=== PATIENT | female | born 1945 | race Caucasian/White ===

== ENCOUNTER 2019-11-15 18:50 | Outpatient (REF) | payer MEDICARE, SELFPAY ==
--- NOTE | 2019-11-15 | MR_ITS ---
EXAMINATION: MR ANGIOGRAPHY BRAIN WITHOUT CONTRAST CLINICAL INFORMATION: Cerebral aneurysm. COMPARISON: CT head from 03/25/2019. Brain MRI/MRA from 09/16/2017. TECHNIQUE: Routine MRA of the head was performed without intravenous contrast. A routine 3D [id number] of the head was utilized. 3D postprocessing including acquisition of multiplanar MIP reformats are obtained at the technologist workstation and utilized for image interpretation. FINDINGS: Normal flow-related signal within the intradural internal carotid arteries. Stable appearance of a medially projecting 0.2 cm saccular aneurysm versus infundibulum arising from the distal supraclinoid segment of the left internal carotid artery. Normal flow-related signal within the M1 segments of the middle cerebral arteries bilaterally. Stable anteroinferiorly projecting saccular aneurysm arising from the M1-M2 junction of the left MCA, measuring 0.6 cm. Normal arborization of the bilateral MCAs. Normal flow-related signal within the A1 segments of the anterior cerebral arteries bilaterally. Normal anterior communicating artery. Normal flow-related signal within the visualized distal segments of the ACAs. Normal appearance of the intradural vertebral arteries. 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 Similar patulous appearance of the basilar tip. Normal flow-related signal within the proximal superior cerebellar arteries. Normal appearance of the P1 and P2 segments of the posterior cerebral arteries bilaterally. Small posterior communicating arteries are demonstrated bilaterally. Limited evaluation of the intracranial structures is notable for chronic white matter disease. Proportional prominence of the ventricles and sulcal spaces similar to prior exams. IMPRESSION: MRA of the head without proximal occlusion or flow-limiting stenosis. No new intracranial aneurysms. 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 - Saccular aneurysm versus infundibulum along the distal supraclinoid segment of the left ICA, measuring 0.2 cm. 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 - Patulous appearance of the basilar tip.
== END 2019-11-15 18:51 | disposition home or self-care (01) ==
LOC: HO.MRI 18:50
PROVIDERS: PCP Internal Medicine; Visit Provider Physician Assistant Medical
DX: I67.1 Cerebral aneurysm, nonruptured (principal)
CPT/HCPCS: 70544

== ENCOUNTER → 2019-11-27 13:03 | Outpatient (BNVA) | payer MEDICARE, SELFPAY | PROVIDERS: PCP Internal Medicine; Visit Provider Internal Medicine | DX: I48.0 Paroxysmal atrial fibrillation (principal); Z51.81 Encounter for therapeutic drug level monitoring; Z79.01 Long term (current) use of 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s | CPT/HCPCS: 85610; 99211 ==

== ENCOUNTER → 2019-12-06 13:17 | Outpatient (BNVA) | payer MEDICARE, SELFPAY | PROVIDERS: PCP Internal Medicine; Visit Provider Internal Medicine | DX: I48.0 Paroxysmal atrial fibrillation (principal); Z51.81 Encounter for therapeutic drug level monitoring; Z79.01 Long term (current) use of 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s | CPT/HCPCS: 85610; 99211 ==

== ENCOUNTER → 2019-12-16 13:34 | Outpatient (BNVA) | payer MEDICARE, SELFPAY | PROVIDERS: PCP Internal Medicine; Visit Provider Internal Medicine | DX: I48.0 Paroxysmal atrial fibrillation (principal); Z51.81 Encounter for therapeutic drug level monitoring; Z79.01 Long term (current) use of 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s | CPT/HCPCS: 85610; 99211 ==

== ENCOUNTER → 2019-12-23 11:32 | Outpatient (BNVA) | payer MEDICARE, SELFPAY | PROVIDERS: PCP Internal Medicine; Visit Provider Internal Medicine | DX: I48.0 Paroxysmal atrial fibrillation (principal); Z51.81 Encounter for therapeutic drug level monitoring; Z79.01 Long term (current) use of 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s | CPT/HCPCS: 85610; 99211 ==

== ENCOUNTER → 2019-12-30 13:09 | Outpatient (BNVA) | payer MEDICARE, SELFPAY | PROVIDERS: PCP Internal Medicine; Visit Provider Internal Medicine | DX: I48.0 Paroxysmal atrial fibrillation (principal); Z51.81 Encounter for therapeutic drug level monitoring; Z79.01 Long term (current) use of 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s | CPT/HCPCS: 85610; 99211 ==

== ENCOUNTER → 2020-01-27 13:02 | Outpatient (BNVA) | payer MEDICARE, SELFPAY | PROVIDERS: PCP Internal Medicine; Visit Provider Internal Medicine | DX: I48.0 Paroxysmal atrial fibrillation (principal); Z51.81 Encounter for therapeutic drug level monitoring; Z79.01 Long term (current) use of 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s | CPT/HCPCS: 85610; 99211 ==

== ENCOUNTER → 2020-02-12 09:59 | Outpatient (BNVA) | payer MEDICARE, SELFPAY | PROVIDERS: PCP Internal Medicine; Visit Provider Internal Medicine | DX: I48.0 Paroxysmal atrial fibrillation (principal); R00.1 Bradycardia, unspecified; I63.40 Cerebral infarction due to embolism of unspecified cerebral artery; I10 Essential (primary) hypertension; Z79.899 Other long term (current) drug therapy; Z79.01 Long term (current) use of 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s; Z91.89 Other specified personal risk factors, not elsewhere classified | CPT/HCPCS: 93005; 99212 ==

== ENCOUNTER 2020-02-17 10:13 | Outpatient (REF) | payer MEDICARE, SELFPAY ==
[2020-02-17 11:54] LABS: TSH reflex Free T4 2.73 mIU/mL (0.32-4.0)
== END 2020-02-17 10:14 | disposition home or self-care (01) ==
LOC: HO.LAB 10:13
PROVIDERS: PCP Internal Medicine; Visit Provider Internal Medicine
DX: I48.0 Paroxysmal atrial fibrillation (principal); Z79.899 Other long term (current) drug therapy; Z91.89 Other specified personal risk factors, not elsewhere classified
CPT/HCPCS: 36415; 84443

== ENCOUNTER 2020-02-21 09:46 | Outpatient (REF) | payer MEDICARE, SELFPAY ==
--- NOTE | 2020-02-21 09:48 | CT_ITS ---
EXAMINATION: CT CHEST WITHOUT CONTRAST CLINICAL INFORMATION: Amiodarone toxicity. COMPARISON: None TECHNIQUE: Multidetector volumetric CT imaging of the chest was done. Axial MIP volume rendering provided. Sagittal and coronal reformatted images were obtained. This CT examination was performed using dose optimization techniques as appropriate, variously including the following: *Automated exposure control *Adjustment of mA and/or kV according to patient size (this includes techniques or standardized protocols for targeted exams where dose is matched to indication/reason for exam; i.e. 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 LUNGS: The lungs are hyperinflated but clear of acute pneumonic process. There is a 2 mm calcified nodule right middle lobe axial image 66/6. There is plate-like atelectasis left lower lobe anterobasal segment. No other lung nodules, mass or consolidation seen. MEDIASTINUM: The thyroid lobes are symmetrical and normal. The central trachea and bronchi are widely patent. There are numerous small mediastinal lymph nodes seen. The heart size and the great vessels are normal caliber. There are coronary artery calcifications present. No pericardial effusion seen. PLEURA: There is no pleural effusion. No pleural mass or thickening. AXILLA: No lymphadenopathy. UPPER ABDOMEN: The visualized liver, spleen, pancreas appear unremarkable. There is a solitary radiopaque gallstone without wall thickening. OSSEOUS STRUCTURES: There is mild ventral spondylosis. No lytic or sclerotic process seen. CT/CT chest wo con IMPRESSION: Hyperinflated lungs without acute process. There is a calcified 2 mm nodule right middle lobe. Minimal plate-like atelectasis left lung base. Coronary artery calcifications. Gallstone.
== END 2020-02-21 09:47 | disposition home or self-care (01) ==
LOC: HO.CT 09:46
PROVIDERS: PCP Internal Medicine; Visit Provider Internal Medicine
DX: Z79.899 Other long term (current) drug therapy (principal); Z91.89 Other specified personal risk factors, not elsewhere classified
CPT/HCPCS: 71250

== ENCOUNTER → 2020-02-24 13:09 | Outpatient (BNVA) | payer MEDICARE, SELFPAY | PROVIDERS: PCP Internal Medicine; Visit Provider Internal Medicine | DX: I48.0 Paroxysmal atrial fibrillation (principal); Z79.01 Long term (current) use of 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s; Z51.81 Encounter for therapeutic drug level monitoring | CPT/HCPCS: 85610; 99211 ==

== ENCOUNTER → 2020-02-28 09:38 | Outpatient (BNVA) | payer MEDICARE, SELFPAY | PROVIDERS: PCP Internal Medicine; Visit Provider Internal Medicine | DX: I48.0 Paroxysmal atrial fibrillation (principal); Z51.81 Encounter for therapeutic drug level monitoring; Z79.01 Long term (current) use of 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s | CPT/HCPCS: 85610; 99211 ==

== ENCOUNTER → 2020-03-13 12:56 | Outpatient (BNVA) | payer MEDICARE, SELFPAY | PROVIDERS: PCP Internal Medicine; Visit Provider Internal Medicine | DX: I48.0 Paroxysmal atrial fibrillation (principal); Z51.81 Encounter for therapeutic drug level monitoring; Z79.01 Long term (current) use of 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s | CPT/HCPCS: 85610; 99211 ==

== ENCOUNTER → 2020-04-03 13:01 | Outpatient (BNVA) | payer MEDICARE, SELFPAY | PROVIDERS: PCP Internal Medicine; Visit Provider Internal Medicine | DX: I48.0 Paroxysmal atrial fibrillation (principal); Z51.81 Encounter for therapeutic drug level monitoring; Z79.01 Long term (current) use of 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s | CPT/HCPCS: 85610; 99211 ==

== ENCOUNTER → 2020-04-24 13:14 | Outpatient (BNVA) | payer MEDICARE, SELFPAY | PROVIDERS: PCP Internal Medicine; Visit Provider Internal Medicine | DX: I48.0 Paroxysmal atrial fibrillation (principal); Z51.81 Encounter for therapeutic drug level monitoring; Z79.01 Long term (current) use of 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s | CPT/HCPCS: 85610; 99211 ==

== ENCOUNTER → 2020-05-07 10:25 | Outpatient (BNVA) | payer MEDICARE, SELFPAY | PROVIDERS: PCP Internal Medicine; Visit Provider Internal Medicine | DX: I48.0 Paroxysmal atrial fibrillation (principal); R00.1 Bradycardia, unspecified; I63.40 Cerebral infarction due to embolism of unspecified cerebral artery; I10 Essential (primary) hypertension; Z79.899 Other long term (current) drug therapy; Z79.01 Long term (current) use of 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s; Z91.89 Other specified personal risk factors, not elsewhere classified | CPT/HCPCS: 99212 ==

== ENCOUNTER → 2020-05-22 13:03 | Outpatient (BNVA) | payer MEDICARE, SELFPAY | PROVIDERS: PCP Internal Medicine; Visit Provider Internal Medicine | DX: I48.0 Paroxysmal atrial fibrillation (principal); Z79.01 Long term (current) use of 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s; Z51.81 Encounter for therapeutic drug level monitoring | CPT/HCPCS: 85610; 99211 ==

== ENCOUNTER → 2020-06-09 13:27 | Outpatient (BNVA) | payer MEDICARE, SELFPAY | PROVIDERS: PCP Internal Medicine; Visit Provider Internal Medicine | DX: I48.0 Paroxysmal atrial fibrillation (principal); Z51.81 Encounter for therapeutic drug level monitoring; Z79.01 Long term (current) use of 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s | CPT/HCPCS: 85610; 99211 ==

== ENCOUNTER 2020-06-10 16:00 | Outpatient (REF) | payer MEDICARE, SELFPAY ==
--- NOTE | ~2020-06-10 | XR_ITS ---
EXAMINATION: XR WRIST, LEFT CLINICAL INFORMATION: Left wrist pain. COMPARISON: None TECHNIQUE: PA, lateral, and oblique views of the left wrist. FINDINGS: There is hypertrophic deformity and hypertrophic bony distal radius likely related to old fracture. There is dorsal enthesophyte along the distal radius. Mild loss of radiocarpal joint space is noted. There is diffuse osteopenia. No acute fracture or dislocation seen. Moderate soft tissue swelling seen along the radial aspect of forearm. There is no scaphoid fracture seen on the scaphoid view. XR/XR wrist LT 2V IMPRESSION: Deformity and hypertrophic bony changes distal radius most likely from old healed fracture. There is mild dorsal and medial enthesophytes with mild medial radial soft tissue swelling. Mild osteopenia. No acute fracture or dislocation seen. Mild degenerative changes radiocarpal joint space is noted.
== END 2020-06-10 16:01 | disposition home or self-care (01) ==
LOC: HO.XRAY 16:00
PROVIDERS: PCP Internal Medicine; Visit Provider Internal Medicine
DX: M25.531 Pain in right wrist (principal)
CPT/HCPCS: 73100

== ENCOUNTER 2020-06-16 10:07 | Outpatient (REF) | payer MEDICARE, SELFPAY ==
[2020-06-16 11:17] LABS: MANUAL DIFF FLAG NO
[2020-06-16 11:30] LABS: Basophils Percent Auto 0.4 % (0-2); Eosinophils Absolute Auto 0.1 X10*3/uL (0.0-0.4); Eosinophils Percent Auto 0.7 % (0-4); Hemoglobin 13.7 g/dl (12.0-16.0); Imm Gran Abs Auto 0.03 X10*3/uL (0.00-0.03); Imm Gran Pct Auto 0.4 % (0.0-0.4); Lymphocytes Absolute Auto 2.7 X10*3/uL (1.2-4.9); Mean Corpuscular HGB Conc 32.6 g/dl (31.0-35.0); Mean Corpuscular Hemoglobin 28.9 pg (27.0-33.0); Mean Corpuscular Volume 88.6 fL (80-98); Mean Platelet Volume 10.3 fL (9.4-12.3); Monocytes Absolute Auto 0.8 X10*3/uL (0.1-1.2); Monocytes Percent Auto 9.2 % (2-11); Neutrophils Absolute Auto 4.6 X10*3/uL (2.0-8.3); Neutrophils Percent Auto 56.3 % (45-73); Platelet Count 310 X10*3/uL (160-400); Red Blood Count 4.74 X10*6/uL (4.20-5.50); Red Cell Distribution Width 14.1 % (11.0-16.0); White Blood Count 8.2 X10*3/uL (4.8-10.8)
[2020-06-16 12:00] LABS: Alanine Aminotransferase 8 U/L (0-31); Albumin Level 4.3 g/dL (3.5-5.0); Alkaline Phosphatase 97 U/L (39-117); Anion Gap 15 (12-20); Aspartate Amino Transferase 10 U/L (5-31); Bilirubin Direct 0.2 mg/dL (0.0-0.5); Bilirubin Total 0.5 mg/dL (0.0-1.0); Blood Urea Nitrogen 21 mg/dL (9-16); Carbon Dioxide 25 mmol/L (22-29); Chloride 103 mmol/L (96-108); Cholesterol 305 mg/dL; Estimated Glomerular Filt Rate 60; Glucose Fasting 83 mg/dL (60-99); HDL Cholesterol 70 mg/dL; LDL Cholesterol Calculated 204 mg/dl; Potassium 4.5 mmol/L (3.3-5.1); Sodium 138 mmol/L (135-145); Total Protein 7.3 g/dL (6.5-8.0); Triglycerides 156 mg/dL
[2020-06-16 12:10] LABS: Uric Acid 5.2 mg/dL (2.4-5.7)
== END 2020-06-16 10:08 | disposition home or self-care (01) ==
LOC: HO.LAB 10:07
PROVIDERS: Nurse Practitioner Family; Absent Provider Internal Medicine; PCP Internal Medicine; Visit Provider Internal Medicine
DX: M10.9 Gout, unspecified (principal); I48.0 Paroxysmal atrial fibrillation; Z79.01 Long term (current) use of 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s; Z51.81 Encounter for therapeutic drug level monitoring
CPT/HCPCS: 36415; 80048; 80061; 80076; 84550; 85025; 85610; 99211

== ENCOUNTER → 2020-06-23 14:55 | Outpatient (BNVA) | payer MEDICARE, SELFPAY | PROVIDERS: PCP Internal Medicine; Visit Provider Internal Medicine | DX: I48.0 Paroxysmal atrial fibrillation (principal); Z51.81 Encounter for therapeutic drug level monitoring; Z79.01 Long term (current) use of 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s | CPT/HCPCS: 85610; 99211 ==

== ENCOUNTER → 2020-06-30 10:43 | Outpatient (BNVA) | payer MEDICARE, SELFPAY | PROVIDERS: PCP Internal Medicine; Visit Provider Internal Medicine | DX: I48.0 Paroxysmal atrial fibrillation (principal); Z51.81 Encounter for therapeutic drug level monitoring; Z79.01 Long term (current) use of 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s | CPT/HCPCS: 85610; 99211 ==

== ENCOUNTER → 2020-07-13 10:42 | Outpatient (BNVA) | payer MEDICARE, SELFPAY | PROVIDERS: PCP Internal Medicine; Visit Provider Internal Medicine | DX: I48.0 Paroxysmal atrial fibrillation (principal); Z51.81 Encounter for therapeutic drug level monitoring; Z79.01 Long term (current) use of 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s | CPT/HCPCS: 85610; 99211 ==

== ENCOUNTER → 2020-07-20 10:55 | Outpatient (BNVA) | payer MEDICARE, SELFPAY | PROVIDERS: PCP Internal Medicine; Visit Provider Internal Medicine | DX: I48.0 Paroxysmal atrial fibrillation (principal); Z51.81 Encounter for therapeutic drug level monitoring; Z79.01 Long term (current) use of 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s | CPT/HCPCS: 85610; 99211 ==

== ENCOUNTER 2020-07-21 18:28 | Emergency (ER) | payer MEDICARE, SELFPAY ==
--- NOTE | 2020-07-21 07:42 | ECG_ITS ---
Test Reason : TACHYCARDIA Blood Pressure : / mmHG Vent. Rate : 144 BPM Atrial Rate : 144 BPM P-R Int : 120 ms QRS Dur : 084 ms QT Int : 332 ms P-R-T Axes : 000 -28 -17 degrees QTc Int : 514 ms Atrial fibrillation with rapid ventricular response Abnormal ECG When compared with ECG of 26-SEP-2019 09:55, Rhythm change Referred By: Clemente Sims Electronically Signed By:ESTHER BRIONES
[2020-07-21 18:49] VITALS: BP 114/87; PULSE 152; RESP 18; TEMP 36; O2SAT 95; BMI 25.0
--- NOTE | 2020-07-21 19:05 | ECG_ITS ---
Test Reason : AFIB Blood Pressure : / mmHG Vent. Rate : 064 BPM Atrial Rate : 064 BPM P-R Int : 184 ms QRS Dur : 092 ms QT Int : 458 ms P-R-T Axes : 063 -25 029 degrees QTc Int : 472 ms Sinus rhythm with Premature atrial complexes Otherwise normal ECG When compared with ECG of 21-JUL-2020 18:56, Rhythm change Referred By: Clemente Sims Electronically Signed By:ESTHER BRIONES
[2020-07-21 19:13] LABS: MANUAL DIFF FLAG NO
[2020-07-21 19:14] LABS: Basophils Percent Auto 0.4 % (0-2); Eosinophils Absolute Auto 0.1 X10*3/uL (0.0-0.4); Hematocrit 39.4 % (37-47); Hemoglobin 13.3 g/dl (12.0-16.0); Imm Gran Abs Auto 0.03 X10*3/uL (0.00-0.03); Imm Gran Pct Auto 0.3 % (0.0-0.4); Lymphocytes Absolute Auto 2.3 X10*3/uL (1.2-4.9); Lymphocytes Percent Auto 25.1 % (20-40); Mean Corpuscular HGB Conc 33.8 g/dl (31.0-35.0); Mean Corpuscular Hemoglobin 29.1 pg (27.0-33.0); Mean Corpuscular Volume 86.2 fL (80-98); Mean Platelet Volume 10.4 fL (9.4-12.3); Monocytes Absolute Auto 0.8 X10*3/uL (0.1-1.2); Monocytes Percent Auto 8.6 % (2-11); Neutrophils Absolute Auto 5.8 X10*3/uL (2.0-8.3); Neutrophils Percent Auto 64.6 % (45-73); Platelet Count 264 X10*3/uL (160-400); Red Blood Count 4.57 X10*6/uL (4.20-5.50); Red Cell Distribution Width 13.8 % (11.0-16.0)
--- NOTE | 2020-07-21 19:24 | ED_ITS ---
HPI - Chest Pain General Chief Complaint: Chest Pain Stated Complaint: afib Time Seen by Provider: 07/21/20 19:05 Source: patient Mode of arrival: ambulatory Limitations: no limitations History of Present Illness HPI narrative: Patient history of atrial fibrillation status post ablation done on 07/07 on flecainide 50 mg twice daily was doing okay since ablation today for last few hours been feeling dizzy lightheaded felt funny in her chest some pain in the left arm felt palpitations on arrival patient had a heart rate of 152 beats per min no syncope no diaphoresis Related Data Home Medications Medication Instructions Recorded Confirmed diltiazem HCl 240 mg 240 mg PO QAM 12/17/19 06/10/20 capsule,extended release 24 hr hydrochlorothiazide 25 mg tablet 25 mg PO DAILY 12/17/19 06/10/20 potassium chloride 10 mEq 10 meq PO DAILY 12/17/19 06/10/20 tablet,extended release primidone 50 mg tablet 50 mg PO BID 12/17/19 06/10/20 atorvastatin 20 mg tablet 20 mg PO DAILY 02/28/20 06/10/20 lisinopril 40 mg tablet 40 mg PO DAILY 02/28/20 06/10/20 flecainide 50 mg tablet 50 mg PO DAILY tab 07/13/20 metoprolol succinate 25 mg 25 mg PO DAILY tab 07/13/20 tablet,extended release 24 hr Previous Rx's Medication Instructions Recorded warfarin 2.5 mg tablet 2.5 mg PO DAILY #90 tab 11/20/19 hydralazine 25 mg tablet 25 mg PO TID #90 cap 06/23/20 pantoprazole 40 mg tablet,delayed 40 mg PO DAILY #90 tab 07/10/20 release Allergies Allergy/AdvReac Type Severity Reaction Status Date / Time No Known Allergies Allergy Mild NOT Verified 07/21/20 18:48 APPLICABLE Review of Systems Review of Systems: Constitutional : No Weight loss, No Fever, No Chills ENT/Mouth : No sore throat, No Rhinorrhea Eyes: No Eye Pain, No Swelling Cardiovascular : No Chest Pain, no palpitations Respiratory : No Cough, No Sputum, no shortness of breath Gastrointestinal : no Nausea, No Vomiting, No Diarrhea, No abdominal Pain, no black stools Genitourinary : No Dysuria, No Urinary Frequency Musculoskeletal : No joint pain, No Myalgias, No Joint Swelling Skin : No Skin Lesions, No rash Neuro : ++ Weakness, No Numbness, ++Dizziness, No Headache Psych : No Anxiety/Panic, No Depression Heme/Lymph: No Bruising, No Lymphadenopathy Endocrine : No Polyuria, No Polydipsia All other systems reviewed and are negative [facility] Past Medical History Medical History Annual physical exam 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 Embolic stroke Essential hypertension 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 of 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 PAF (paroxysmal atrial fibrillation) Sinus bradycardia Surgical History History of section History of colostomy Family History Family History Father CVD (cardiovascular disease) Mother Alzheimer disease Social History Social History Alcohol intake: never Patient Tobacco Use Status: Tobacco use Unknown Cigarettes Per Day: 3 Use of substances other than those prescribed or required for medical reasons: No Advance Directives: No Advance Directives Information Provided: No Physical Exam Vital Signs: Vital Signs: Last Vital Signs Temp 98.1 F 07/21/20 21:33 Pulse 62 07/21/20 21:33 Resp 16 07/21/20 21:33 BP 118/84 07/21/20 21:33 Pulse Ox 98 07/21/20 21:33 Body Mass Index 25.0 Appearance: Alert. Oriented X3. No acute distress. Eyes: PERRLA, No Nystagmus ENT: Pharynx normal. Oral Mucosa moist Neck: Normal inspection. Neck supple. CVS: Tachycardia with heart rate 133 irregular irregular Pulses normal. Respiratory: No respiratory distress. Equal air entry bilateral, no wheez ing/rales/rhonchi Abdomen: Soft and nontender. Bowel sounds are present, no mass palpable, no CVA tenderness Skin: Skin warm and dry. Normal skin color. Normal skin turgor. Extremities: No lower extremity edema. No calf tenderness Neuro: Oriented X 3. No motor deficit. No sensory deficit.No cerebellar signs , cranial nerves II-XII intact MDM - Chest Pain MDM Narrative Medical decision making narrative: Patient with AFib with rapid ventricular rate case discussed with Dr. Bhat display coordinator advised to give flexion at 200 mg as patient already on flecainide 19:50 his cardiac monitoring showing normal sinus rhythm patient received flecainide about 30 minutes ago with patient is feeling better now no chest pain no palpitation Medical Records Data Attestation: I reviewed the patient's medical records. Lab Data Attestation: I reviewed the patient's lab results. Result diagrams: 07/21/20 19:08 07/21/20 19:08 Labs: Lab Results 07/21/20 07/21/20 07/21/20 Range/Units 19:08 19:08 19:08 WBC 9.0 (4.8-10.8) X10*3/uL RBC 4.57 (4.20-5.50) X10*6/uL Hgb 13.3 (12.0-16.0) g/dl Hct 39.4 (37-47) % MCV 86.2 (80-98) fL MCH 29.1 (27.0-33.0) pg MCHC 33.8 (31.0-35.0) g/dl RDW 13.8 (11.0-16.0) % Plt Count 264 (160-400) X10*3/uL MPV 10.4 (9.4-12.3) fL Immature Gran % (Auto) 0.3 (0.0-0.4) % Neut % (Auto) 64.6 (45-73) % Lymph % (Auto) 25.1 (20-40) % Orange % (Auto) 8.6 (2-11) % Eos % (Auto) 1.0 (0-4) % Baso % (Auto) 0.4 (0-2) % Lymph # (Auto) 2.3 (1.2-4.9) X10*3/uL Orange # (Auto) 0.8 (0.1-1.2) X10*3/uL Eos # (Auto) 0.1 (0.0-0.4) X10*3/uL Baso # (Auto) 0.0 (0.0-0.2) X10*3/uL Abs Immat Gran (auto) 0.03 (0.00-0.03) X10*3/uL Absolute Neuts (auto) 5.8 (2.0-8.3) X10*3/uL Absolute Nucleated RBC 0.000 (0.0-0.012) X10*3/uL Nucleated RBC % (auto) 0.0 (0.0-0.2) /100WBC PT 24.4 H (10.8-13.0) SEC INR 2.0 H (0.9-1.1) Sodium 140 (135-145) mmol/L Potassium 4.4 (3.3-5.1) mmol/L Chloride 104 (96-108) mmol/L Carbon Dioxide 24 (22-29) mmol/L Anion Gap 16 (12-20) BUN 17 H (9-16) mg/dL Creatinine 1.06 (0.5-1.4) mg/dL Estim Creat Clear Calc 39.7 Estimated GFR 51 Random Glucose 102 (60-115) mg/dL Calcium 10.0 (8.4-10.2) mg/dL Troponin I High Sens (<3.5-17.0) ng/L 07/21/20 Range/Units 19:08 WBC (4.8-10.8) X10*3/uL RBC (4.20-5.50) X10*6/uL Hgb (12.0-16.0) g/dl Hct (37-47) % MCV (80-98) fL MCH (27.0-33.0) pg MCHC (31.0-35.0) g/dl RDW (11.0-16.0) % Plt Count (160-400) X10*3/uL MPV (9.4-12.3) fL Immature Gran % (Auto) (0.0-0.4) % Neut % (Auto) (45-73) % Lymph % (Auto) (20-40) % Orange % (Auto) (2-11) % Eos % (Auto) (0-4) % Baso % (Auto) (0-2) % Lymph # (Auto) (1.2-4.9) X10*3/uL Orange # (Auto) (0.1-1.2) X10*3/uL Eos # (Auto) (0.0-0.4) X10*3/uL Baso # (Auto) (0.0-0.2) X10*3/uL Abs Immat Gran (auto) (0.00-0.03) X10*3/uL Absolute Neuts (auto) (2.0-8.3) X10*3/uL Absolute Nucleated RBC (0.0-0.012) X10*3/uL Nucleated RBC % (auto) (0.0-0.2) /100WBC PT (10.8-13.0) SEC INR (0.9-1.1) Sodium (135-145) mmol/L Potassium (3.3-5.1) mmol/L Chloride (96-108) mmol/L Carbon Dioxide (22-29) mmol/L Anion Gap (12-20) BUN (9-16) mg/dL Creatinine (0.5-1.4) mg/dL Estim Creat Clear Calc Estimated GFR Random Glucose (60-115) mg/dL Calcium (8.4-10.2) mg/dL Troponin I High Sens 19.4 H* (<3.5-17.0) ng/L ECG Data ECG #1: Attestation: I personally reviewed and interpreted this ECG as follows: Interpretation: Atrial fibrillation with heart rate of 144 beats per minute no acute ST T wave changes no acute ischemia impression atrial fibrillation with rapid ventricular rate Discharge Plan Discharge Clinical Impression: Atrial fibrillation with rapid ventricular response Patient Disposition: Home, Self-Care Instructions: A-fib (Atrial Fibrillation) (ED) Additional Instructions: Increase the dose of flecainide to 100 mg twice daily And follow-up with display coordinator Prescriptions: No Action warfarin 2.5 mg tablet 2.5 mg PO DAILY Qty: 90 RF: 8 hydralazine 25 mg tablet 25 mg PO TID Qty: 90 RF: 5 pantoprazole 40 mg tablet,delayed release (DR/EC) 40 mg PO DAILY Qty: 90 RF: 8 flecainide 50 mg tablet 50 mg PO DAILY RF: 0 metoprolol succinate 25 mg tablet extended release 24 hr 25 mg PO DAILY RF: 0 primidone 50 mg tablet 50 mg PO BID RF: 0 potassium chloride 10 mEq tablet extended release 10 meq PO DAILY RF: 0 hydrochlorothiazide 25 mg tablet 25 mg PO DAILY RF: 0 diltiazem HCl 240 mg capsule,extended release 24hr 240 mg PO QAM RF: 0 lisinopril 40 mg tablet 40 mg PO DAILY RF: 0 atorvastatin 20 mg tablet 20 mg PO DAILY RF: 0 Interventions: ED Discharge Assessment Last Done: 07/21/20 21:34 Discharge Date/Time: 07/21/20 21:35
[2020-07-21] MEDS: Flecainide Acetate 50 MG TABLET 200 MG PO (19:32)
[2020-07-21 19:46] LABS: Troponin-I High Sensitivity 19.4 ng/L (<3.5-17.0)
[2020-07-21 19:47] LABS: Prothrombin Time 24.4 SEC (10.8-13.0)
[2020-07-21 19:51] LABS: Anion Gap 16 (12-20); Blood Urea Nitrogen 17 mg/dL (9-16); Carbon Dioxide 24 mmol/L (22-29); Chloride 104 mmol/L (96-108); Creatinine Clr Calc Pharmacy 39.7; Estimated Glomerular Filt Rate 51; Glucose Random 102 mg/dL (60-115); Potassium 4.4 mmol/L (3.3-5.1); Sodium 140 mmol/L (135-145)
[2020-07-21 21:33] VITALS: BP 118/84; PULSE 62; RESP 16; TEMP 36.7; O2SAT 98
== END 2020-07-21 21:35 | disposition home or self-care (01) ==
PROVIDERS: Emergency Provider Internal Medicine; PCP Internal Medicine
DX: I48.0 Paroxysmal atrial fibrillation (principal); I10 Essential (primary) hypertension; Z79.01 Long term (current) use of 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s; Z79.899 Other long term (current) drug therapy
CPT/HCPCS: 36415; 80048; 84484; 85025; 85610; 93005; 99284

== ENCOUNTER → 2020-07-27 11:15 | Outpatient (BNVA) | payer MEDICARE, SELFPAY | PROVIDERS: PCP Internal Medicine; Visit Provider Internal Medicine | DX: I48.0 Paroxysmal atrial fibrillation (principal); Z51.81 Encounter for therapeutic drug level monitoring; Z79.01 Long term (current) use of 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s | CPT/HCPCS: 85610; 99211 ==

== ENCOUNTER → 2020-08-05 13:05 | Outpatient (BNVA) | payer MEDICARE, SELFPAY | PROVIDERS: PCP Internal Medicine; Referring Provider Internal Medicine; Visit Provider Nurse Practitioner Family | DX: I48.0 Paroxysmal atrial fibrillation (principal); I10 Essential (primary) hypertension; R00.1 Bradycardia, unspecified; Z79.01 Long term (current) use of 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s | CPT/HCPCS: 93005; 99212 ==

== ENCOUNTER → 2020-08-17 11:08 | Outpatient (BNVA) | payer MEDICARE, SELFPAY | PROVIDERS: PCP Internal Medicine; Visit Provider Internal Medicine | DX: I48.0 Paroxysmal atrial fibrillation (principal); Z51.81 Encounter for therapeutic drug level monitoring; Z79.01 Long term (current) use of 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s | CPT/HCPCS: 85610; 99211 ==

== ENCOUNTER → 2020-08-21 09:41 | Outpatient (REF) | payer MEDICARE, SELFPAY ==
--- NOTE | ~2020-08-21 | NM_ITS ---
Myocardial perfusion study Indication: Atrial fibrillation to evaluate for myocardial ischemia for use of NI Technique: The patient was brought in for a Lexiscan perfusion study on 08/21/2020. Patient performed low-level exercise and was injected 0.4 mg of Lexiscan intravenously. Within a minute of injection, 25 mCi of sestamibi was given intravenously. Images were obtained using the SPECT gamma camera interlaced with the gating device. Images were obtained in supine position. Resting perfusion study was performed on 08/24/2020. Patient was administered 25 mCi of sestamibi intravenously at rest. Images were then obtained in supine position. Images obtained with and without CT attenuation. Total DLP 107 mGy-cm. Images were processed with the software and compared side to side in short axis, horizontal long axis and vertical long axis views. Findings: The stress perfusion study showed nonattenuated images show mildly reduced uptake in the lateral wall of the LV myocardium. Remainder of the LV myocardium is normally perfused. Attenuation corrected images show normalized uptake in all segments of LV myocardium. The gated study shows normal LV systolic function with calculated LVEF of greater than 70 %. LV cavity is normal in size. The gated study shows normal systolic wall thickening and contraction of segments. Resting study shows nonattenuated images show normal uptake of radiotracer in all segments of LV myocardium. Attenuation corrected images show normal uptake of radiotracer in all segments of LV myocardium. Gating at rest reveals normal systolic wall motion with ejection fraction at 70%. The findings are consistent with equivocal finding for mild intensity reversible defect of lateral wall. This is probably suggestive of ischemia. Findings are not seen on attenuated corrected images and could be possibly related to over correction. NM/NM kaylin perf SPECT rest & str Impression: 1. Myocardial perfusion imaging study shows possible lateral wall ischemia of mild intensity 2. Gated LVEF is 70% 3. Transient ischemic dilatation not present EKG is nondiagnostic for ischemia
--- NOTE | 2020-08-21 09:43 | CA_ITS ---
Acquisition Time: 2020-08-21 10:06:02 Total Exercise Time: 00:02:00 Test Indications: Ischemia Evaluation Medications: ATORVASTATIN FLECAINIDE HYDRALAZINE HCTZ LISINOPRIL PANTOPRAZOLE PRIMIDONE WARFARIN Protocol: LEXISCAN Max HR: 084 BPM 57% of Pred: 145 BPM Max BP: 156/068 mmHG Max Work Load: 1.0 METS Pharmacological stress test using Lexiscan while sitting and kicking her feet. Pt tolerated well, denies any anginal sx. Except for feeling SOB and nausea that was reversed with Aminophyline 75 mg IV. EKG without arrhythmias, non-diagnostic for ischemia. Test reviewed with Dr. Rincon Referred By: Lola Herbert Overread By: Marilyn Patterson NP
== END ==
LOC: HO.CARD 09:41
PROVIDERS: Visit Provider Internal Medicine
DX: I48.0 Paroxysmal atrial fibrillation (principal)
CPT/HCPCS: 78452; 93017; A9500; J0280; J2785

== ENCOUNTER → 2020-09-09 13:26 | Outpatient (BNVA) | payer MEDICARE, SELFPAY | PROVIDERS: PCP Internal Medicine; Referring Provider Internal Medicine; Visit Provider Internal Medicine | DX: I48.0 Paroxysmal atrial fibrillation (principal); I63.40 Cerebral infarction due to embolism of unspecified cerebral artery; I10 Essential (primary) hypertension; R00.1 Bradycardia, unspecified | CPT/HCPCS: 99212 ==

== ENCOUNTER → 2020-09-14 11:00 | Outpatient (BNVA) | payer MEDICARE, SELFPAY | PROVIDERS: PCP Internal Medicine; Visit Provider Internal Medicine | DX: I48.0 Paroxysmal atrial fibrillation (principal); Z79.01 Long term (current) use of 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s; Z51.81 Encounter for therapeutic drug level monitoring | CPT/HCPCS: 85610; 99211 ==

== ENCOUNTER → 2020-09-22 10:47 | Outpatient (REF) | payer MEDICARE, SELFPAY | LOC: HO.SL 10:47 | PROVIDERS: PCP Internal Medicine; Visit Provider Internal Medicine | DX: G47.33 Obstructive sleep apnea (adult) (pediatric) (principal) | CPT/HCPCS: 95806 ==

== ENCOUNTER → 2020-10-01 14:52 | Outpatient (BNVA) | payer MEDICARE, SELFPAY | PROVIDERS: PCP Internal Medicine; Visit Provider Internal Medicine | DX: I48.0 Paroxysmal atrial fibrillation (principal); Z51.81 Encounter for therapeutic drug level monitoring; Z79.01 Long term (current) use of 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s | CPT/HCPCS: 85610; 99211 ==

== ENCOUNTER → 2020-10-09 11:05 | Outpatient (BNVA) | payer MEDICARE, SELFPAY | PROVIDERS: PCP Internal Medicine; Visit Provider Internal Medicine | DX: I48.0 Paroxysmal atrial fibrillation (principal); Z51.81 Encounter for therapeutic drug level monitoring; Z79.01 Long term (current) use of 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s | CPT/HCPCS: 85610; 99211 ==

== ENCOUNTER → 2020-10-16 11:24 | Outpatient (BNVA) | payer MEDICARE, SELFPAY | PROVIDERS: PCP Internal Medicine; Visit Provider Internal Medicine | DX: I48.0 Paroxysmal atrial fibrillation (principal); Z51.81 Encounter for therapeutic drug level monitoring; Z79.01 Long term (current) use of 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s | CPT/HCPCS: 85610; 99211 ==

== ENCOUNTER 2020-10-23 10:40 | Outpatient (REF) | payer MEDICARE, SELFPAY ==
[2020-10-23 11:36] LABS: Hematocrit 37.3 % (37-47); Hemoglobin 12.5 g/dl (12.0-16.0); Mean Corpuscular HGB Conc 33.5 g/dl (31.0-35.0); Mean Corpuscular Hemoglobin 29.1 pg (27.0-33.0); Mean Corpuscular Volume 86.7 fL (80-98); Mean Platelet Volume 10.3 fL (9.4-12.3); Platelet Count 242 X10*3/uL (160-400); Red Cell Distribution Width 15.6 % (11.0-16.0)
[2020-10-23 12:24] LABS: Anion Gap 12 (12-20); Blood Urea Nitrogen 12 mg/dL (9-16); Calcium 9.8 mg/dL (8.4-10.2); Carbon Dioxide 26 mmol/L (22-29); Chloride 105 mmol/L (96-108); Estimated Glomerular Filt Rate 59; Glucose Random 104 mg/dL (60-115); Potassium 4.4 mmol/L (3.3-5.1); Sodium 139 mmol/L (135-145)
== END 2020-10-23 10:41 | disposition home or self-care (01) ==
LOC: HO.LAB 10:40
PROVIDERS: PCP Internal Medicine; Visit Provider Internal Medicine
DX: I48.0 Paroxysmal atrial fibrillation (principal); Z51.81 Encounter for therapeutic drug level monitoring; Z79.01 Long term (current) use of 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s
CPT/HCPCS: 36415; 80048; 85027; 85610; 99211

== ENCOUNTER → 2020-10-26 09:58 | Outpatient (BNVA) | payer MEDICARE, SELFPAY | PROVIDERS: PCP Internal Medicine; Visit Provider Internal Medicine | DX: I48.0 Paroxysmal atrial fibrillation (principal); Z51.81 Encounter for therapeutic drug level monitoring; Z79.01 Long term (current) use of 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s | CPT/HCPCS: 85610; 99211 ==

== ENCOUNTER 2020-10-28 12:12 | Emergency (ER) | payer MEDICARE, SELFPAY ==
[2020-10-28 12:26] VITALS: BP 165/79; PULSE 67; RESP 16; TEMP 36.6; O2SAT 98; BMI 24.8
--- NOTE | 2020-10-28 14:33 | ED.GENADULT ---
HPI - General Adult General Chief complaint: General Medical Stated complaint: black stool Time Seen by Provider: 10/28/20 14:32 Source: patient Mode of arrival: ambulatory Limitations: no limitations History of Present Illness HPI narrative: 75 y/o female with history of paroxysmal afib s/p ablation on Coumadin, HTN, CVA 2018 who presents to the ED with 2 weeks of black stools. She was seen on 10/24 in the office for the same - reported 3-4 weeks of this with fluctuating INR, was 4.4 and was held for 2 days. Repeat INR was then 1.6 on 10/26. She has been having 1-2 loose dark brown or black stools per day for almost one month. She has some intermittent diffuse abdominal cramping and nausea but no vomiting. She is fatigued and tired but has no SOB or chest pain. She denies history of GI bleed in the past. Last colonoscopy was >10 years ago. She last took Pepto Bismol once last week but her PCP told her to stop taking it. She denies NSAID or ETOH use. MD complaint: black stool Onset (ago): week(s) (3-4) Location: abdomen Radiation: non-radiation Severity: mild Severity scale (1-10): 4 Quality: other (cramping) Relieving factors: none Exacerbating factors: none Associated symptoms: malaise Treatments prior to arrival: none Related Data Home Medications Medication Instructions Recorded Confirmed potassium chloride 10 mEq 10 meq PO DAILY 12/17/19 10/28/20 tablet,extended release primidone 50 mg tablet 50 mg PO BID 12/17/19 10/28/20 atorvastatin 20 mg tablet 20 mg PO BEDTIME 02/28/20 10/28/20 lisinopril 40 mg tablet 40 mg PO DAILY 02/28/20 10/28/20 metoprolol succinate 25 mg 25 mg PO DAILY tab 07/13/20 10/28/20 tablet,extended release 24 hr pantoprazole 40 mg tablet,delayed 1 tab PO DAILY 10/28/20 10/28/20 release warfarin 2.5 mg tablet (Jantoven) 2.5 mg PO SUTUTHSA 10/28/20 10/28/20 warfarin 2.5 mg tablet (Jantoven) 5 mg PO MOWEFR 10/28/20 10/28/20 Previous Rx's Medication Instructions Recorded warfarin 2.5 mg tablet 2.5 mg PO DAILY #90 tab 11/20/19 hydralazine 25 mg tablet 25 mg PO TID #90 cap 06/23/20 flecainide 100 mg tablet 100 mg PO Q12H 90 Days #180 tab 08/12/20 carbamide peroxide 6.5 % ear drops 5 drp OTIC (EARS) DAILY 4 Days #18 10/15/20 (Debrox) ml Allergies Allergy/AdvReac Type Severity Reaction Status Date / Time No Known Allergies Allergy Mild NOT Verified 10/23/20 13:13 APPLICABLE Review of Systems Review of Systems: Constitutional: No Fever, No Chills ENT/Mouth: No sore throat, No Rhinorrhea, No Swallowing Difficulty Cardiovascular: No Chest Pain, No SOB, No Orthopnea, No Edema Respiratory: No Cough, No Sputum, No Wheezing, No dyspnea Gastrointestinal: + Nausea, No Vomiting, No Diarrhea, + abdominal Pain, No Hematochezia, + Melena Genitourinary: No Dysuria, No Urinary Frequency, No Hematuria Musculoskeletal: No joint pain, No Myalgias Skin: No Skin Lesions, No rash Neuro: No Weakness, No Numbness, No Dizziness, No Headache Psych: No Anxiety/Panic, No Depression Heme/Lymph: No Bruising, No Lymphadenopathy PMFSH Past Medical History Attestation statement: The following information was validated with the patient. 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 PAF (paroxysmal atrial fibrillation) Sinus bradycardia Surgical History History of cardiac radiofrequency ablation History of section History of colostomy Family History Family History Father CVD (cardiovascular disease) Mother Alzheimer disease Social History Social History Housing: House Alcohol intake: current Alcohol intake frequency: holidays/special occasions only Patient Tobacco Use Status: Current everyday Tobacco user Tobacco use type: Cigarette Cigarettes Per Day: 3 Second Hand Smoke Exposure: No Use of substances other than those prescribed or required for medical reasons: No Advance Directives: No Advance Directives Information Provided: No service: No Current occupational status: retired Physical Exam Vital Signs: Vital Signs: Last Vital Signs Temp 98 F 10/28/20 12:26 Pulse 52 10/28/20 14:44 Resp 20 10/28/20 14:44 BP 184/74 H 10/28/20 14:44 Pulse Ox 99 10/28/20 14:44 Body Mass Index 24.8 Appearance: Alert. Oriented X3. No acute distress. Eyes: Pupils equal, round and reactive to light. ENT: Pharynx normal. Neck: Normal inspection. Neck supple. CVS: Normal heart rate and rhythm. Pulses normal. Respiratory: No respiratory distress. Breath sounds normal. Abdomen: Soft and nontender. +BS x4. Dark brown stool on rectal exam Skin: Skin warm and dry. Normal skin color. Normal skin turgor. No rashes. Extremities: No lower extremity edema. Neuro: Oriented X 3. No motor deficit. No sensory deficit. Course Course Course Narrative: 75 y/o female presenting with dark stools for almost 1 month. She has some generalized fatigue but no other symptoms of acute blood loss. HR 60s on arrival with SBP 180. She reports intermittent abdominal cramping but no distinct pain. Exam is benign. Will check coags, CBC and occult stool. Reevaluation(s) Reevaluation #1: H/H is stable at her baseline of 12.4/37.4. INR is 2.4. Occult stool is negative. Her dark BM's do not seem to be related to GI bleed. ?dietary. She denies being on iron and her pepto bismol intake is rare. She does not appear to be acutely bleeding and she is stable for discharge home. Safe to continue warfarin. She is encouraged to f/u with her PCP and GI for further workup. Medical Decision Making Lab Data Result diagrams: 10/28/20 14:56 10/28/20 14:56 Labs: Lab Results 10/28/20 10/28/20 10/28/20 Range/Units 14:56 14:56 14:56 WBC 6.5 (4.8-10.8) X10*3/uL RBC 4.25 (4.20-5.50) X10*6/uL Hgb 12.4 (12.0-16.0) g/dl Hct 37.4 (37-47) % MCV 88.0 (80-98) fL MCH 29.2 (27.0-33.0) pg MCHC 33.2 (31.0-35.0) g/dl RDW 16.0 (11.0-16.0) % Plt Count 233 (160-400) X10*3/uL MPV 10.1 (9.4-12.3) fL Immature Gran % (Auto) 0.5 H (0.0-0.4) % Neut % (Auto) 53.9 (45-73) % Lymph % (Auto) 32.6 (20-40) % [place] % (Auto) 10.8 (2-11) % Eos % (Auto) 1.7 (0-4) % Baso % (Auto) 0.5 (0-2) % Lymph # (Auto) 2.1 (1.2-4.9) X10*3/uL [place] # (Auto) 0.7 (0.1-1.2) X10*3/uL Eos # (Auto) 0.1 (0.0-0.4) X10*3/uL Baso # (Auto) 0.0 (0.0-0.2) X10*3/uL Abs Immat Gran (auto) 0.03 (0.00-0.03) X10*3/uL Absolute Neuts (auto) 3.5 (2.0-8.3) X10*3/uL Absolute Nucleated RBC 0.000 (0.0-0.012) X10*3/uL Nucleated RBC % (auto) 0.0 (0.0-0.2) /100WBC PT 27.8 H (9.9-13.0) SEC INR 2.4 H (0.9-1.1) APTT 44.8 H (24.1-38.0) SEC Sodium 143 (135-145) mmol/L Potassium 4.1 (3.3-5.1) mmol/L Chloride 110 H (96-108) mmol/L Carbon Dioxide 25 (22-29) mmol/L Anion Gap 12 (12-20) BUN 13 (9-16) mg/dL Creatinine 0.83 (0.5-1.4) mg/dL Estim Creat Clear Calc 50.6 Estimated GFR > 60 Random Glucose 91 (60-115) mg/dL Calcium 9.7 (8.4-10.2) mg/dL Magnesium 2.0 (1.6-2.6) mg/dL Total Bilirubin 0.5 (0.0-1.0) mg/dL Direct Bilirubin 0.2 (0.0-0.5) mg/dL AST 12 (5-31) U/L ALT 9 (0-31) U/L Alkaline Phosphatase 96 (39-117) U/L Total Protein 6.7 (6.5-8.0) g/dL Albumin 4.1 (3.5-5.0) g/dL Stool Occult Blood (NEGATIVE) COVID-19 (HOA) (Negative) COVID-19 Clin Com 10/28/20 10/28/20 Range/Units 14:56 15:25 WBC (4.8-10.8) X10*3/uL RBC (4.20-5.50) X10*6/uL Hgb (12.0-16.0) g/dl Hct (37-47) % MCV (80-98) fL MCH (27.0-33.0) pg MCHC (31.0-35.0) g/dl RDW (11.0-16.0) % Plt Count (160-400) X10*3/uL MPV (9.4-12.3) fL Immature Gran % (Auto) (0.0-0.4) % Neut % (Auto) (45-73) % Lymph % (Auto) (20-40) % [place] % (Auto) (2-11) % Eos % (Auto) (0-4) % Baso % (Auto) (0-2) % Lymph # (Auto) (1.2-4.9) X10*3/uL [place] # (Auto) (0.1-1.2) X10*3/uL Eos # (Auto) (0.0-0.4) X10*3/uL Baso # (Auto) (0.0-0.2) X10*3/uL Abs Immat Gran (auto) (0.00-0.03) X10*3/uL Absolute Neuts (auto) (2.0-8.3) X10*3/uL Absolute Nucleated RBC (0.0-0.012) X10*3/uL Nucleated RBC % (auto) (0.0-0.2) /100WBC PT (9.9-13.0) SEC INR (0.9-1.1) APTT (24.1-38.0) SEC Sodium (135-145) mmol/L Potassium (3.3-5.1) mmol/L Chloride (96-108) mmol/L Carbon Dioxide (22-29) mmol/L Anion Gap (12-20) BUN (9-16) mg/dL Creatinine (0.5-1.4) mg/dL Estim Creat Clear Calc Estimated GFR Random Glucose (60-115) mg/dL Calcium (8.4-10.2) mg/dL Magnesium (1.6-2.6) mg/dL Total Bilirubin (0.0-1.0) mg/dL Direct Bilirubin (0.0-0.5) mg/dL AST (5-31) U/L ALT (0-31) U/L Alkaline Phosphatase (39-117) U/L Total Protein (6.5-8.0) g/dL Albumin (3.5-5.0) g/dL Stool Occult Blood NEGATIVE (NEGATIVE) COVID-19 (HOA) Negative (Negative) COVID-19 Clin Com See Note Discharge Plan Discharge Clinical Impression: Dark stools Patient Disposition: Home, Self-Care Instructions: Abdominal Pain (ED) Additional Instructions: Your blood counts are stable from your prior lab work. Your INR was 2.4. Your stool was tested today and did not have any blood. Your dark stools are most likely due to dietary changes, no evidence of bleeding was found today. Safe to continue to take your warfarin. Recommend following up with your PCP as well as GI - name and number listed below. If you develop new or worsening symptoms call 911 or come back to the ER for further evaluation. Prescriptions: No Action warfarin 2.5 mg tablet 2.5 mg PO DAILY Qty: 90 RF: 8 hydralazine 25 mg tablet 25 mg PO TID Qty: 90 RF: 5 metoprolol succinate 25 mg tablet extended release 24 hr 25 mg PO DAILY RF: 0 flecainide 100 mg tablet 100 mg PO Q12H 90 Days Qty: 180 RF: 0 carbamide peroxide [Debrox] 6.5 % drops 5 drp otic (ears) DAILY 4 Days Qty: 18 RF: 0 warfarin [Jantoven] 2.5 mg tablet 5 mg PO MOWEFR RF: 0 warfarin [Jantoven] 2.5 mg tablet 2.5 mg PO SUTUTHSA RF: 0 pantoprazole 40 mg tablet,delayed release (DR/EC) 1 tab PO DAILY RF: 0 primidone 50 mg tablet 50 mg PO BID RF: 0 potassium chloride 10 mEq tablet extended release 10 meq PO DAILY RF: 0 lisinopril 40 mg tablet 40 mg PO DAILY RF: 0 atorvastatin 20 mg tablet 20 mg PO BEDTIME RF: 0 Referrals: Yenni De Leon MD [Physician] - 1 week
[2020-10-28 14:44] VITALS: BP 184/74; PULSE 52; RESP 20; O2SAT 99
[2020-10-28 15:03] LABS: MANUAL DIFF FLAG NO
[2020-10-28 15:07] LABS: Basophils Percent Auto 0.5 % (0-2); Eosinophils Absolute Auto 0.1 X10*3/uL (0.0-0.4); Eosinophils Percent Auto 1.7 % (0-4); Hematocrit 37.4 % (37-47); Hemoglobin 12.4 g/dl (12.0-16.0); Imm Gran Abs Auto 0.03 X10*3/uL (0.00-0.03); Imm Gran Pct Auto 0.5 % (0.0-0.4); Lymphocytes Absolute Auto 2.1 X10*3/uL (1.2-4.9); Lymphocytes Percent Auto 32.6 % (20-40); Mean Corpuscular HGB Conc 33.2 g/dl (31.0-35.0); Mean Corpuscular Hemoglobin 29.2 pg (27.0-33.0); Mean Platelet Volume 10.1 fL (9.4-12.3); Monocytes Absolute Auto 0.7 X10*3/uL (0.1-1.2); Monocytes Percent Auto 10.8 % (2-11); Neutrophils Absolute Auto 3.5 X10*3/uL (2.0-8.3); Neutrophils Percent Auto 53.9 % (45-73); Platelet Count 233 X10*3/uL (160-400); Red Blood Count 4.25 X10*6/uL (4.20-5.50); White Blood Count 6.5 X10*3/uL (4.8-10.8)
--- NOTE | 2020-10-28 15:07 | PHA.MEDREC ---
Pharmacy Consult ? Medication Reconciliation Pharmacy has completed the medication reconciliation. Patient states they are still taking hydralazine, but on a medication list from 07/2020, it was absent. Thanks Karla Kennedy Pharm. D
[2020-10-28 15:13] LABS: INTERNATIONAL NORM RATIO 2.4 (0.9-1.1); Prothrombin Time 27.8 SEC (9.9-13.0)
[2020-10-28 15:16] LABS: Partial Thromboplastin Time 44.8 SEC (24.1-38.0)
[2020-10-28 15:24] LABS: Alanine Aminotransferase 9 U/L (0-31); Albumin Level 4.1 g/dL (3.5-5.0); Alkaline Phosphatase 96 U/L (39-117); Anion Gap 12 (12-20); Aspartate Amino Transferase 12 U/L (5-31); Bilirubin Direct 0.2 mg/dL (0.0-0.5); Bilirubin Total 0.5 mg/dL (0.0-1.0); Blood Urea Nitrogen 13 mg/dL (9-16); Calcium 9.7 mg/dL (8.4-10.2); Carbon Dioxide 25 mmol/L (22-29); Chloride 110 mmol/L (96-108); Creatinine Clr Calc Pharmacy 50.6; Estimated Glomerular Filt Rate > 60; Glucose Random 91 mg/dL (60-115); Potassium 4.1 mmol/L (3.3-5.1); Sodium 143 mmol/L (135-145); Total Protein 6.7 g/dL (6.5-8.0)
[2020-10-28 15:27] LABS: COVID-19 Test Negative (Negative); IDNOW Serial# 08D9AD1C
[2020-10-28 15:33] LABS: OBS Int Ctl Valid YES; OBS1 NEGATIVE (NEGATIVE)
== END 2020-10-28 16:11 | disposition home or self-care (01) ==
PROVIDERS: Physician Assistant; Emergency Provider Emergency Medicine; PCP Internal Medicine
DX: R19.5 Other fecal abnormalities (principal); R53.83 Other fatigue; I48.91 Unspecified atrial fibrillation; F17.210 Nicotine dependence, cigarettes, uncomplicated; Z20.822 Contact with and (suspected) exposure to COVID-19; Z71.6 Tobacco abuse counseling; Z79.899 Other long term (current) drug therapy; Z79.01 Long term (current) use of 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s
CPT/HCPCS: 36415; 80048; 80076; 82272; 83735; 85025; 85610; 85730; 87635; 99284

== ENCOUNTER → 2020-10-29 11:04 | Outpatient (BNVA) | payer MEDICARE, SELFPAY | PROVIDERS: PCP Internal Medicine; Visit Provider Internal Medicine | DX: I48.0 Paroxysmal atrial fibrillation (principal); Z51.81 Encounter for therapeutic drug level monitoring; Z79.01 Long term (current) use of 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s | CPT/HCPCS: Q3014 ==

== ENCOUNTER → 2020-11-06 11:24 | Outpatient (BNVA) | payer MEDICARE, SELFPAY | PROVIDERS: PCP Internal Medicine; Visit Provider Internal Medicine | DX: I48.0 Paroxysmal atrial fibrillation (principal); Z51.81 Encounter for therapeutic drug level monitoring; Z79.01 Long term (current) use of 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s | CPT/HCPCS: 85610; 99211 ==

== ENCOUNTER → 2020-11-09 14:01 | Outpatient (BNVA) | payer MEDICARE, SELFPAY | PROVIDERS: PCP Internal Medicine; Visit Provider Internal Medicine | DX: I48.0 Paroxysmal atrial fibrillation (principal); Z51.81 Encounter for therapeutic drug level monitoring; Z79.01 Long term (current) use of 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s | CPT/HCPCS: 85610; 99211 ==

== ENCOUNTER → 2020-11-19 11:30 | Outpatient (BNVA) | payer MEDICARE, SELFPAY | PROVIDERS: PCP Internal Medicine; Visit Provider Internal Medicine | DX: I48.0 Paroxysmal atrial fibrillation (principal); Z51.81 Encounter for therapeutic drug level monitoring; Z79.01 Long term (current) use of 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s | CPT/HCPCS: 85610; 99211 ==

== ENCOUNTER → 2020-11-26 11:26 | Outpatient (BNVA) | payer MEDICARE, SELFPAY | PROVIDERS: PCP Internal Medicine; Visit Provider Internal Medicine | DX: I48.0 Paroxysmal atrial fibrillation (principal); Z51.81 Encounter for therapeutic drug level monitoring; Z79.01 Long term (current) use of 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s | CPT/HCPCS: 85610; 99211 ==

== ENCOUNTER → 2020-12-10 11:40 | Outpatient (BNVA) | payer MEDICARE, SELFPAY | PROVIDERS: PCP Internal Medicine; Visit Provider Internal Medicine | DX: I48.0 Paroxysmal atrial fibrillation (principal); Z51.81 Encounter for therapeutic drug level monitoring; Z79.01 Long term (current) use of 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s | CPT/HCPCS: 85610; 99211 ==

== ENCOUNTER → 2020-12-21 09:38 | Outpatient (BNVA) | payer MEDICARE, SELFPAY | PROVIDERS: PCP Internal Medicine; Referring Provider Internal Medicine; Visit Provider Internal Medicine | DX: I48.0 Paroxysmal atrial fibrillation (principal); I63.40 Cerebral infarction due to embolism of unspecified cerebral artery; I10 Essential (primary) hypertension; E78.5 Hyperlipidemia, unspecified; R00.1 Bradycardia, unspecified | CPT/HCPCS: 93005; 99212 ==

== ENCOUNTER → 2020-12-24 11:32 | Outpatient (BNVA) | payer MEDICARE, SELFPAY | PROVIDERS: PCP Internal Medicine; Visit Provider Internal Medicine | DX: I48.0 Paroxysmal atrial fibrillation (principal); Z51.81 Encounter for therapeutic drug level monitoring; Z79.01 Long term (current) use of 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s | CPT/HCPCS: 85610; 99211 ==

== ENCOUNTER → 2021-01-05 11:12 | Outpatient (BNVA) | payer MEDICARE, SELFPAY | PROVIDERS: PCP Internal Medicine; Visit Provider Internal Medicine | DX: I48.0 Paroxysmal atrial fibrillation (principal); Z51.81 Encounter for therapeutic drug level monitoring; Z79.01 Long term (current) use of 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s | CPT/HCPCS: 85610; 99211 ==

== ENCOUNTER → 2021-01-26 11:13 | Outpatient (BNVA) | payer MEDICARE, SELFPAY | PROVIDERS: PCP Internal Medicine; Visit Provider Internal Medicine | DX: I48.0 Paroxysmal atrial fibrillation (principal); Z51.81 Encounter for therapeutic drug level monitoring; Z79.01 Long term (current) use of 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s | CPT/HCPCS: 85610; 99211 ==

== ENCOUNTER → 2021-02-03 11:31 | Outpatient (BNVA) | payer MEDICARE, SELFPAY | PROVIDERS: PCP Internal Medicine; Visit Provider Internal Medicine | DX: I48.0 Paroxysmal atrial fibrillation (principal); Z51.81 Encounter for therapeutic drug level monitoring; Z79.01 Long term (current) use of 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s | CPT/HCPCS: 85610; 99211 ==

== ENCOUNTER → 2021-02-17 11:18 | Outpatient (BNVA) | payer MEDICARE, SELFPAY | PROVIDERS: PCP Internal Medicine; Visit Provider Internal Medicine | DX: I48.0 Paroxysmal atrial fibrillation (principal); Z51.81 Encounter for therapeutic drug level monitoring; Z79.01 Long term (current) use of 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s | CPT/HCPCS: 85610; 99212 ==

== ENCOUNTER 2021-02-17 12:01 | Emergency (ER) | payer MEDICARE, SELFPAY ==
[2021-02-17 12:20] VITALS: BP 179/70; PULSE 73; RESP 18; TEMP 36.6; O2SAT 96; BMI 25.0
--- NOTE | 2021-02-17 23:40 | PC.NURSE ---
Roll call done in waiting room. There was no response to name being called 3 times Patient LWT
== END 2021-02-18 00:27 | disposition left against medical advice (07) ==
PROVIDERS: Emergency Provider Emergency Medicine; PCP Internal Medicine
DX: R53.1 Weakness (principal)
CPT/HCPCS: 99281; 99282

== ENCOUNTER 2021-02-19 12:56 | Outpatient (REF) | payer MEDICARE, SELFPAY ==
[2021-02-19 13:17] LABS: MANUAL DIFF FLAG NO
[2021-02-19 13:29] LABS: Basophils Percent Auto 0.5 % (0-2); Eosinophils Absolute Auto 0.1 X10*3/uL (0.0-0.4); Eosinophils Percent Auto 0.9 % (0-4); Hematocrit 41.3 % (37.0-47.0); Hemoglobin 13.6 g/dl (12.0-16.0); Imm Gran Abs Auto 0.04 X10*3/uL (0.00-0.03); Imm Gran Pct Auto 0.5 % (0.0-0.4); Lymphocytes Absolute Auto 1.6 X10*3/uL (1.2-4.9); Lymphocytes Percent Auto 18.2 % (20-40); Mean Corpuscular HGB Conc 32.9 g/dl (31.0-35.0); Mean Corpuscular Hemoglobin 27.9 pg (27.0-33.0); Mean Corpuscular Volume 84.8 fL (80.0-98.0); Mean Platelet Volume 10.5 fL (9.4-12.3); Monocytes Absolute Auto 0.8 X10*3/uL (0.1-1.2); Monocytes Percent Auto 8.7 % (2-11); Neutrophils Absolute Auto 6.3 x10*3/uL (2.0-8.3); Neutrophils Percent Auto 71.2 % (45-73); Platelet Count 299 X10*3/uL (160-400); Red Blood Count 4.87 X10*6/uL (4.20-5.50); Red Cell Distribution Width 14.4 % (11.0-16.0); White Blood Count 8.9 X10*3/uL (4.8-10.8)
[2021-02-19 14:01] LABS: B Type Natriuretic Peptide 226 pg/mL (<100)
[2021-02-19 14:03] LABS: Alanine Aminotransferase < 6 U/L (0-31); Albumin Level 3.8 g/dL (3.5-5.0); Alkaline Phosphatase 118 U/L (39-117); Anion Gap 15 (12-20); Aspartate Amino Transferase 9 U/L (5-31); Bilirubin Total 0.8 mg/dL (0.0-1.0); Blood Urea Nitrogen 9 mg/dL (9-16); Calcium 9.6 mg/dL (8.4-10.2); Carbon Dioxide 26 mmol/L (22-29); Chloride 104 mmol/L (96-108); Cholesterol 163 mg/dL; Estimated Glomerular Filt Rate > 60; Glucose Fasting 108 mg/dL (60-99); HDL Cholesterol 37 mg/dL; LDL Cholesterol Calculated 91 mg/dl; Potassium 3.8 mmol/L (3.3-5.1); Sodium 141 mmol/L (135-145); Total Protein 6.5 g/dL (6.5-8.0); Triglycerides 175 mg/dL
[2021-02-19 14:21] LABS: Thyroid Stimulating Hormone 1.12 uIU/mL (0.32-4.0)
== END 2021-02-19 12:57 | disposition home or self-care (01) ==
LOC: HO.LAB 12:56
PROVIDERS: PCP Internal Medicine; Visit Provider Internal Medicine
DX: Z00.00 Encounter for general adult medical examination without abnormal findings (principal); Z13.0 Encounter for screening for diseases of the blood and blood-forming organs and certain disorders involving the immune mechanism; I48.19 Other persistent atrial fibrillation; Z51.81 Encounter for therapeutic drug level monitoring; Z79.01 Long term (current) use of 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s; I50.9 Heart failure, unspecified; R51.9 Headache, unspecified
CPT/HCPCS: 36415; 80048; 80053; 80061; 83880; 84443; 85025; 85610; 99211

== ENCOUNTER → 2021-02-23 11:16 | Outpatient (BNVA) | payer MEDICARE, SELFPAY | PROVIDERS: PCP Internal Medicine; Visit Provider Internal Medicine ==

== ENCOUNTER 2021-02-24 08:33 | Outpatient (REF) | payer MEDICARE, SELFPAY ==
[2021-02-24 12:40] LABS: Prothrombin Time 35.5 SEC (9.9-13.0)
== END 2021-02-24 08:34 | disposition home or self-care (01) ==
LOC: HO.LHD 08:33
PROVIDERS: Visit Provider Internal Medicine
DX: I48.0 Paroxysmal atrial fibrillation (principal); Z51.81 Encounter for therapeutic drug level monitoring; Z79.01 Long term (current) use of 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s
CPT/HCPCS: 36415; 85610; Q3014

== ENCOUNTER → 2021-02-25 15:03 | Outpatient (BNVA) | payer MEDICARE, SELFPAY | PROVIDERS: PCP Internal Medicine; Visit Provider Internal Medicine | DX: I48.0 Paroxysmal atrial fibrillation (principal); Z51.81 Encounter for therapeutic drug level monitoring; Z79.01 Long term (current) use of 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s | CPT/HCPCS: 85610; 99211 ==

== ENCOUNTER → 2021-03-02 11:33 | Outpatient (BNVA) | payer MEDICARE, SELFPAY | PROVIDERS: PCP Internal Medicine; Visit Provider Internal Medicine | DX: I48.0 Paroxysmal atrial fibrillation (principal); Z51.81 Encounter for therapeutic drug level monitoring; Z79.01 Long term (current) use of 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s | CPT/HCPCS: 85610; 99211 ==

== ENCOUNTER → 2021-03-08 11:25 | Outpatient (BNVA) | payer MEDICARE, SELFPAY | PROVIDERS: PCP Internal Medicine; Visit Provider Internal Medicine | DX: I48.0 Paroxysmal atrial fibrillation (principal); Z51.81 Encounter for therapeutic drug level monitoring; Z79.01 Long term (current) use of 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s | CPT/HCPCS: 85610; 99211 ==

== ENCOUNTER → 2021-03-11 13:52 | Outpatient (BNVA) | payer MEDICARE, SELFPAY | PROVIDERS: PCP Internal Medicine; Visit Provider Internal Medicine | DX: I48.0 Paroxysmal atrial fibrillation (principal); Z51.81 Encounter for therapeutic drug level monitoring; Z79.01 Long term (current) use of 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s | CPT/HCPCS: 85610; 99211 ==

== ENCOUNTER → 2021-03-18 10:10 | Outpatient (BNVA) | payer MEDICARE, SELFPAY | PROVIDERS: PCP Internal Medicine; Visit Provider Internal Medicine | DX: I48.0 Paroxysmal atrial fibrillation (principal); Z51.81 Encounter for therapeutic drug level monitoring; Z79.01 Long term (current) use of 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s | CPT/HCPCS: 85610; 99211 ==

== ENCOUNTER → 2021-03-22 09:39 | Outpatient (BNVA) | payer MEDICARE, SELFPAY | PROVIDERS: PCP Internal Medicine; Referring Provider Internal Medicine; Visit Provider Internal Medicine | DX: I48.0 Paroxysmal atrial fibrillation (principal); I25.10 Atherosclerotic heart disease of native coronary artery without angina pectoris; I10 Essential (primary) hypertension; R00.1 Bradycardia, unspecified; E78.5 Hyperlipidemia, unspecified; Z86.73 Personal history of transient ischemic attack (TIA), and cerebral infarction without residual deficits | CPT/HCPCS: 99212 ==

== ENCOUNTER → 2021-03-25 13:54 | Outpatient (BNVA) | payer MEDICARE, SELFPAY | PROVIDERS: PCP Internal Medicine; Visit Provider Internal Medicine | DX: I48.0 Paroxysmal atrial fibrillation (principal); Z51.81 Encounter for therapeutic drug level monitoring; Z79.01 Long term (current) use of 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s | CPT/HCPCS: 85610; 99211 ==

== ENCOUNTER → 2021-04-05 13:01 | Outpatient (BNVA) | payer MEDICARE, SELFPAY | PROVIDERS: PCP Internal Medicine; Visit Provider Internal Medicine | DX: I48.0 Paroxysmal atrial fibrillation (principal); Z51.81 Encounter for therapeutic drug level monitoring; Z79.01 Long term (current) use of 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s | CPT/HCPCS: 85610; 99211 ==

== ENCOUNTER → 2021-04-08 10:25 | Outpatient (BNVA) | payer MEDICARE, SELFPAY | PROVIDERS: PCP Internal Medicine; Visit Provider Internal Medicine | DX: I48.0 Paroxysmal atrial fibrillation (principal); Z51.81 Encounter for therapeutic drug level monitoring; Z79.01 Long term (current) use of 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s | CPT/HCPCS: 85610; 99211 ==

== ENCOUNTER → 2021-04-26 10:28 | Outpatient (BNVA) | payer MEDICARE, SELFPAY | PROVIDERS: PCP Internal Medicine; Visit Provider Internal Medicine | DX: I48.0 Paroxysmal atrial fibrillation (principal); Z79.01 Long term (current) use of 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s; Z51.81 Encounter for therapeutic drug level monitoring | CPT/HCPCS: 85610; 99211 ==

== ENCOUNTER → 2021-05-17 10:54 | Outpatient (BNVA) | payer MEDICARE, SELFPAY | PROVIDERS: PCP Internal Medicine; Visit Provider Internal Medicine | DX: I48.0 Paroxysmal atrial fibrillation (principal); Z51.81 Encounter for therapeutic drug level monitoring; Z79.01 Long term (current) use of 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s | CPT/HCPCS: 85610; 99211 ==

== ENCOUNTER → 2021-05-20 10:23 | Outpatient (BNVA) | payer MEDICARE, SELFPAY | PROVIDERS: PCP Internal Medicine; Visit Provider Internal Medicine | DX: I48.19 Other persistent atrial fibrillation (principal); Z79.01 Long term (current) use of 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s; Z51.81 Encounter for therapeutic drug level monitoring | CPT/HCPCS: 85610; 99211 ==

== ENCOUNTER → 2021-05-25 10:30 | Outpatient (BNVA) | payer MEDICARE, SELFPAY | PROVIDERS: PCP Internal Medicine; Visit Provider Internal Medicine | DX: I48.0 Paroxysmal atrial fibrillation (principal); Z79.01 Long term (current) use of 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s; Z51.81 Encounter for therapeutic drug level monitoring | CPT/HCPCS: 85610; 99211 ==

== ENCOUNTER → 2021-06-08 10:41 | Outpatient (BNVA) | payer MEDICARE, SELFPAY | PROVIDERS: PCP Internal Medicine; Visit Provider Internal Medicine | DX: I48.0 Paroxysmal atrial fibrillation (principal); Z79.01 Long term (current) use of 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s; Z51.81 Encounter for therapeutic drug level monitoring | CPT/HCPCS: 85610; 99211 ==

== ENCOUNTER → 2021-06-22 11:27 | Outpatient (BNVA) | payer MEDICARE, SELFPAY | PROVIDERS: PCP Internal Medicine; Visit Provider Internal Medicine | DX: I48.0 Paroxysmal atrial fibrillation (principal); Z79.01 Long term (current) use of 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s; Z51.81 Encounter for therapeutic drug level monitoring | CPT/HCPCS: 85610; 99211 ==

== ENCOUNTER → 2021-07-06 11:19 | Outpatient (BNVA) | payer MEDICARE, SELFPAY | PROVIDERS: PCP Internal Medicine; Visit Provider Internal Medicine | DX: I48.0 Paroxysmal atrial fibrillation (principal); Z79.01 Long term (current) use of 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s; Z51.81 Encounter for therapeutic drug level monitoring | CPT/HCPCS: 85610; 99211 ==

== ENCOUNTER → 2021-07-20 11:00 | Outpatient (BNVA) | payer MEDICARE, SELFPAY | PROVIDERS: PCP Internal Medicine; Visit Provider Internal Medicine | DX: I48.0 Paroxysmal atrial fibrillation (principal); Z79.01 Long term (current) use of 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s; Z51.81 Encounter for therapeutic drug level monitoring | CPT/HCPCS: 85610; 99211 ==

== ENCOUNTER → 2021-08-03 10:53 | Outpatient (BNVA) | payer MEDICARE, SELFPAY | PROVIDERS: PCP Internal Medicine; Visit Provider Internal Medicine | DX: I48.0 Paroxysmal atrial fibrillation (principal); Z51.81 Encounter for therapeutic drug level monitoring; Z79.01 Long term (current) use of 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s | CPT/HCPCS: 85610; 99211 ==

== ENCOUNTER → 2021-08-11 13:17 | Outpatient (BNVA) | payer MEDICARE, SELFPAY | PROVIDERS: PCP Internal Medicine; Visit Provider Internal Medicine | DX: I48.0 Paroxysmal atrial fibrillation (principal); Z51.81 Encounter for therapeutic drug level monitoring; Z79.01 Long term (current) use of 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s | CPT/HCPCS: 85610; 99211 ==

== ENCOUNTER → 2021-08-25 13:25 | Outpatient (BNVA) | payer MEDICARE, SELFPAY | PROVIDERS: PCP Internal Medicine; Visit Provider Internal Medicine | DX: I48.0 Paroxysmal atrial fibrillation (principal); Z51.81 Encounter for therapeutic drug level monitoring; Z79.01 Long term (current) use of 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s | CPT/HCPCS: 85610; 99211 ==

== ENCOUNTER 2021-09-04 09:48 | Emergency (ER) | payer MEDICARE, SELFPAY ==
--- NOTE | ~2021-09-04 | XR_ITS ---
EXAMINATION: XR CHEST CLINICAL INFORMATION: Bradycardia. COMPARISON: Chest done on 09/25/2019. TECHNIQUE: Frontal view of the chest was obtained. FINDINGS: No significant abnormality is noted involving the heart, lungs, mediastinum, bony thorax or soft tissues. XR/XR chest 1V IMPRESSION: Unremarkable examination. No significant change.
--- NOTE | ~2021-09-04 | CT_ITS ---
EXAMINATION: CT HEAD WITHOUT CONTRAST CLINICAL INFORMATION: Dizziness. Nausea. COMPARISON: CT of the head done on 03/25/2019. TECHNIQUE: Contiguous axial imaging was performed from the skull base to vertex without intravenous administration of contrast. This CT examination was performed using dose optimization techniques as appropriate, variously including the following: *Automated exposure control *Adjustment of mA and/or kV according to patient size (this includes techniques or standardized protocols for targeted exams where dose is matched to indication/reason for exam; i.e. extremities or head) *Use of iterative reconstruction technique DLP: 742.2 mGy-cm FINDINGS: Interval development of a right-sided frontoparietal chronic appearing infarction is present however, its new since 03/25/2019. Bilateral chronic microvascular deep white matter ischemic changes are present (right greater than left), appear to have progressed since 03/25/2019. There is no evidence of acute intracranial hemorrhage or territorial infarction. No abnormal mass effect or midline shift is seen. No extra-axial fluid collections are identified. The ventricles are stable in size. The osseous structures and soft tissues are normal. The mastoid air cells and visualized portions of the paranasal sinuses are well aerated. CT/CT head/brain wo con IMPRESSION: 1. No acute intracranial pathology. 2. Right-sided chronic appearing frontoparietal infarction however, new since 03/25/2019. 3. Bilateral chronic appearing microvascular deep white matter ischemic changes (right greater than left) appear to have progressed since 03/25/2019.
[2021-09-04 09:56] VITALS: BP 154/68; PULSE 68; RESP 17; TEMP 36.6; O2SAT 98; BMI 23.2
--- NOTE | 2021-09-04 09:59 | ECG_ITS ---
Test Reason : DIZZY Blood Pressure : / mmHG Vent. Rate : 082 BPM Atrial Rate : 082 BPM P-R Int : 156 ms QRS Dur : 080 ms QT Int : 446 ms P-R-T Axes : 064 -34 055 degrees QTc Int : 521 ms Sinus rhythm with Blocked Premature atrial complexes Left axis deviation Septal infarct , age undetermined Prolonged QT Abnormal ECG When compared with ECG of 21-JUL-2020 20:41, Nonspecific T wave abnormality now evident in Lateral leads QT has lengthened Referred By: Generic ED Physician Electronically Signed By:ESTHER BRIONES
[2021-09-04 10:25] LABS: Basophils Absolute Auto 0.1 X10*3/uL (0.0-0.2); Basophils Percent Auto 0.9 % (0-2); Eosinophils Absolute Auto 0.1 X10*3/uL (0.0-0.4); Eosinophils Percent Auto 1.6 % (0-4); Hematocrit 41.6 % (37.0-47.0); Hemoglobin 13.9 g/dl (12.0-16.0); Imm Gran Abs Auto 0.01 X10*3/uL (0.00-0.03); Imm Gran Pct Auto 0.1 % (0.0-0.4); Lymphocytes Absolute Auto 1.8 X10*3/uL (1.2-4.9); MANUAL DIFF FLAG NO; Mean Corpuscular HGB Conc 33.4 g/dl (31.0-35.0); Mean Corpuscular Hemoglobin 29.2 pg (27.0-33.0); Mean Corpuscular Volume 87.4 fL (80.0-98.0); Mean Platelet Volume 10.3 fL (9.4-12.3); Monocytes Absolute Auto 0.7 X10*3/uL (0.1-1.2); Monocytes Percent Auto 10.3 % (2-11); Neutrophils Percent Auto 60.1 % (45-73); Platelet Count 247 X10*3/uL (160-400); Red Blood Count 4.76 X10*6/uL (4.20-5.50); Red Cell Distribution Width 14.3 % (11.0-16.0); White Blood Count 6.7 X10*3/uL (4.8-10.8)
[2021-09-04 10:26] LABS: Appearance Urine HAZY; Color Urine YELLOW; Glucose Urine UA NEG (NEG); Leukocyte Esterase Urine 1+ (NEG); Nitrite Urine NEG (NEG); Specific Gravity - Urine >= 1.030 (1.005-1.025); UACC Culture Trigger YES; Urine Blood NEG (NEG); Urine Ketones NEG (NEG); Urine Protein 2+ MG/DL (NEG-TRACE)
[2021-09-04 10:32] LABS: Mucus Urine 1+ /LPF; Renal Epithelial Cells Urine 1+ /LPF; Squamous Epithelial Cell Urine 1+ /LPF
[2021-09-04 10:33] LABS: RBC Urine 0 /HPF (0)
[2021-09-04 10:39] LABS: Anion Gap 14 (12-20); Blood Urea Nitrogen 25 mg/dL (9-16); Calcium 9.6 mg/dL (8.4-10.2); Carbon Dioxide 24 mmol/L (22-29); Chloride 105 mmol/L (96-108); Creatinine Clr Calc Pharmacy 35.4; Estimated Glomerular Filt Rate 50; Glucose Random 101 mg/dL (60-115); Potassium 3.9 mmol/L (3.3-5.1); Sodium 139 mmol/L (135-145)
[2021-09-04 10:42] LABS: COVID-19 Test Negative (Negative); IDNOW Serial# 08D9AD1C
[2021-09-04 10:47] LABS: Troponin-I High Sensitivity 8.1 ng/L (<3.5-17.0)
--- NOTE | 2021-09-04 14:34 | ED.GENADULT ---
HPI - General Adult General Chief complaint: General Medical Stated complaint: dizziness/nausea/BP up and down Time Seen by Provider: 09/04/21 13:57 Source: patient and family ( Daughter) Mode of arrival: ambulatory History of Present Illness HPI narrative: 76-year-old female with prior history of CVA, paroxysmal atrial fibrillation on Coumadin, presents with concerns that her blood pressure is higher than has been, she states she has been dizzy and unsteady on her feet for the past 2-3 weeks with associated nausea. Her symptoms are strong pedro in the morning but still persist intermittently throughout the day. She denies any associated fever, chills, shortness of breath, chest pain / palpitations and denies any vomiting, abdominal pain other than she said that sometime she was getting some pain in her lower abdomen. Otherwise, she denies any urinary burning or frequency. Related Data Home Medications Medication Instructions Recorded Confirmed potassium chloride 10 mEq 10 meq PO DAILY 12/17/19 08/02/21 tablet,extended release primidone 50 mg tablet 50 mg PO BID 12/17/19 08/02/21 Previous Rx's Medication Instructions Recorded atorvastatin 80 mg tablet 80 mg PO QPM #90 tabs 02/15/21 warfarin 2.5 mg tablet (Jantoven) See Rx Instructions PO .COMPLEX 05/13/21 #90 tabs hydralazine 25 mg tablet 25 mg PO TID #90 caps 09/01/21 lisinopril 40 mg tablet 40 mg PO DAILY #90 tabs 09/01/21 metoprolol succinate 25 mg 25 mg PO DAILY #90 tabs 09/01/21 tablet,extended release 24 hr Allergies Allergy/AdvReac Type Severity Reaction Status Date / Time No Known Allergies Allergy Mild NOT Verified 08/25/21 13:27 APPLICABLE Review of Systems Review of Systems: Pertinent positives and negatives as stated in HPI 10 point review of systems is otherwise negative. 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 PAF (paroxysmal atrial fibrillation) Sinus bradycardia Surgical History History of cardiac radiofrequency ablation (~06/01/21) History of section History of colostomy Family History Family History Father CVD (cardiovascular disease) Mother Alzheimer disease Social History Social History Housing: House Alcohol intake: current Alcohol intake frequency: holidays/special occasions only Patient Tobacco Use Status: Current everyday Tobacco user Tobacco use type: Cigarette Cigarettes Per Day: 2 e-Cigarette/Vaping Use: Never Used Second Hand Smoke Exposure: No Advance Directives: Yes Advance Directives on File: No service: No Current occupational status: retired Cognitive needs: Yes (cane) Hearing needs: No Vision needs: Yes (glasses) Physical Exam ED Vital Signs: Vital Signs - 24 hr 09/04/21 09:56 Temperature 98 F Pulse Rate 68 Respiratory Rate 17 Blood Pressure 154/68 H Pulse Oximetry 98 Oxygen Delivery Method Room Air BMI result Body Mass Index 23.2 VITAL SIGNS: Reviewed. GENERAL: elderly, fragile, in no acute distress. HEAD: Normocephalic/atraumatic EYES: PERRLA, EOMI EARS: Ext canals without abnormality OROPHARYNX: no oral lesions noted, posterior pharynx clear LUNGS: Normal breath sounds. No adventitious sounds or accessory muscle use. SpO2<98> CARDIOVASCULAR: Regular rate and rhythm without noted murmurs, no JVD or lower extremity edema. ABDOMEN: Soft, non-tender, non-distended with bowel sounds. MUSCULOSKELETAL: No tenderness, deformities, or effusions noted on gross inspection. EXTREMITIES: No cyanosis, clubbing or edema. SKIN: Inspection of the skin reveals no rashes NEUROLOGIC: Alert and oriented x 4. Strength and sensation to light touch were grossly intact x 4, no facial asymmetry, no pronator drift, cranial nerves 2-12 are grossly intact, unsteady gait but not using cane, patient reports feeling unsteady Course Course Course Narrative: 76-year-old female with history and clinical presentation of dizziness and and no evidence on review of all investigations of infection or anemia. Patient does ambulate with a cane at baseline and reports that her last INR was 3.1 a couple of days ago. She is noted to have a UTI she is noted have a UTI and will be treated, however will pursue CT scan of the head. Signed out to DR Duvall: f/u CT scan, INR Medical Decision Making Lab Data Result diagrams: 09/04/21 10:18 09/04/21 10:18 Labs: Lab Results 09/04/21 09/04/21 09/04/21 Range/Units 10:18 10:18 10:18 WBC 6.7 (4.8-10.8) X10*3/uL RBC 4.76 (4.20-5.50) X10*6/uL Hgb 13.9 (12.0-16.0) g/dl Hct 41.6 (37.0-47.0) % MCV 87.4 (80.0-98.0) fL MCH 29.2 (27.0-33.0) pg MCHC 33.4 (31.0-35.0) g/dl RDW 14.3 (11.0-16.0) % Plt Count 247 (160-400) X10*3/uL MPV 10.3 (9.4-12.3) fL Immature Gran % (Auto) 0.1 (0.0-0.4) % Neut % (Auto) 60.1 (45-73) % Lymph % (Auto) 27.0 (20-40) % [place] % (Auto) 10.3 (2-11) % Eos % (Auto) 1.6 (0-4) % Baso % (Auto) 0.9 (0-2) % Lymph # (Auto) 1.8 (1.2-4.9) X10*3/uL [place] # (Auto) 0.7 (0.1-1.2) X10*3/uL Eos # (Auto) 0.1 (0.0-0.4) X10*3/uL Baso # (Auto) 0.1 (0.0-0.2) X10*3/uL Abs Immat Gran (auto) 0.01 (0.00-0.03) X10*3/uL Absolute Neuts (auto) 4.0 (2.0-8.3) x10*3/uL Absolute Nucleated RBC 0.000 (0.0-0.012) X10*3/uL Nucleated RBC % (auto) 0.0 (0.0-0.2) /100WBC Sodium 139 (135-145) mmol/L Potassium 3.9 (3.3-5.1) mmol/L Chloride 105 (96-108) mmol/L Carbon Dioxide 24 (22-29) mmol/L Anion Gap 14 (12-20) BUN 25 H D (9-16) mg/dL Creatinine 1.07 (0.5-1.4) mg/dL Estim Creat Clear Calc 35.4 Estimated GFR 50 Random Glucose 101 (60-115) mg/dL Calcium 9.6 (8.4-10.2) mg/dL Troponin I High Sens 8.1 (<3.5-17.0) ng/L Urine Color Urine Appearance Urine pH (5.0-8.0) Ur Specific [place] (1.005-1.025) Urine Protein (NEG-TRACE) MG/DL Urine Glucose (UA) (NEG) MG/DL Urine Ketones (NEG) MG/DL Urine Blood (NEG) Urine Nitrite (NEG) Ur Leukocyte Esterase (NEG) Urine RBC (0) /HPF Urine WBC (0-4) /HPF Ur Squamous Epith Cells /LPF Ur Renal Epithelial Cell /LPF Urine Bacteria /LPF Urine Mucus /LPF COVID-19 (HOA) (Negative) COVID-19 Clin Com 09/04/21 09/04/21 Range/Units 10:18 10:18 WBC (4.8-10.8) X10*3/uL RBC (4.20-5.50) X10*6/uL Hgb (12.0-16.0) g/dl Hct (37.0-47.0) % MCV (80.0-98.0) fL MCH (27.0-33.0) pg MCHC (31.0-35.0) g/dl RDW (11.0-16.0) % Plt Count (160-400) X10*3/uL MPV (9.4-12.3) fL Immature Gran % (Auto) (0.0-0.4) % Neut % (Auto) (45-73) % Lymph % (Auto) (20-40) % [place] % (Auto) (2-11) % Eos % (Auto) (0-4) % Baso % (Auto) (0-2) % Lymph # (Auto) (1.2-4.9) X10*3/uL [place] # (Auto) (0.1-1.2) X10*3/uL Eos # (Auto) (0.0-0.4) X10*3/uL Baso # (Auto) (0.0-0.2) X10*3/uL Abs Immat Gran (auto) (0.00-0.03) X10*3/uL Absolute Neuts (auto) (2.0-8.3) x10*3/uL Absolute Nucleated RBC (0.0-0.012) X10*3/uL Nucleated RBC % (auto) (0.0-0.2) /100WBC Sodium (135-145) mmol/L Potassium (3.3-5.1) mmol/L Chloride (96-108) mmol/L Carbon Dioxide (22-29) mmol/L Anion Gap (12-20) BUN (9-16) mg/dL Creatinine (0.5-1.4) mg/dL Estim Creat Clear Calc Estimated GFR Random Glucose (60-115) mg/dL Calcium (8.4-10.2) mg/dL Troponin I High Sens (<3.5-17.0) ng/L Urine Color YELLOW Urine Appearance HAZY Urine pH 6.0 (5.0-8.0) Ur Specific [place] >= 1.030 H (1.005-1.025) Urine Protein 2+ H (NEG-TRACE) MG/DL Urine Glucose (UA) NEG (NEG) MG/DL Urine Ketones NEG (NEG) MG/DL Urine Blood NEG (NEG) Urine Nitrite NEG (NEG) Ur Leukocyte Esterase 1+ H (NEG) Urine RBC 0 (0) /HPF Urine WBC 5-9 H (0-4) /HPF Ur Squamous Epith Cells 1+ /LPF Ur Renal Epithelial Cell 1+ /LPF Urine Bacteria NONE /LPF Urine Mucus 1+ /LPF COVID-19 (HOA) Negative (Negative) COVID-19 Clin Com See Note Discharge Plan Discharge Clinical Impression: Dizziness, Acute UTI Patient Disposition: Still a Patient Prescriptions: No Action warfarin [Febtoven] 2.5 mg tablet See Rx Instructions PO .COMPLEX Qty: 90 8RF Protocol: Dose Management Condition: Monday (Week One) Dose/Route: 2.5 mg Instruction: 1 x 2.5 mg tablet Condition: Monday Dose/Route: 3.75 mg Instruction: 1.5 x 2.5 mg tablets Condition: Monday Dose/Route: 2.5 mg Instruction: 1 x 2.5 mg tablet Condition: Monday Dose/Route: 3.75 mg Instruction: 1.5 x 2.5 mg tablets Condition: Dose/Route: 2.5 mg Instruction: 1 x 2.5 mg tablet Condition: Monday Dose/Route: 3.75 mg Instruction: 1.5 x 2.5 mg tablets Condition: Monday Dose/Route: 2.5 mg Instruction: 1 x 2.5 mg tablet Condition: Monday (Week Two) Dose/Route: 2.5 mg Instruction: 1 x 2.5 mg tablet Condition: Monday Dose/Route: 3.75 mg Instruction: 1.5 x 2.5 mg tablets Condition: Monday Dose/Route: 2.5 mg Instruction: 1 x 2.5 mg tablet Condition: Monday Dose/Route: 3.75 mg Instruction: 1.5 x 2.5 mg tablets Condition: Dose/Route: 2.5 mg Instruction: 1 x 2.5 mg tablet Condition: Monday Dose/Route: 3.75 mg Instruction: 1.5 x 2.5 mg tablets Condition: Monday Dose/Route: 2.5 mg Instruction: 1 x 2.5 mg tablet Protocol Text: Adjustment Start Date: Monday08/25/21 INR Value: 2.0 INR Date: 08/25/21 Recheck Date: 09/15/21 Rx Instructions: 1 - 2 tablets daily per INR hydralazine 25 mg tablet 25 mg PO TID Qty: 90 5RF lisinopril 40 mg tablet 40 mg PO DAILY Qty: 90 8RF metoprolol succinate 25 mg tablet extended release 24 hr 25 mg PO DAILY Qty: 90 0RF primidone 50 mg tablet 50 mg PO BID potassium chloride 10 mEq tablet extended release 10 meq PO DAILY atorvastatin 80 mg tablet 80 mg PO QPM Qty: 90 4RF
[2021-09-04 15:09] LABS: INTERNATIONAL NORM RATIO 1.6 (0.9-1.1); Prothrombin Time 18.9 SEC (10.0-13.1)
[2021-09-04 15:19] LABS: Troponin-I High Sensitivity 7.8 ng/L (<3.5-17.0)
[2021-09-04] MEDS: cephALEXin 500 MG CAPSULE PO (15:23)
[2021-09-04 15:25] VITALS: BP 150/70; PULSE 61; RESP 12; O2SAT 95
[2021-09-04 16:35] VITALS: BP 163/67; PULSE 55
[2021-09-04 16:36] VITALS: BP 164/80; PULSE 56
[2021-09-04 16:37] VITALS: BP 167/71; PULSE 56
== END 2021-09-04 16:57 | disposition home or self-care (01) ==
PROVIDERS: Student in an Organized Health Care Education/Training Program; Emergency Provider Emergency Medicine; PCP Internal Medicine
DX: R42 Dizziness and giddiness (principal); N39.0 Urinary tract infection, site not specified; Z20.822 Contact with and (suspected) exposure to COVID-19; I10 Essential (primary) hypertension; E78.5 Hyperlipidemia, unspecified; I48.0 Paroxysmal atrial fibrillation; F17.210 Nicotine dependence, cigarettes, uncomplicated; Z79.01 Long term (current) use of 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s; Z79.02 Long term (current) use of antithrombotics/antiplatelets; Z79.899 Other long term (current) drug therapy
CPT/HCPCS: 36415; 70450; 71045; 80048; 81001; 84484; 85025; 85610; 87086; 87635; 93005; 99285

== ENCOUNTER → 2021-09-06 12:23 | Outpatient (BNVA) | payer MEDICARE, SELFPAY | PROVIDERS: PCP Internal Medicine; Visit Provider Internal Medicine | DX: I48.0 Paroxysmal atrial fibrillation (principal); Z79.01 Long term (current) use of 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s; Z51.81 Encounter for therapeutic drug level monitoring | CPT/HCPCS: Q3014 ==

== ENCOUNTER → 2021-09-07 09:50 | Outpatient (BNVA) | payer MEDICARE, SELFPAY | PROVIDERS: PCP Internal Medicine; Referring Provider Internal Medicine; Visit Provider Internal Medicine | DX: I48.0 Paroxysmal atrial fibrillation (principal); R00.1 Bradycardia, unspecified; I63.40 Cerebral infarction due to embolism of unspecified cerebral artery; I25.10 Atherosclerotic heart disease of native coronary artery without angina pectoris; I10 Essential (primary) hypertension; E78.5 Hyperlipidemia, unspecified; R11.0 Nausea | CPT/HCPCS: 99212 ==

== ENCOUNTER → 2021-09-13 07:22 | Outpatient (REF) | payer MEDICARE, SELFPAY ==
--- NOTE | 2021-09-13 07:25 | CA_ITS ---
Transthoracic Echocardiogram Patient (Last, First, Middle): Charlene Martin M Gender: Female Date of : 1945 Age: 76 Procedure Date: 09/13/2021 Procedure Type: Transthoracic Echocardiogram Location: OP Height: 157.48 cm Weight: 58.51 kg BSA: 1.59 m2 Heart Rate: bpm BP: 150 / 90 mmHg Cmo & President: TO Referring MD: Javy Bhat MD Symptoms: I48.0 - Paroxysmal atrial fibrillation Study Quality: Fair ECG Rhythm: Sinus Conclusions: - The left ventricular systolic function is normal. The calculated ejection fraction is 60% by biplane method. - There is moderate calcification of the aortic valve. There is mild aortic valve stenosis. - There is moderate mitral annular calcification. There is mild mitral valve regurgitation. - There is mild tricuspid valve regurgitation. Findings Left Ventricle Normal left ventricular cavity size. There is mildly increased left ventricular wall thickness. The left ventricular systolic function is normal. The calculated ejection fraction is 60% by biplane method. There is no evidence of regional wall motion abnormalities. Diastolic function is indeterminate on the basis of available data. There is severe septal asymmetric hypertrophy. Right Ventricle Normal right ventricular cavity size. There is mildly decreased right ventricular systolic function. Atria The left atrium is severely dilated. The right atrium is normal in size. Aortic Valve There is moderate calcification of the aortic valve. There is mild aortic valve stenosis. The mean gradient is 10 mmHg. The aortic valve area is 1.93 cm2. There is no aortic valve regurgitation. Mitral Valve There is moderate mitral annular calcification. There is mild mitral valve regurgitation. There is no mitral valve stenosis. Pulmonic Valve The pulmonic valve was not well visualized. Tricuspid Valve Normal tricuspid valve structure. There is mild tricuspid valve regurgitation. The pulmonary artery systolic pressure is normal. Great Vessels The aortic annulus, sinuses of valsalva, and asc aorta are normal in size. Venous The inferior vena cava is normal in size and collapses greater than 50% with inspiration. Pericardium/Pleural There is no evidence of pericardial effusion. Prior Study Comparison No significant change compared to prior study dated: 09/25/2019. Progression of valvular calcification. Measurements 2D Linear Measurements IVSd: 1.62 0.6-0.9/0.6-1.0 cm LVIDd: 3.72 3.9-5.3/4.2-5.9 cm LVIDd Index: 2.34 2.4-3.2/2.2-3.1 cm/m2 LVIDs: 2.46 2.0-3.6 cm LVPWd: 1.11 0.7-1.1 cm LA Diam: 3.90 2.7-3.8/3.0-4.0 cm LAIDs Index: 2.45 1.5-2.3 cm/m2 LV Mass: 225.53 67-162/88-224 g LV Mass Index: 141.84 43-95/49-115 g/m2 LVOT Diam: 2.10 3.0+(-)1.3 cm 2D Systolic Function EF 4C: 62.10 >55% EF 2C: 59.30 >55% EF BiP: 59.50 >55% Mitral Valve MV VTI: 0.50 MV Pk Yamil: 1.39 MV Mn Yamil: 0.65 MV Pk Grad: 8.00 MV Mn Grad: 2.00 MV Pk E: 1.09 MV PK A: 1.01 MV Decel Time: 342.00 E/A: 1.10 E'Lateral: 5.22 E'Medial: 4.35 E/E' Med: 25.10 E/E' Lat: 20.90 PHT: 100.00 MVA PHT: 2.20 MVA Continuity: 2.22 Decel [place]: 3.17 Aortic Valve AoV Pk Yamil: 2.23 AoV Mn Yamil: 1.47 AoV VTI: 0.58 AoV Pk Grad: 20.00 Aov Mn Grad: 10.00 CAILIN Cont.VTI: 1.93 LVOT LVOT Pk Yamil: 1.23 LVOT Mn Yamil: 0.75 LVOT VTI: 0.32 LVOT Pk Grad: 6.00 LVOT Mn Grad: 3.00 LVOT Diam: 2.10 LVOT Area: 3.46 Diastolic Function MV Pk E: 1.09 MV Pk A: 1.01 E/A: 1.10 E'Medial: 4.35 E/E' Med: 25.10 E' Laterial: 5.22 E/E' Lat: 20.90 Right Ventricle TAPSE (mm): 15.00 TVS' Yamil: 11.90 Tricuspid Valve TR Pk Yamil: 2.77 TR Pk Grad: 31.00 RA Press: 3.00 RVSP: 34.00 Great Vessels Aorta Sinus of Valsalva: 3.47 2.0-3.[address] [place]: 3.45 1.7-3.4 cm Ao Asc: 3.50 2.1-3.4 cm Updated in Other Vendor System with Status of Final Javy Bhat MD electronically signed on 09/13/2021 11:44:15 AM with status of Final
--- NOTE | 2021-09-13 07:25 | HM_ITS ---
* Total monitoring time 6 days and 13 hours. * Underlying rhythm is sinus. Average rate 59/Min. Range 41 to 84/Min. * No atrial fibrillation or flutter or AV blocks or pauses. * Frequent supraventricular ectopy. Dunbar of 22%. Several short episodes; longest 22 beats. * Rare ventricular ectopy with minimal burden. * No patient events. MTDD
== END ==
LOC: HO.CARD 07:22
PROVIDERS: PCP Internal Medicine; Visit Provider Internal Medicine
DX: I48.0 Paroxysmal atrial fibrillation (principal)
CPT/HCPCS: 93242; 93306

== ENCOUNTER → 2021-09-15 11:22 | Outpatient (BNVA) | payer MEDICARE, SELFPAY | PROVIDERS: PCP Internal Medicine; Visit Provider Internal Medicine | DX: I48.0 Paroxysmal atrial fibrillation (principal); Z79.01 Long term (current) use of 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s; Z51.81 Encounter for therapeutic drug level monitoring | CPT/HCPCS: 85610; 99211 ==

== ENCOUNTER 2021-09-20 10:11 | Outpatient (REF) | payer MEDICARE, SELFPAY ==
[2021-09-20 10:41] LABS: MANUAL DIFF FLAG NO
[2021-09-20 11:31] LABS: Basophils Percent Auto 0.5 % (0-2); Eosinophils Absolute Auto 0.1 X10*3/uL (0.0-0.4); Eosinophils Percent Auto 1.4 % (0-4); Hematocrit 38.7 % (37.0-47.0); Imm Gran Abs Auto 0.02 X10*3/uL (0.00-0.03); Imm Gran Pct Auto 0.3 % (0.0-0.4); Lymphocytes Absolute Auto 1.8 X10*3/uL (1.2-4.9); Lymphocytes Percent Auto 28.5 % (20-40); Mean Corpuscular HGB Conc 33.6 g/dl (31.0-35.0); Mean Corpuscular Hemoglobin 29.5 pg (27.0-33.0); Mean Corpuscular Volume 87.8 fL (80.0-98.0); Mean Platelet Volume 11.1 fL (9.4-12.3); Monocytes Absolute Auto 0.6 X10*3/uL (0.1-1.2); Monocytes Percent Auto 9.1 % (2-11); Neutrophils Absolute Auto 3.9 x10*3/uL (2.0-8.3); Neutrophils Percent Auto 60.2 % (45-73); Platelet Count 210 X10*3/uL (160-400); Red Blood Count 4.41 X10*6/uL (4.20-5.50); Red Cell Distribution Width 13.6 % (11.0-16.0); White Blood Count 6.5 X10*3/uL (4.8-10.8)
[2021-09-20 12:14] LABS: Appearance Urine HAZY; Color Urine YELLOW; Glucose Urine UA NEG (NEG); Leukocyte Esterase Urine NEG (NEG); Nitrite Urine NEG (NEG); Urine Blood NEG (NEG); Urine Ketones NEG (NEG); Urine Protein 2+ MG/DL (NEG-TRACE)
[2021-09-20 12:22] LABS: Anion Gap 15 (12-20); Blood Urea Nitrogen 13 mg/dL (9-16); Calcium 9.1 mg/dL (8.4-10.2); Carbon Dioxide 22 mmol/L (22-29); Chloride 108 mmol/L (96-108); Estimated Glomerular Filt Rate > 60; Glucose Random 79 mg/dL (60-115); Potassium 3.7 mmol/L (3.3-5.1); Sodium 141 mmol/L (135-145)
[2021-09-20 12:46] LABS: Bacteria Urine TRACE /LPF; Granular Casts Urine 0-2 /LPF; Hyaline Casts Urine 0-2 /LPF; Mucus Urine 1+ /LPF; RBC Urine 0 /HPF (0); Squamous Epithelial Cell Urine 3+ /LPF; WBC Urine 0-2 /HPF (0-4)
== END 2021-09-20 10:12 | disposition home or self-care (01) ==
LOC: HO.LAB 10:11
PROVIDERS: PCP Internal Medicine; Visit Provider Internal Medicine
DX: E03.9 Hypothyroidism, unspecified (principal); I48.0 Paroxysmal atrial fibrillation; R51.9 Headache, unspecified; N39.0 Urinary tract infection, site not specified; Z13.0 Encounter for screening for diseases of the blood and blood-forming organs and certain disorders involving the immune mechanism; Z51.81 Encounter for therapeutic drug level monitoring; Z79.01 Long term (current) use of 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s
CPT/HCPCS: 36415; 80048; 81001; 81003; 84443; 85025; 85610; 99211

== ENCOUNTER → 2021-10-04 10:26 | Outpatient (BNVA) | payer MEDICARE, SELFPAY | PROVIDERS: PCP Internal Medicine; Visit Provider Internal Medicine | DX: I48.0 Paroxysmal atrial fibrillation (principal); Z51.81 Encounter for therapeutic drug level monitoring; Z79.01 Long term (current) use of 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s | CPT/HCPCS: 85610; 99211 ==

== ENCOUNTER → 2021-10-18 10:26 | Outpatient (BNVA) | payer MEDICARE, SELFPAY | PROVIDERS: PCP Internal Medicine; Visit Provider Internal Medicine | DX: I48.0 Paroxysmal atrial fibrillation (principal); Z51.81 Encounter for therapeutic drug level monitoring; Z79.01 Long term (current) use of 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s | CPT/HCPCS: 85610; 99211 ==

== ENCOUNTER → 2021-11-01 13:20 | Outpatient (BNVA) | payer MEDICARE, SELFPAY | PROVIDERS: PCP Internal Medicine; Visit Provider Internal Medicine | DX: I48.0 Paroxysmal atrial fibrillation (principal); I63.40 Cerebral infarction due to embolism of unspecified cerebral artery; R00.1 Bradycardia, unspecified; I25.10 Atherosclerotic heart disease of native coronary artery without angina pectoris; I35.0 Nonrheumatic aortic (valve) stenosis; I05.9 Rheumatic mitral valve disease, unspecified; I10 Essential (primary) hypertension; E78.5 Hyperlipidemia, unspecified; Z79.01 Long term (current) use of 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s; Z51.81 Encounter for therapeutic drug level monitoring | CPT/HCPCS: 85610; 99211; 99212 ==

== ENCOUNTER → 2021-11-19 11:35 | Outpatient (BNVA) | payer MEDICARE, SELFPAY | PROVIDERS: PCP Internal Medicine; Visit Provider Internal Medicine | DX: I48.0 Paroxysmal atrial fibrillation (principal); Z79.01 Long term (current) use of 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s; Z51.81 Encounter for therapeutic drug level monitoring | CPT/HCPCS: 85610; 99211 ==

== ENCOUNTER → 2021-12-03 11:30 | Outpatient (BNVA) | payer MEDICARE, SELFPAY | PROVIDERS: PCP Internal Medicine; Visit Provider Internal Medicine | DX: I48.0 Paroxysmal atrial fibrillation (principal); Z79.01 Long term (current) use of 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s; Z51.81 Encounter for therapeutic drug level monitoring | CPT/HCPCS: 85610; 99211 ==

== ENCOUNTER → 2021-12-07 11:15 | Outpatient (BNVA) | payer MEDICARE, SELFPAY | PROVIDERS: PCP Internal Medicine; Visit Provider Internal Medicine | DX: I48.0 Paroxysmal atrial fibrillation (principal); Z79.01 Long term (current) use of 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s; Z51.81 Encounter for therapeutic drug level monitoring | CPT/HCPCS: 85610; 99211 ==

== ENCOUNTER → 2021-12-21 11:14 | Outpatient (BNVA) | payer MEDICARE, SELFPAY | PROVIDERS: PCP Internal Medicine; Visit Provider Internal Medicine | DX: I48.0 Paroxysmal atrial fibrillation (principal); Z79.01 Long term (current) use of 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s; Z51.81 Encounter for therapeutic drug level monitoring | CPT/HCPCS: 85610; 99211 ==

== ENCOUNTER → 2022-01-04 11:19 | Outpatient (BNVA) | payer MEDICARE, SELFPAY | PROVIDERS: PCP Internal Medicine; Visit Provider Internal Medicine | DX: I48.0 Paroxysmal atrial fibrillation (principal); Z79.01 Long term (current) use of 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s; Z51.81 Encounter for therapeutic drug level monitoring | CPT/HCPCS: 85610; 99211 ==

== ENCOUNTER → 2022-01-25 11:36 | Outpatient (BNVA) | payer MEDICARE, SELFPAY | PROVIDERS: PCP Internal Medicine; Visit Provider Internal Medicine | DX: I48.0 Paroxysmal atrial fibrillation (principal); Z79.01 Long term (current) use of 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s; Z51.81 Encounter for therapeutic drug level monitoring | CPT/HCPCS: 85610; 99211 ==

== ENCOUNTER → 2022-02-08 11:28 | Outpatient (BNVA) | payer MEDICARE, SELFPAY | PROVIDERS: PCP Internal Medicine; Visit Provider Internal Medicine | DX: I48.0 Paroxysmal atrial fibrillation (principal); Z79.01 Long term (current) use of 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s; Z51.81 Encounter for therapeutic drug level monitoring | CPT/HCPCS: 85610; 99211 ==

== ENCOUNTER → 2022-02-22 11:26 | Outpatient (REF) | payer MEDICARE, SELFPAY ==
--- NOTE | 2022-02-22 12:00 | ECG_ITS ---
Test Reason : fatigue Blood Pressure : / mmHG Vent. Rate : 078 BPM Atrial Rate : 078 BPM P-R Int : 138 ms QRS Dur : 082 ms QT Int : 418 ms P-R-T Axes : 041 -19 068 degrees QTc Int : 476 ms Sinus rhythm with Premature atrial complexes Minimal voltage criteria for LVH, may be normal variant ( Vazquez product ) Borderline ECG When compared with ECG of 04-SEP-2021 10:08, Criteria for Septal infarct are no longer Present Referred By: August Velasquez Electronically Signed By:VARUN GARDINER MD
[2022-02-22 12:04] LABS: MANUAL DIFF FLAG NO
[2022-02-22 12:27] LABS: Basophils Percent Auto 0.7 % (0-2); Eosinophils Absolute Auto 0.1 X10*3/uL (0.0-0.4); Eosinophils Percent Auto 1.3 % (0-4); Hematocrit 39.2 % (37.0-47.0); Hemoglobin 12.9 g/dl (12.0-16.0); Imm Gran Abs Auto 0.03 X10*3/uL (0.00-0.03); Imm Gran Pct Auto 0.5 % (0.0-0.4); Lymphocytes Absolute Auto 1.5 X10*3/uL (1.2-4.9); Lymphocytes Percent Auto 24.5 % (20-40); Mean Corpuscular HGB Conc 32.9 g/dl (31.0-35.0); Mean Corpuscular Hemoglobin 28.7 pg (27.0-33.0); Mean Corpuscular Volume 87.1 fL (80.0-98.0); Mean Platelet Volume 10.4 fL (9.4-12.3); Monocytes Absolute Auto 0.6 X10*3/uL (0.1-1.2); Monocytes Percent Auto 9.9 % (2-11); Neutrophils Absolute Auto 3.9 x10*3/uL (2.0-8.3); Neutrophils Percent Auto 63.1 % (45-73); Platelet Count 262 X10*3/uL (160-400); Red Cell Distribution Width 14.2 % (11.0-16.0); White Blood Count 6.1 X10*3/uL (4.8-10.8)
[2022-02-22 14:02] LABS: Anion Gap 9 (12-20); Blood Urea Nitrogen 15 mg/dL (9-16); Calcium 9.5 mg/dL (8.4-10.2); Carbon Dioxide 26 mmol/L (22-29); Chloride 110 mmol/L (96-108); Cholesterol 255 mg/dL; Estimated Glomerular Filt Rate > 60; Glucose Random 87 mg/dL (60-115); HDL Cholesterol 60 mg/dL; LDL Cholesterol Calculated 152 mg/dl; Potassium 4.4 mmol/L (3.3-5.1); Sodium 141 mmol/L (135-145); Triglycerides 216 mg/dL
[2022-02-22 14:07] LABS: Thyroid Stimulating Hormone 2.57 uIU/mL (0.32-4.0)
== END ==
LOC: HO.CARD 11:26
PROVIDERS: PCP Internal Medicine; Visit Provider Internal Medicine
DX: I48.0 Paroxysmal atrial fibrillation (principal); Z51.81 Encounter for therapeutic drug level monitoring; Z79.01 Long term (current) use of 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s; E03.9 Hypothyroidism, unspecified; E78.5 Hyperlipidemia, unspecified; D64.9 Anemia, unspecified; R11.0 Nausea; R53.83 Other fatigue
CPT/HCPCS: 36415; 80048; 80061; 84443; 85025; 85610; 93005; 99211

== ENCOUNTER → 2022-03-08 11:28 | Outpatient (BNVA) | payer MEDICARE, SELFPAY | PROVIDERS: PCP Internal Medicine; Visit Provider Internal Medicine | DX: I48.0 Paroxysmal atrial fibrillation (principal); Z79.01 Long term (current) use of 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s; Z51.81 Encounter for therapeutic drug level monitoring | CPT/HCPCS: 85610; 99211 ==

== ENCOUNTER 2022-03-22 11:03 | Emergency (ER) | payer MEDICARE, SELFPAY ==
[2022-03-22 11:06] VITALS: BP 192/81; PULSE 80; RESP 18; TEMP 36.6; O2SAT 97; BMI 24.1
--- NOTE | 2022-03-22 11:09 | ED_ITS ---
HPI - Skin/Abscess/Foreign Bdy General Chief complaint: Skin/Abscess/Foreign Body <Leslie Macias CNP - Last Filed: 03/22/22 11:12> Stated complaint: Wound on stomach <Leslie Macias CNP - Last Filed: 03/22/22 11:12> Time Seen by Provider: 03/22/22 11:25 <Leslie Macias CNP - Last Filed: 03/22/22 11:12> Source: patient <ANTONI Apple - Last Filed: 03/22/22 14:02> Mode of arrival: ambulatory <ANTONI Apple Last Filed: 03/22/22 14:02> Limitations: no limitations <ANTONI Apple - Last Filed: 03/22/22 14:02> History of Present Illness HPI narrative: 76 yo female presents to the ER for evaluation of an abscess on her abdomen that has been there for the last 4-6 weeks. She reports yesterday it started draining pus. She reports it 1st started about 6 months ago and was a small red bump and told it was an infected hair follicle. She has been putting warm compresses on it the last couple of days and it got bigger. She states she has been feeling fatigued and nauseated lately which she attributes to the abs cess. She reports its is about the size of a quarter and the central draining area was the size of a dime. She denies fevers or surrounding redness that has been spreading. <ANTONI Apple - Last Filed: 03/22/22 14:02> MD complaint: abscess/boil <ANTONI Apple - Last Filed: 03/22/22 14:02> Onset (ago): week(s) <ANTONI Apple - Last Filed: 03/22/22 14:02> Tetanus up to date: yes <ANTONI Apple - Last Filed: 03/22/22 14:02> Location: generalized (central abdomen) <ANTONI Apple Last Filed: 03/22/22 14:02> Severity: moderate <ANTONI Apple Last Filed: 03/22/22 14:02> Severity scale (1-10): 5 <ANTONI Apple - Last Filed: 03/22/22 14:02> Quality: aching <ANTONI Apple - Last Filed: 03/22/22 14:02> Pain Consistency: intermittent <ANTONI Apple Last Filed: 03/22/22 14:02> Relieving factors: none <ANTONI Apple Last Filed: 03/22/22 14:02> Exacerbating factors: palpation <ANTONI Apple Last Filed: 03/22/22 14:02> Context: none <ANTONI Apple Last Filed: 03/22/22 14:02> Associated symptoms: chills, nausea and malaise <ANTONI Apple Last Filed: 03/22/22 14:02> Treatments prior to arrival: attempted to drain pus at home <ANTONI Apple Last Filed: 03/22/22 14:02> Related Data Home medications: Home Medications Medication Instructions Recorded Confirmed potassium chloride 10 mEq 10 meq PO DAILY 12/17/19 03/16/22 tablet,extended release primidone 50 mg tablet 50 mg PO BID 12/17/19 03/16/22 Previous Rx's Medication Instructions Recorded atorvastatin 80 mg tablet 80 mg PO QPM #90 tabs 02/15/21 warfarin 2.5 mg tablet (Jantoven) See Rx Instructions PO .COMPLEX 05/13/21 #90 tabs hydralazine 25 mg tablet 25 mg PO TID #90 caps 09/01/21 lisinopril 40 mg tablet 40 mg PO DAILY #90 tabs 09/01/21 metoprolol succinate 25 mg 25 mg PO DAILY #90 tabs 09/01/21 tablet,extended release 24 hr cephalexin 500 mg capsule 500 mg PO Q6H 7 days #28 caps 03/22/22 doxycycline monohydrate 100 mg 100 mg PO BID #14 caps 03/22/22 capsule <Leslie Macias CNP - Last Filed: 03/22/22 11:12> Allergies/Adverse reactions: Allergies Allergy/AdvReac Type Severity Reaction Status Date / Time No Known Allergies Allergy Mild NOT Verified 03/22/22 11:09 APPLICABLE <Leslie Macias CNP - Last Filed: 03/22/22 11:12> Review of Systems Review of Systems: Yes all other systems are reviewed and are negative <ANTONI Apple - Last Filed: 03/22/22 14:02> [facility] Past Medical History Medical History: Medical History Annual physical exam Embolic stroke Essential hypertension Gout 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 PAF (paroxysmal atrial fibrillation) Sinus bradycardia <Leslie Macias CNP - Last Filed: 03/22/22 11:12> Surgical History: Surgical History History of cardiac radiofrequency ablation (~07/07/20) History of section History of colostomy <Leslie Macias CNP - Last Filed: 03/22/22 11:12> Family History Family History: Family History Father CVD (cardiovascular disease) Mother Alzheimer disease <Leslie Macias CNP - Last Filed: 03/22/22 11:12> Social History Social History: Social History Housing: House Alcohol intake: former Patient Tobacco Use Status: Current everyday Tobacco user Tobacco use type: Cigarette Cigarettes Per Day: 2 e-Cigarette/Vaping Use: Never Used Second Hand Smoke Exposure: No Advance Directives: Yes Advance Directives on File: No service: No Current occupational status: retired Cognitive needs: Yes (cane) Hearing needs: No Vision needs: Yes (glasses) <Leslie Macias CNP - Last Filed: 03/22/22 11:12> Physical Exam Vital Signs: Vital Signs: Last Vital Signs Temp 97.9 F 03/22/22 11:06 Pulse 80 03/22/22 11:06 Resp 18 03/22/22 11:06 BP 192/81 H 03/22/22 11:06 Pulse Ox 97 03/22/22 11:06 O2 Del Method 03/22/22 11:06 BMI result Body Mass Index 24.1 <Leslie Macias CNP - Last Filed: 03/22/22 11:12> Vital Signs: Last Vital Signs Temp 97.9 F 03/22/22 11:06 Pulse 80 03/22/22 11:06 Resp 18 03/22/22 11:06 BP 192/81 H 03/22/22 11:06 Pulse Ox 97 03/22/22 11:06 O2 Del Method 03/22/22 11:06 BMI result Body Mass Index 24.1 <ANTONI Apple - Last Filed: 03/22/22 14:02> Appearance: Alert. Oriented X3. No acute distress. HEENT: normal external inspection Neck: Normal inspection. CVS: Normal heart rate and rhythm. Pulses normal. Respiratory: No respiratory distress. Breath sounds normal. Abdomen: There is a 2.5 cm raised, erythematous and tender area with central fluctance and blackened center. Minimal surrounding erythema and warmth. Soft and nontender. +BS x4 Skin: Skin warm and dry. Normal skin color. Normal skin turgor. No rashes. Extremities: No lower extremity edema. Neuro: Oriented X 3. No motor deficit. No sensory deficit. <ANTONI Apple - Last Filed: 03/22/22 14:02> Course Course Course Narrative: This is an RME: Additional HPI, ROS, PE not included below will be deferred to primary provider. Patient is a 76-year-old female who presents emergency department for evaluation of an abscess to the midline of her abdomen. Onset was a few weeks ago. She was seen by her primary care provider 5 days ago, given contact information for a procurement analyst who reportedly is unable to see her until the end of April or early May. It is becoming increasingly larger in size, more red, painful, with bloody and pus-like drainage. Reports tactile fevers, has not checked a temperature. Reports associated nausea without vomiting, and multiple episodes of diarrhea yesterday. Denies abdominal pain. She states that she has had something like this happened before, but she was given a course of antibiotics and improved without any drainage. She is not currently on any antibiotics. Plan: CBC, CMP, lipase, placed back in waiting room until bed availability <Leslie Macias CNP - Last Filed: 03/22/22 11:12> Reevaluation(s) Reevaluation #1: No leukocytosis. Labs unremarkable. Lipase 136, clinical presentation is not consistent with pancreatitis. hold off on imaging. abd wall abscess is localized and superficial. amenable to drainage today. patient agrees. <ANTONI Apple - Last Filed: 03/22/22 14:02> Reevaluation #2: tolerated drainage for thick white purulent material. DSD applied. She will follow up with her PCP. will give PO abx. discussed wound care. <ANTONI Apple - Last Filed: 03/22/22 14:02> Medical Decision Making Differential Diagnosis Differential Diagnoses: The differential diagnosis associated with the presentation includes <ANTONI Shepherd - Last Filed: 03/22/22 14:02> abd wall abscess, deep abscess, furuncle, carbuncle, skin cancer, infected epidermoid cyst <ANTONI Apple - Last Filed: 03/22/22 14:02> Lab Data MDM Lab Attestation statement: I reviewed the patient's lab results. <ANTONI Apple - Last Filed: 03/22/22 14:02> unremarkable, no significant metabolic derrangement <ANTONI Apple - Last Filed: 03/22/22 14:02> Result Diagrams: 03/22/22 11:56 03/22/22 11:56 <Leslie Macias CNP - Last Filed: 03/22/22 11:12> Labs: Lab Results 03/22/22 03/22/22 03/22/22 Range/Units 11:56 11:56 11:59 WBC 7.1 (4.8-10.8) X10*3/uL RBC 4.49 (4.20-5.50) X10*6/uL Hgb 13.0 (12.0-16.0) g/dl Hct 39.1 (37.0-47.0) % MCV 87.1 (80.0-98.0) fL MCH 29.0 (27.0-33.0) pg MCHC 33.2 (31.0-35.0) g/dl RDW 14.6 (11.0-16.0) % Plt Count 210 (160-400) X10*3/uL MPV 10.0 (9.4-12.3) fL Immature Gran % (Auto) 0.3 (0.0-0.4) % Neut % (Auto) 67.8 (45-73) % Lymph % (Auto) 21.7 (20-40) % [place] % (Auto) 8.9 (2-11) % Eos % (Auto) 0.7 (0-4) % Baso % (Auto) 0.6 (0-2) % Lymph # (Auto) 1.5 (1.2-4.9) X10*3/uL [place] # (Auto) 0.6 (0.1-1.2) X10*3/uL Eos # (Auto) 0.1 (0.0-0.4) X10*3/uL Baso # (Auto) 0.0 (0.0-0.2) X10*3/uL Abs Immat Gran (auto) 0.02 (0.00-0.03) X10*3/uL Absolute Neuts (auto) 4.8 (2.0-8.3) x10*3/uL Absolute Nucleated RBC 0.000 (0.0-0.012) X10*3/uL Nucleated RBC % (auto) 0.0 (0.0-0.2) /100WBC Sodium 142 (135-145) mmol/L Potassium 4.6 (3.3-5.1) mmol/L Chloride 110 H (96-108) mmol/L Carbon Dioxide 23 (22-29) mmol/L Anion Gap 14 (12-20) BUN 16 (9-16) mg/dL Creatinine 0.89 (0.5-1.4) mg/dL Estim Creat Clear Calc 42.5 Estimated GFR > 60 Random Glucose 95 (60-115) mg/dL Calcium 9.5 (8.4-10.2) mg/dL Total Bilirubin 0.6 (0.0-1.0) mg/dL AST 15 (5-31) U/L ALT 8 (0-31) U/L Alkaline Phosphatase 92 (39-117) U/L Total Protein 6.2 L (6.5-8.0) g/dL Albumin 3.9 (3.5-5.0) g/dL Lipase 136 H (8-78) U/L Urine Color Yellow Urine Appearance Clear Urine pH 5.5 (5.0-9.0) Ur Specific [place] 1.015 (1.005-1.025) Urine Protein 300 (3+) H (Neg-Trace) mg/dL Urine Glucose (UA) Negative (Negative) mg/dL Urine Ketones Negative (Negative) mg/dL Urine Blood Negative (Negative) Urine Nitrite Negative (Negative) Ur Leukocyte Esterase Negative (Negative) Urine RBC 3-5 H (0-2) /HPF Urine WBC 0-5 (0-5) /HPF Ur Squamous Epith Cells 0-2 (0-2) /HPF Urine Bacteria None Seen (None Seen) Hyaline Casts 0-2 (0-2) /LPF <Leslie Macias, CHAIN SAW [employer]IVER - Last Filed: 03/22/22 11:12> Lab Results 03/22/22 03/22/22 03/22/22 Range/Units 11:56 11:56 11:59 WBC 7.1 (4.8-10.8) X10*3/uL RBC 4.49 (4.20-5.50) X10*6/uL Hgb 13.0 (12.0-16.0) g/dl Hct 39.1 (37.0-47.0) % MCV 87.1 (80.0-98.0) fL MCH 29.0 (27.0-33.0) pg MCHC 33.2 (31.0-35.0) g/dl RDW 14.6 (11.0-16.0) % Plt Count 210 (160-400) X10*3/uL MPV 10.0 (9.4-12.3) fL Immature Gran % (Auto) 0.3 (0.0-0.4) % Neut % (Auto) 67.8 (45-73) % Lymph % (Auto) 21.7 (20-40) % [place] % (Auto) 8.9 (2-11) % Eos % (Auto) 0.7 (0-4) % Baso % (Auto) 0.6 (0-2) % Lymph # (Auto) 1.5 (1.2-4.9) X10*3/uL [place] # (Auto) 0.6 (0.1-1.2) X10*3/uL Eos # (Auto) 0.1 (0.0-0.4) X10*3/uL Baso # (Auto) 0.0 (0.0-0.2) X10*3/uL Abs Immat Gran (auto) 0.02 (0.00-0.03) X10*3/uL Absolute Neuts (auto) 4.8 (2.0-8.3) x10*3/uL Absolute Nucleated RBC 0.000 (0.0-0.012) X10*3/uL Nucleated RBC % (auto) 0.0 (0.0-0.2) /100WBC Sodium 142 (135-145) mmol/L Potassium 4.6 (3.3-5.1) mmol/L Chloride 110 H (96-108) mmol/L Carbon Dioxide 23 (22-29) mmol/L Anion Gap 14 (12-20) BUN 16 (9-16) mg/dL Creatinine 0.89 (0.5-1.4) mg/dL Estim Creat Clear Calc 42.5 Estimated GFR > 60 Random Glucose 95 (60-115) mg/dL Calcium 9.5 (8.4-10.2) mg/dL Total Bilirubin 0.6 (0.0-1.0) mg/dL AST 15 (5-31) U/L ALT 8 (0-31) U/L Alkaline Phosphatase 92 (39-117) U/L Total Protein 6.2 L (6.5-8.0) g/dL Albumin 3.9 (3.5-5.0) g/dL Lipase 136 H (8-78) U/L Urine Color Yellow Urine Appearance Clear Urine pH 5.5 (5.0-9.0) Ur Specific [place] 1.015 (1.005-1.025) Urine Protein 300 (3+) H (Neg-Trace) mg/dL Urine Glucose (UA) Negative (Negative) mg/dL Urine Ketones Negative (Negative) mg/dL Urine Blood Negative (Negative) Urine Nitrite Negative (Negative) Ur Leukocyte Esterase Negative (Negative) Urine RBC 3-5 H (0-2) /HPF Urine WBC 0-5 (0-5) /HPF Ur Squamous Epith Cells 0-2 (0-2) /HPF Urine Bacteria None Seen (None Seen) Hyaline Casts 0-2 (0-2) /LPF <Rosmery Renschler, PA - Last Filed: 03/22/22 14:02> External Record Review External record reviewed: Outpatient record, Prior outpatient labs and Prior outpatient radiology <ANTONI Apple - Last Filed: 03/22/22 14:02> Prescription Management I considered prescription management with: Antibiotic <ANTONI Apple - Last Filed: 03/22/22 14:02> Procedures Abscess I/D Site: abdomen <ANTONI Apple - Last Filed: 03/22/22 14:02> Local Anesthetic: lidocaine 1% <ANTONI Apple - Last Filed: 03/22/22 14:02> Amount of anesthesia used (mL): 1 <ANTONI Apple - Last Filed: 03/22/22 14:02> Technique: incised with blade <ANTONI Apple - Last Filed: 03/22/22 14:02> Sent for culture/gram staining?: No <ANTONI Apple - Last Filed: 03/22/22 14:02> Irrigation: Yes <ANTONI Apple - Last Filed: 03/22/22 14:02> Packing used?: none <ANTONI Apple - Last Filed: 03/22/22 14:02> Critical Care Time Critical Care Time Critical Care Time: No <ANTONI Apple - Last Filed: 03/22/22 14:02> Discharge Plan Discharge Clinical Impression: Abscess of skin or subcutaneous tissue <Leslie Macias CNP - Last Filed: 03/22/22 11:12> Patient Disposition: Home, Self-Care <Leslie Macias CNP - Last Filed: 03/22/22 11:12> Additional Instructions: Your lab workup today was largely unremarkable. Your urine test showed protein in the urine which is chronic for you - follow up with your doctor for this The abscess on your abdomen was drained. Use warm compresses to the area 3-4 times per day Take the prescribed antibiotics as directed - complete the entire course Rest and stay hydrated Follow up with your doctor and dermatology for further evaluation and treatment. If you develop new or worsening symptoms call 911 or come back to the ER for further evaluation. <Leslie Macias CHAIN SAW [employer]IVER - Last Filed: 03/22/22 11:12> Prescriptions: New cephalexin 500 mg capsule 500 mg PO Q6H 7 Days Qty: 28 0RF doxycycline monohydrate 100 mg capsule 100 mg PO BID Qty: 14 0RF No Action warfarin [] 2.5 mg tablet See Rx Instructions PO .COMPLEX Qty: 90 8RF Protocol: Dose Management Condition: Monday (Week One) Dose/Route: 2.5 mg Instruction: 1 x 2.5 mg tablet Condition: Monday Dose/Route: 3.75 mg Instruction: 1.5 x 2.5 mg tablets Condition: Monday Dose/Route: 2.5 mg Instruction: 1 x 2.5 mg tablet Condition: Monday Dose/Route: 3.75 mg Instruction: 1.5 x 2.5 mg tablets Condition: Dose/Route: 2.5 mg Instruction: 1 x 2.5 mg tablet Condition: Monday Dose/Route: 3.75 mg Instruction: 1.5 x 2.5 mg tablets Condition: Monday Dose/Route: 2.5 mg Instruction: 1 x 2.5 mg tablet Condition: Monday (Week Two) Dose/Route: 2.5 mg Instruction: 1 x 2.5 mg tablet Condition: Monday Dose/Route: 3.75 mg Instruction: 1.5 x 2.5 mg tablets Condition: Monday Dose/Route: 2.5 mg Instruction: 1 x 2.5 mg tablet Condition: Monday Dose/Route: 3.75 mg Instruction: 1.5 x 2.5 mg tablets Condition: Dose/Route: 2.5 mg Instruction: 1 x 2.5 mg tablet Condition: Monday Dose/Route: 3.75 mg Instruction: 1.5 x 2.5 mg tablets Condition: Monday Dose/Route: 2.5 mg Instruction: 1 x 2.5 mg tablet Protocol Text: Adjustment Start Date: Monday03/08/22 INR Value: 3.1 INR Date: 03/08/22 Recheck Date: 03/29/22 Additional Instructions: EAT GREENS AND BLUEBERRIES TO HELP LOWER INR Rx Instructions: 1 - 2 tablets daily per INR hydralazine 25 mg tablet 25 mg PO TID Qty: 90 5RF lisinopril 40 mg tablet 40 mg PO DAILY Qty: 90 8RF metoprolol succinate 25 mg tablet extended release 24 hr 25 mg PO DAILY Qty: 90 0RF primidone 50 mg tablet 50 mg PO BID potassium chloride 10 mEq tablet extended release 10 meq PO DAILY atorvastatin 80 mg tablet 80 mg PO QPM Qty: 90 4RF <Leslie Macias CNP - Last Filed: 03/22/22 11:12> Referrals: August Velasquez MD [Primary Care Provider] - (abd abscess) <Leslie Macias CNP - Last Filed: 03/22/22 11:12> Interventions: ED Discharge Assessment Last Done: 03/22/22 13:57 <Leslie Macias CNP - Last Filed: 03/22/22 11:12> Discharge Date/Time: 03/22/22 13:57 <Leslie Macias CNP - Last Filed: 03/22/22 11:12>
--- NOTE | 2022-03-22 11:40 | PC.NURSE ---
abscess noted to center of abd. patients admits that this has been an issue for 6 months. She saw her PCP last week who referred he to [facility]. Appointment not until October. Redness localized to immediate circumference around head of abscess.
[2022-03-22 12:04] LABS: MANUAL DIFF FLAG NO
[2022-03-22 12:05] LABS: Basophils Percent Auto 0.6 % (0-2); Eosinophils Absolute Auto 0.1 X10*3/uL (0.0-0.4); Eosinophils Percent Auto 0.7 % (0-4); Hematocrit 39.1 % (37.0-47.0); Imm Gran Abs Auto 0.02 X10*3/uL (0.00-0.03); Imm Gran Pct Auto 0.3 % (0.0-0.4); Lymphocytes Absolute Auto 1.5 X10*3/uL (1.2-4.9); Lymphocytes Percent Auto 21.7 % (20-40); Mean Corpuscular HGB Conc 33.2 g/dl (31.0-35.0); Mean Corpuscular Volume 87.1 fL (80.0-98.0); Monocytes Absolute Auto 0.6 X10*3/uL (0.1-1.2); Monocytes Percent Auto 8.9 % (2-11); Neutrophils Absolute Auto 4.8 x10*3/uL (2.0-8.3); Neutrophils Percent Auto 67.8 % (45-73); Platelet Count 210 X10*3/uL (160-400); Red Blood Count 4.49 X10*6/uL (4.20-5.50); Red Cell Distribution Width 14.6 % (11.0-16.0); White Blood Count 7.1 X10*3/uL (4.8-10.8)
[2022-03-22 12:07] LABS: Appearance Urine Clear; Color Urine Yellow; Glucose Urine UA Negative (Negative); Leukocyte Esterase Urine Negative (Negative); Nitrite Urine Negative (Negative); PH 5.5 (5.0-9.0); Specific Gravity - Urine 1.015 (1.005-1.025); UMIC TRIGGER UACC YES; Urine Blood Negative (Negative); Urine Ketones Negative (Negative); Urine Protein 300 (3+) mg/dL (Neg-Trace)
[2022-03-22 12:10] LABS: Bacteria Urine None Seen (None Seen); Hyaline Casts Urine 0-2 /LPF (0-2); Squamous Epithelial Cell Urine 0-2 /HPF (0-2); WBC Urine 0-5 /HPF (0-5)
[2022-03-22 13:17] LABS: Alanine Aminotransferase 8 U/L (0-31); Albumin Level 3.9 g/dL (3.5-5.0); Alkaline Phosphatase 92 U/L (39-117); Anion Gap 14 (12-20); Aspartate Amino Transferase 15 U/L (5-31); Bilirubin Total 0.6 mg/dL (0.0-1.0); Blood Urea Nitrogen 16 mg/dL (9-16); Calcium 9.5 mg/dL (8.4-10.2); Carbon Dioxide 23 mmol/L (22-29); Chloride 110 mmol/L (96-108); Creatinine Clr Calc Pharmacy 42.5; Estimated Glomerular Filt Rate > 60; Glucose Random 95 mg/dL (60-115); Lipase 136 U/L (8-78); Potassium 4.6 mmol/L (3.3-5.1); Sodium 142 mmol/L (135-145); Total Protein 6.2 g/dL (6.5-8.0)
== END 2022-03-22 13:57 | disposition home or self-care (01) ==
PROVIDERS: Nurse Practitioner Family; Emergency Provider Emergency Medicine; PCP Internal Medicine
DX: L02.211 Cutaneous abscess of abdominal wall (principal); F17.210 Nicotine dependence, cigarettes, uncomplicated; Z71.6 Tobacco abuse counseling; Z79.899 Other long term (current) drug therapy
CPT/HCPCS: 10061; 36415; 80053; 81001; 83690; 85025; 99282; 99283

== ENCOUNTER → 2022-03-23 15:29 | Outpatient (BNVA) | payer MEDICARE, SELFPAY | PROVIDERS: PCP Internal Medicine; Visit Provider Internal Medicine | DX: Z79.01 Long term (current) use of 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s (principal) ==

== ENCOUNTER → 2022-03-29 10:59 | Outpatient (BNVA) | payer MEDICARE, SELFPAY | PROVIDERS: PCP Internal Medicine; Visit Provider Internal Medicine | DX: I48.0 Paroxysmal atrial fibrillation (principal); Z79.01 Long term (current) use of 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s; Z51.81 Encounter for therapeutic drug level monitoring | CPT/HCPCS: 85610; 99211 ==

== ENCOUNTER → 2022-04-07 15:02 | Outpatient (BNVA) | payer MEDICARE, SELFPAY | PROVIDERS: PCP Internal Medicine; Visit Provider Internal Medicine | DX: Z79.01 Long term (current) use of 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s (principal) ==

== ENCOUNTER → 2022-04-11 13:38 | Outpatient (BNVA) | payer MEDICARE, SELFPAY | PROVIDERS: PCP Internal Medicine; Visit Provider Internal Medicine | DX: I48.0 Paroxysmal atrial fibrillation (principal); Z79.01 Long term (current) use of 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s; Z51.81 Encounter for therapeutic drug level monitoring | CPT/HCPCS: 85610; 99211 ==

== ENCOUNTER → 2022-04-18 13:08 | Outpatient (BNVA) | payer MEDICARE, SELFPAY | PROVIDERS: PCP Internal Medicine; Visit Provider Internal Medicine | DX: I48.0 Paroxysmal atrial fibrillation (principal); Z79.01 Long term (current) use of 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s; Z51.81 Encounter for therapeutic drug level monitoring | CPT/HCPCS: 85610; 99211 ==

== ENCOUNTER → 2022-05-02 12:58 | Outpatient (BNVA) | payer MEDICARE, SELFPAY | PROVIDERS: PCP Internal Medicine; Visit Provider Internal Medicine | DX: I48.0 Paroxysmal atrial fibrillation (principal); Z79.01 Long term (current) use of 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s; Z51.81 Encounter for therapeutic drug level monitoring | CPT/HCPCS: 85610; 99211 ==

== ENCOUNTER → 2022-05-11 13:28 | Outpatient (BNVA) | payer MEDICARE, SELFPAY | PROVIDERS: PCP Internal Medicine; Referring Provider Internal Medicine; Visit Provider Internal Medicine | DX: I48.0 Paroxysmal atrial fibrillation (principal); I25.10 Atherosclerotic heart disease of native coronary artery without angina pectoris; I35.0 Nonrheumatic aortic (valve) stenosis; I05.9 Rheumatic mitral valve disease, unspecified; I10 Essential (primary) hypertension; E78.5 Hyperlipidemia, unspecified; R00.1 Bradycardia, unspecified; Z86.73 Personal history of transient ischemic attack (TIA), and cerebral infarction without residual deficits | CPT/HCPCS: 99212 ==

== ENCOUNTER → 2022-05-17 13:21 | Outpatient (BNVA) | payer MEDICARE, SELFPAY | PROVIDERS: PCP Internal Medicine; Visit Provider Internal Medicine | DX: I48.0 Paroxysmal atrial fibrillation (principal); Z51.81 Encounter for therapeutic drug level monitoring; Z79.01 Long term (current) use of 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s | CPT/HCPCS: 85610; 99211 ==

== ENCOUNTER → 2022-05-31 13:00 | Outpatient (BNVA) | payer MEDICARE, SELFPAY | PROVIDERS: PCP Internal Medicine; Visit Provider Internal Medicine | DX: I48.0 Paroxysmal atrial fibrillation (principal); Z79.01 Long term (current) use of 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s; Z51.81 Encounter for therapeutic drug level monitoring | CPT/HCPCS: 85610; 99211 ==

== ENCOUNTER → 2022-06-14 13:15 | Outpatient (BNVA) | payer MEDICARE, SELFPAY | PROVIDERS: PCP Internal Medicine; Visit Provider Internal Medicine | DX: I48.0 Paroxysmal atrial fibrillation (principal); Z79.01 Long term (current) use of 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s; Z51.81 Encounter for therapeutic drug level monitoring | CPT/HCPCS: 85610; 99211 ==

== ENCOUNTER → 2022-07-06 10:50 | Outpatient (BNVA) | payer MEDICARE, SELFPAY | PROVIDERS: PCP Internal Medicine; Visit Provider Internal Medicine ==

== ENCOUNTER 2022-07-06 11:31 | Emergency (ER) | payer MEDICARE, SELFPAY ==
--- NOTE | ~2022-07-06 | CT_ITS ---
EXAMINATION: CT ABDOMEN AND PELVIS WITHOUT CONTRAST CLINICAL INFORMATION: Left flank pain COMPARISON: Previous ultrasound June [address] May 2011 TECHNIQUE: Multidetector volumetric imaging was performed from the superior aspect of the liver through the pubic symphysis. Sagittal and coronal reformatted images were obtained on the technologist's workstation. This CT examination was performed using dose optimization techniques as appropriate, variously including the following: *Automated exposure control *Adjustment of mA and/or kV according to patient size (this includes techniques or standardized protocols for targeted exams where dose is matched to indication/reason for exam; i.e. extremities or head) *Use of iterative reconstruction technique DLP: 343 mGy-cm FINDINGS: LUNG BASES: Slight elevation of the left hemidiaphragm. The lung bases are clear. The heart is slightly enlarged. There is a small pericardial effusion. LIVER, GALLBLADDER, AND BILIARY TREE: Small 8 mm cyst in the medial segment of the left lobe of the liver near the falciform ligament. The liver is otherwise unremarkable. Small gallstone in the gallbladder. No biliary duct dilatation. PANCREAS: Unremarkable. SPLEEN: Unremarkable. ADRENAL GLANDS: Unremarkable. KIDNEYS AND URETERS: The kidneys are normal in size, shape, and attenuation. No hydronephrosis, or hydroureter. There are faint areas of increased attenuation seen centrally in the left kidney questionable for a small stone for example in the upper pole measuring 4 mm axial image 15 series 2 and in the lower pole measuring 3 mm axial image 23 series 2. BLADDER: Unremarkable. GASTROINTESTINAL TRACT: Diverticulosis of the colon. No evidence of diverticulitis. Postsurgical changes to the sigmoid colon. The small and large bowel are otherwise unremarkable. The appendix is not seen. ABDOMINAL WALL: No significant hernia is appreciated. LYMPH NODES: Normal. VASCULAR: Atherosclerotic disease. No aneurysm. PELVIC VISCERA: Uterine calcifications probably representing calcified fibroids. OSSEOUS STRUCTURES: Osteopenia. Degenerative changes of the spine. CT/CT abdomen pelvis wo IV con IMPRESSION: Question small faintly radiopaque left renal stones. No hydronephrosis. Diverticulosis of the colon. No evidence of diverticulitis. Small gallstone. Fleischner guidelines were followed.
--- NOTE | 2022-07-06 11:33 | ED.GENADULT ---
HPI - General Adult General Chief complaint: Urogenital-Female Stated complaint: UTI Time Seen by Provider: 07/06/22 14:29 Related Data Home Medications Medication Instructions Recorded Confirmed potassium chloride 10 mEq 10 meq PO DAILY 12/17/19 05/11/22 tablet,extended release primidone 50 mg tablet 50 mg PO BID 12/17/19 05/11/22 ondansetron HCl 4 mg tablet 4 mg PO Q6H PRN nausea/vomiting 04/11/22 05/11/22 Previous Rx's Medication Instructions Recorded atorvastatin 80 mg tablet 80 mg PO QPM #90 tabs 02/15/21 hydralazine 25 mg tablet 25 mg PO TID #90 caps 09/01/21 lisinopril 40 mg tablet 40 mg PO DAILY #90 tabs 09/01/21 metoprolol succinate 25 mg 25 mg PO DAILY #90 tabs 09/01/21 tablet,extended release 24 hr warfarin 2.5 mg tablet (Jantoven) See Rx Instructions PO .COMPLEX 05/29/22 #90 tabs tamsulosin 0.4 mg capsule (Flomax) 0.4 mg PO BEDTIME #4 caps 07/06/22 Allergies Allergy/AdvReac Type Severity Reaction Status Date / Time No Known Allergies Allergy Mild NOT Verified 07/06/22 11:15 APPLICABLE FORMERLY [facility] Past Medical History Medical History Annual physical exam Embolic stroke Essential hypertension Gout Hyperlipidemia half-way current use of antiarrhythmic drug half-way current use of 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 PAF (paroxysmal atrial fibrillation) Sinus bradycardia Surgical History History of cardiac radiofrequency ablation (~07/07/20) History of section History of colostomy Family History Family History Father CVD (cardiovascular disease) Mother Alzheimer disease Social History Social History (Updated 05/11/22 @ 13:39 by Leslie Ji) Housing: House Alcohol intake: former Patient Tobacco Use Status: Current everyday Tobacco user Tobacco use type: Cigarette Cigarettes Per Day: 4 Smoked in Last 30 Days: Yes e-Cigarette/Vaping Use: Never Used Second Hand Smoke Exposure: No Use of substances other than those prescribed or required for medical reasons: No Advance Directives: No Advance Directives Information Provided: Yes service: No Current occupational status: retired Cognitive needs: Yes (cane) Hearing needs: No Vision needs: Yes (glasses) Physical Exam ED Vital Signs: Vital Signs - 24 hr 07/06/22 11:34 07/06/22 14:34 07/06/22 15:53 Temperature 98.2 F Pulse Rate 85 63 59 Respiratory Rate 20 20 16 Blood Pressure 217/90 H 203/108 H 174/59 H Pulse Oximetry 98 98 96 Oxygen Delivery Method Room Air Room Air Room Air BMI result Body Mass Index 23.8 Course Course Course Narrative: This is an RME: Additional HPI, ROS, PE not included below will be deferred to primary provider. This is a 41-yl[age]vod-female, with a history of CVA, a fib on coumadin, and hyperlipidemia, presenting to the emergency department from coumadin clinic, with complaint of foul smelling urine, back pain, urinary frequency x several weeks. Denies any fevers, chills or dysuria. Hx of UTIs in the past and states that her symptoms are similar to UTIs she had in the past. BP elevated at 210/90s in triage. Plan: Labs, UA ordered. Reevaluation(s) Reevaluation #1: 77-year-old female who was signed out to me from Dr. Conde with presentation and history mildly suggestive of renal colic. Although there is 3-5 RBCs in the urinalysis and CT scan appears to demonstrate possibility of small nonobstructing stones. Patient will be discharged with instructions to increase her water intake and I will provide the patient with Flomax for the evening and instruct her to follow-up with urology. There is no leukocytosis, BIANCA. Time: 17:02 Medications Administered Discontinued Medications Generic Name Dose Route Start Last Admin Trade Name Freq PRN Reason Stop Dose Admin Hydralazine HCl 25 mg 07/06/22 14:42 07/06/22 15:05 Hydralazine Hcl 25 Mg Tablet PO 07/06/22 14:43 25 mg ONCE ONE Administration Protocol Lisinopril 40 mg 07/06/22 14:42 07/06/22 15:05 Lisinopril 40 Mg Tablet PO 07/06/22 14:43 40 mg ONCE ONE Administration Protocol Metoprolol Succinate 25 mg 07/06/22 14:42 07/06/22 15:05 Metoprolol Succinate Er 25 Mg Tab.Er.24h PO 07/06/22 14:43 25 mg ONCE ONE Administration Protocol Medical Decision Making Lab Data 07/06/22 11:55 07/06/22 11:55 Labs: Lab Results 07/06/22 07/06/22 07/06/22 Range/Units 11:55 11:55 13:53 WBC 9.3 (4.8-10.8) X10*3/uL RBC 4.64 (4.20-5.50) X10*6/uL Hgb 13.5 (12.0-16.0) g/dl Hct 41.0 (37.0-47.0) % MCV 88.4 (80.0-98.0) fL MCH 29.1 (27.0-33.0) pg MCHC 32.9 (31.0-35.0) g/dl RDW 13.9 (11.0-16.0) % Plt Count 218 (160-400) X10*3/uL MPV 10.3 (9.4-12.3) fL Immature Gran % (Auto) 0.2 (0.0-0.4) % Neut % (Auto) 71.7 (45-73) % Lymph % (Auto) 18.6 L (20-40) % [place] % (Auto) 8.7 (2-11) % Eos % (Auto) 0.4 (0-4) % Baso % (Auto) 0.4 (0-2) % Lymph # (Auto) 1.7 (1.2-4.9) X10*3/uL [place] # (Auto) 0.8 (0.1-1.2) X10*3/uL Eos # (Auto) 0.0 (0.0-0.4) X10*3/uL Baso # (Auto) 0.0 (0.0-0.2) X10*3/uL Abs Immat Gran (auto) 0.02 (0.00-0.03) X10*3/uL Absolute Neuts (auto) 6.6 (2.0-8.3) x10*3/uL Absolute Nucleated RBC 0.000 (0.0-0.012) X10*3/uL Nucleated RBC % (auto) 0.0 (0.0-0.2) /100WBC Sodium 143 (135-145) mmol/L Potassium 4.4 (3.3-5.1) mmol/L Chloride 109 H (96-108) mmol/L Carbon Dioxide 25 (22-29) mmol/L Anion Gap 13 (12-20) BUN 9 (9-16) mg/dL Creatinine 0.78 (0.5-1.4) mg/dL Estim Creat Clear Calc 47.8 Estimated GFR > 60 Random Glucose 93 (60-115) mg/dL Calcium 9.9 (8.4-10.2) mg/dL Magnesium 2.0 (1.6-2.6) mg/dL Total Bilirubin 0.9 (0.0-1.0) mg/dL Direct Bilirubin 0.2 (0.0-0.5) mg/dL AST 15 (5-31) U/L ALT 7 (0-31) U/L Alkaline Phosphatase 110 (39-117) U/L Total Protein 6.8 (6.5-8.0) g/dL Albumin 4.0 (3.5-5.0) g/dL Lipase 18 (8-78) U/L Urine Color Yellow Urine Appearance Clear Urine pH 6.5 (5.0-9.0) Ur Specific [place] 1.015 (1.005-1.025) Urine Protein 300 (3+) H (Neg-Trace) mg/dL Urine Glucose (UA) Negative (Negative) mg/dL Urine Ketones Negative (Negative) mg/dL Urine Blood Negative (Negative) Urine Nitrite Negative (Negative) Ur Leukocyte Esterase Trace H (Negative) Urine RBC 3-5 H (0-2) /HPF Urine WBC 0-5 (0-5) /HPF Ur Squamous Epith Cells 0-2 (0-2) /HPF Urine Bacteria None Seen (None Seen) Hyaline Casts 3-5 (0-2) /LPF Discharge Plan Discharge Clinical Impression: Renal colic Patient Disposition: Home, Self-Care Instructions: Renal Colic (ED) Additional Instructions: 1. Resume all home medications as prescribed. 2. Increase the amount of water intake and limit the caffeinated/carbonated beverages. 3. You have been provided with a referral for Urology, you should call the office in the morning to set up an appointment for re-evaluation further outpatient managed 4. Please follow-up with your primary care provider as well. Return to the ER for any worsening symptoms. Prescriptions: New tamsulosin [Flomax] 0.4 mg capsule 0.4 mg PO BEDTIME Qty: 4 0RF No Action hydralazine 25 mg tablet 25 mg PO TID Qty: 90 5RF lisinopril 40 mg tablet 40 mg PO DAILY Qty: 90 8RF metoprolol succinate 25 mg tablet extended release 24 hr 25 mg PO DAILY Qty: 90 0RF warfarin [Jantoven] 2.5 mg tablet See Rx Instructions PO .COMPLEX Qty: 90 8RF Protocol: Dose Management Condition: Monday (Week One) Dose/Route: 2.5 mg Instruction: 1 x 2.5 mg tablet Condition: Monday Dose/Route: 3.75 mg Instruction: 1.5 x 2.5 mg tablets Condition: Monday Dose/Route: 2.5 mg Instruction: 1 x 2.5 mg tablet Condition: Monday Dose/Route: 3.75 mg Instruction: 1.5 x 2.5 mg tablets Condition: Dose/Route: 2.5 mg Instruction: 1 x 2.5 mg tablet Condition: Monday Dose/Route: 3.75 mg Instruction: 1.5 x 2.5 mg tablets Condition: Monday Dose/Route: 2.5 mg Instruction: 1 x 2.5 mg tablet Condition: Monday (Week Two) Dose/Route: 2.5 mg Instruction: 1 x 2.5 mg tablet Condition: Monday Dose/Route: 3.75 mg Instruction: 1.5 x 2.5 mg tablets Condition: Monday Dose/Route: 2.5 mg Instruction: 1 x 2.5 mg tablet Condition: Monday Dose/Route: 3.75 mg Instruction: 1.5 x 2.5 mg tablets Condition: Dose/Route: 2.5 mg Instruction: 1 x 2.5 mg tablet Condition: Monday Dose/Route: 3.75 mg Instruction: 1.5 x 2.5 mg tablets Condition: Monday Dose/Route: 2.5 mg Instruction: 1 x 2.5 mg tablet Protocol Text: Adjustment Start Date: Monday07/06/22 INR Value: 2.3 INR Date: 07/06/22 Recheck Date: 08/03/22 Rx Instructions: 1 - 2 tablets daily per INR primidone 50 mg tablet 50 mg PO BID potassium chloride 10 mEq tablet extended release 10 meq PO DAILY atorvastatin 80 mg tablet 80 mg PO QPM Qty: 90 4RF ondansetron HCl 4 mg tablet 4 mg PO Q6H PRN (Reason: nausea/vomiting) Referrals: Lawrence Meeks MD [Physician] - (Nonobstructing stones, on Coumadin, asked patient to follow-up with you) August Velasquez MD [Primary Care Provider] -
[2022-07-06 11:34] VITALS: BP 217/90; PULSE 85; RESP 20; TEMP 36.8; O2SAT 98; BMI 23.8
[2022-07-06 12:01] LABS: Basophils Percent Auto 0.4 % (0-2); Eosinophils Percent Auto 0.4 % (0-4); Hemoglobin 13.5 g/dl (12.0-16.0); Imm Gran Abs Auto 0.02 X10*3/uL (0.00-0.03); Imm Gran Pct Auto 0.2 % (0.0-0.4); Lymphocytes Absolute Auto 1.7 X10*3/uL (1.2-4.9); Lymphocytes Percent Auto 18.6 % (20-40); MANUAL DIFF FLAG NO; Mean Corpuscular HGB Conc 32.9 g/dl (31.0-35.0); Mean Corpuscular Hemoglobin 29.1 pg (27.0-33.0); Mean Corpuscular Volume 88.4 fL (80.0-98.0); Mean Platelet Volume 10.3 fL (9.4-12.3); Monocytes Absolute Auto 0.8 X10*3/uL (0.1-1.2); Monocytes Percent Auto 8.7 % (2-11); Neutrophils Absolute Auto 6.6 x10*3/uL (2.0-8.3); Neutrophils Percent Auto 71.7 % (45-73); Platelet Count 218 X10*3/uL (160-400); Red Blood Count 4.64 X10*6/uL (4.20-5.50); Red Cell Distribution Width 13.9 % (11.0-16.0); White Blood Count 9.3 X10*3/uL (4.8-10.8)
[2022-07-06 12:20] LABS: Alanine Aminotransferase 7 U/L (0-31); Alkaline Phosphatase 110 U/L (39-117); Anion Gap 13 (12-20); Aspartate Amino Transferase 15 U/L (5-31); Bilirubin Direct 0.2 mg/dL (0.0-0.5); Bilirubin Total 0.9 mg/dL (0.0-1.0); Blood Urea Nitrogen 9 mg/dL (9-16); Calcium 9.9 mg/dL (8.4-10.2); Carbon Dioxide 25 mmol/L (22-29); Chloride 109 mmol/L (96-108); Creatinine Clr Calc Pharmacy 47.8; Estimated Glomerular Filt Rate > 60; Glucose Random 93 mg/dL (60-115); Lipase 18 U/L (8-78); Potassium 4.4 mmol/L (3.3-5.1); Sodium 143 mmol/L (135-145); Total Protein 6.8 g/dL (6.5-8.0)
[2022-07-06 14:29] LABS: Appearance Urine Clear; Color Urine Yellow; Glucose Urine UA Negative (Negative); Leukocyte Esterase Urine Trace (Negative); Nitrite Urine Negative (Negative); PH 6.5 (5.0-9.0); Specific Gravity - Urine 1.015 (1.005-1.025); UMIC TRIGGER UACC YES; Urine Blood Negative (Negative); Urine Ketones Negative (Negative); Urine Protein 300 (3+) mg/dL (Neg-Trace)
[2022-07-06 14:30] LABS: Bacteria Urine None Seen (None Seen); Squamous Epithelial Cell Urine 0-2 /HPF (0-2); WBC Urine 0-5 /HPF (0-5)
[2022-07-06 14:34] VITALS: BP 203/108; PULSE 63; RESP 20; O2SAT 98
--- NOTE | 2022-07-06 14:43 | ED.GENADULT ---
HPI - General Adult General Chief complaint: Urogenital-Female Stated complaint: UTI Time Seen by Provider: 07/06/22 14:29 Source: patient and old records reviewed Limitations: no limitations History of Present Illness HPI narrative: Patient states for the past 2 weeks she has been having some mid left-sided back pain which is now extended across to the right. No traumas or precipitating factors of which she is aware. No recent change in activity or lifting port Over the last several days she has noticed her urine has of foul smell and she has urinary frequency. She is concerned she might have urinary tract infection. She was going to go to her PCP's office today but they canceled. She [facility] and they thought she did look good so they recommended she come to the emergency department for further evaluation. She denies fevers or chills. She complains of some general malaise. No nausea vomiting but some decreased appetite. No diarrhea or constipation No hematuria No history of kidney stones. She does have a history of urinary tract infection. Patient states she did not take her blood pressure medication this morning due to her pending appointments. She normally would have taken hydralazine 25 mg and lisinopril 40 mg and metoprolol succinate 25 mg. Related Data Home Medications Medication Instructions Recorded Confirmed potassium chloride 10 mEq 10 meq PO DAILY 12/17/19 05/11/22 tablet,extended release primidone 50 mg tablet 50 mg PO BID 12/17/19 05/11/22 ondansetron HCl 4 mg tablet 4 mg PO Q6H PRN nausea/vomiting 04/11/22 05/11/22 Previous Rx's Medication Instructions Recorded atorvastatin 80 mg tablet 80 mg PO QPM #90 tabs 02/15/21 hydralazine 25 mg tablet 25 mg PO TID #90 caps 09/01/21 lisinopril 40 mg tablet 40 mg PO DAILY #90 tabs 09/01/21 metoprolol succinate 25 mg 25 mg PO DAILY #90 tabs 09/01/21 tablet,extended release 24 hr warfarin 2.5 mg tablet (Jantoven) See Rx Instructions PO .COMPLEX 05/29/22 #90 tabs Allergies Allergy/AdvReac Type Severity Reaction Status Date / Time No Known Allergies Allergy Mild NOT Verified 07/06/22 11:15 APPLICABLE Review of Systems Constitutional: Comments: No fevers or chills. 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 FDC current use of 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 PAF (paroxysmal atrial fibrillation) Sinus bradycardia Surgical History History of cardiac radiofrequency ablation (~07/07/20) History of section History of colostomy Family History Family History Father CVD (cardiovascular disease) Mother Alzheimer disease Social History Social History (Updated 05/11/22 @ 13:39 by Leslie Ji) Housing: House Alcohol intake: former Patient Tobacco Use Status: Current everyday Tobacco user Tobacco use type: Cigarette Cigarettes Per Day: 4 e-Cigarette/Vaping Use: Never Used Second Hand Smoke Exposure: No Advance Directives: No Advance Directives Information Provided: Yes service: No Current occupational status: retired Cognitive needs: Yes (cane) Hearing needs: No Vision needs: Yes (glasses) Physical Exam ED Vital Signs: Vital Signs - 24 hr 07/06/22 11:34 07/06/22 14:34 Temperature 98.2 F Pulse Rate 85 63 Respiratory Rate 20 20 Blood Pressure 217/90 H 203/108 H Pulse Oximetry 98 98 Oxygen Delivery Method Room Air Room Air BMI result Body Mass Index 23.8 Const Other: Awake and alert. No acute distress. Hypertensive at 203/108. Remainder vital signs stable. Resp Other: Clear and equal bilaterally without wheezes rales or rhonchi. Mildly diminished Cardio Other: Regular rate and rhythm without murmurs rubs or gallops GI Other: Mildly tender suprapubically without guarding rebound. Left flank tenderness to palpation Back/Spine/Pelvis Other: Upper lumbar spine lower thoracic spine with tenderness to palpation. More tenderness than her flank pain. No crepitus or deformity noted Skin Other: Warm pink dry Neuro Other: Nonfocal neuro exam Extrem Other: No obvious extremity abnormalities Medical Decision Making Medical Decision Making MDM Narrative: Patient with flank pain and urinary frequency. Could certainly be urinary tract infection or pyelonephritis. Kidney stone possible. Pain may be musculoskeletal as she does have significant spinous process tenderness. She is potentially at risk for osteoporosis and therefore compression fracture. Will order CT scan of the abdomen without contrast to assess for both kidney stone as well as potential bony abnormalities, causative of her symptoms. 14:47. Lab work shows normal CBC, normal chemistries, normal creatinine. Urinalysis shows 3-5 red cells but no bacteria and 0-5 white cells. Not significantly consistent with urinary tract infection. Await CT scan as more likely source of patient's symptoms. Morning antihypertensives ordered. Lab Data 07/06/22 11:55 07/06/22 11:55 Labs: Lab Results 07/06/22 07/06/22 07/06/22 Range/Units 11:55 11:55 13:53 WBC 9.3 (4.8-10.8) X10*3/uL RBC 4.64 (4.20-5.50) X10*6/uL Hgb 13.5 (12.0-16.0) g/dl Hct 41.0 (37.0-47.0) % MCV 88.4 (80.0-98.0) fL MCH 29.1 (27.0-33.0) pg MCHC 32.9 (31.0-35.0) g/dl RDW 13.9 (11.0-16.0) % Plt Count 218 (160-400) X10*3/uL MPV 10.3 (9.4-12.3) fL Immature Gran % (Auto) 0.2 (0.0-0.4) % Neut % (Auto) 71.7 (45-73) % Lymph % (Auto) 18.6 L (20-40) % [place] % (Auto) 8.7 (2-11) % Eos % (Auto) 0.4 (0-4) % Baso % (Auto) 0.4 (0-2) % Lymph # (Auto) 1.7 (1.2-4.9) X10*3/uL [place] # (Auto) 0.8 (0.1-1.2) X10*3/uL Eos # (Auto) 0.0 (0.0-0.4) X10*3/uL Baso # (Auto) 0.0 (0.0-0.2) X10*3/uL Abs Immat Gran (auto) 0.02 (0.00-0.03) X10*3/uL Absolute Neuts (auto) 6.6 (2.0-8.3) x10*3/uL Absolute Nucleated RBC 0.000 (0.0-0.012) X10*3/uL Nucleated RBC % (auto) 0.0 (0.0-0.2) /100WBC Sodium 143 (135-145) mmol/L Potassium 4.4 (3.3-5.1) mmol/L Chloride 109 H (96-108) mmol/L Carbon Dioxide 25 (22-29) mmol/L Anion Gap 13 (12-20) BUN 9 (9-16) mg/dL Creatinine 0.78 (0.5-1.4) mg/dL Estim Creat Clear Calc 47.8 Estimated GFR > 60 Random Glucose 93 (60-115) mg/dL Calcium 9.9 (8.4-10.2) mg/dL Magnesium 2.0 (1.6-2.6) mg/dL Total Bilirubin 0.9 (0.0-1.0) mg/dL Direct Bilirubin 0.2 (0.0-0.5) mg/dL AST 15 (5-31) U/L ALT 7 (0-31) U/L Alkaline Phosphatase 110 (39-117) U/L Total Protein 6.8 (6.5-8.0) g/dL Albumin 4.0 (3.5-5.0) g/dL Lipase 18 (8-78) U/L Urine Color Yellow Urine Appearance Clear Urine pH 6.5 (5.0-9.0) Ur Specific [place] 1.015 (1.005-1.025) Urine Protein 300 (3+) H (Neg-Trace) mg/dL Urine Glucose (UA) Negative (Negative) mg/dL Urine Ketones Negative (Negative) mg/dL Urine Blood Negative (Negative) Urine Nitrite Negative (Negative) Ur Leukocyte Esterase Trace H (Negative) Urine RBC 3-5 H (0-2) /HPF Urine WBC 0-5 (0-5) /HPF Ur Squamous Epith Cells 0-2 (0-2) /HPF Urine Bacteria None Seen (None Seen) Hyaline Casts 3-5 (0-2) /LPF Discharge Plan Discharge Prescriptions: No Action hydralazine 25 mg tablet 25 mg PO TID Qty: 90 5RF lisinopril 40 mg tablet 40 mg PO DAILY Qty: 90 8RF metoprolol succinate 25 mg tablet extended release 24 hr 25 mg PO DAILY Qty: 90 0RF warfarin [] 2.5 mg tablet See Rx Instructions PO .COMPLEX Qty: 90 8RF Protocol: Dose Management Condition: Monday (Week One) Dose/Route: 2.5 mg Instruction: 1 x 2.5 mg tablet Condition: Monday Dose/Route: 3.75 mg Instruction: 1.5 x 2.5 mg tablets Condition: Monday Dose/Route: 2.5 mg Instruction: 1 x 2.5 mg tablet Condition: Monday Dose/Route: 3.75 mg Instruction: 1.5 x 2.5 mg tablets Condition: Dose/Route: 2.5 mg Instruction: 1 x 2.5 mg tablet Condition: Monday Dose/Route: 3.75 mg Instruction: 1.5 x 2.5 mg tablets Condition: Monday Dose/Route: 2.5 mg Instruction: 1 x 2.5 mg tablet Condition: Monday (Week Two) Dose/Route: 2.5 mg Instruction: 1 x 2.5 mg tablet Condition: Monday Dose/Route: 3.75 mg Instruction: 1.5 x 2.5 mg tablets Condition: Monday Dose/Route: 2.5 mg Instruction: 1 x 2.5 mg tablet Condition: Monday Dose/Route: 3.75 mg Instruction: 1.5 x 2.5 mg tablets Condition: Dose/Route: 2.5 mg Instruction: 1 x 2.5 mg tablet Condition: Monday Dose/Route: 3.75 mg Instruction: 1.5 x 2.5 mg tablets Condition: Monday Dose/Route: 2.5 mg Instruction: 1 x 2.5 mg tablet Protocol Text: Adjustment Start Date: Monday07/06/22 INR Value: 2.3 INR Date: 07/06/22 Recheck Date: 08/03/22 Rx Instructions: 1 - 2 tablets daily per INR primidone 50 mg tablet 50 mg PO BID potassium chloride 10 mEq tablet extended release 10 meq PO DAILY atorvastatin 80 mg tablet 80 mg PO QPM Qty: 90 4RF ondansetron HCl 4 mg tablet 4 mg PO Q6H PRN (Reason: nausea/vomiting)
[2022-07-06] MEDS: Metoprolol Succinate ER 25 MG TAB.ER.24H PO (15:05)
[2022-07-06] MEDS: hydrALAZINE HCl 25 MG TABLET PO (15:05)
[2022-07-06] MEDS: lisinopriL 40 MG TABLET PO (15:05)
[2022-07-06 15:53] VITALS: BP 174/59; PULSE 59; RESP 16; O2SAT 96
[2022-07-06 17:41] VITALS: BP 188/90; PULSE 60; RESP 16; O2SAT 94
== END 2022-07-06 17:43 | disposition home or self-care (01) ==
PROVIDERS: Physician Assistant Medical; Emergency Provider Student in an Organized Health Care Education/Training Program; PCP Internal Medicine
DX: N23 Unspecified renal colic (principal); F17.210 Nicotine dependence, cigarettes, uncomplicated; I10 Essential (primary) hypertension; E78.5 Hyperlipidemia, unspecified; I48.0 Paroxysmal atrial fibrillation; Z86.73 Personal history of transient ischemic attack (TIA), and cerebral infarction without residual deficits; Z79.01 Long term (current) use of 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s; Z79.899 Other long term (current) drug therapy
CPT/HCPCS: 36415; 74176; 80048; 80076; 81001; 81003; 83690; 83735; 85025; 85610; 99211; 99284

== ENCOUNTER 2022-07-25 11:40 | Outpatient (REF) | payer MEDICARE, SELFPAY ==
[2022-07-25 11:55] LABS: MANUAL DIFF FLAG NO
[2022-07-25 12:15] LABS: Basophils Percent Auto 0.7 % (0-2); Eosinophils Absolute Auto 0.1 X10*3/uL (0.0-0.4); Hematocrit 39.8 % (37.0-47.0); Imm Gran Abs Auto 0.01 X10*3/uL (0.00-0.03); Imm Gran Pct Auto 0.2 % (0.0-0.4); Lymphocytes Absolute Auto 1.7 X10*3/uL (1.2-4.9); Lymphocytes Percent Auto 27.8 % (20-40); Mean Corpuscular HGB Conc 32.7 g/dl (31.0-35.0); Mean Corpuscular Volume 88.8 fL (80.0-98.0); Mean Platelet Volume 10.4 fL (9.4-12.3); Monocytes Absolute Auto 0.5 X10*3/uL (0.1-1.2); Monocytes Percent Auto 8.8 % (2-11); Neutrophils Absolute Auto 3.7 x10*3/uL (2.0-8.3); Neutrophils Percent Auto 61.5 % (45-73); Platelet Count 250 X10*3/uL (160-400); Red Blood Count 4.48 X10*6/uL (4.20-5.50); Red Cell Distribution Width 14.2 % (11.0-16.0); White Blood Count 5.9 X10*3/uL (4.8-10.8)
[2022-07-25 12:45] LABS: Alanine Aminotransferase 8 U/L (0-31); Albumin Level 3.9 g/dL (3.5-5.0); Alkaline Phosphatase 91 U/L (39-117); Anion Gap 12 (12-20); Aspartate Amino Transferase 15 U/L (5-31); Bilirubin Total 0.6 mg/dL (0.0-1.0); Blood Urea Nitrogen 10 mg/dL (9-16); Calcium 9.8 mg/dL (8.4-10.2); Carbon Dioxide 24 mmol/L (22-29); Chloride 110 mmol/L (96-108); Cholesterol 184 mg/dL; Estimated Glomerular Filt Rate > 60; Glucose Fasting 93 mg/dL (60-99); HDL Cholesterol 58 mg/dL; LDL Cholesterol Calculated 95 mg/dl; Potassium 4.1 mmol/L (3.3-5.1); Sodium 142 mmol/L (135-145); Total Protein 6.8 g/dL (6.5-8.0); Triglycerides 157 mg/dL
== END 2022-07-25 11:41 | disposition home or self-care (01) ==
LOC: HO.LAB 11:40
PROVIDERS: PCP Internal Medicine; Visit Provider Internal Medicine
DX: D64.9 Anemia, unspecified (principal); N28.9 Disorder of kidney and ureter, unspecified; E78.5 Hyperlipidemia, unspecified; E03.9 Hypothyroidism, unspecified
CPT/HCPCS: 36415; 80053; 80061; 84443; 85025

== ENCOUNTER → 2022-07-28 12:58 | Outpatient (BNVA) | payer MEDICARE, SELFPAY | PROVIDERS: PCP Internal Medicine; Visit Provider Urology | DX: N20.0 Calculus of kidney (principal) | CPT/HCPCS: 99202 ==

== ENCOUNTER → 2022-08-03 10:58 | Outpatient (BNVA) | payer MEDICARE, SELFPAY | PROVIDERS: PCP Internal Medicine; Visit Provider Internal Medicine | DX: I48.0 Paroxysmal atrial fibrillation (principal); Z51.81 Encounter for therapeutic drug level monitoring; Z79.01 Long term (current) use of 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s | CPT/HCPCS: 85610; 99211 ==

== ENCOUNTER 2022-08-17 10:50 | Outpatient (AMB) | payer MEDICARE, SELFPAY ==
--- NOTE | 2022-08-17 10:59 | MHC.OFFVISCO ---
Intake Intake Visit Reasons: Anticoagulation Allergies No Known Allergies Allergy (Mild, Verified 08/17/22 10:55) NOT APPLICABLE Medication List - Last Reconciled 08/17/22 by Karely Hernandez RN atorvastatin 80 mg PO QPM hydralazine 25 mg PO TID lisinopril 40 mg PO DAILY metoprolol succinate ER 25 mg PO DAILY ondansetron HCl 4 mg PO Q6H PRN potassium chloride ER 10 mEq PO DAILY primidone 50 mg PO BID warfarin (Jantoven) See Protocol 1 - 2 tablets daily per INR Nursing Note INR 1.8-?? out of therapeutic range Medications and supplements reviewed Patient status: no c.o- amb with cane Medications or supplements: no changes Diet: appetite 'pretty good' Denies any signs and symptoms of bleeding or clotting or unusual bruising Bleeding, bruising, clotting discussed Nutritional guidance given: no greens for 2 days, eat reds to raise Dose: 3.75mg today and tomm, then cont reg dosing- 3.75mg x 3, 2.5mg x 4 F/U INR Date : 2 weeks? Patient verbalizing understanding of instructions given. 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
[2022-08-17 11:01] LABS: Prothrombin Time Whole Bld POC 21.2 sec (11.1-13.5); ~PT, ~INR - Anti Coag Clinic 1.8 (0.9-1.1)
== END 2022-08-17 11:06 | disposition home or self-care (01) ==
LOC: HO.ACS 10:50
PROVIDERS: PCP Internal Medicine; Visit Provider Internal Medicine
DX: Z79.01 Long term (current) use of 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s (principal)

== ENCOUNTER → 2022-08-17 10:50 | Outpatient (BNVA) | payer MEDICARE, SELFPAY | PROVIDERS: PCP Internal Medicine; Visit Provider Internal Medicine | DX: I48.0 Paroxysmal atrial fibrillation (principal); Z79.01 Long term (current) use of 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s; Z51.81 Encounter for therapeutic drug level monitoring | CPT/HCPCS: 85610; 99211 ==

== ENCOUNTER 2022-08-31 11:21 | Outpatient (AMB) | payer MEDICARE, SELFPAY ==
[2022-08-31 11:30] LABS: Prothrombin Time Whole Bld POC 26.3 sec (11.1-13.5); ~PT, ~INR - Anti Coag Clinic 2.2 (0.9-1.1)
--- NOTE | 2022-08-31 11:31 | MHC.OFFVISCO ---
Intake Intake Visit Reasons: Anticoagulation Allergies No Known Allergies Allergy (Mild, Verified 08/31/22 11:25) NOT APPLICABLE Medication List - Last Reconciled 08/31/22 by Rosangela Malone RN atorvastatin 80 mg PO QPM hydralazine 25 mg PO TID lisinopril 40 mg PO DAILY metoprolol succinate ER 25 mg PO DAILY ondansetron HCl 4 mg PO Q6H PRN potassium chloride ER 10 mEq PO DAILY primidone 50 mg PO BID warfarin (Jantoven) See Protocol 1 - 2 tablets daily per INR Nursing Note PT.STATES THAT SHE HAS BEEN HAVING 8 OUNCES OF CRANBERRY JUICE DAILY FOR A FEW WEEKS. PT.AGREES TO DECREASE INTAKE OF THIS DUE TO HIGH HIGH PROBABILITY OF ELEVATED INR'S. CONTINUE PRESENT DOSE AND FOLLOW-UP IN 3 WEEKS. GOOD UNDERSTANDING OF DOSING INSTR. 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
== END 2022-08-31 11:40 | disposition home or self-care (01) ==
LOC: HO.ACS 11:21
PROVIDERS: PCP Internal Medicine; Visit Provider Internal Medicine
DX: Z79.01 Long term (current) use of 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s (principal)

== ENCOUNTER → 2022-08-31 11:21 | Outpatient (BNVA) | payer MEDICARE, SELFPAY | PROVIDERS: PCP Internal Medicine; Visit Provider Internal Medicine | DX: I48.0 Paroxysmal atrial fibrillation (principal); Z79.01 Long term (current) use of 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s; Z51.81 Encounter for therapeutic drug level monitoring | CPT/HCPCS: 85610; 99211 ==

== ENCOUNTER 2022-09-30 10:54 | Outpatient (AMB) | payer MEDICARE, SELFPAY ==
--- NOTE | 2022-09-30 11:13 | MHC.OFFVISCO ---
Intake Intake Visit Reasons: Anticoagulation Allergies No Known Allergies Allergy (Mild, Verified 09/30/22 10:55) NOT APPLICABLE Medication List - Last Reconciled 09/30/22 by Twila Valentine RN atorvastatin 80 mg PO QPM hydralazine 25 mg PO TID lisinopril 40 mg PO DAILY metoprolol succinate ER 25 mg PO DAILY ondansetron HCl 4 mg PO Q6H PRN potassium chloride ER 10 mEq PO DAILY primidone 50 mg PO BID warfarin (Jantoven) See Protocol 1 - 2 tablets daily per INR Nursing Note INR 1.4 out of therapeutic range Medications and supplements reviewed Patient status: WELL, may have missed a dose last week, and or had more greens than usual, Medications or supplements: no changes per pt Diet: good Denies any signs and symptoms of bleeding or clotting or unusual bruising Bleeding, bruising, clotting discussed Nutritional guidance given: avoid greens x 3 days, eat orange and reds today and tomorrow Dose: 5mg today then resume usual dose 3.75mg x 3 days/ 2.5mg x 4 days F/U INR Date: 10/04/22Monday ? Patient verbalizing understanding of instructions given. Anti-Coag Initial Assessment Social Hx Patient Tobacco Use Status: Current everyday Tobacco user Tobacco use type: Cigarette alcohol intake: former Alcohol intake frequency: does not drink Coding Level of Care Code Est Patient Level 1 Diagnoses Current use of 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 therapy Z79.01 Results AMB INR Fingerstick AMB INR Fingerstick 1.4 Last Edit by Twila Valentine RN on 09/30/22 11:07 MANUAL ENTRY Assessment & Plan Assessment & Plan (1) Current use of 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 therapy: Code(s): Z79.01 - alf (current) use of 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s Category: Medical
[2022-10-01 11:10] LABS: Prothrombin Time Whole Bld POC 16.1 sec (11.1-13.5); ~PT, ~INR - Anti Coag Clinic 1.3 (0.9-1.1)
== END 2022-09-30 11:22 | disposition home or self-care (01) ==
LOC: HO.ACS 10:54
PROVIDERS: PCP Internal Medicine; Visit Provider Internal Medicine
DX: Z79.01 Long term (current) use of 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s (principal)

== ENCOUNTER → 2022-09-30 10:54 | Outpatient (BNVA) | payer MEDICARE, SELFPAY | PROVIDERS: PCP Internal Medicine; Visit Provider Internal Medicine | DX: I48.0 Paroxysmal atrial fibrillation (principal); Z51.81 Encounter for therapeutic drug level monitoring; Z79.01 Long term (current) use of 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s | CPT/HCPCS: 85610; 99211 ==

== ENCOUNTER 2022-10-04 13:03 | Outpatient (AMB) | payer MEDICARE, SELFPAY ==
--- NOTE | 2022-10-04 13:09 | MHC.OFFVISCO ---
Intake Intake Visit Reasons: Anticoagulation Allergies No Known Allergies Allergy (Mild, Verified 10/04/22 13:05) NOT APPLICABLE Medication List - Last Reconciled 10/04/22 by Twila Valentine RN atorvastatin 80 mg PO QPM hydralazine 25 mg PO TID lisinopril 40 mg PO DAILY metoprolol succinate ER 25 mg PO DAILY ondansetron HCl 4 mg PO Q6H PRN potassium chloride ER 10 mEq PO DAILY primidone 50 mg PO BID warfarin (Jantoven) See Protocol 1 - 2 tablets daily per INR Nursing Note INR 1.7? out of therapeutic range Medications and supplements reviewed Patient status: states her appetite isnt that great , diarrhea every now and then. had some this am. had husbands big bday republican out at [employer] and a few funerals to go to - MAYBE DIET EFFECTED THE INR ALSO Medications or supplements: no changes Diet: fair Denies any signs and symptoms of bleeding or clotting or unusual bruising Bleeding, bruising, clotting discussed Nutritional guidance given: avoid greens x 3 days , eat orange and reds to help raise the INR Dose: 3.75mg x 4 days this week then resume 3.75mg x 3 days/ 2.5mg x 4 days F/U INR Date: 1 week ?? Patient verbalizing understanding of instructions given. Anti-Coag Initial Assessment Social Hx Patient Tobacco Use Status: Current everyday Tobacco user Tobacco use type: Cigarette alcohol intake: former Alcohol intake frequency: does not drink Coding Level of Care Code Est Patient Level 1 Diagnoses Current use of 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 therapy Z79.01 Assessment & Plan Assessment & Plan (1) Current use of 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 therapy: Code(s): Z79.01 - salvage determiner (current) use of 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s Category: Medical
[2022-10-04 13:10] LABS: Prothrombin Time Whole Bld POC 20.5 sec (11.1-13.5); ~PT, ~INR - Anti Coag Clinic 1.7 (0.9-1.1)
== END 2022-10-04 13:22 | disposition home or self-care (01) ==
LOC: HO.ACS 13:03
PROVIDERS: PCP Internal Medicine; Visit Provider Internal Medicine
DX: Z79.01 Long term (current) use of 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s (principal)

== ENCOUNTER → 2022-10-04 13:03 | Outpatient (BNVA) | payer MEDICARE, SELFPAY | PROVIDERS: PCP Internal Medicine; Visit Provider Internal Medicine | DX: I48.0 Paroxysmal atrial fibrillation (principal); Z51.81 Encounter for therapeutic drug level monitoring; Z79.01 Long term (current) use of 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s | CPT/HCPCS: 85610; 99211 ==

== ENCOUNTER 2022-10-14 11:25 | Outpatient (AMB) | payer MEDICARE, SELFPAY ==
[2022-10-14 11:33] LABS: Prothrombin Time Whole Bld POC 19.2 sec (11.1-13.5); ~PT, ~INR - Anti Coag Clinic 1.6 (0.9-1.1)
--- NOTE | 2022-10-14 11:39 | MHC.OFFVISCO ---
Intake Intake Visit Reasons: Anticoagulation Allergies No Known Allergies Allergy (Mild, Verified 10/14/22 11:27) NOT APPLICABLE Medication List - Last Reconciled 10/14/22 by Mery Prado, RN atorvastatin 80 mg PO QPM hydralazine 25 mg PO TID lisinopril 40 mg PO DAILY metoprolol succinate ER 25 mg PO DAILY ondansetron HCl 4 mg PO Q6H PRN potassium chloride ER 10 mEq PO DAILY primidone 50 mg PO BID warfarin (Jantoven) See Protocol 1 - 2 tablets daily per INR Nursing Note Amb to [facility] using cane feeling ok, noted round band aid below left eye, sts extension specialist visit yesterday and had 2 biopsys done will get results in about 2 weeks Medications and supplements reviewed sts she has no appetite I have not had any greens and I am only eating dry foods sts also nauseous in the morning no longer having boost daily, is having 1 glass of prepared green iced tea daily Denies any unusual signs and symptoms of bruising, bleeding Denies any new Chest pain, SOB, or clotting INR: 1.6 continues below range since 09/30, denies missed doses Nutritional guidance given: eat what she can, ok to continue with 1 green iced tea as settles stomach Dose: increase dose today and tomorrow to 5mg then resume usual dosing on Monday; 3.75mg x 3 days and 2.5mg x 4 F/U INR:1 week and may need a weekly dosing increase Patient verbalizes understanding of instructions given with accurate read back/ teach back of dosing Anti-Coag Initial Assessment Social Hx Patient Tobacco Use Status: Current everyday Tobacco user Tobacco use type: Cigarette alcohol intake: former Alcohol intake frequency: does not drink Coding Level of Care Code Est Patient Level 1 Diagnoses Current use of 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 therapy Z79.01 Time Spent (min) 15 Assessment & Plan Assessment & Plan (1) Current use of 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 therapy: Code(s): 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
== END 2022-10-14 11:50 | disposition home or self-care (01) ==
LOC: HO.ACS 11:25
PROVIDERS: PCP Internal Medicine; Visit Provider Internal Medicine
DX: Z79.01 Long term (current) use of 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s (principal)

== ENCOUNTER → 2022-10-14 11:25 | Outpatient (BNVA) | payer MEDICARE, SELFPAY | PROVIDERS: PCP Internal Medicine; Visit Provider Internal Medicine | DX: I48.0 Paroxysmal atrial fibrillation (principal); Z79.01 Long term (current) use of 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s; Z51.81 Encounter for therapeutic drug level monitoring | CPT/HCPCS: 85610; 99211 ==

== ENCOUNTER 2022-10-18 13:24 | Outpatient (AMB) | payer MEDICARE, SELFPAY ==
[2022-10-18 13:25] VITALS: BP 126/70; PULSE 56; O2SAT 98; BMI 23.8
--- NOTE | 2022-10-18 13:25 | A.OFFPC_ITS ---
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 per policy Accompanied by: Self / Same As Patient Allergies No Known Allergies Allergy (Mild, Verified 10/18/22 13:26) NOT APPLICABLE Tobacco use date assessed: 07/18/22 Fall risk assessment: No Falls in past year Last assessed Fall Risk: 10/18/22 Dental Screening Dental Screen Date: 10/18/22 Did you have a dental visit in the last 12 months?: No Did you have a dental problem in the last 6 months where you did not have access to dental care?: No Was dental information given to patient?: Patient has dentist HPI 3mth f/u HPI Details HTN hyperlip and afib; stable on rx; compliant [facility] Medical History Hyperlipidemia Gout Annual physical exam [facility] 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 Essential hypertension Embolic stroke Sinus bradycardia PAF (paroxysmal atrial fibrillation) Surgical History History of cardiac radiofrequency ablation (~07/07/20) History of colostomy History of section Family History Father CVD (cardiovascular disease) Mother Alzheimer disease Social History Housing: House Alcohol intake: former Patient Tobacco Use Status: Current everyday Tobacco user Tobacco use type: Cigarette Cigarettes Per Day: 4 e-Cigarette/Vaping Use: Never Used Second Hand Smoke Exposure: No service: No Current occupational status: retired Cognitive needs: Yes (cane) Hearing needs: No Vision needs: Yes (glasses) Questionnaire PHQ-9 Over the last 2 weeks, how often have you been bothered by any of the following problems? 1. Little interest or pleasure in doing things: not at all 2. Feeling down, depressed, or hopeless: not at all 3. Trouble falling or staying asleep, or sleeping too much: not at all 4. Feeling tired or having little energy: not at all 5. Poor appetite or overeating: not at all 6. Feeling bad about yourself - or that you are a failure or have let yourself or your family down: not at all 7. Trouble concentrating on things, such as reading the newspaper or watching television: not at all 8. Moving or speaking so slowly that other people could have noticed. Or the opposite - being so fidgety or restless that you have been moving around a lot more than usual: not at all 9. Thoughts that you would be better off or of hurting yourself in some way: not at all Total score: 0 Depression Screening Interpretation: Negative [id number] - PHQ-9 Billing: Yes Source: Developed by Drs. Domingo Sandoval, Nilsa Palacios, Jorge Dominguez and colleagues, with an educational joselin from [employer]. Thrive Questionnaire Date Thrive assessed: 02/21/22 AUDIT C Alcohol Use Questionnaire (AUDIT-C) 1. How often do you have a drink containing alcohol?: Never Total Score: 0 Score Reviewed/Action Taken: Yes LYNDSAY-7 AMB Questionnaire LYNDSAY-7 Date LYNDSAY - 7 assessed: 02/21/22 Source: Developed by Drs. Domingo Sandoval, Nilsa Palacios, Jorge Dominugez and colleagues, with an educational joselin from [employer]. Review of Systems Const Denies chills, Denies headache(s) and Denies weight loss ENT Denies headache(s) Card Denies chest pain, Denies syncope, Denies irregular heart rhythm and Denies dyspnea Resp Denies chest congestion, Denies cough and Denies dyspnea GI Denies abdominal pain, Denies change in stool character, Denies nausea and Denies vomiting Musc Denies deformity and Denies joint swelling Neuro Denies syncope and Denies headache(s) Physical exam (Primary Care) Vital Signs: Last Vital Signs Pulse 56 10/18/22 13:25 BP 126/70 10/18/22 13:25 Pulse Ox 98 10/18/22 13:25 Oxygen Delivery Method Room Air 10/18/22 13:25 BMI result Body Mass Index 23.8 Tobacco/Smoking Status: Tobacco use Status Tobacco use date assessed 07/18/22 10/18/22 13:30 Patient Tobacco Use Status Current everyday Tobacco 10/18/22 13:30 Tobacco use type Cigarette 10/18/22 13:30 e-Cigarette/Vaping Use Never Used 10/18/22 13:30 PHQ-9: PHQ-9 Score PHQ-9: Total score 0 10/18/22 13:30 Depression Screening Interpretation: Negative Thrive Assessment: Date of Thrive Assessment Date Thrive assessed 02/21/22 10/18/22 13:30 Const General: cooperative, comfortable, no acute distress and alert Neck Neck: Yes no lymphadenopathy Thyroid: Thyroid normal Resp Effort & Inspection: normal respiratory effort Auscultation: clear to auscultation bilaterally Percussion: percussion normal Cardio Jugular venous distension: no JVD Palpation: normal PMI Rate: regular rate Rhythm: regular rhythm Heart sounds: S1 normal heart sound present and S2 normal heart sound present GI Inspection: Yes normal to inspection Palpation (GI): No hepatosplenomegaly present Skin General skin exam: no rashes or lesions noted Extrem General: Yes no clubbing, cyanosis or edema Assessment and Plan Assessment & Plan (1) Hyperlipidemia: Code(s): E78.5 - Hyperlipidemia, unspecified Plan: stable; same rx (2) Essential hypertension: Code(s): I10 - Essential (primary) hypertension Plan: stable; same rx (3) PAF (paroxysmal atrial fibrillation): Code(s): I48.0 - Paroxysmal atrial fibrillation Plan: stable Orders: Orders Lipid Panel Today E78.5 - Hyperlipidemia, unspecified Thyroid Stimulating Hormone Today E03.9 - Hypothyroidism, unspecified Complete Blood Count Auto Diff Today D64.9 - Anemia, unspecified Comprehensive [place]. Panel Fast Today N28.9 - Disorder of kidney and ureter, unspecified Coding Level of Care Code Est Pt Level 4 (66365) Diagnoses Hyperlipidemia E78.5 Essential hypertension I10 PAF (paroxysmal atrial fibrillation) I48.0
== END 2022-10-18 13:39 | disposition home or self-care (01) ==
PROVIDERS: PCP Internal Medicine; Visit Provider Internal Medicine
DX: E78.5 Hyperlipidemia, unspecified (principal); I10 Essential (primary) hypertension; I48.0 Paroxysmal atrial fibrillation
CPT/HCPCS: 99214

== ENCOUNTER 2022-10-21 11:21 | Outpatient (AMB) | payer MEDICARE, SELFPAY ==
[2022-10-21 11:43] LABS: Prothrombin Time Whole Bld POC 24.6 sec (11.1-13.5)
--- NOTE | 2022-10-21 11:52 | MHC.OFFVISCO ---
Intake Intake Visit Reasons: Anticoagulation Allergies No Known Allergies Allergy (Mild, Verified 10/21/22 11:31) NOT APPLICABLE Medication List - Last Reconciled 10/21/22 by Twila Valentine RN atorvastatin 80 mg PO QPM hydralazine 25 mg PO TID lisinopril 40 mg PO DAILY metoprolol succinate ER 25 mg PO DAILY ondansetron HCl 4 mg PO Q6H PRN potassium chloride ER 10 mEq PO DAILY primidone 50 mg PO BID warfarin (Jantoven) See Protocol 1 - 2 tablets daily per INR Nursing Note INR: 2.0 in therapeutic range Medications and supplements reviewed going for labs next wk per her pcp she complains of being tiered asked md to add B12 also to her labs No changes in health, diet, medications, or supplements, Denies any signs and symptoms of bleeding or bruising or clotting. Bleeding, bruising, clotting discussed Nutritional guidance given - eat a mix of fruits and vegetables Dose: increase to 3.75mg x 4 days/ 2.5mg x 3 days F/U INR: 1 week due to labile INR Patient verbalizes understanding of instructions given Anti-Coag Initial Assessment Social Hx Patient Tobacco Use Status: Current everyday Tobacco user Tobacco use type: Cigarette alcohol intake: former Alcohol intake frequency: does not drink Coding Level of Care Code Est Patient Level 1 Diagnoses Current use of 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 therapy Z79.01 Assessment & Plan Assessment & Plan (1) Current use of 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 therapy: Code(s): Z79.01 - penitentiary (current) use of 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s Category: Medical
== END 2022-10-21 11:57 | disposition home or self-care (01) ==
LOC: HO.ACS 11:21
PROVIDERS: PCP Internal Medicine; Visit Provider Internal Medicine
DX: Z79.01 Long term (current) use of 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s (principal)

== ENCOUNTER → 2022-10-21 11:21 | Outpatient (BNVA) | payer MEDICARE, SELFPAY | PROVIDERS: PCP Internal Medicine; Visit Provider Internal Medicine | DX: I48.0 Paroxysmal atrial fibrillation (principal); Z79.01 Long term (current) use of 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s; Z51.81 Encounter for therapeutic drug level monitoring | CPT/HCPCS: 85610; 99211 ==

== ENCOUNTER 2022-10-28 11:03 | Outpatient (REF) | payer MEDICARE, SELFPAY ==
[2022-10-28 11:43] LABS: MANUAL DIFF FLAG NO
[2022-10-28 12:07] LABS: Basophils Percent Auto 0.5 % (0-2); Eosinophils Absolute Auto 0.1 X10*3/uL (0.0-0.4); Eosinophils Percent Auto 1.2 % (0-4); Hematocrit 39.5 % (37.0-47.0); Hemoglobin 13.2 g/dl (12.0-16.0); Imm Gran Abs Auto 0.03 X10*3/uL (0.00-0.03); Imm Gran Pct Auto 0.5 % (0.0-0.4); Lymphocytes Absolute Auto 1.7 X10*3/uL (1.2-4.9); Lymphocytes Percent Auto 26.8 % (20-40); Mean Corpuscular HGB Conc 33.4 g/dl (31.0-35.0); Mean Corpuscular Hemoglobin 29.8 pg (27.0-33.0); Mean Corpuscular Volume 89.2 fL (80.0-98.0); Mean Platelet Volume 10.5 fL (9.4-12.3); Monocytes Absolute Auto 0.7 X10*3/uL (0.1-1.2); Monocytes Percent Auto 10.5 % (2-11); Neutrophils Absolute Auto 3.9 x10*3/uL (2.0-8.3); Neutrophils Percent Auto 60.5 % (45-73); Platelet Count 258 X10*3/uL (160-400); Red Blood Count 4.43 X10*6/uL (4.20-5.50); Red Cell Distribution Width 14.2 % (11.0-16.0); White Blood Count 6.5 X10*3/uL (4.8-10.8)
[2022-10-28 13:09] LABS: Alanine Aminotransferase 6 U/L (0-31); Alkaline Phosphatase 96 U/L (39-117); Anion Gap 12 (12-20); Aspartate Amino Transferase 14 U/L (5-31); Bilirubin Total 0.7 mg/dL (0.0-1.0); Blood Urea Nitrogen 12 mg/dL (9-16); Calcium 9.7 mg/dL (8.4-10.2); Carbon Dioxide 24 mmol/L (22-29); Chloride 108 mmol/L (96-108); Cholesterol 290 mg/dL (<200); Estimated Glomerular Filt Rate > 60; Glucose Fasting 84 mg/dL (60-99); HDL Cholesterol 56 mg/dL (>40); LDL Cholesterol Calculated 198 mg/dL (<100); Potassium 3.8 mmol/L (3.3-5.1); Sodium 140 mmol/L (135-145); Triglycerides 181 mg/dL (<150)
[2022-10-28 13:15] LABS: Thyroid Stimulating Hormone 1.93 uIU/mL (0.32-4.0)
[2022-10-28 13:24] LABS: Vitamin B12 287 pg/mL (200-900)
== END 2022-10-28 11:04 | disposition home or self-care (01) ==
LOC: HO.LAB 11:03
PROVIDERS: PCP Internal Medicine; Visit Provider Internal Medicine
DX: E78.5 Hyperlipidemia, unspecified (principal); D64.9 Anemia, unspecified; R53.83 Other fatigue; N28.9 Disorder of kidney and ureter, unspecified; E03.9 Hypothyroidism, unspecified; I48.0 Paroxysmal atrial fibrillation; Z51.81 Encounter for therapeutic drug level monitoring; Z79.01 Long term (current) use of 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s
CPT/HCPCS: 36415; 80053; 80061; 82607; 84443; 85025; 85610; 99211

== ENCOUNTER 2022-10-28 11:08 | Outpatient (AMB) | payer MEDICARE, SELFPAY ==
--- NOTE | 2022-10-28 11:15 | MHC.OFFVISCO ---
Intake Intake Visit Reasons: Anticoagulation Allergies No Known Allergies Allergy (Mild, Verified 10/28/22 11:11) NOT APPLICABLE Medication List - Last Reconciled 10/28/22 by Karely Hernandez RN atorvastatin 80 mg PO QPM hydralazine 25 mg PO TID lisinopril 40 mg PO DAILY metoprolol succinate ER 25 mg PO DAILY ondansetron HCl 4 mg PO Q6H PRN potassium chloride ER 10 mEq PO DAILY primidone 50 mg PO BID warfarin (Jantoven) See Protocol 1 - 2 tablets daily per INR Nursing Note INR 1.9-?? out of therapeutic range Medications and supplements reviewed Patient status: pt amb with cane, states did not follow increased dosing from prev dosing- dates on dosing management and dosing reviewed with pt Medications or supplements: no changes Diet: same Denies any signs and symptoms of bleeding or clotting or unusual bruising Bleeding, bruising, clotting discussed Nutritional guidance given: no greens for 2 days, eat a red today Dose: 3.75mg today, 2.5mg x 3, 3.75mg x 4 F/U INR Date : 1 week Patient verbalizing understanding of instructions given. Anti-Coag Initial Assessment Social Hx Patient Tobacco Use Status: Current everyday Tobacco user Tobacco use type: Cigarette alcohol intake: former Alcohol intake frequency: does not drink Coding Level of Care Code Est Patient Level 1 Diagnoses Current use of 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 therapy Z79.01 Assessment & Plan Assessment & Plan (1) Current use of 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 therapy: Code(s): Z79.01 - emt intermediate (current) use of 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s Category: Medical
[2022-10-28 11:16] LABS: Prothrombin Time Whole Bld POC 23.4 sec (11.1-13.5); ~PT, ~INR - Anti Coag Clinic 1.9 (0.9-1.1)
== END 2022-10-28 11:24 | disposition home or self-care (01) ==
LOC: HO.ACS 11:08
PROVIDERS: PCP Internal Medicine; Visit Provider Internal Medicine
DX: Z79.01 Long term (current) use of 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s (principal)

== ENCOUNTER 2022-11-02 13:16 | Emergency (ER) | payer MEDICARE, SELFPAY ==
--- NOTE | ~2022-11-02 | XR_ITS ---
EXAMINATION: XR SHOULDER, LEFT CLINICAL INFORMATION: Fall. Left shoulder pain. COMPARISON: 11/02/2022 TECHNIQUE: Three views of the left shoulder. FINDINGS: Bones are osteopenic. There is a subtle cortical break at the medial aspect of the humeral neck/inferior margin of the humeral head with adjacent transverse band of sclerosis which may correspond to a nondisplaced humeral neck fracture. A prominent osteophyte at the inferior aspect of the humeral head is also possible, though such an osteophyte was not present on prior studies. No additional fractures are suspected. Mild glenohumeral osteoarthritis. Anterior subacromial spurs are noted. XR/XR shoulder LT min 2V IMPRESSION: Subtle cortical break at the inferior margin of the left humeral head/medial humeral neck, possibly corresponding to a nondisplaced humeral neck fracture. Consider correlation with CT of the left shoulder for confirmation.
--- NOTE | ~2022-11-02 | CT_ITS ---
EXAMINATION: CT HEAD WITHOUT CONTRAST CLINICAL INFORMATION: Trauma. Pain. COMPARISON: 09/04/2021. TECHNIQUE: Contiguous axial imaging was performed from the skull base to vertex without intravenous administration of contrast. This CT examination was performed using dose optimization techniques as appropriate, variously including the following: *Automated exposure control *Adjustment of mA and/or kV according to patient size (this includes techniques or standardized protocols for targeted exams where dose is matched to indication/reason for exam; i.e. extremities or head) *Use of iterative reconstruction technique DLP: 930 mGy-cm FINDINGS: There is right frontoparietal encephalomalacia with ex vacuo dilatation of the right lateral ventricle. There is underlying generalized cerebral volume loss with prominence of the lateral and the third ventricles. The cortical sulci are widened appropriately. The fourth ventricle and basal cisterns are normally outlined. There is moderate bilateral periventricular and central white matter diminished attenuation. There is no acute territorial defect, hemorrhage or midline shift. The extra-axial spaces are unremarkable. Cervical spine: There is straightening of the expected cervical spine curvature. There is C6-C7 fusion. There is mild diffuse cervical disc degenerative change with loss of disc space, endplate change and posterior osteophytes associated with diffuse facet osteoarthritic hypertrophic change without significant spinal canal or neuroforaminal narrowing. There is no fracture. The soft tissues are unremarkable. The upper lung contreras are clear. CT/CT head/brain wo IV con IMPRESSION: No acute intracranial abnormality. Mild cervical disc degenerative change. No fracture or malalignment.
--- NOTE | ~2022-11-02 | XR_ITS ---
EXAMINATION: XR HUMERUS, LEFT CLINICAL INFORMATION: Fall. Pain. COMPARISON: None available. TECHNIQUE: AP and lateral views of the left humerus. FINDINGS: The bones and soft tissues are normal. No fracture. Imaged portions of the shoulder and elbow are unremarkable. XR/XR humerus LT IMPRESSION: Normal left humerus.
--- NOTE | ~2022-11-02 | XR_ITS ---
EXAMINATION: XR ELBOW, LEFT CLINICAL INFORMATION: Fall. Elbow pain. COMPARISON: None available. TECHNIQUE: Three views of the left elbow. FINDINGS: The bones and soft tissues are normal. No fracture or joint effusion. Alignment is anatomic. Joint spaces are maintained. XR/XR elbow LT min 3V IMPRESSION: Normal left elbow.
--- NOTE | ~2022-11-02 | CT_ITS ---
EXAMINATION: CT HEAD WITHOUT CONTRAST CLINICAL INFORMATION: Trauma. Pain. COMPARISON: 09/04/2021. TECHNIQUE: Contiguous axial imaging was performed from the skull base to vertex without intravenous administration of contrast. This CT examination was performed using dose optimization techniques as appropriate, variously including the following: *Automated exposure control *Adjustment of mA and/or kV according to patient size (this includes techniques or standardized protocols for targeted exams where dose is matched to indication/reason for exam; i.e. extremities or head) *Use of iterative reconstruction technique DLP: 930 mGy-cm FINDINGS: There is right frontoparietal encephalomalacia with ex vacuo dilatation of the right lateral ventricle. There is underlying generalized cerebral volume loss with prominence of the lateral and the third ventricles. The cortical sulci are widened appropriately. The fourth ventricle and basal cisterns are normally outlined. There is moderate bilateral periventricular and central white matter diminished attenuation. There is no acute territorial defect, hemorrhage or midline shift. The extra-axial spaces are unremarkable. Cervical spine: There is straightening of the expected cervical spine curvature. There is C6-C7 fusion. There is mild diffuse cervical disc degenerative change with loss of disc space, endplate change and posterior osteophytes associated with diffuse facet osteoarthritic hypertrophic change without significant spinal canal or neuroforaminal narrowing. There is no fracture. The soft tissues are unremarkable. The upper lung contreras are clear. CT/CT cervical spine wo IV con IMPRESSION: No acute intracranial abnormality. Mild cervical disc degenerative change. No fracture or malalignment.
--- NOTE | 2022-11-02 13:24 | ED_ITS ---
HPI - Fall General Chief Complaint: Fall Stated Complaint: L Arm Pain S/P Fall 11/02/22 Time Seen by Provider: 11/02/22 16:30 Source: patient Mode of arrival: EMS Limitations: no limitations History of Present Illness HPI Narrative: Patient history of paroxysmal AFib on Coumadin walks with a cane or walker was sitting on toilet tried to get up lost balance and landed on her left side complaining of pain in left shoulder area no head injury no loss of consciousness no palpitation or chest pain no other injuries Related Data Home Medications Medication Instructions Recorded Confirmed potassium chloride 10 mEq 10 meq PO DAILY 12/17/19 10/21/22 tablet,extended release primidone 50 mg tablet 50 mg PO BID 12/17/19 10/21/22 ondansetron HCl 4 mg tablet 4 mg PO Q6H PRN nausea/vomiting 04/11/22 10/21/22 Previous Rx's Medication Instructions Recorded warfarin 2.5 mg tablet (Jantoven) See Rx Instructions PO .COMPLEX 05/29/22 #90 tabs metoprolol succinate 25 mg 25 mg PO DAILY #90 tabs 09/06/22 tablet,extended release 24 hr hydralazine 25 mg tablet 25 mg PO TID #90 caps 10/17/22 lisinopril 40 mg tablet 40 mg PO DAILY #90 tabs 10/25/22 atorvastatin 80 mg tablet 80 mg PO QPM #90 tabs 11/02/22 tramadol 50 mg tablet 50 mg PO Q8-10H PRN pain #20 tabs 11/02/22 Allergies Allergy/AdvReac Type Severity Reaction Status Date / Time No Known Allergies Allergy Mild NOT Verified 11/02/22 13:25 APPLICABLE Review of Systems 2 Review of Systems: Yes all other systems are reviewed and are negative [facility] Past Medical History Medical History Hyperlipidemia Gout Annual physical exam correction current use of 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 correction current use of antiarrhythmic drug Essential hypertension Embolic stroke Sinus bradycardia PAF (paroxysmal atrial fibrillation) Surgical History History of cardiac radiofrequency ablation (~07/07/20) History of colostomy History of section Family History Family History Father CVD (cardiovascular disease) Mother Alzheimer disease Social History Social History Housing: House Alcohol intake: former Patient Tobacco Use Status: Current everyday Tobacco user Tobacco use type: Cigarette Cigarettes Per Day: 4 e-Cigarette/Vaping Use: Never Used Second Hand Smoke Exposure: No Advance Directives: No Advance Directives Information Provided: No service: No Current occupational status: retired Cognitive needs: Yes (cane) Hearing needs: No Vision needs: Yes (glasses) Physical Exam 2 Vital Signs: Vital Signs: Last Vital Signs Temp 98.6 F 11/02/22 16:33 Pulse 90 11/02/22 16:41 Resp 14 11/02/22 16:33 BP 170/100 H 11/02/22 16:41 Pulse Ox 97 11/02/22 16:33 O2 Del Method Room Air 11/02/22 16:33 BMI result Body Mass Index 23.8 Appearance: Alert. Oriented X3. No acute distress. Eyes: PERRLA, No Nystagmus HEENT: Pharynx normal. Oral Mucosa moist AT NC Neck: Normal inspection. Neck supple. CVS: Normal heart rate and rhythm. Pulses normal. Respiratory: No respiratory distress. Equal air entry bilateral, no wheezing/rales/rhonchi Abdomen: Soft and nontender. Bowel sounds are present, no mass palpable, no CVA tenderness Skin: Skin warm and dry. Normal skin color. Normal skin turgor. Extremities: No lower extremity edema. No calf tenderness tenderness left upper arm good range of elbow moves no deformity neurovascular intact Neuro: Oriented X 3. No motor deficit. No sensory deficit.No cerebellar signs , cranial nerves II-XII intact Course Course Course Narrative: RME:?77 yo female presents with left arm pain s/p mechanical fall today. ?head strike or LOC. Patient woke up on floor, able to ambulate afterwards. On warfarin. Left shoulder and elbow TTP. NV intact distally. No deformity. Focal neuro exam. Poor historian. Labs, EKG, Xray shoulder/humerus/elbow/ wrist, CT head, UA, INR Full HPI, ROS and PE to be performed by the primary ED provider. Medications Administered Discontinued Medications Generic Name Dose Route Start Last Admin Trade Name Freq PRN Reason Stop Dose Admin Oxycodone HCl 5 mg 11/02/22 17:43 11/02/22 18:17 Oxycodone Hcl Immed Release 5 Mg Tablet PO 11/02/22 17:44 5 mg ONCE ONE Administration Medical Decision Making Differential Diagnosis Differential Diagnoses: The differential diagnosis associated with the presentation includes Humerus fracture /head injury/SAH Lab Data MDM Lab Attestation statement: I reviewed the patient's lab results. 11/02/22 14:04 11/02/22 14:04 Labs: Lab Results 11/02/22 11/02/22 Range/Units 14:04 17:23 WBC 9.8 (4.8-10.8) X10*3/uL RBC 4.57 (4.20-5.50) X10*6/uL Hgb 13.3 (12.0-16.0) g/dl Hct 40.1 (37.0-47.0) % MCV 87.7 (80.0-98.0) fL MCH 29.1 (27.0-33.0) pg MCHC 33.2 (31.0-35.0) g/dl RDW 14.4 (11.0-16.0) % Plt Count 247 (160-400) X10*3/uL MPV 10.1 (9.4-12.3) fL Immature Gran % (Auto) 0.3 (0.0-0.4) % Neut % (Auto) 75.5 H (45-73) % Lymph % (Auto) 17.4 L (20-40) % [place] % (Auto) 6.1 (2-11) % Eos % (Auto) 0.4 (0-4) % Baso % (Auto) 0.3 (0-2) % Lymph # (Auto) 1.7 (1.2-4.9) X10*3/uL [place] # (Auto) 0.6 (0.1-1.2) X10*3/uL Eos # (Auto) 0.0 (0.0-0.4) X10*3/uL Baso # (Auto) 0.0 (0.0-0.2) X10*3/uL Abs Immat Gran (auto) 0.03 (0.00-0.03) X10*3/uL Absolute Neuts (auto) 7.4 (2.0-8.3) x10*3/uL Absolute Nucleated RBC 0.000 (0.0-0.012) X10*3/uL Nucleated RBC % (auto) 0.0 (0.0-0.2) /100WBC PT 19.1 H (11.1-13.3) SEC INR 1.6 H (0.9-1.1) Sodium 143 (135-145) mmol/L Potassium 3.7 (3.3-5.1) mmol/L Chloride 110 H (96-108) mmol/L Carbon Dioxide 23 (22-29) mmol/L Anion Gap 14 (12-20) BUN 13 (9-16) mg/dL Creatinine 0.82 (0.5-1.4) mg/dL Estim Creat Clear Calc 45.4 Estimated GFR > 60 Random Glucose 107 (60-115) mg/dL Calcium 9.9 (8.4-10.2) mg/dL Magnesium 2.1 (1.6-2.6) mg/dL Total Bilirubin 0.5 (0.0-1.0) mg/dL AST 15 (5-31) U/L ALT 6 (0-31) U/L Alkaline Phosphatase 92 (39-117) U/L Troponin I High Sens 8.8 (<3.5-17.0) ng/L Total Protein 7.1 (6.5-8.0) g/dL Albumin 4.0 (3.5-5.0) g/dL Urine Color Yellow Urine Appearance Hazy Urine pH 6.5 (5.0-9.0) Ur Specific [place] 1.025 (1.005-1.025) Urine Protein 300 (3+) H (Neg-Trace) mg/dL Urine Glucose (UA) Negative (Negative) mg/dL Urine Ketones Negative (Negative) mg/dL Urine Blood Negative (Negative) Urine Nitrite Positive H (Negative) Ur Leukocyte Esterase Trace H (Negative) Urine RBC 0-2 (0-2) /HPF Urine WBC 0-5 (0-5) /HPF Ur Squamous Epith Cells 3-5 (0-2) /HPF Urine Bacteria 2+ (None Seen) Hyaline Casts 0-2 (0-2) /LPF Independent Interpretation I performed an independent interpretation of an: EKG Interpretation: Sinus rhythm with marked sinus arrhythmia heart rate 98 beats per minute left axis deviation no acute ST T wave changes acute ischemia Radiology Impression Discussion of test interpretation with radiology: I have reviewed the radiologist's reading. Radiologist Impression: XR/XR shoulder LT min 2V IMPRESSION: Subtle cortical break at the inferior margin of the left humeral head/medial humeral neck, possibly corresponding to a nondisplaced humeral neck fracture. Consider correlation with CT of the left shoulder for confirmation. Discharge Plan Discharge Clinical Impression: Fracture, humerus, anatomical neck Patient Disposition: Home, Self-Care Instructions: Arm Fracture in Adults (ED), How to Use a Sling (ED) Additional Instructions: Use the sling for support Pain medication as prescribed You have a minor fracture which supposed to heal in next few weeks Follow-up with orthopedics Prescriptions: New tramadol 50 mg tablet 50 mg PO Q8-10H PRN (Reason: pain) Qty: 20 0RF No Action warfarin [Jantoven] 2.5 mg tablet See Rx Instructions PO .COMPLEX Qty: 90 8RF Protocol: Dose Management Condition: Monday (Week One) Dose/Route: 2.5 mg Instruction: 1 x 2.5 mg tablet Condition: Monday Dose/Route: 3.75 mg Instruction: 1.5 x 2.5 mg tablets Condition: Monday Dose/Route: 2.5 mg Instruction: 1 x 2.5 mg tablet Condition: Monday Dose/Route: 3.75 mg Instruction: 1.5 x 2.5 mg tablets Condition: Dose/Route: 2.5 mg Instruction: 1 x 2.5 mg tablet Condition: Monday Dose/Route: 3.75 mg Instruction: 1.5 x 2.5 mg tablets Condition: Monday Dose/Route: 2.5 mg Instruction: 1 x 2.5 mg tablet Condition: Monday (Week Two) Dose/Route: 3.75 mg Instruction: 1.5 x 2.5 mg tablets Condition: Monday Dose/Route: 2.5 mg Instruction: 1 x 2.5 mg tablet Condition: Monday Dose/Route: 3.75 mg Instruction: 1.5 x 2.5 mg tablets Condition: Monday Dose/Route: 2.5 mg Instruction: 1 x 2.5 mg tablet Condition: Dose/Route: 3.75 mg Instruction: 1.5 x 2.5 mg tablets Condition: Monday Dose/Route: 2.5 mg Instruction: 1 x 2.5 mg tablet Condition: Monday Dose/Route: 3.75 mg Instruction: 1.5 x 2.5 mg tablets Protocol Text: Adjustment Start Date: Monday10/28/22 INR Value: 1.9 INR Date: 10/28/22 Recheck Date: 11/04/22 Additional Instructions: take 3.75mg today then follow increased dosing no greens for 2 days, eat a red today call md about holding warfarin before proc Rx Instructions: 1 - 2 tablets daily per INR metoprolol succinate 25 mg tablet extended release 24 hr 25 mg PO DAILY Qty: 90 0RF hydralazine 25 mg tablet 25 mg PO TID Qty: 90 5RF lisinopril 40 mg tablet 40 mg PO DAILY Qty: 90 8RF atorvastatin 80 mg tablet 80 mg PO QPM Qty: 90 4RF primidone 50 mg tablet 50 mg PO BID potassium chloride 10 mEq tablet extended release 10 meq PO DAILY ondansetron HCl 4 mg tablet 4 mg PO Q6H PRN (Reason: nausea/vomiting) Referrals: Shahram Aguilar MD [Physician] - 10 days Interventions: ED Discharge Assessment Last Done: 11/02/22 18:36 Discharge Date/Time: 11/02/22 18:37
[2022-11-02 13:25] VITALS: BP 174/93; PULSE 61; RESP 18; TEMP 36.6; O2SAT 98; BMI 23.8
--- NOTE | 2022-11-02 13:27 | ECG_ITS ---
Test Reason : FALL/LOC? Blood Pressure : / mmHG Vent. Rate : 098 BPM Atrial Rate : 098 BPM P-R Int : 136 ms QRS Dur : 072 ms QT Int : 358 ms P-R-T Axes : 070 -37 002 degrees QTc Int : 457 ms Sinus rhythm with marked sinus arrhythmia Left axis deviation Septal infarct , age undetermined Inferior infarct , age undetermined Abnormal ECG When compared with ECG of 22-FEB-2022 12:06, Premature atrial complexes are no longer Present Non-specific change in ST segment in Inferior leads Non-specific change in ST segment in Lateral leads T wave inversion no longer evident in Lateral leads Referred By: Jeannie Teixeira Electronically Signed By:LULU KEY
[2022-11-02 14:09] LABS: MANUAL DIFF FLAG NO
[2022-11-02 14:12] LABS: Basophils Percent Auto 0.3 % (0-2); Eosinophils Percent Auto 0.4 % (0-4); Hematocrit 40.1 % (37.0-47.0); Hemoglobin 13.3 g/dl (12.0-16.0); Imm Gran Abs Auto 0.03 X10*3/uL (0.00-0.03); Imm Gran Pct Auto 0.3 % (0.0-0.4); Lymphocytes Absolute Auto 1.7 X10*3/uL (1.2-4.9); Lymphocytes Percent Auto 17.4 % (20-40); Mean Corpuscular HGB Conc 33.2 g/dl (31.0-35.0); Mean Corpuscular Hemoglobin 29.1 pg (27.0-33.0); Mean Corpuscular Volume 87.7 fL (80.0-98.0); Mean Platelet Volume 10.1 fL (9.4-12.3); Monocytes Absolute Auto 0.6 X10*3/uL (0.1-1.2); Monocytes Percent Auto 6.1 % (2-11); Neutrophils Absolute Auto 7.4 x10*3/uL (2.0-8.3); Neutrophils Percent Auto 75.5 % (45-73); Platelet Count 247 X10*3/uL (160-400); Red Blood Count 4.57 X10*6/uL (4.20-5.50); Red Cell Distribution Width 14.4 % (11.0-16.0); White Blood Count 9.8 X10*3/uL (4.8-10.8)
[2022-11-02 14:20] LABS: INTERNATIONAL NORM RATIO 1.6 (0.9-1.1); Prothrombin Time 19.1 SEC (11.1-13.3)
[2022-11-02 14:38] LABS: Troponin-I High Sensitivity 8.8 ng/L (<3.5-17.0)
[2022-11-02 14:39] LABS: Alanine Aminotransferase 6 U/L (0-31); Alkaline Phosphatase 92 U/L (39-117); Anion Gap 14 (12-20); Aspartate Amino Transferase 15 U/L (5-31); Bilirubin Total 0.5 mg/dL (0.0-1.0); Blood Urea Nitrogen 13 mg/dL (9-16); Calcium 9.9 mg/dL (8.4-10.2); Carbon Dioxide 23 mmol/L (22-29); Chloride 110 mmol/L (96-108); Creatinine Clr Calc Pharmacy 45.4; Estimated Glomerular Filt Rate > 60; Glucose Random 107 mg/dL (60-115); Magnesium 2.1 mg/dL (1.6-2.6); Potassium 3.7 mmol/L (3.3-5.1); Sodium 143 mmol/L (135-145); Total Protein 7.1 g/dL (6.5-8.0)
[2022-11-02 16:33] VITALS: BP 171/83; PULSE 85; RESP 14; TEMP 37; O2SAT 97
[2022-11-02 16:35] VITALS: BP 172/109; PULSE 100
[2022-11-02 16:41] VITALS: BP 170/100; PULSE 90
[2022-11-02 18:16] LABS: Appearance Urine Hazy; Color Urine Yellow; Glucose Urine UA Negative (Negative); Leukocyte Esterase Urine Trace (Negative); Nitrite Urine Positive (Negative); PH 6.5 (5.0-9.0); Specific Gravity - Urine 1.025 (1.005-1.025); UMIC TRIGGER UACC YES; Urine Blood Negative (Negative); Urine Ketones Negative (Negative); Urine Protein 300 (3+) mg/dL (Neg-Trace)
[2022-11-02] MEDS: oxyCODONE HCl Immed Release 5 MG TABLET PO (18:17)
[2022-11-02 18:42] LABS: RBC Urine 0-2 /HPF (0-2); UACC Culture Trigger YES; WBC Urine 0-5 /HPF (0-5)
[2022-11-02 18:43] LABS: Bacteria Urine 2+ (None Seen); Hyaline Casts Urine 0-2 /LPF (0-2)
== END 2022-11-02 18:37 | disposition home or self-care (01) ==
PROVIDERS: Physician Assistant Medical; Emergency Provider Internal Medicine; PCP Internal Medicine
DX: S42.292A Other displaced fracture of upper end of left humerus, initial encounter for closed fracture (principal); I48.0 Paroxysmal atrial fibrillation; M25.512 Pain in left shoulder; R51.9 Headache, unspecified; M79.602 Pain in left arm; F17.210 Nicotine dependence, cigarettes, uncomplicated; W01.10XA Fall on same level from slipping, tripping and stumbling with subsequent striking against unspecified object, initial encounter; Y93.9 Activity, unspecified; Y92.9 Unspecified place or not applicable; Y99.9 Unspecified external cause status; Z71.6 Tobacco abuse counseling; Z79.01 Long term (current) use of 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s; Z79.899 Other long term (current) drug therapy
CPT/HCPCS: 36415; 70450; 72125; 73030; 73060; 73080; 80053; 81001; 83735; 84484; 85025; 85610; 87086; 93005; 99284

== ENCOUNTER 2022-11-10 11:21 | Outpatient (AMB) | payer MEDICARE, SELFPAY ==
--- NOTE | 2022-11-10 11:35 | MHC.OFFVISCO ---
Intake Intake Visit Reasons: Anticoagulation Allergies No Known Allergies Allergy (Mild, Verified 11/10/22 11:23) NOT APPLICABLE Medication List - Last Reconciled 11/10/22 by Rosangela Malone RN atorvastatin 80 mg PO QPM hydralazine 25 mg PO TID lisinopril 40 mg PO DAILY metoprolol succinate ER 25 mg PO DAILY ondansetron HCl 4 mg PO Q6H PRN potassium chloride ER 10 mEq PO DAILY primidone 50 mg PO BID tramadol 50 mg PO Q8-10H PRN warfarin (Jantoven) See Protocol 1 - 2 tablets daily per INR Nursing Note NO CP,SOB,DIET/MED CHANGES,FALLS OR SX OF BLEEDING. CONTINUE PRESENT DOSE AND FOLLOW-UP IN 2 WEEKS. GOOD UNDERSTANDING OF DOSING INSTR. 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
== END 2022-11-10 11:38 | disposition home or self-care (01) ==
LOC: HO.ACS 11:21
PROVIDERS: PCP Internal Medicine; Visit Provider Internal Medicine
DX: Z79.01 Long term (current) use of 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s (principal)

== ENCOUNTER → 2022-11-10 11:21 | Outpatient (BNVA) | payer MEDICARE, SELFPAY | PROVIDERS: PCP Internal Medicine; Visit Provider Internal Medicine | DX: I48.0 Paroxysmal atrial fibrillation (principal); Z79.01 Long term (current) use of 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s; Z51.81 Encounter for therapeutic drug level monitoring | CPT/HCPCS: 85610; 99211 ==

== ENCOUNTER 2022-11-23 11:11 | Outpatient (AMB) | payer MEDICARE, SELFPAY ==
--- NOTE | 2022-11-23 11:16 | MHC.OFFVISCO ---
Intake Intake Visit Reasons: Anticoagulation Allergies No Known Allergies Allergy (Mild, Verified 11/23/22 11:15) NOT APPLICABLE Medication List - Last Reconciled 11/23/22 by Twila Valentine, RN atorvastatin 80 mg PO QPM hydralazine 25 mg PO TID lisinopril 40 mg PO DAILY metoprolol succinate ER 25 mg PO DAILY ondansetron HCl 4 mg PO Q6H PRN potassium chloride ER 10 mEq PO DAILY primidone 50 mg PO BID tramadol 50 mg PO Q8-10H PRN warfarin (Jantoven) See Protocol 1 - 2 tablets daily per INR Nursing Note pt fell in bathroom broke her arm and has a hairline fracture, she stated that she stood up and fell down not sure what happened, she was awake on the floor, did not hit head, went to ER, occ her neck area hurts into clavical area, STATES I'M TIERED OF NOT FEELING WELL OR LIKE MYSELF - ENC TO DISCUSS WITH PCP she is seeing ortho Dr Aguilar 11/28/22 for f/u appt tomorrow 55 year anniversary to have 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
[2022-11-23 11:26] LABS: Prothrombin Time Whole Bld POC 19.3 sec (11.1-13.5); ~PT, ~INR - Anti Coag Clinic 1.6 (0.9-1.1)
== END 2022-11-23 11:41 | disposition home or self-care (01) ==
LOC: HO.ACS 11:11
PROVIDERS: PCP Internal Medicine; Visit Provider Internal Medicine
DX: Z79.01 Long term (current) use of 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s (principal)

== ENCOUNTER → 2022-11-23 11:11 | Outpatient (BNVA) | payer MEDICARE, SELFPAY | PROVIDERS: PCP Internal Medicine; Visit Provider Internal Medicine | DX: I48.0 Paroxysmal atrial fibrillation (principal); Z79.01 Long term (current) use of 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s; Z51.81 Encounter for therapeutic drug level monitoring | CPT/HCPCS: 85610; 99211 ==

== ENCOUNTER 2022-11-28 10:08 | Outpatient (REF) | payer MEDICARE, SELFPAY ==
--- NOTE | ~2022-11-28 | XR_ITS ---
EXAMINATION: XR SHOULDER, LEFT CLINICAL INFORMATION: Pain. COMPARISON: Prior radiographs, most recently 11/02/2022. TECHNIQUE: AP neutral and scapular Y views of the left shoulder are submitted. FINDINGS: There is bony demineralization. There is a mildly displaced, impacted fracture of the surgical neck of the left humerus. The glenohumeral joint is intact and shows moderate osteoarthritic change. The acromioclavicular and coracoclavicular intervals are normal. No dislocation is seen. There is cortical irregularity of the greater tuberosity of the proximal left humerus, and there is a distal acromial undersurface osteophyte. No soft tissue calcification or foreign body is seen. There is no left pneumothorax. There are left carotid atherosclerotic calcifications. XR/XR shoulder LT min 2V IMPRESSION: 1. A mildly displaced and impacted fracture is seen of the surgical neck of the left humerus. 2. There is moderate osteoarthritic change of the left glenohumeral joint. 3. Findings are consistent with left rotator cuff impingement. 4. There are moderate left carotid atherosclerotic calcifications, which can be more fully evaluated with dedicated carotid ultrasound, if clinically indicated.
== END 2022-11-28 10:09 | disposition home or self-care (01) ==
LOC: HO.HOSX 10:08
PROVIDERS: Visit Provider Physician Assistant
DX: S42.202D Unspecified fracture of upper end of left humerus, subsequent encounter for fracture with routine healing (principal); M25.512 Pain in left shoulder; I48.0 Paroxysmal atrial fibrillation; Z51.81 Encounter for therapeutic drug level monitoring; Z79.01 Long term (current) use of 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s; W19.XXXD Unspecified fall, subsequent encounter
CPT/HCPCS: 73030; 85610; 99211; 99212

== ENCOUNTER 2022-11-28 10:34 | Outpatient (AMB) | payer MEDICARE, SELFPAY ==
[2022-11-28 10:45] LABS: Prothrombin Time Whole Bld POC 21.6 sec (11.1-13.5); ~PT, ~INR - Anti Coag Clinic 1.8 (0.9-1.1)
--- NOTE | 2022-11-28 10:54 | MHC.OFFVISCO ---
Intake Intake Visit Reasons: Anticoagulation Allergies No Known Allergies Allergy (Mild, Verified 11/28/22 10:40) NOT APPLICABLE Medication List - Last Reconciled 11/28/22 by Mery Prado RN atorvastatin 80 mg PO QPM hydralazine 25 mg PO TID lisinopril 40 mg PO DAILY metoprolol succinate ER 25 mg PO DAILY ondansetron HCl 4 mg PO Q6H PRN potassium chloride ER 10 mEq PO DAILY primidone 50 mg PO BID tramadol 50 mg PO Q8-10H PRN warfarin (Jantoven) See Protocol 1 - 2 tablets daily per INR Nursing Note Amb to [facility] using cane, accomp by , feeling ok. Sts she has appt after this with Ortho Dr across the street left arm in sling s/p hairline fx after fall in [place] Medications and supplements reviewed No changes in health, diet, medications, or supplements diet is poor junk food per pt, sts she has a sweet tooth, pt sts she is nauseous every morning eating carnation instant breakfast and blueberries, discussed need for fruits and veggies in diet, is cooking now I just don't feel like eating plan to continue with carnation instant breakfast for nutrition, recommend vanilla vs milk chocolate or try to reduce chocolate to a couple times a week sts she has not been taking tramadol, occassional tylenol but sts pain not bad 2/10 most of the time Denies any unusual signs and symptoms of bruising, bleeding Denies any new Chest pain, SOB, or clotting INR: 1.8 below therapeutic range (dose increase last visit) Nutritional guidance given: try to get fruits in diet to help raise (blueberries lower) food list reviewed, cont instant breakfast Dose: increase dose today to 3.75mg then resume usual new dosing;2.5mg x 2 days and 3.75mg x 5 days F/U INR: 10 days pt also encouraged to check with PCP regarding continued nausea, decrease appetite, GI consult, last colonoscopy 10 years ago, not sure if she ever had upper endoscopy Patient verbalizes understanding of instructions given with accurate read back/ teach back of dosing Anti-Coag Initial Assessment Social Hx Patient Tobacco Use Status: Current everyday Tobacco user Tobacco use type: Cigarette alcohol intake: former Alcohol intake frequency: does not drink Coding Level of Care Code Est Patient Level 1 Diagnoses Current use of 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 therapy Z79.01 Time Spent (min) 15 Assessment & Plan Assessment & Plan (1) Current use of 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 therapy: Code(s): 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
== END 2022-11-28 11:08 | disposition home or self-care (01) ==
LOC: HO.ACS 10:34
PROVIDERS: PCP Internal Medicine; Visit Provider Internal Medicine
DX: Z79.01 Long term (current) use of 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s (principal)

== ENCOUNTER 2022-11-28 11:05 | Outpatient (AMB) | payer MEDICARE, SELFPAY ==
--- NOTE | 2022-11-28 11:23 | A.OFFVIS_ITS ---
Intake Intake Visit Reasons: FC-prox hum fx, anatomical neck Intake Note: Charlene carcamo 77 year old female presents today for an ER follow up of left proximal humerus fracture, DOI 11/02/22. Patient reports having a fall at home, presented to [facility] ER the same day where xrays were taken and placed in a sling. Currently states she has cont' to use her sling with very little pain and discomfort. States she has Hx of numbness and tingling for a few years now. Allergies No Known Allergies Allergy (Mild, Verified 11/28/22 10:40) NOT APPLICABLE HPI FC-prox hum fx, anatomical neck HPI Details 77-year-old female who presents to the [facility] today for an ER follow-up of left shoulder injury s/p fall at home, 11/02/22. She was seen at ER the same day where were performed and she was placed in a sling. She continues to wear her sling with minimal pain and discomfort. She has a history of numbness and tingling in her shoulder. 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 use of 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 custodial current use of antiarrhythmic drug Essential hypertension Embolic stroke Sinus bradycardia PAF (paroxysmal atrial fibrillation) Surgical History History of cardiac radiofrequency ablation (~07/07/20) History of colostomy History of section Family History Father CVD (cardiovascular disease) Mother Alzheimer disease Social History (Updated 11/28/22 @ 11:27 by KADIE Penaloza) Housing: House Alcohol intake: former Patient Tobacco Use Status: Current everyday Tobacco user Tobacco use type: Cigarette Cigarettes Per Day: 4 e-Cigarette/Vaping Use: Never Used Second Hand Smoke Exposure: No service: No Current occupational status: retired Current occupation: right hand dominant Cognitive needs: Yes (cane) Hearing needs: No Vision needs: Yes (glasses) Review of Systems Const All systems reviewed & are unremarkable except as noted in HPI and below Physical Exam Extrem Other: Left shoulder: Normal to inspection. Mild tenderness over the proximal humerus which extends down the arm. Anterior deltoid sensation intact. Elbow and wrist ROM intact. NVI. Office Procedures Fracture Care Fracture Billing Code: Fracture Billing Code Results Reviewed Results Reviewed: Xrays were obtained in the office today and personally reviewed by me of the left shoulder show stable proximal humerus fracture Assessment & Plan Assessment & Plan (1) Closed fracture of left proximal humerus: Code(s): S42.A - Unspecified fracture of upper end of left humerus, initial encounter for closed fracture Qualifiers: Encounter type: initial encounter Fracture morphology: other fracture Fracture alignment: nondisplaced Qualified Code(s): S42.295A - Other nondisplaced fracture of upper end of left humerus, initial encounter for closed fracture Plan She will begin a course of physical therapy to work on ROM and periscapular stabilization. She will discontinue the use of sling and see me back in 6 weeks with new x-rays, sooner if needed. Orders: Orders PT Evaluation and Treatment Today S42.A - Unspecified fracture of upper end of left humerus, initial encounter for closed fracture XR shoulder LT min 2V Today M25.512 - Pain in left shoulder Patient Instructions: Scribed for Betito Monsivais PA-C, by Zeyad Marte medical grade shoemaker, on 11/28/2022 at 11:15 AM EST. I, Betito Monsivais PA-C, have personally reviewed and agree with the information entered by the scribe. Coding Level of Care Code New Pt Level 3 (45336) Diagnoses Other closed nondisplaced fracture of proximal end of left humerus, initial e ncounter S42.295A Encounter type: initial encounter Fracture morphology: other fracture Fracture alignment: nondisplaced CPT Codes Fracture Care - Fracture Billing Code: Fracture Billing Code ([id number])
== END 2022-11-28 12:03 | disposition home or self-care (01) ==
PROVIDERS: PCP Internal Medicine; Visit Provider Physician Assistant
DX: S42.295A Other nondisplaced fracture of upper end of left humerus, initial encounter for closed fracture (principal)
CPT/HCPCS: 99203

== ENCOUNTER 2022-12-01 11:25 | Observation (INO) | payer MEDICARE, SELFPAY ==
[2022-12-01] VITALS (7 sets, daily range): BP systolic 174–213; BP diastolic 74–111; PULSE 58–105; RESP 14–18; TEMP 36.8; O2SAT 95–97; BMI 23.4
--- NOTE | ~2022-12-01 | CT_ITS ---
EXAMINATION: CT ABDOMEN AND PELVIS WITH CONTRAST CLINICAL INFORMATION: Weight loss, right-sided pain. COMPARISON: CT abdomen 07/06/2022. TECHNIQUE: Multidetector volumetric images were obtained from the superior aspect of the liver through the pubic symphysis following administration 85 mL of Omnipaque 350 intravenous and gastro 30 mL oral contrast. Sagittal and coronal reformatted images were obtained on the technologist's workstation. Oral contrast: No This CT examination was performed using dose optimization techniques as appropriate, variously including the following: *Automated exposure control *Adjustment of mA and/or kV according to patient size (this includes techniques or standardized protocols for targeted exams where dose is matched to indication/reason for exam; i.e. extremities or head) *Use of iterative reconstruction technique DLP: 502 mGy-cm FINDINGS: LUNG BASES: There is bibasilar compressive atelectasis. The heart size is mildly enlarged. LIVER, GALLBLADDER, AND BILIARY TREE: The liver is normal in size, shape, and attenuation. There is 1.2 cm simple cyst medial segment left hepatic lobe is grossly unchanged. No additional lesions seen. Mild prominence of intrahepatic ducts at the mario alberto hepatis are noted. The gallbladder is slightly dilated with a 5 mm dependent radiopaque calculi. No wall thickening or pericholecystic fluid collection seen. PANCREAS: Unremarkable. SPLEEN: Unremarkable. ADRENAL GLANDS: Unremarkable. KIDNEYS AND URETERS: The kidneys are normal in size, lobulated shape, and attenuation. No hydronephrosis, hydroureter, or calculi seen. No perinephric stranding. BLADDER: The bladder is distended. No bladder wall thickening seen. GASTROINTESTINAL TRACT: There is scattered stool, diverticuli and gas seen in colon without distention. The small bowel loops are normal caliber. Appendix is not visualized with certainty. There is mild gastric wall thickening along the greater curvature. ABDOMINAL WALL: There is left periumbilical small hernia containing fat LYMPH NODES: Normal. VASCULAR: Unremarkable. PELVIC VISCERA: The uterus is anteverted with multiple focal calcifications likely fibroid disease. There is no adnexal mass or free fluid. OSSEOUS STRUCTURES: No aggressive lytic or sclerotic process seen. CT/CT abdomen pelvis w IV con IMPRESSION: 1. No acute intra-abdominal process seen. 2. Cholelithiasis without wall thickening or pericholecystic fluid collection. 3. Mild constipation with scattered colonic diverticulosis without diverticulitis. 4. Small left periumbilical hernia containing fat. 5. Mild gastric wall thickening along the greater curvature similar to previous study 07/06/2022. Recommend upper GI barium study or upper endoscopy. Fleischner guidelines were followed.
--- NOTE | 2022-12-01 11:32 | ECG_ITS ---
Test Reason : PAIN Blood Pressure : / mmHG Vent. Rate : 071 BPM Atrial Rate : 071 BPM P-R Int : 152 ms QRS Dur : 084 ms QT Int : 426 ms P-R-T Axes : 023 -24 041 degrees QTc Int : 462 ms Sinus rhythm with Premature atrial complexes Otherwise normal ECG When compared with ECG of 02-NOV-2022 13:56, Premature atrial complexes are now Present Criteria for Septal infarct are no longer Present Heart rate has decreased Referred By: Edgar Rosa Electronically Signed By:FRANSISCA RODRIGUEZ MD
--- NOTE | 2022-12-01 11:32 | ED.GENADULT ---
HPI - General Adult General Chief complaint: Nausea/Vomiting/Diarrhea Stated complaint: Sent by [facility] Time Seen by Provider: 12/01/22 11:58 Source: patient Mode of arrival: ambulatory Limitations: no limitations History of Present Illness HPI narrative: tired, nausea, cramps and diarrhea for weeks. She states that her diarrhea is watery. She states that she is nausea without vomiting. she is sleeping all the time. Onset (ago): week(s) Severity: moderate Pain Consistency: intermittent Related Data Home Medications Medication Instructions Recorded Confirmed primidone 50 mg tablet 50 mg PO BID 12/17/19 12/01/22 ondansetron HCl 4 mg tablet 4 mg PO Q6H PRN nausea/vomiting 04/11/22 12/01/22 warfarin 2.5 mg tablet 2.5 mg PO MOFR@1800 12/01/22 12/01/22 warfarin 2.5 mg tablet 3.75 mg PO SUTUWETHSA@1800 12/01/22 12/01/22 Previous Rx's Medication Instructions Recorded warfarin 2.5 mg tablet (Jantoven) See Rx Instructions PO .COMPLEX 05/29/22 #90 tabs metoprolol succinate 25 mg 25 mg PO DAILY #90 tabs 09/06/22 tablet,extended release 24 hr hydralazine 25 mg tablet 25 mg PO TID #90 caps 10/17/22 lisinopril 40 mg tablet 40 mg PO DAILY #90 tabs 10/25/22 atorvastatin 80 mg tablet 80 mg PO QPM #90 tabs 11/02/22 Allergies Allergy/AdvReac Type Severity Reaction Status Date / Time No Known Allergies Allergy Mild NOT Verified 12/01/22 11:31 APPLICABLE Review of Systems Review of Systems: Yes all other systems are reviewed and are negative Neurologic: Denies Sensory deficit (Neuro) [facility] Past Medical History Medical History Hyperlipidemia Gout 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 Essential hypertension Embolic stroke Sinus bradycardia PAF (paroxysmal atrial fibrillation) Surgical History History of cardiac radiofrequency ablation (~07/07/20) History of colostomy History of section Family History Family History Father CVD (cardiovascular disease) Mother Alzheimer disease Social History Social History Housing: House Alcohol intake: never Patient Tobacco Use Status: Current everyday Tobacco user Tobacco use type: Cigarette Cigarettes Per Day: 4 Smoked in Last 30 Days: No e-Cigarette/Vaping Use: Never Used Second Hand Smoke Exposure: No Use of substances other than those prescribed or required for medical reasons: No Advance Directives: No Advance Directives Information Provided: Yes service: No Current occupational status: retired Current occupation: right hand dominant Cognitive needs: Yes (cane) Hearing needs: No Vision needs: Yes (glasses) Physical Exam ED Vital Signs: Vital Signs - 24 hr 12/01/22 11:31 12/01/22 12:36 12/01/22 14:04 Temperature 98.2 F Pulse Rate 93 58 87 Respiratory Rate 17 14 15 Blood Pressure 187/92 H 174/79 H 195/94 H Pulse Oximetry 97 96 95 Oxygen Delivery Method Room Air Room Air Room Air 12/01/22 17:19 12/01/22 19:03 12/01/22 19:15 Temperature Pulse Rate 69 85 105 H Respiratory Rate 18 17 18 Blood Pressure 191/100 H 188/96 H 213/111 H Pulse Oximetry 97 96 95 Oxygen Delivery Method Room Air Room Air BMI result Body Mass Index 23.4 Const Other: frail elderly appearing weak Orientation/consciousness: oriented to person and patient oriented x3 Limitations: no limitations HENMT Head: Yes normal to inspection Ears: external ears normal General nose exam: Normal external nose present Mouth: Normal oral and palatal mucosa present and oropharynx normal Throat: Yes posterior oropharynx normal Eyes General: appearance normal, both eyes and all related structures Neck Neck: Yes normal visual inspection Chest Chest palpation & inspection: normal inspection of the chest Resp Auscultation: clear to auscultation bilaterally Cardio Jugular venous distension: no JVD Rate: regular rate Rhythm: regular rhythm Heart sounds: S1 normal heart sound present and S2 normal heart sound present GI Other: old laparatomy scar, 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 She reports her symptoms started a few weeks ago. Denies any documented fevers. She reports remote history of colostomy and reversal. Plan for labs, EKG, UA. Reevaluation(s) Reevaluation #1: started IV hydration awaiting CT of abd/pelvis Time: 14:07 Medications Administered Discontinued Medications Generic Name Dose Route Start Last Admin Trade Name Freq PRN Reason Stop Dose Admin Diatrizoate Meglum/Diatrizoate Sod 30 ml 12/01/22 15:03 12/01/22 15:06 Diatrizoate Meglumine, Sodium 30 Ml Solution PO 12/01/22 15:04 30 ml ONCE ONE Administration Dicyclomine HCl 20 mg 12/01/22 16:46 12/01/22 17:48 Dicyclomine Hcl 10 Mg Capsule PO 12/01/22 16:47 20 mg ONCE ONE Administration Sodium Chloride 1,000 mls @ 200 mls/hr 12/01/22 12:30 12/01/22 21:06 Ns IVCONT 12/01/22 17:29 Infused .Q5H CECILY Infusion Metronidazole 500 mg in 100 mls @ 100 mls/hr 12/01/22 16:46 12/01/22 19:16 Flagyl IV 12/01/22 17:45 Infused ONCE ONE Infusion Ceftriaxone Sodium 1 gm/ 50 mls @ 100 mls/hr 12/01/22 20:00 12/01/22 21:06 Sodium Chloride IV Infused Q24H CECILY Infusion Iohexol 85 ml 12/01/22 14:49 12/01/22 14:49 Iohexol 350 Mg/Ml 100 Ml Infus..Btl IV 12/01/22 14:50 85 ml ONCE ONE Administration Labetalol HCl 10 mg 12/01/22 19:17 12/01/22 20:12 Labetalol Hcl 100 Mg/20 Ml Vial IVPUSH 12/01/22 19:18 10 mg ONCE ONE Administration Loperamide HCl 2 mg 12/01/22 16:46 12/01/22 17:48 Loperamide Hcl 2 Mg Capsule PO 12/01/22 16:47 2 mg ONCE ONE Administration Medical Decision Making Medical Decision Making [facility] Narrative: Patient with foul smelling diarrhea for last 3 weeks with weight loss unable to hold anything down with nausea no abdominal cramping history of C diff in the past CT scan of the abdomen is negative for acute labs are stable will start empirically on Flagyl waiting for the C diff report 1900 Patient feeling very weak is still having the diarrhea will admit patient for observation IV hydration and for C diff colitis pending report Differential Diagnosis Differential Diagnoses: The differential diagnosis associated with the presentation includes (pancreatitis, hepatitis, gastritis, abdominal malignancy) Admission/Observation Consideration of admission/observation: Escalation of care including admission/observation considered (upon arrival patient considered for admission) Lab Data [facility] Lab Attestation statement: I reviewed the patient's lab results. (patient has had anemia in the past) 12/01/22 12:12 12/01/22 12:12 Labs: Lab Results 12/01/22 12/01/22 12/01/22 Range/Units 12:12 14:07 16:39 WBC 6.6 (4.8-10.8) X10*3/uL RBC 4.06 L (4.20-5.50) X10*6/uL Hgb 11.6 L (12.0-16.0) g/dl Hct 35.2 L (37.0-47.0) % MCV 86.7 (80.0-98.0) fL MCH 28.6 (27.0-33.0) pg MCHC 33.0 (31.0-35.0) g/dl RDW 13.7 (11.0-16.0) % Plt Count 230 (160-400) X10*3/uL MPV 10.3 (9.4-12.3) fL Immature Gran % (Auto) 0.3 (0.0-0.4) % Neut % (Auto) 66.3 (45-73) % Lymph % (Auto) 21.0 (20-40) % [place] % (Auto) 10.4 (2-11) % Eos % (Auto) 1.5 (0-4) % Baso % (Auto) 0.5 (0-2) % Lymph # (Auto) 1.4 (1.2-4.9) X10*3/uL [place] # (Auto) 0.7 (0.1-1.2) X10*3/uL Eos # (Auto) 0.1 (0.0-0.4) X10*3/uL Baso # (Auto) 0.0 (0.0-0.2) X10*3/uL Abs Immat Gran (auto) 0.02 (0.00-0.03) X10*3/uL Absolute Neuts (auto) 4.4 (2.0-8.3) x10*3/uL Absolute Nucleated RBC 0.000 (0.0-0.012) X10*3/uL Nucleated RBC % (auto) 0.0 (0.0-0.2) /100WBC PT 26.1 H D (11.1-13.3) SEC INR 2.1 H (0.9-1.1) APTT 37.6 H (26.0-36.4) SEC Sodium 141 (135-145) mmol/L Potassium 4.2 (3.3-5.1) mmol/L Chloride 113 H (96-108) mmol/L Carbon Dioxide 23 (22-29) mmol/L Anion Gap 9 L (12-20) BUN 17 H (9-16) mg/dL Creatinine 0.78 (0.5-1.4) mg/dL Estim Creat Clear Calc 47.8 Estimated GFR > 60 Random Glucose 101 (60-115) mg/dL Lactic Acid 1.0 (0.5-2.0) mmol/L Calcium 9.5 (8.4-10.2) mg/dL Total Bilirubin 0.4 (0.0-1.0) mg/dL AST 14 (5-31) U/L ALT 9 (0-31) U/L Alkaline Phosphatase 98 (39-117) U/L Total Protein 6.2 L (6.5-8.0) g/dL Albumin 3.6 (3.5-5.0) g/dL Lipase 69 (8-78) U/L Urine Color Yellow Urine Appearance Clear Urine pH 6.5 (5.0-9.0) Ur Specific [place] 1.010 (1.005-1.025) Urine Protein 100 (2+) H (Neg-Trace) mg/dL Urine Glucose (UA) Negative (Negative) mg/dL Urine Ketones Negative (Negative) mg/dL Urine Blood Negative (Negative) Urine Nitrite Negative (Negative) Ur Leukocyte Esterase Small (1+) H (Negative) Urine RBC 0-2 (0-2) /HPF Urine WBC 0-5 (0-5) /HPF Ur Squamous Epith Cells 0-2 (0-2) /HPF Urine Bacteria None Seen (None Seen) Hyaline Casts 0-2 (0-2) /LPF C. difficile Tox B Gene POSITIVE A* (Negative) C. difficile Toxin A&B Positive A* (Negative) C. difficile Interpret SEE NOTE Independent Historian Clinical information obtained from an independent historian. History obtained from or confirmed by: Spouse () External Record Review External record reviewed: Outpatient record and Prior outpatient labs Discharge Plan Discharge Clinical Impression: Abdominal pain, Acute dehydration Patient Disposition: Still a Patient
[2022-12-01 12:16] LABS: MANUAL DIFF FLAG NO
[2022-12-01 12:19] LABS: Basophils Percent Auto 0.5 % (0-2); Eosinophils Absolute Auto 0.1 X10*3/uL (0.0-0.4); Eosinophils Percent Auto 1.5 % (0-4); Hematocrit 35.2 % (37.0-47.0); Hemoglobin 11.6 g/dl (12.0-16.0); Imm Gran Abs Auto 0.02 X10*3/uL (0.00-0.03); Imm Gran Pct Auto 0.3 % (0.0-0.4); Lymphocytes Absolute Auto 1.4 X10*3/uL (1.2-4.9); Mean Corpuscular Hemoglobin 28.6 pg (27.0-33.0); Mean Corpuscular Volume 86.7 fL (80.0-98.0); Mean Platelet Volume 10.3 fL (9.4-12.3); Monocytes Absolute Auto 0.7 X10*3/uL (0.1-1.2); Monocytes Percent Auto 10.4 % (2-11); Neutrophils Absolute Auto 4.4 x10*3/uL (2.0-8.3); Neutrophils Percent Auto 66.3 % (45-73); Platelet Count 230 X10*3/uL (160-400); Red Blood Count 4.06 X10*6/uL (4.20-5.50); Red Cell Distribution Width 13.7 % (11.0-16.0); White Blood Count 6.6 X10*3/uL (4.8-10.8)
[2022-12-01 12:26] LABS: INTERNATIONAL NORM RATIO 2.1 (0.9-1.1); Prothrombin Time 26.1 SEC (11.1-13.3)
[2022-12-01 12:29] LABS: Partial Thromboplastin Time 37.6 SEC (26.0-36.4)
[2022-12-01 12:32] LABS: Alanine Aminotransferase 9 U/L (0-31); Albumin Level 3.6 g/dL (3.5-5.0); Alkaline Phosphatase 98 U/L (39-117); Anion Gap 9 (12-20); Aspartate Amino Transferase 14 U/L (5-31); Bilirubin Total 0.4 mg/dL (0.0-1.0); Blood Urea Nitrogen 17 mg/dL (9-16); Calcium 9.5 mg/dL (8.4-10.2); Carbon Dioxide 23 mmol/L (22-29); Chloride 113 mmol/L (96-108); Creatinine Clr Calc Pharmacy 47.8; Estimated Glomerular Filt Rate > 60; Glucose Random 101 mg/dL (60-115); Lipase 69 U/L (8-78); Potassium 4.2 mmol/L (3.3-5.1); Sodium 141 mmol/L (135-145); Total Protein 6.2 g/dL (6.5-8.0)
[2022-12-01] MEDS: 0.9 % Sodium Chloride 1,000 ML 200 ML IVCONT (13:12)
--- NOTE | 2022-12-01 13:42 | PC.NURSE ---
20g iv inserted LAC. iv fluids started as ordered.
[2022-12-01 14:34] LABS: Appearance Urine Clear; Color Urine Yellow; Glucose Urine UA Negative (Negative); Leukocyte Esterase Urine Small (1+) (Negative); Nitrite Urine Negative (Negative); PH 6.5 (5.0-9.0); UMIC TRIGGER UACC YES; Urine Blood Negative (Negative); Urine Ketones Negative (Negative); Urine Protein 100 (2+) mg/dL (Neg-Trace)
[2022-12-01] MEDS: iohexoL 350 MG/ML 100 ML INFUS..BTL 85 ML IV (14:49)
[2022-12-01 14:51] LABS: Bacteria Urine None Seen (None Seen); Hyaline Casts Urine 0-2 /LPF (0-2); RBC Urine 0-2 /HPF (0-2); Squamous Epithelial Cell Urine 0-2 /HPF (0-2); UACC Culture Trigger YES; WBC Urine 0-5 /HPF (0-5)
[2022-12-01] MEDS: Diatrizoate Meglumine, Sodium 30 ML SOLUTION PO (15:06)
[2022-12-01] MEDS: Loperamide HCl 2 MG CAPSULE PO (17:48)
[2022-12-01] MEDS: Dicyclomine HCl 10 MG CAPSULE 20 MG PO (17:48)
[2022-12-01] MEDS: metroNIDAZOLE/NS 500 MG/100 ML PIGGYBACK 100 MG IV (17:49)
--- NOTE | 2022-12-01 19:07 | MHC.EDTECH ---
700 ml urine emptied from [facility]
--- NOTE | 2022-12-01 19:28 | PM.IMHP ---
History of Present Illness Date of Service: 12/01/22 Attending physician on admission: Ceci Palmer Chief Complaint: Abdominal pain, diarrhea, fatigue Pt is a 77-year-old female with a PMH significant for?paroxysmal AFib s/p ablation on warfarin, hx embolic stroke in 2018 from subtherapeutic INR, HLD, and remote hx of C-Diff infection who presents to the ED with?fatigue, nausea without vomiting, cramps, and foul-smelling diarrhea on and off the past couple of weeks. Diarrhea has been mostly clear and liquid. Has been particularly bad the past few days which she has experienced 4-6 episodes of diarrhea each day. Patient states she has been feeling fatigued, sleeping a lot, nauseous mostly in the morning and with abdominal cramps again mostly in the morning. Denies any vomiting. States the past few days she has had diffuse abdominal pain. Also notes decreased p.o. intake and 7 lb weight loss in the past week. Patient presents to the emergency room today after her talked to her daughter who then talked to her PCP who convinced the patient to present to the emergency room. Patient denies any chest pain/pressure. Chronically has subjective fever and chills. Denies shortness of breath. In the ED patient was afebrile but tachycardic up to 105, and hypertensive up to 213/111. Labs were significant for H&H 11.6/35.2. No leukocytosis. INR therapeutic at 2.1. Renal function WNL. Lactic acid WNL at 1.0. GI panel pending. C diff Anup and toxin both positive. CT?of abdomen and pelvis found no acute intra-abdominal process seen, but showed cholelithiasis without wall thickening or pericholecystic fluid, mild constipation with scattered diverticulosis without diverticulitis, and found mild gastric wall thickening along the greater curvature similar to previous study on 07/06/2022 with recommendation of upper GI barium study or upper endoscopy. EKG demonstrated sinus rhythm with PACs. Pt was treated with IVF, loperamide, dicyclomine, metronidazole, and ceftriaxone. Pt will be admitted to the hospital for treatment and further evaluation of acute C diff colitis. Review of Systems Review of Systems: Foul-smelling diarrhea Nausea, no vomiting Fatigue, abdominal cramping/pain Decreased p.o. 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 Essential hypertension Embolic stroke Sinus bradycardia PAF (paroxysmal atrial fibrillation) Family History Father CVD (cardiovascular disease) Mother Alzheimer disease Surgical History History of cardiac radiofrequency ablation (~07/07/20) History of colostomy History of section Social History Housing: House Alcohol intake: never Patient Tobacco Use Status: Current everyday Tobacco user Tobacco use type: Cigarette Cigarettes Per Day: 4 Smoked in Last 30 Days: No e-Cigarette/Vaping Use: Never Used Second Hand Smoke Exposure: No Use of substances other than those prescribed or required for medical reasons: No Advance Directives: No Advance Directives Information Provided: Yes service: No Current occupational status: retired Current occupation: right hand dominant Cognitive needs: Yes (cane) Hearing needs: No Vision needs: Yes (glasses) Meds Allergies Allergy/AdvReac Type Severity Reaction Status Date / Time No Known Allergies Allergy Mild NOT Verified 12/01/22 11:31 APPLICABLE Active Medications: Current Medications Acetaminophen (Acetaminophen 325 Mg Tablet) 650 mg PO Q6H PRN PRN Reason: Pain, Mild (Pain Scale 1-3) Ceftriaxone Sodium 1 gm/ (Sodium Chloride) 50 mls @ 100 mls/hr IV Q24H [facility] Metronidazole (Flagyl) 500 mg in 100 mls @ 100 mls/hr IV Q8H [facility] Labetalol HCl (Labetalol Hcl 100 Mg/20 Ml Vial) 10 mg IVPUSH ONCE ONE Stop: 12/01/22 19:18 Melatonin (Melatonin 3 Mg Tablet) 6 mg PO BEDTIME PRN PRN Reason: Insomnia Ondansetron HCl (Ondansetron Hcl 4 Mg/2 Ml Vial) 4 mg IVPUSH Q8H PRN PRN Reason: Nausea and Vomiting Sodium Chloride (0.9 % Sodium Chloride Flush 3 Ml Syringe) 3 ml IVFLUSH [facility] Home Medications Medication Instructions Recorded Confirmed Last Taken Type primidone 50 mg tablet 50 mg PO BID 12/17/19 12/01/22 12/01/22 History ondansetron HCl 4 mg tablet 4 mg PO Q6H PRN nausea/vomiting 04/11/22 12/01/22 12/01/22 History warfarin 2.5 mg tablet 2.5 mg PO MOFR@1800 12/01/22 12/01/22 Unknown History warfarin 2.5 mg tablet 3.75 mg PO SUTUWETHSA@1800 12/01/22 12/01/22 Unknown History Physical Exam Vital Signs and Narrative: Vital Signs: Last Vital Signs Temp 98.2 F 12/01/22 11:31 Pulse 105 H 12/01/22 19:15 Resp 18 12/01/22 19:15 BP 213/111 H 12/01/22 19:15 Pulse Ox 95 12/01/22 19:15 O2 Del Method Room Air 12/01/22 19:03 BMI result Body Mass Index 23.4 Constitutional: Alert, in no acute distress. Mental Status: Oriented to person, place and time. Eyes: Pupils are equal, round, and reactive to light. Ear, Nose, and Throat: Oropharynx clear, mucous membranes moist. Ears and nose without deformities. Trachea midline. Respiratory: Clear to auscultation bilaterally. No wheezing, rales, or rhonchi. Cardiovascular: S1, S2 regularly irregular rhythm. No murmurs, rubs, or gallops. Gastrointestinal: Abdomen soft, non-distended, mild purapubic and umbilical pain. +BS. Neurologic: Cranial nerves II-XII are grossly intact bilaterally. No focal neurological deficits. Moves all extremities spontaneously. Resting is central tremor of upper right extremity. Skin: No rashes or lesions noted. Musculoskeletal: No cyanosis or clubbing. Extremities: No edema. Psychiatric: Normal mood and affect. Results Labs 12/01/22 12:12 12/01/22 12:12 Labs: Laboratory Results - last 24 hr 12/01/22 12/01/22 12:12 14:07 MCV 86.7 MCH 28.6 MCHC 33.0 RDW 13.7 Plt Count 230 MPV 10.3 Immature Gran % (Auto) 0.3 Neut % (Auto) 66.3 Lymph % (Auto) 21.0 [place] % (Auto) 10.4 Eos % (Auto) 1.5 Baso % (Auto) 0.5 Lymph # (Auto) 1.4 [place] # (Auto) 0.7 Eos # (Auto) 0.1 Baso # (Auto) 0.0 Abs Immat Gran (auto) 0.02 Absolute Neuts (auto) 4.4 Absolute Nucleated RBC 0.000 Nucleated RBC % (auto) 0.0 PT 26.1 H D INR 2.1 H APTT 37.6 H Anion Gap 9 L Estim Creat Clear Calc 47.8 Estimated GFR > 60 Random Glucose 101 Lactic Acid 1.0 Calcium 9.5 Total Bilirubin 0.4 AST 14 ALT 9 Alkaline Phosphatase 98 Total Protein 6.2 L Albumin 3.6 Lipase 69 Urine Color Yellow Urine Appearance Clear Urine pH 6.5 Ur Specific [place] 1.010 Urine Protein 100 (2+) H Urine Glucose (UA) Negative Urine Ketones Negative Urine Blood Negative Urine Nitrite Negative Ur Leukocyte Esterase Small (1+) H Urine RBC 0-2 Urine WBC 0-5 Ur Squamous Epith Cells 0-2 Urine Bacteria None Seen Hyaline Casts 0-2 Imaging Radiologist's Impressions: Impressions Abdomen/Pelvis CT 12/01/22 15:07 IMPRESSION: 1. No acute intra-abdominal process seen. 2. Cholelithiasis without wall thickening or pericholecystic fluid collection. 3. Mild constipation with scattered colonic diverticulosis without diverticulitis. 4. Small left periumbilical hernia containing fat. 5. Mild gastric wall thickening along the greater curvature similar to previous study 07/06/2022. Recommend upper GI barium study or upper endoscopy. Fleischner guidelines were followed. Assessment and Plan (1) C. difficile colitis: Status: Acute Plan Pt is a 77-year-old female with a PMH significant for?paroxysmal AFib s/p ablation on warfarin, hx embolic stroke in 2018 from subtherapeutic INR, HLD, and remote hx of C-Diff infection who presents to the ED with?fatigue, nausea without vomiting, cramps, and foul-smelling diarrhea on and off the past couple of weeks. Pt will be admitted to the hospital for treatment and further evaluation of acute C diff colitis. Acute C-diff colitis Patient with foul-smelling diarrhea, abdominal cramps, nausea on and off the past couple weeks, worse the past 4 days Patient tested positive for C diff gene and toxin Will treat with fidaxomicin Infectious disease consult Admit with contact precautions PT eval Paroxysmal AFib Continue metoprolol, warfarin Essential tremor Patient with resting tremor of right upper extremity Continue primidone HTN Continue lisinopril, hydralazine HLD Continue statin Full Code Attending:?Dr. Palmer DVT Prophylaxis: Warfarin Patient will be admitted to the hospital under observation treatment of C diff colitis. Time Spent With Patient Time: Total time managing care of this patient today ____ minutes. Quality Stroke Does the patient have a stroke diagnosis?: No VTE Prior VTE?: No VTE Risk Level:: Medical - moderate - high VTE Device Contraindication: Treatment Not Indicated VTE Drug Contraindication: N/A - Med Ordered
--- NOTE | 2022-12-01 19:42 | PHA.MEDREC ---
Pharmacy Consult ? Medication Reconciliation Pharmacy has completed the medication reconciliation. Patient had list of medications that match claim history. Kaden JallohD
[2022-12-01] MEDS: Labetalol HCL 100 MG/20 ML VIAL 10 MG IVPUSH (20:12)
[2022-12-01] MEDS: cefTRIAXone sodium 1 GM in 0.9 % Sodium Chloride 50 ML IV (20:12)
[2022-12-01 20:51] LABS: CDiff Gene PCR POSITIVE (Negative)
[2022-12-01 21:28] LABS: CDIFF Internal ctrl Dots and bkg OK (V); CDiff Toxin Positive (Negative)
[2022-12-01] MEDS: Primidone 50 MG TABLET PO (22:19)
[2022-12-01] MEDS: Atorvastatin Calcium 80 MG TABLET PO (22:19)
[2022-12-01] MEDS: Fidaxomicin 200 MG TABLET PO (22:19)
[2022-12-01] MEDS: hydrALAZINE HCl 25 MG TABLET PO (22:19)
[2022-12-02] VITALS (8 sets, daily range): BP systolic 137–180; BP diastolic 67–90; PULSE 62–96; RESP 16–18; TEMP 36.2–36.8; O2SAT 94–98; BMI 22.0
[2022-12-02] MEDS: 0.9 % Sodium Chloride Flush 3 ML SYRINGE IVFLUSH ×3 (01:22→21:05)
[2022-12-02] MEDS: Melatonin 3 MG TABLET 6 MG PO ×2 (03:12→21:14)
--- NOTE | 2022-12-02 03:15 | PC.NURSE ---
this rn assumed care of pt @ 0300. pt requesting medication for sleep. this rn medicated pt according to apr with 6mg po melatonin.
--- NOTE | 2022-12-02 04:50 | PC.NURSE ---
pt jose ramsey stated feeling wet . pt incontinent of urine as periwick not in place. this rn changed shayy pad, thais care provided. periwick replaced. pt boosted up in bed pt states no new needs at this time
[2022-12-02 06:04] LABS: MANUAL DIFF FLAG NO
[2022-12-02 06:08] LABS: Basophils Percent Auto 0.4 % (0-2); Eosinophils Absolute Auto 0.1 X10*3/uL (0.0-0.4); Eosinophils Percent Auto 1.1 % (0-4); Hematocrit 34.6 % (37.0-47.0); Hemoglobin 11.8 g/dl (12.0-16.0); Imm Gran Abs Auto 0.02 X10*3/uL (0.00-0.03); Imm Gran Pct Auto 0.3 % (0.0-0.4); Lymphocytes Absolute Auto 1.4 X10*3/uL (1.2-4.9); Lymphocytes Percent Auto 17.4 % (20-40); Mean Corpuscular HGB Conc 34.1 g/dl (31.0-35.0); Mean Corpuscular Hemoglobin 29.6 pg (27.0-33.0); Mean Corpuscular Volume 86.9 fL (80.0-98.0); Mean Platelet Volume 10.6 fL (9.4-12.3); Monocytes Absolute Auto 0.7 X10*3/uL (0.1-1.2); Monocytes Percent Auto 8.8 % (2-11); Neutrophils Absolute Auto 5.7 x10*3/uL (2.0-8.3); Platelet Count 223 X10*3/uL (160-400); Red Blood Count 3.98 X10*6/uL (4.20-5.50); Red Cell Distribution Width 13.7 % (11.0-16.0); White Blood Count 7.9 X10*3/uL (4.8-10.8)
[2022-12-02 06:14] LABS: INTERNATIONAL NORM RATIO 1.9 (0.9-1.1); Prothrombin Time 23.4 SEC (11.1-13.3)
[2022-12-02 06:27] LABS: Anion Gap 13 (12-20); Blood Urea Nitrogen 12 mg/dL (9-16); Calcium 9.3 mg/dL (8.4-10.2); Carbon Dioxide 19 mmol/L (22-29); Chloride 112 mmol/L (96-108); Creatinine Clr Calc Pharmacy 57.3; Estimated Glomerular Filt Rate > 60; Glucose Random 99 mg/dL (60-115); Potassium 3.5 mmol/L (3.3-5.1); Sodium 140 mmol/L (135-145)
[2022-12-02] MEDS: Acetaminophen 325 MG TABLET 650 MG PO (06:40)
[2022-12-02] MEDS: lisinopriL 40 MG TABLET PO (07:32)
[2022-12-02] MEDS: hydrALAZINE HCl 25 MG TABLET PO ×3 (07:32→21:05)
[2022-12-02] MEDS: Primidone 50 MG TABLET PO ×2 (07:32→21:05)
[2022-12-02] MEDS: Metoprolol Succinate ER 25 MG TAB.ER.24H PO (07:32)
[2022-12-02 07:51] LABS: C Reactive Protein 0.97 mg/dL (< or = 0.50)
--- NOTE | 2022-12-02 09:15 | MHC.CM.PN ---
Amberly 12/02/22, Pt lives with spouse and sons, she does not have home health services, no med equip, she has not been to [facility] before and states no preference. PT is rec [facility]. CM will follow and assist with DC plan.
[2022-12-02 09:28] LABS: INTERNATIONAL NORM RATIO 1.8 (0.9-1.1)
[2022-12-02] MEDS: Fidaxomicin 200 MG TABLET PO ×2 (10:05→21:05)
--- NOTE | 2022-12-02 10:37 | HO.PM.IMPN ---
Subjective Subjective Date of Service: 12/02/22 Interval History: ongoing watery diarrhea + anorexia Review of Systems Review of Systems: Yes all other systems are reviewed and are negative Physical Exam Vital Signs: Vital Signs: Last Vital Signs Temp 98 F 12/02/22 06:57 Pulse 64 12/02/22 07:57 Resp 17 12/02/22 06:57 BP 170/90 H 12/02/22 06:57 Pulse Ox 95 12/02/22 07:57 O2 Del Method Room Air 12/02/22 06:57 BMI result Body Mass Index 22.0 Gen: in no acute distress HEENT: sclera anicteric, moist mucus membranes Neck: supple Lungs: clear to auscultation bilaterally Heart: regular rate and rhythm, no murmurs Abd: soft, mild tenderness LLQ without rebound Ext: no edema Skin: warm/well-perfused Neuro: alert and oriented x3, RUE rest tremor Psych: appropriate affect Objective Data Active Medications Acetaminophen (Acetaminophen 325 Mg Tablet) 650 mg PO Q6H PRN PRN Reason: Pain, Mild (Pain Scale 1-3) Last Admin: 12/02/22 06:40 Dose: 650 mg Documented By: LEANDRO Atorvastatin Calcium (Atorvastatin Calcium 80 Mg Tablet) 80 mg PO BEDTIME CECILY Last Admin: 12/01/22 22:19 Dose: 80 mg Documented By: BOB Fidaxomicin (Fidaxomicin 200 Mg Tablet) 200 mg PO Q12H [facility] Last Admin: 12/02/22 10:05 Dose: 200 mg Documented By: LUCAS Hydralazine HCl (Hydralazine Hcl 25 Mg Tablet) 25 mg PO TID CECILY; Protocol Last Admin: 12/02/22 07:32 Dose: 25 mg Documented By: LUCAS Lisinopril (Lisinopril 40 Mg Tablet) 40 mg PO DAILY [facility]; Protocol Last Admin: 12/02/22 07:32 Dose: 40 mg Documented By: LUCAS Melatonin (Melatonin 3 Mg Tablet) 6 mg PO BEDTIME PRN PRN Reason: Insomnia Last Admin: 12/02/22 03:12 Dose: 6 mg Documented By: NATHALIE Metoprolol Succinate (Metoprolol Succinate Er 25 Mg Tab.Er.24h) 25 mg PO DAILY [facility]; Protocol Last Admin: 12/02/22 07:32 Dose: 25 mg Documented By: LUCAS Ondansetron HCl (Ondansetron Hcl 4 Mg/2 Ml Vial) 4 mg IVPUSH Q8H PRN PRN Reason: Nausea and Vomiting Primidone (Primidone 50 Mg Tablet) 50 mg PO BID [facility] Last Admin: 12/02/22 07:32 Dose: 50 mg Documented By: LUCAS Sodium Chloride (0.9 % Sodium Chloride Flush 3 Ml Syringe) 3 ml IVFLUSH QSHIFT [facility] Last Admin: 12/02/22 07:33 Dose: 3 ml Documented By: LUCAS Warfarin Sodium (Warfarin Sodium 2.5 Mg Tablet) 2.5 mg PO MOFR@1800 [facility] Warfarin Sodium (Warfarin Sodium 1.25 Mg Halftab) 3.75 mg PO SUTUWETHSA@1800 [facility] Labs 12/02/22 05:59 12/02/22 05:59 Labs: Laboratory Results - last 24 hr 12/01/22 12/01/22 12/01/22 12:12 14:07 16:39 MCV 86.7 MCH 28.6 MCHC 33.0 RDW 13.7 Plt Count 230 MPV 10.3 Immature Gran % (Auto) 0.3 Neut % (Auto) 66.3 Lymph % (Auto) 21.0 Mclennan % (Auto) 10.4 Eos % (Auto) 1.5 Baso % (Auto) 0.5 Lymph # (Auto) 1.4 Mclennan # (Auto) 0.7 Eos # (Auto) 0.1 Baso # (Auto) 0.0 Abs Immat Gran (auto) 0.02 Absolute Neuts (auto) 4.4 Absolute Nucleated RBC 0.000 Nucleated RBC % (auto) 0.0 PT 26.1 H D INR 2.1 H APTT 37.6 H Anion Gap 9 L Estim Creat Clear Calc 47.8 Estimated GFR > 60 Random Glucose 101 Lactic Acid 1.0 Calcium 9.5 Total Bilirubin 0.4 AST 14 ALT 9 Alkaline Phosphatase 98 C-Reactive Protein Total Protein 6.2 L Albumin 3.6 Lipase 69 Urine Color Yellow Urine Appearance Clear Urine pH 6.5 Ur Specific [place] 1.010 Urine Protein 100 (2+) H Urine Glucose (UA) Negative Urine Ketones Negative Urine Blood Negative Urine Nitrite Negative Ur Leukocyte Esterase Small (1+) H Urine RBC 0-2 Urine WBC 0-5 Ur Squamous Epith Cells 0-2 Urine Bacteria None Seen Hyaline Casts 0-2 C. difficile Tox B Gene POSITIVE A* C. difficile Toxin A&B Positive A* C. difficile Interpret SEE NOTE 12/02/22 12/02/22 05:59 08:29 MCV 86.9 MCH 29.6 MCHC 34.1 RDW 13.7 Plt Count 223 MPV 10.6 Immature Gran % (Auto) 0.3 Neut % (Auto) 72.0 Lymph % (Auto) 17.4 L Mclennan % (Auto) 8.8 Eos % (Auto) 1.1 Baso % (Auto) 0.4 Lymph # (Auto) 1.4 Mclennan # (Auto) 0.7 Eos # (Auto) 0.1 Baso # (Auto) 0.0 Abs Immat Gran (auto) 0.02 Absolute Neuts (auto) 5.7 Absolute Nucleated RBC 0.000 Nucleated RBC % (auto) 0.0 PT 23.4 H 22.0 H INR 1.9 H 1.8 H APTT Anion Gap 13 Estim Creat Clear Calc 57.3 Estimated GFR > 60 Random Glucose 99 Lactic Acid Calcium 9.3 Total Bilirubin AST ALT Alkaline Phosphatase C-Reactive Protein 0.97 H Total Protein Albumin Lipase Urine Color Urine Appearance Urine pH Ur Specific [place] Urine Protein Urine Glucose (UA) Urine Ketones Urine Blood Urine Nitrite Ur Leukocyte Esterase Urine RBC Urine WBC Ur Squamous Epith Cells Urine Bacteria Hyaline Casts C. difficile Tox B Gene C. difficile Toxin A&B C. difficile Interpret Assessment and Plan (1) C. 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 Quality Stroke Does the patient have a stroke diagnosis?: No VTE Prior VTE?: No VTE Risk Level:: Medical - moderate - high VTE Device Contraindication: Treatment Not Indicated VTE Drug Contraindication: N/A - Med Ordered
--- NOTE | 2022-12-02 16:05 | P.CNID_ITS ---
History of Present Illness Data of Consult Service Date: 12/02/22 Requesting physician: Kevin Cleveland Primary Care Provider: August Velasquez MD [facility] Reason for consult: Cdiff diarrhea She presents with diarrhea and weakness on 12/01. She was started on po Dificid. She has h/o Cdiff five years ago. She has no fever or chills or signs of severity. Review of Systems 2 Review of Systems: Yes all other systems are reviewed and are negative PMFSH Past Medical History Medical History Hyperlipidemia Gout Annual physical exam [facility] current use of 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 [facility] current use of antiarrhythmic drug Essential hypertension Embolic stroke Sinus bradycardia PAF (paroxysmal atrial fibrillation) Family History Family History Father CVD (cardiovascular disease) Mother Alzheimer disease Family history: reviewed and not pertinent Surgical History Surgical History History of cardiac radiofrequency ablation (~07/07/20) History of colostomy History of section Social History Social History Housing: House Alcohol intake: never Patient Tobacco Use Status: Never used Tobacco Tobacco use type: Cigarette Cigarettes Per Day: 4 e-Cigarette/Vaping Use: Never Used Second Hand Smoke Exposure: No service: No Current occupational status: retired Current occupation: right hand dominant Cognitive needs: Yes (cane) Hearing needs: No Vision needs: Yes (glasses) Meds Allergies Allergy/AdvReac Type Severity Reaction Status Date / Time No Known Allergies Allergy Mild NOT Verified 12/01/22 11:31 APPLICABLE Active Medications: Current Medications Acetaminophen (Acetaminophen 325 Mg Tablet) 650 mg PO Q6H PRN PRN Reason: Pain, Mild (Pain Scale 1-3) Last Admin: 12/02/22 06:40 Dose: 650 mg Atorvastatin Calcium (Atorvastatin Calcium 80 Mg Tablet) 80 mg PO BEDTIME CECILY Last Admin: 12/01/22 22:19 Dose: 80 mg Fidaxomicin (Fidaxomicin 200 Mg Tablet) 200 mg PO Q12H CECILY Last Admin: 12/02/22 10:05 Dose: 200 mg Hydralazine HCl (Hydralazine Hcl 25 Mg Tablet) 25 mg PO TID [facility]; Protocol Last Admin: 12/02/22 14:07 Dose: 25 mg Lisinopril (Lisinopril 40 Mg Tablet) 40 mg PO DAILY [facility]; Protocol Last Admin: 12/02/22 07:32 Dose: 40 mg Melatonin (Melatonin 3 Mg Tablet) 6 mg PO BEDTIME PRN PRN Reason: Insomnia Last Admin: 12/02/22 03:12 Dose: 6 mg Metoprolol Succinate (Metoprolol Succinate Er 25 Mg Tab.Er.24h) 25 mg PO DAILY [facility]; Protocol Last Admin: 12/02/22 07:32 Dose: 25 mg Ondansetron HCl (Ondansetron Hcl 4 Mg/2 Ml Vial) 4 mg IVPUSH Q8H PRN PRN Reason: Nausea and Vomiting Primidone (Primidone 50 Mg Tablet) 50 mg PO BID [facility] Last Admin: 12/02/22 07:32 Dose: 50 mg Sodium Chloride (0.9 % Sodium Chloride Flush 3 Ml Syringe) [facility] Last Admin: 12/02/22 15:23 Dose: Not Given Warfarin Sodium (Warfarin Sodium 2.5 Mg Tablet) 2.5 mg PO MOFR@1800 [facility] Warfarin Sodium (Warfarin Sodium 1.25 Mg Halftab) 3.75 mg PO SUTUWETHSA@1800 [facility] Home Medications Medication Instructions Recorded Confirmed Last Taken Type primidone 50 mg tablet 50 mg PO BID 12/17/19 12/01/22 12/01/22 History ondansetron HCl 4 mg tablet 4 mg PO Q6H PRN nausea/vomiting 04/11/22 12/01/22 12/01/22 History warfarin 2.5 mg tablet 2.5 mg PO MOFR@1800 12/01/22 12/01/22 Unknown History warfarin 2.5 mg tablet 3.75 mg PO SUTUWETHSA@1800 12/01/22 12/01/22 Unknown History Physical Exam 2 Vital Signs: Vital Signs: Last Vital Signs Temp 98 F 12/02/22 11:09 Pulse 81 12/02/22 11:09 Resp 17 12/02/22 11:09 BP 180/81 H 12/02/22 11:09 Pulse Ox 98 12/02/22 11:09 O2 Del Method Room Air 12/02/22 11:09 BMI result Body Mass Index 22.0 Const: General: cooperative HEENT: Head: Yes normal to inspection Face and sinus: Yes normal facial exam Mouth: Normal oral and palatal mucosa present Teeth and gingiva: d entition normal Eyes: General: appearance normal, both eyes and all related structures P upils: Equal, round and reactive pupils present Resp: Effort & Inspection: normal respiratory effort Cardio: Rate: regular rate Rhythm: regular rhythm GI: Palpation (GI): Soft to palpation and nontender : General: Yes no CVA tenderness Back/Spine/Pelvis: Back: no CVA tenderness Skin: General skin exam: no rashes or lesions noted Neuro: General: moves all extremities Cranial nerves: Yes Equal, round and reactive pupils present Extrem: General: Yes normal to inspection Psych: Appearance: grossly normal Results Labs 12/02/22 05:59 12/02/22 05:59 Labs: Short CBC 12/02/22 Range/Units 05:59 WBC 7.9 (4.8-10.8) X10*3/uL Hgb 11.8 L (12.0-16.0) g/dl Hct 34.6 L (37.0-47.0) % Plt Count 223 (160-400) X10*3/uL BMP 12/02/22 05:59 Sodium 140 Potassium 3.5 Chloride 112 H Carbon Dioxide 19 L BUN 12 Creatinine 0.65 Calcium 9.3 Microbiology Microbiology Results: Microbiology 12/01/22 Unknown Urine clean catch - Urine castellanos top Urine Culture - Preliminary Culture too young to evaluate. Assessment and Plan (1) C. difficile colitis: Status: Acute (2) Abdominal pain: Status: Acute Plan She is doing well. She has no signs of severity at this time She has had Cdiff before and no risk factors this time. Would give po Dificid or po Vancomycin for ten days. Time Spent With Patient Time: Total time managing care of this patient today ____ minutes.
[2022-12-02] MEDS: Warfarin Sodium 2.5 MG TABLET PO (17:30)
[2022-12-02] MEDS: Atorvastatin Calcium 80 MG TABLET PO (21:05)
[2022-12-03 04:11] VITALS: BP 155/74; PULSE 58; RESP 16; TEMP 36.6; O2SAT 97
[2022-12-03 06:11] LABS: Hemoglobin 11.4 g/dl (12.0-16.0); Mean Corpuscular HGB Conc 33.5 g/dl (31.0-35.0); Mean Corpuscular Hemoglobin 29.3 pg (27.0-33.0); Mean Corpuscular Volume 87.4 fL (80.0-98.0); Mean Platelet Volume 10.8 fL (9.4-12.3); Platelet Count 218 X10*3/uL (160-400); Red Blood Count 3.89 X10*6/uL (4.20-5.50); Red Cell Distribution Width 13.7 % (11.0-16.0); White Blood Count 6.1 X10*3/uL (4.8-10.8)
[2022-12-03 06:19] LABS: INTERNATIONAL NORM RATIO 2.2 (0.9-1.1); Prothrombin Time 26.2 SEC (11.1-13.3)
[2022-12-03 06:26] LABS: Anion Gap 13 (12-20); Blood Urea Nitrogen 9 mg/dL (9-16); Calcium 9.1 mg/dL (8.4-10.2); Carbon Dioxide 19 mmol/L (22-29); Chloride 110 mmol/L (96-108); Creatinine Clr Calc Pharmacy 54.7; Estimated Glomerular Filt Rate > 60; Glucose Random 98 mg/dL (60-115); Potassium 3.6 mmol/L (3.3-5.1); Sodium 138 mmol/L (135-145)
[2022-12-03 07:30] VITALS: BP 188/84; PULSE 56; RESP 20; TEMP 36.6; O2SAT 96
[2022-12-03] MEDS: hydrALAZINE HCl 25 MG TABLET PO (07:45)
[2022-12-03] MEDS: lisinopriL 40 MG TABLET PO (07:45)
[2022-12-03] MEDS: Metoprolol Succinate ER 25 MG TAB.ER.24H PO (07:45)
[2022-12-03] MEDS: 0.9 % Sodium Chloride Flush 3 ML SYRINGE IVFLUSH (07:46)
[2022-12-03] MEDS: Primidone 50 MG TABLET PO (07:46)
[2022-12-03 07:50] VITALS: BP 160/78; PULSE 66; O2SAT 95
--- NOTE | 2022-12-03 09:31 | P.F2F_ITS ---
Service Date Service Date: 12/03/22 Encounter Date of encounter: 12/03/22 Reasons for Services Signs and symptoms assessed: Impaired Gait Pattern, Impaired Safety ,Impaired Standing Balance, Impaired Transfer Ability,Muscle Weakness Reason for senior care: monitoring of PT/INR, medication management, medication treatment and teach disease management Reason for physical therapy: home safety and mobility, therapeutic exercises, gait/transfer training, assess need for DME, ADL training and energy conservation MD Overseeing Care: August Velasquez Homebound: Leaving the home is medically contraindicated at this time without the asist of a device and/or another person due th the listed conditions above and below. Reason homebound: unsteady gait / fall risk, immunosuppression / infection risk and weakness related to hospital stay Homebound supporting statement: Transfer Training,Gait Training, Therapeutic Activities, Therapeutic Exercise, Patient Education, Safety,Balance Certification: Based on the above findings, I certify that this patient is confined to the home and needs intermittent senior care care, physical therapy and/or speech therapy, or continues to need occupational therapy. The patient is under my care, and I have initiated the establishment of the plan of care. The patient will be followed by a physician who will periodically review the plan of care. Time Spent With Patient Time: Total time managing care of this patient today ____ minutes.
[2022-12-03] MEDS: Fidaxomicin 200 MG TABLET PO (10:23)
[2022-12-03 12:00] VITALS: BP 153/70; PULSE 58; RESP 20; TEMP 36.6; O2SAT 97
--- NOTE | 2022-12-03 12:15 | MHC.CM.PN ---
PT TO BE DCD TODAY MET WITH PT AND NENA PT DOES NOT WANT TO GO TO SNF WILL BE GOING HOME [place]
--- NOTE | 2022-12-03 13:02 | PM.DS ---
DS: Providers Provider Date of Service: 12/03/22 Date of admission: 12/01/22 19:18 Date of discharge: 12/03/22 Primary care physician: August Velasquez MD Consults: 12/01/22 21:40 Consult to Infectious Diseases Routine Consulting Provider: Selina Terry Reason for consultation: c diff DS: Diagnosis Discharge Diagnosis (1) C. difficile colitis: Status: Acute (2) Abdominal pain: Status: Acute DS: Summary Hospital Course Hospital Course: from admission H+P, 12/01/22, by hospitalist ANTONI Boss: Pt is a 77-year-old female with a PMH significant for?paroxysmal AFib s/p ablation on warfarin, hx embolic stroke in 2018 from subtherapeutic INR, HLD, and remote hx of C-Diff infection who presents to the ED with?fatigue, nausea without vomiting, cramps, and foul-smelling diarrhea on and off the past couple of weeks. Diarrhea has been mostly clear and liquid. Has been particularly bad the past few days which she has experienced 4-6 episodes of diarrhea each day. Patient states she has been feeling fatigued, sleeping a lot, nauseous mostly in the morning and with abdominal cramps again mostly in the morning. Denies any vomiting. States the past few days she has had diffuse abdominal pain. Also notes decreased p.o. intake and 7 lb weight loss in the past week. Patient presents to the emergency room today after her talked to her daughter who then talked to her PCP who convinced the patient to present to the emergency room. Patient denies any chest pain/pressure. Chronically has subjective fever and chills. Denies shortness of breath. In the ED patient was afebrile but tachycardic up to 105, and hypertensive up to 213/111. Labs were significant for H&H 11.6/35.2. No leukocytosis. INR therapeutic at 2.1. Renal function WNL. Lactic acid WNL at 1.0. GI panel pending. C diff Anup and toxin both positive. CT?of abdomen and pelvis found no acute intra-abdominal process seen, but showed cholelithiasis without wall thickening or pericholecystic fluid, mild constipation with scattered diverticulosis without diverticulitis, and found mild gastric wall thickening along the greater curvature similar to previous study on 07/06/2022 with recommendation of upper GI barium study or upper endoscopy. EKG demonstrated sinus rhythm with PACs. Pt was treated with IVF, loperamide, dicyclomine, metronidazole, and ceftriaxone. Pt will be admitted to the hospital for treatment and further evaluation of acute C diff colitis. 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 She was treated with 2 days of fidoxamicin with resolution of diarrhea. Diet was advanced without issues. Infectious Disease was consulted. Short-term rehabilitation recommended by PT but declined by pt; she was discharged home with VNA services/home PT. She was discharged on PO vancomycin [fidoxamicin was not covered by her insurance] for 8 days. She should follow-up with her primary care doctor in 1 week. Time Spent with Patient Time attestation: Total time managing care of this patient today __35__ minutes. Discharge coordination time: Greater than 30 minutes Quality: Safe Use of Opioids Does Pt have an Active Cancer Diagnosis on the Problem List?: No Quality: Stroke Does the patient have a stroke diagnosis?: No Physical Exam Vital Signs: Vital Signs: Last Vital Signs Temp 97.8 F 12/03/22 12:00 Pulse 58 12/03/22 12:00 Resp 20 12/03/22 12:00 BP 153/70 H 12/03/22 12:00 Pulse Ox 97 12/03/22 12:00 O2 Del Method Room Air 12/03/22 12:00 BMI result Body Mass Index 22.0 Gen: in no acute distress HEENT: sclera anicteric, moist mucus membranes Neck: supple Lungs: clear to auscultation bilaterally Heart: regular rate and rhythm, no murmurs Abd: soft, non-tender Ext: no edema Skin: warm/well-perfused Neuro: alert and oriented x3, RUE rest tremor Psych: appropriate affect DS: Data Data Completed and Pending Completed studies during hospitalization [Text1]: Laboratory Results WBC 6.1 X10*3/uL (4.8-10.8) 12/03/22 05:33 RBC 3.89 X10*6/uL (4.20-5.50) L 12/03/22 05:33 Hgb 11.4 g/dl (12.0-16.0) L 12/03/22 05:33 Hct 34.0 % (37.0-47.0) L 12/03/22 05:33 MCV 87.4 fL (80.0-98.0) 12/03/22 05:33 MCH 29.3 pg (27.0-33.0) 12/03/22 05:33 MCHC 33.5 g/dl (31.0-35.0) 12/03/22 05:33 RDW 13.7 % (11.0-16.0) 12/03/22 05:33 Plt Count 218 X10*3/uL (160-400) 12/03/22 05:33 MPV 10.8 fL (9.4-12.3) 12/03/22 05:33 Immature Gran % (Auto) 0.3 % (0.0-0.4) 12/02/22 05:59 Neut % (Auto) 72.0 % (45-73) 12/02/22 05:59 Lymph % (Auto) 17.4 % (20-40) L 12/02/22 05:59 [place] % (Auto) 8.8 % (2-11) 12/02/22 05:59 Eos % (Auto) 1.1 % (0-4) 12/02/22 05:59 Baso % (Auto) 0.4 % (0-2) 12/02/22 05:59 Lymph # (Auto) 1.4 X10*3/uL (1.2-4.9) 12/02/22 05:59 [place] # (Auto) 0.7 X10*3/uL (0.1-1.2) 12/02/22 05:59 Eos # (Auto) 0.1 X10*3/uL (0.0-0.4) 12/02/22 05:59 Baso # (Auto) 0.0 X10*3/uL (0.0-0.2) 12/02/22 05:59 Abs Immat Gran (auto) 0.02 X10*3/uL (0.00-0.03) 12/02/22 05:59 Absolute Neuts (auto) 5.7 x10*3/uL (2.0-8.3) 12/02/22 05:59 Absolute Nucleated RBC 0.000 X10*3/uL (0.0-0.012) 12/03/22 05:33 Nucleated RBC % (auto) 0.0 /100WBC (0.0-0.2) 12/03/22 05:33 PT 26.2 SEC (11.1-13.3) H 12/03/22 05:33 INR 2.2 (0.9-1.1) H 12/03/22 05:33 APTT 37.6 SEC (26.0-36.4) H 12/01/22 12:12 Sodium 138 mmol/L (135-145) 12/03/22 05:33 Potassium 3.6 mmol/L (3.3-5.1) 12/03/22 05:33 Chloride 110 mmol/L (96-108) H 12/03/22 05:33 Carbon Dioxide 19 mmol/L (22-29) L 12/03/22 05:33 Anion Gap 13 (12-20) 12/03/22 05:33 BUN 9 mg/dL (9-16) 12/03/22 05:33 Creatinine 0.68 mg/dL (0.5-1.4) 12/03/22 05:33 Estim Creat Clear Calc 54.7 12/03/22 05:33 Estimated GFR > 60 12/03/22 05:33 Random Glucose 98 mg/dL (60-115) 12/03/22 05:33 Lactic Acid 1.0 mmol/L (0.5-2.0) 12/01/22 12:12 Calcium 9.1 mg/dL (8.4-10.2) 12/03/22 05:33 Total Bilirubin 0.4 mg/dL (0.0-1.0) 12/01/22 12:12 AST 14 U/L (5-31) 12/01/22 12:12 ALT 9 U/L (0-31) 12/01/22 12:12 Alkaline Phosphatase 98 U/L (39-117) 12/01/22 12:12 C-Reactive Protein 0.97 mg/dL (< or = 0.50) H 12/02/22 05:59 Total Protein 6.2 g/dL (6.5-8.0) L 12/01/22 12:12 Albumin 3.6 g/dL (3.5-5.0) 12/01/22 12:12 Lipase 69 U/L (8-78) 12/01/22 12:12 Urine Color Yellow 12/01/22 14:07 Urine Appearance Clear 12/01/22 14:07 Urine pH 6.5 (5.0-9.0) 12/01/22 14:07 Ur Specific [place] 1.010 (1.005-1.025) 12/01/22 14:07 Urine Protein 100 (2+) mg/dL (Neg-Trace) H 12/01/22 14:07 Urine Glucose (UA) Negative mg/dL (Negative) 12/01/22 14:07 Urine Ketones Negative mg/dL (Negative) 12/01/22 14:07 Urine Blood Negative (Negative) 12/01/22 14:07 Urine Nitrite Negative (Negative) 12/01/22 14:07 Ur Leukocyte Esterase Small (1+) (Negative) H 12/01/22 14:07 Urine RBC 0-2 /HPF (0-2) 12/01/22 14:07 Urine WBC 0-5 /HPF (0-5) 12/01/22 14:07 Ur Squamous Epith Cells 0-2 /HPF (0-2) 12/01/22 14:07 Urine Bacteria None Seen (None Seen) 12/01/22 14:07 Hyaline Casts 0-2 /LPF (0-2) 12/01/22 14:07 Stl C. cayetanensis PCR Cancelled 12/01/22 16:39 Stool Rotavirus A PCR Cancelled 12/01/22 16:39 Stl Adenov F 40/41 PCR Cancelled 12/01/22 16:39 Stool Astrovirus (PCR) Cancelled 12/01/22 16:39 Stool Campylobacter PCR Cancelled 12/01/22 16:39 Stool Cryptosporidium PCR Cancelled 12/01/22 16:39 Stl Sh Tox Pr E STEC PCR Cancelled 12/01/22 16:39 Stool E coli O157 PCR Cancelled 12/01/22 16:39 Stl Enterotoxigenic E PCR Cancelled 12/01/22 16:39 Stool EPEC (PCR) Cancelled 12/01/22 16:39 Stool EAEC (PCR) Cancelled 12/01/22 16:39 Stl E. histolytica PCR Cancelled 12/01/22 16:39 Stool Giardia Lamblia PCR Cancelled 12/01/22 16:39 Stl P. shigelloides PCR Cancelled 12/01/22 16:39 Stool Salmonella PCR Cancelled 12/01/22 16:39 Stool Sapovirus (PCR) Cancelled 12/01/22 16:39 Stl Shigella/EIEC PCR Cancelled 12/01/22 16:39 St Y.enterocolitica PCR Cancelled 12/01/22 16:39 Stool Vibrio (PCR) Cancelled 12/01/22 16:39 Stl Vibrio cholerae PCR Cancelled 12/01/22 16:39 Stl Norovirus GI/GII PCR Cancelled 12/01/22 16:39 C. difficile Tox B Gene POSITIVE (Negative) A* 12/01/22 16:39 C. difficile Toxin A&B Positive (Negative) A* 12/01/22 16:39 C. difficile Interpret SEE NOTE 12/01/22 16:39 Impressions Abdomen/Pelvis CT 12/01/22 15:07 IMPRESSION: 1. No acute intra-abdominal process seen. 2. Cholelithiasis without wall thickening or pericholecystic fluid collection. 3. Mild constipation with scattered colonic diverticulosis without diverticulitis. 4. Small left periumbilical hernia containing fat. 5. Mild gastric wall thickening along the greater curvature similar to previous study 07/06/2022. Recommend upper GI barium study or upper endoscopy. Fleischner guidelines were followed. Discharge Plan Discharge Anticipated Discharge Date/Time: 12/03/22 09:27 Patient Disposition: Home Health Service Discharge Diagnosis: Clostridium difficile colitis Referrals: [facility] [Other] - 1 Week August Velasquez MD [Primary Care Provider] - 1 Week Discharge Medications: New vancomycin 125 mg capsule 125 mg PO QID Qty: 32 0RF Continued warfarin [Jantoven] 2.5 mg tablet See Rx Instructions PO .COMPLEX Qty: 90 8RF Protocol: Dose Management Condition: Monday (Week One) Dose/Route: 3.75 mg Instruction: 1.5 x 2.5 mg tablets Condition: Monday Dose/Route: 3.75 mg Instruction: 1.5 x 2.5 mg tablets Condition: Monday Dose/Route: 3.75 mg Instruction: 1.5 x 2.5 mg tablets Condition: Monday Dose/Route: 3.75 mg Instruction: 1.5 x 2.5 mg tablets Condition: Dose/Route: 3.75 mg Instruction: 1.5 x 2.5 mg tablets Condition: Monday Dose/Route: 2.5 mg Instruction: 1 x 2.5 mg tablet Condition: Monday Dose/Route: 3.75 mg Instruction: 1.5 x 2.5 mg tablets Condition: Monday (Week Two) Dose/Route: 3.75 mg Instruction: 1.5 x 2.5 mg tablets Condition: Monday Dose/Route: 2.5 mg Instruction: 1 x 2.5 mg tablet Condition: Monday Dose/Route: 3.75 mg Instruction: 1.5 x 2.5 mg tablets Condition: Monday Dose/Route: 3.75 mg Instruction: 1.5 x 2.5 mg tablets Condition: Dose/Route: 3.75 mg Instruction: 1.5 x 2.5 mg tablets Condition: Monday Dose/Route: 2.5 mg Instruction: 1 x 2.5 mg tablet Condition: Monday Dose/Route: 3.75 mg Instruction: 1.5 x 2.5 mg tablets Protocol Text: Adjustment Start Date: Monday11/28/22 INR Value: 1.8 INR Date: 11/28/22 Recheck Date: 12/08/22 Additional Instructions: INR is below range increase dose today then follow dosing sheet try fruits to help raise, ok to continue with carnation instant breakfast, try to have vanilla instead of the chocolate Rx Instructions: 1 - 2 tablets daily per INR metoprolol succinate 25 mg tablet extended release 24 hr 25 mg PO DAILY Qty: 90 0RF hydralazine 25 mg tablet 25 mg PO TID Qty: 90 5RF lisinopril 40 mg tablet 40 mg PO DAILY Qty: 90 8RF atorvastatin 80 mg tablet 80 mg PO QPM Qty: 90 4RF warfarin 2.5 mg tablet 2.5 mg PO MOFR@1800 warfarin 2.5 mg tablet 3.75 mg PO SUTUWETHSA@1800 primidone 50 mg tablet 50 mg PO BID ondansetron HCl 4 mg tablet 4 mg PO Q6H PRN (Reason: nausea/vomiting) Discharge Orders: Discharge Order (Routine); Ordered 12/03/22 Ordered By: Kevin Cleveland Diet: Advance to usual diet Activity on Discharge: As tolerated Stand Alone Forms: Patient Portal Discharge page Care Plan Goals: resolution of C. difficile infection Health Concerns: Clostridium difficile colitis Plan of Treatment: vancomycin 125 mg 4 times a day for 8 more days Please follow up with your primary care doctor within 1 week. Return to the hospital if you experience recurrent or worsening symptoms. Assessment: See Discharge Summary.
== END 2022-12-03 13:43 | disposition home health service (06) ==
LOC: HO.ED 16:44 → HO.EDOVER 19:27 → HO.S3 12-02 05:52
PROVIDERS: Physician Assistant; Student in an Organized Health Care Education/Training Program; Admitting Provider Student in an Organized Health Care Education/Training Program; Emergency Provider Internal Medicine; PCP Internal Medicine; Visit Provider Family Medicine
DX: A04.72 Enterocolitis due to Clostridium difficile, not specified as recurrent (principal); E86.0 Dehydration; R11.2 Nausea with vomiting, unspecified; R19.7 Diarrhea, unspecified; I48.0 Paroxysmal atrial fibrillation; I10 Essential (primary) hypertension; R00.0 Tachycardia, unspecified; E78.5 Hyperlipidemia, unspecified; R53.83 Other fatigue; R63.4 Abnormal weight loss; Z68.23 Body mass index [BMI] 23.0-23.9, adult; R10.9 Unspecified abdominal pain; J98.11 Atelectasis; K80.20 Calculus of gallbladder without cholecystitis without obstruction; K59.00 Constipation, unspecified; K42.9 Umbilical hernia without obstruction or gangrene; Z23 Encounter for immunization; Z79.01 Long term (current) use of 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s
CPT/HCPCS: 36415; 74177; 80048; 80053; 81001; 83605; 83690; 85025; 85027; 85610; 85730; 86140; 87040; 87086; 87324; 87493; 87507; 90471; 90686; 93005; 96361; 96365; 96367; 96375; 97162; 99221; 99285; J0696; Q9967

== ENCOUNTER → 2022-12-01 19:18 | Outpatient (BNV) | payer MEDICARE, SELFPAY | PROVIDERS: Admitting Provider Student in an Organized Health Care Education/Training Program; Emergency Provider Internal Medicine; PCP Internal Medicine; Visit Provider Student in an Organized Health Care Education/Training Program | DX: A04.72 Enterocolitis due to Clostridium difficile, not specified as recurrent (principal); R10.9 Unspecified abdominal pain | CPT/HCPCS: 99222; 99232; 99239; G0180 ==

== ENCOUNTER → 2022-12-01 19:18 | Outpatient (BNV) | payer MEDICARE, SELFPAY | PROVIDERS: Admitting Provider Student in an Organized Health Care Education/Training Program; Emergency Provider Internal Medicine; PCP Internal Medicine; Visit Provider Internal Medicine | DX: A04.72 Enterocolitis due to Clostridium difficile, not specified as recurrent (principal); R10.9 Unspecified abdominal pain | CPT/HCPCS: 99222 ==

== ENCOUNTER 2022-12-06 10:52 | Outpatient (AMB) | payer MEDICARE, SELFPAY ==
--- NOTE | 2022-12-06 11:06 | MHC.OFFVISCO ---
Intake Intake Visit Reasons: Anticoagulation Allergies No Known Allergies Allergy (Mild, Verified 12/06/22 10:59) NOT APPLICABLE Medication List - Last Reconciled 12/06/22 by Karely Hernandez RN atorvastatin 80 mg PO QPM hydralazine 25 mg PO TID lisinopril 40 mg PO DAILY metoprolol succinate ER 25 mg PO DAILY ondansetron HCl 4 mg PO Q6H PRN primidone 50 mg PO BID vancomycin 125 mg PO QID warfarin 2.5 mg PO MOFR@1800 warfarin 3.75 mg PO SUTUWETHSA@1800 warfarin (Jantoven) See Protocol 1 - 2 tablets daily per INR Nursing Note INR: 2.2- in therapeutic range of 2-3 Medications and supplements reviewed No changes in health, diet, medications, or supplements, Denies any signs and symptoms of bleeding or bruising or clotting. Bleeding, bruising, clotting discussed Nutritional guidance given - eat greens while on antibiotics pt states appetite fair, taking boost- 1 can per day Dose: reduce dose on monday otherwise cont reg dosing F/U INR: 1 week Patient verbalizes understanding of instructions given [place] with [place] [facility] [place], dehydration, abd pain. 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
[2022-12-06 11:07] LABS: Prothrombin Time Whole Bld POC 26.2 sec (11.1-13.5); ~PT, ~INR - Anti Coag Clinic 2.2 (0.9-1.1)
== END 2022-12-06 11:16 | disposition home or self-care (01) ==
LOC: HO.ACS 10:52
PROVIDERS: PCP Internal Medicine; Visit Provider Internal Medicine
DX: Z79.01 Long term (current) use of 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s (principal)

== ENCOUNTER → 2022-12-06 10:52 | Outpatient (BNVA) | payer MEDICARE, SELFPAY | PROVIDERS: PCP Internal Medicine; Visit Provider Internal Medicine | DX: I48.0 Paroxysmal atrial fibrillation (principal); Z79.01 Long term (current) use of 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s; Z51.81 Encounter for therapeutic drug level monitoring | CPT/HCPCS: 85610; 99211 ==

== ENCOUNTER 2022-12-12 13:17 | Outpatient (AMB) | payer MEDICARE, SELFPAY ==
--- NOTE | 2022-12-12 13:18 | MHC.OFFVIS ---
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 by: Spouse Allergies No Known Allergies Allergy (Mild, Verified 12/12/22 13:22) NOT APPLICABLE Medication List - Last Reconciled 12/12/22 by Javy Bhat MD atorvastatin 80 mg PO QPM hydralazine 25 mg PO TID lisinopril 40 mg PO DAILY methylprednisolone (Medrol (Isreal)) PO PER PKG DIR metoprolol succinate ER 25 mg PO DAILY ondansetron HCl 4 mg PO Q6H PRN primidone 50 mg PO BID vancomycin 125 mg PO QID warfarin 2.5 mg See Protocol PO MOFR@1800 warfarin 3.75 mg See Protocol PO SUTUWETHSA@1800 warfarin (Jantoven) See Protocol 1 - 2 tablets daily per INR HPI HPI Comments History of Present Illness Details Charlene returns for follow-up regarding atrial fibrillation. To recall, she has had several episodes of atrial fibrillation over the last few years. Was previously on diltiazem. Due to recurrent episodes, Multaq was started but due to cost, she could not afford that. Then has also tried Sotalol but she became quite bradycardic with that. Briefly was on Amiodarone, but did not pursue that long-term due to side effect profile. Eventually saw EP and underwent ablation therapy. Immediately post ablation, she had one episode of atrial fibrillation for which she came to the ER and got flecainide. However, nothing since that time. 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 Over time, she has got very frail. She states she fell down and had a humerus fracture. Was also hospitalized for C diff infection. Also very upset as her sister few days back. In spite of all this, no clear cardiac symptoms. 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 detention current use of antiarrhythmic drug Essential hypertension Embolic stroke Sinus bradycardia PAF (paroxysmal atrial fibrillation) Surgical History History of cardiac radiofrequency ablation (~07/07/20) History of colostomy History of section Family History Father CVD (cardiovascular disease) Mother Alzheimer disease Social History Housing: House Alcohol intake: never Patient Tobacco Use Status: Never used Tobacco Tobacco use type: Cigarette Cigarettes Per Day: 4 e-Cigarette/Vaping Use: Never Used Second Hand Smoke Exposure: No service: No Current occupational status: retired Current occupation: right hand dominant Cognitive needs: Yes (cane) Hearing needs: No Vision needs: Yes (glasses) Review of Systems Const Denies weakness ENT Denies dizziness Card Denies chest pain, Denies chest pain with activity, Denies syncope, Denies rapid heart rate, Denies pedal edema, Denies edema, Denies leg edema, Denies lightheadedness, Denies palpitations, Denies dyspnea, Denies dyspnea on exertion and Denies orthopnea Resp Denies cough, Denies dyspnea and Denies dyspnea on exertion GI Denies hematochezia and Denies change in stool character Musc Denies abnormal gait, Denies muscle cramps, Denies muscle weakness, Denies numbness, Denies radiating pain into limb and Denies tingling Neuro Denies abnormal gait, Denies dizziness, Denies syncope, Denies numbness, Denies tingling and Denies weakness Endo Denies palpitations Physical Exam Vital Signs: Last Vital Signs Pulse 74 12/12/22 13:19 BP 168/78 H 12/12/22 13:19 BMI result Body Mass Index 22.8 Const General: comfortable and no acute distress Orientation/consciousness: patient oriented x3 HEENT Other: Unremarkable Head: Yes normal to inspection Neck Neck: Yes normal visual inspection Chest Chest palpation & inspection: normal inspection of the chest Resp Auscultation: clear to auscultation bilaterally Cardio Palpation: normal PMI Heart sounds: S1 normal heart sound present, S2 normal heart sound present, no gallops, Murmur heart sound present systolic II/ and at the right sternal border and no rubs GI Palpation (GI): Soft to palpation Back/Spine/Pelvis Other: unremarkable Skin General skin exam: no rashes or lesions noted Neuro General: patient oriented x3 Extrem General: Yes normal to inspection Psych Mental Status: mental status grossly normal Assessment & Plan Assessment & Plan (1) Atherosclerotic cardiovascular disease: Code(s): I25.10 - Atherosclerotic heart disease of [place] coronary artery without angina pectoris Plan: Myocardial perfusion imaging study in the past with possible mild lateral wall ischemia. Coronary CT denied by insurance. Clinically, she does not have any angina or other ischemic symptoms. Continue statins. Highly erratic LDL levels. Recent levels are 91, 152, 95 and 198. Not clear how much dietary indiscretion plays a role as she also eats sweet foods frequently. We can try adding Zetia. (2) PAF (paroxysmal atrial fibrillation): Code(s): I48.0 - Paroxysmal atrial fibrillation Plan: Status post atrial fibrillation ablation. Previously in the intolerance or cost prohibitive issues with antiarrhythmics including sotalol, Multaq. Continue beta-blockers. As the pressure is also high, we can go up on the beta-hernán dosing. She does have some sinus bradycardia history but we can monitor that. Continue anticoagulation. Due to financial issues only on Coumadin. High atrial burden on Holter and hence there is still increased risk of atrial fibrillation the future. Sleep study in the past without any significant sleep apnea. (3) Sinus bradycardia: Code(s): R00.1 - Bradycardia, unspecified Plan: No clinical concerns at this time. Can be monitored. (4) Embolic stroke: Code(s): I63.9 - Cerebral infarction, unspecified Qualifiers: Precerebral and cerebral artery: unspecified cerebral artery Qualified Code(s): I63.40 - Cerebral infarction due to embolism of unspecified cerebral artery Plan: No clear neurological deficits. She remains ambulatory. (5) Non-rheumatic aortic stenosis: Code(s): I35.0 - Nonrheumatic aortic (valve) stenosis Plan: Echocardiogram shows moderate aortic valve calcification and mild stenosis. Not hemodynamically significant. Can be followed on echocardiograms. (6) Mitral annular calcification: Code(s): I05.9 - Rheumatic mitral valve disease, unspecified Plan: Echocardiogram with moderate mitral annular calcification and mild regurgitation. Not hemodynamically significant. (7) Essential hypertension: Code(s): I10 - Essential (primary) hypertension Plan: Listed to be on hydralazine, lisinopril, metoprolol. Metoprolol is more for the atrial fibrillation. We can go up on the dose. Her sister few days ago and not clear how much that plays a role in high blood pressure. If pressure is still high, then probably go up on the hydralazine dosing. (8) Other and unspecified hyperlipidemia: Code(s): E78.5 - Hyperlipidemia, unspecified Plan: Cholesterol levels are up and down. Compliance does probably play some role as levels are widely variable. Added Zetia. Medications: New metoprolol succinate ER (Toprol XL) 50 mg PO DAILY 90 tabs 3RF ezetimibe (Zetia) 10 mg PO DAILY 90 tabs 3RF Changed From vancomycin 125 mg PO QID 32 caps 0RF To vancomycin 125 mg PO QID Discontinued metoprolol succinate ER Discontinued Reason: Doctor's Order 25 mg PO DAILY 90 tabs 0RF Coding Level of Care Code Est Pt Level 4 (98580) Diagnoses Atherosclerotic cardiovascular disease I25.10 PAF (paroxysmal atrial fibrillation) I48.0 Sinus bradycardia R00.1 Cerebrovascular accident (CVA) due to embolism of cerebral artery I63.40 Precerebral and cerebral artery: unspecified cerebral artery Non-rheumatic aortic stenosis I35.0 Mitral annular calcification I05.9 Essential hypertension I10 Other and unspecified hyperlipidemia E78.5
[2022-12-12 13:19] VITALS: BP 168/78; PULSE 74; BMI 22.8
== END 2022-12-12 13:40 | disposition home or self-care (01) ==
PROVIDERS: PCP Internal Medicine; Visit Provider Internal Medicine
DX: I25.10 Atherosclerotic heart disease of native coronary artery without angina pectoris (principal); I48.0 Paroxysmal atrial fibrillation; R00.1 Bradycardia, unspecified; I63.40 Cerebral infarction due to embolism of unspecified cerebral artery; I35.0 Nonrheumatic aortic (valve) stenosis; I05.9 Rheumatic mitral valve disease, unspecified; I10 Essential (primary) hypertension; E78.5 Hyperlipidemia, unspecified
CPT/HCPCS: 99214

== ENCOUNTER → 2022-12-12 13:17 | Outpatient (BNVA) | payer MEDICARE, SELFPAY | PROVIDERS: PCP Internal Medicine; Visit Provider Internal Medicine | DX: I25.10 Atherosclerotic heart disease of native coronary artery without angina pectoris (principal); I48.0 Paroxysmal atrial fibrillation; I35.0 Nonrheumatic aortic (valve) stenosis; I05.9 Rheumatic mitral valve disease, unspecified; I10 Essential (primary) hypertension; R00.1 Bradycardia, unspecified; E78.5 Hyperlipidemia, unspecified; Z86.73 Personal history of transient ischemic attack (TIA), and cerebral infarction without residual deficits; Z79.01 Long term (current) use of 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s; Z79.899 Other long term (current) drug therapy | CPT/HCPCS: 99212 ==

== ENCOUNTER 2022-12-13 13:58 | Outpatient (AMB) | payer MEDICARE, SELFPAY ==
[2022-12-13 14:12] LABS: Prothrombin Time Whole Bld POC 33.4 sec (11.1-13.5); ~PT, ~INR - Anti Coag Clinic 2.8 (0.9-1.1)
--- NOTE | 2022-12-13 14:28 | MHC.OFFVISCO ---
Intake Intake Visit Reasons: Anticoagulation Allergies No Known Allergies Allergy (Mild, Verified 12/13/22 14:31) NOT APPLICABLE Medication List - Last Reconciled 12/13/22 by Twila Valentine RN atorvastatin 80 mg PO QPM ezetimibe (Zetia) 10 mg PO DAILY hydralazine 25 mg PO TID lisinopril 40 mg PO DAILY methylprednisolone (Medrol (Isreal)) PO PER PKG DIR metoprolol succinate ER (Toprol XL) 50 mg PO DAILY ondansetron HCl 4 mg PO Q6H PRN primidone 50 mg PO BID vancomycin 125 mg PO QID warfarin See Protocol 2.5 mg orally 3.75MG X 4 DAYS/ 2.5MG X 3 DAYS; Nursing Note Charlene is recovering from c-diff and still has a day of vancomyacin to complete which can have a delayed response in raising the INR. She additionally has gout and is being treated with methylprednisolone and will finish in 2 days - may lower the INR. She is to start a new cholesterol med Zetia which can effect the INR with a delayed effect raising the INR . Msg sent to PCP and Cardiology Dr Davey if she can wait to start the Zetia in 10-14 days INR: 2.8 in therapeutic range Medications and supplements reviewed Denies any signs and symptoms of bleeding or bruising or clotting. Bleeding, bruising, clotting discussed Nutritional guidance given - resume weekly greens Dose: decrease weekly dose slighlty because of the methylpred to 2.5mg mwf/ 3.75mg x 4 days F/U INR: 12/22/22 Patient verbalizes understanding of instructions given Anti-Coag Initial Assessment Social Hx Patient Tobacco Use Status: Never used Tobacco Tobacco use type: Cigarette alcohol intake: never Alcohol intake frequency: does not drink Coding Level of Care Code Est Patient Level 1 Diagnoses Current use of 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 therapy Z79.01 Assessment & Plan Assessment & Plan (1) Current use of 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 therapy: 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
== END 2022-12-13 14:34 | disposition home or self-care (01) ==
LOC: HO.ACS 13:58
PROVIDERS: PCP Internal Medicine; Visit Provider Internal Medicine
DX: Z79.01 Long term (current) use of 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s (principal)

== ENCOUNTER → 2022-12-13 13:58 | Outpatient (BNVA) | payer MEDICARE, SELFPAY | PROVIDERS: PCP Internal Medicine; Visit Provider Internal Medicine | DX: I48.0 Paroxysmal atrial fibrillation (principal); Z79.01 Long term (current) use of 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s; Z51.81 Encounter for therapeutic drug level monitoring | CPT/HCPCS: 85610; 99211 ==

== ENCOUNTER 2022-12-13 14:28 | Outpatient (AMB) | payer MEDICARE, SELFPAY ==
--- NOTE | 2022-12-13 14:30 | MHC.PC.OV ---
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 Required: No Plaster Form Maker: Not Required per policy Accompanied by: Self / Same As Patient Allergies No Known Allergies Allergy (Mild, Verified 12/13/22 14:31) NOT APPLICABLE Medication List - Last Reconciled 12/14/22 by August Velasquez MD atorvastatin 80 mg PO QPM ezetimibe (Zetia) 10 mg PO DAILY hydralazine 25 mg PO TID lisinopril 40 mg PO DAILY metoprolol succinate ER (Toprol XL) 50 mg PO DAILY primidone 50 mg PO BID warfarin See Protocol 2.5 mg orally 3.75MG X 4 DAYS/ 2.5MG X 3 DAYS; Tobacco use date assessed: 07/18/22 Fall risk assessment: 2 + Falls in past year Last assessed Fall Risk: 12/13/22 Dental Screening Dental Screen Date: 12/13/22 Did you have a dental visit in the last 12 months?: No Did you have a dental problem in the last 6 months where you did not have access to dental care?: No Was dental information given to patient?: Patient has dentist HPI [facility] [place], Diarrhea, 11/30-12/03 HPI Details admitted with cdiff colitis; feeling better; finishing oral vanco PFSH Medical History Hyperlipidemia Gout 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 Essential hypertension Embolic stroke Sinus bradycardia PAF (paroxysmal atrial fibrillation) Surgical History History of cardiac radiofrequency ablation (~07/07/20) History of colostomy History of section Family History Father CVD (cardiovascular disease) Mother Alzheimer disease Social History Housing: House Alcohol intake: never Patient Tobacco Use Status: Never used Tobacco Tobacco use type: Cigarette Cigarettes Per Day: 4 e-Cigarette/Vaping Use: Never Used Second Hand Smoke Exposure: No service: No Current occupational status: retired Current occupation: right hand dominant Cognitive needs: Yes (cane) Hearing needs: No Vision needs: Yes (glasses) Questionnaire PHQ-9 Over the last 2 weeks, how often have you been bothered by any of the following problems? 1. Little interest or pleasure in doing things: not at all 2. Feeling down, depressed, or hopeless: not at all 3. Trouble falling or staying asleep, or sleeping too much: not at all 4. Feeling tired or having little energy: not at all 5. Poor appetite or overeating: not at all 6. Feeling bad about yourself - or that you are a failure or have let yourself or your family down: not at all 7. Trouble concentrating on things, such as reading the newspaper or watching television: not at all 8. Moving or speaking so slowly that other people could have noticed. Or the opposite - being so fidgety or restless that you have been moving around a lot more than usual: not at all 9. Thoughts that you would be better off or of hurting yourself in some way: not at all Total score: 0 Depression Screening Interpretation: Negative Depression Screening Done: Yes 34707 - PHQ-9 Billing: Yes Source: Developed by Drs. Domingo Sandoval, Nilsa Palacios, Jorge Dominguez and colleagues, with an educational joselin from [employer]. Thrive Questionnaire Date Thrive assessed: 12/02/22 AUDIT C Alcohol Use Questionnaire (AUDIT-C) 1. How often do you have a drink containing alcohol?: Never Total Score: 0 Score Reviewed/Action Taken: Yes LYNDSAY-7 AMB Questionnaire LYNDSAY-7 Date LYNDSAY - 7 assessed: 02/21/22 Source: Developed by Drs. Domingo Sandoval, Jorge Boyd and colleagues, with an educational joselin from [employer]. Review of Systems Const Denies chills, Denies headache(s) and Denies weight loss ENT Denies headache(s) Card Denies chest pain, Denies syncope, Denies irregular heart rhythm and Denies dyspnea Resp Denies chest congestion, Denies cough and Denies dyspnea GI Denies abdominal pain, Denies change in stool character, Denies nausea and Denies vomiting Musc Denies deformity and Denies joint swelling Neuro Denies syncope and Denies headache(s) Physical exam (Primary Care) Vital Signs: Last Vital Signs Pulse 50 12/13/22 14:31 BP 140/70 H 12/13/22 14:31 Pulse Ox 99 12/13/22 14:31 Oxygen Delivery Method Room Air 12/13/22 14:31 BMI result Body Mass Index 22.7 Tobacco/Smoking Status: Tobacco use Status Tobacco use date assessed 07/18/22 12/13/22 14:32 Patient Tobacco Use Status Never used Tobacco 12/13/22 14:32 Tobacco use type Cigarette 12/13/22 14:32 e-Cigarette/Vaping Use Never Used 12/13/22 14:32 PHQ-9: PHQ-9 Score PHQ-9: Total score 0 12/13/22 14:32 Depression Screening Interpretation: Negative Thrive Assessment: Date of Thrive Assessment Date Thrive assessed 12/02/22 12/13/22 14:32 Const General: cooperative, comfortable, no acute distress and alert Neck Neck: Yes no lymphadenopathy Thyroid: Thyroid normal Resp Effort & Inspection: normal respiratory effort Auscultation: clear to auscultation bilaterally Percussion: percussion normal Cardio Jugular venous distension: no JVD Palpation: normal PMI Rate: regular rate Rhythm: regular rhythm Heart sounds: S1 normal heart sound present and S2 normal heart sound present GI Inspection: Yes normal to inspection Palpation (GI): No hepatosplenomegaly present Skin General skin exam: no rashes or lesions noted Extrem General: Yes no clubbing, cyanosis or edema Assessment and Plan Assessment & Plan (1) C. difficile colitis: Code(s): A04.72 - Enterocolitis due to Clostridium difficile, not specified as recurrent Plan: improved; recheck stool in a week Orders: Orders CDiff Gene PCR 12/13/22 R19.7 - Diarrhea, unspecified Coding Level of Care Code Est Pt Level 3 (30779) Diagnoses C. difficile colitis A04.72
[2022-12-13 14:31] VITALS: BP 140/70; PULSE 50; O2SAT 99; BMI 22.7
== END 2022-12-13 14:45 | disposition home or self-care (01) ==
PROVIDERS: PCP Internal Medicine; Visit Provider Internal Medicine
DX: A04.72 Enterocolitis due to Clostridium difficile, not specified as recurrent (principal)
CPT/HCPCS: 99213

== ENCOUNTER 2022-12-22 13:05 | Outpatient (AMB) | payer MEDICARE, SELFPAY ==
--- NOTE | 2022-12-22 13:15 | MHC.OFFVISCO ---
Intake Intake Visit Reasons: Anticoagulation Allergies No Known Allergies Allergy (Mild, Verified 12/22/22 13:09) NOT APPLICABLE Medication List - Last Reconciled 12/22/22 by Karely Hernandez RN atorvastatin 80 mg PO QPM ezetimibe (Zetia) 10 mg PO DAILY hydralazine 25 mg PO TID lisinopril 40 mg PO DAILY metoprolol succinate ER (Toprol XL) 50 mg PO DAILY primidone 50 mg PO BID warfarin See Protocol 2.5 mg orally 3.75MG X 4 DAYS/ 2.5MG X 3 DAYS; Nursing Note INR 1.9-? out of therapeutic range of 2-3 Medications and supplements reviewed Patient status: pt recent hosp for cdiff, and had episode of gout, finished all meds Medications or supplements: starting zetia on monday12/26/22- can raise inr/delayed onset Diet: decreased appetite Denies any signs and symptoms of bleeding or clotting or unusual bruising Bleeding, bruising, clotting discussed Nutritional guidance given: no greens for 2 days, eat a red today Dose: take 3.75 today and tomm then cont reg 2.5mg x 3, 3.75mg x 4 F/U INR Date : 2 weeks? Patient verbalizing understanding of instructions given. Anti-Coag Initial Assessment Social Hx Patient Tobacco Use Status: Never used Tobacco Tobacco use type: Cigarette alcohol intake: never Alcohol intake frequency: does not drink Coding Level of Care Code Est Patient Level 1 Diagnoses Current use of 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 therapy Z79.01 Results AMB INR Fingerstick AMB INR Fingerstick 1.9 Last Edit by Karely Hernandez RN on 12/22/22 13:18 Assessment & Plan Assessment & Plan (1) Current use of 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 therapy: Code(s): Z79.01 - [facility] (current) use of 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s Category: Medical
[2022-12-22 13:35] LABS: Prothrombin Time Whole Bld POC 22.6 sec (11.1-13.5); ~PT, ~INR - Anti Coag Clinic 1.9 (0.9-1.1)
== END 2022-12-22 13:23 | disposition home or self-care (01) ==
LOC: HO.ACS 13:05
PROVIDERS: PCP Internal Medicine; Visit Provider Internal Medicine
DX: Z79.01 Long term (current) use of 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s (principal)

== ENCOUNTER → 2022-12-22 13:05 | Outpatient (BNVA) | payer MEDICARE, SELFPAY | PROVIDERS: PCP Internal Medicine; Visit Provider Internal Medicine | DX: I48.0 Paroxysmal atrial fibrillation (principal); Z79.01 Long term (current) use of 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s; Z51.81 Encounter for therapeutic drug level monitoring | CPT/HCPCS: 85610; 99211 ==

== ENCOUNTER 2023-01-06 11:18 | Outpatient (AMB) | payer MEDICARE, SELFPAY ==
[2023-01-06 11:42] LABS: Prothrombin Time Whole Bld POC 46.9 sec (11.1-13.5); ~PT, ~INR - Anti Coag Clinic 3.9 (0.9-1.1)
--- NOTE | 2023-01-06 11:44 | MHC.OFFVISCO ---
Intake Intake Visit Reasons: Anticoagulation Allergies No Known Allergies Allergy (Mild, Verified 01/06/23 11:22) NOT APPLICABLE Medication List - Last Reconciled 01/06/23 by Twila Valentine RN atorvastatin 80 mg PO QPM ezetimibe (Zetia) 10 mg PO DAILY hydralazine 50 mg PO TID lisinopril 40 mg PO DAILY metoprolol succinate ER (Toprol XL) 50 mg PO DAILY primidone 50 mg PO BID warfarin See Protocol 2.5 mg orally 3.75MG X 4 DAYS/ 2.5MG X 3 DAYS; Nursing Note INR: 3.9 OUT OF therapeutic range Medications and supplements reviewed HER HYRALAZINE WAS INCREASED AND SHE STARTED THE ZETIA 2 WEEKS AGO WHICH CAN RAISE THE INR SHE HAD A SLIGHT BOOST IN HER WARFARIN DOSE PREVIOUS VISIT FOR A MARGINAL LOW INR SHE ALSO HAD THANKSGIVING DINNER LAST WEEK AND HAS NOT HAD USUAL GREENS SISTER LAST MONTH, SHE WAS NOT ABLE TO GO TO THE DUE TO HER HAVING CDIFF LAST MONTH- SHE IS STILL GRIEVING Denies any signs and symptoms of bleeding or bruising or clotting. Bleeding, bruising, clotting discussed Nutritional guidance given - REVIEW FOOD LIST WEEKLY ,RESUME WEEKLY GREENS Dose: HOLD TODAY AND DECREASE WEEKLY DOSE 2.5MG X 4 DAYS/ 3.75MG X 3 DAYS F/U INR: 10 DAYS Patient verbalizes understanding of instructions given Anti-Coag Initial Assessment Social Hx Patient Tobacco Use Status: Never used Tobacco Tobacco use type: Cigarette alcohol intake: never Alcohol intake frequency: does not drink Coding Level of Care Code Est Patient Level 1 Diagnoses Current use of 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 therapy Z79.01 Results AMB INR Fingerstick AMB INR Fingerstick 3.9 Last Edit by Twila Valentine RN on 01/06/23 11:33 MANUAL ENTRY Assessment & Plan Assessment & Plan (1) Current use of 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 therapy: 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
== END 2023-01-06 11:50 | disposition home or self-care (01) ==
LOC: HO.ACS 11:18
PROVIDERS: PCP Internal Medicine; Visit Provider Internal Medicine
DX: Z79.01 Long term (current) use of 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s (principal)

== ENCOUNTER → 2023-01-06 11:18 | Outpatient (BNVA) | payer MEDICARE, SELFPAY | PROVIDERS: PCP Internal Medicine; Visit Provider Internal Medicine | DX: I48.0 Paroxysmal atrial fibrillation (principal); Z79.01 Long term (current) use of 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s; Z51.81 Encounter for therapeutic drug level monitoring | CPT/HCPCS: 85610; 99211 ==

== ENCOUNTER 2023-01-09 08:27 | Outpatient (REF) | payer MEDICARE, SELFPAY | END 2023-01-09 08:28 | disposition home or self-care (01) | LOC: HO.HOSX 08:27 | PROVIDERS: Visit Provider Physician Assistant | DX: Z13.89 Encounter for screening for other disorder (principal) ==

== ENCOUNTER 2023-01-16 11:11 | Outpatient (AMB) | payer MEDICARE, SELFPAY ==
--- NOTE | 2023-01-16 11:20 | MHC.OFFVISCO ---
Intake Intake Visit Reasons: Anticoagulation Allergies No Known Allergies Allergy (Mild, Verified 01/16/23 11:16) NOT APPLICABLE Medication List - Last Reconciled 01/16/23 by Karely Hernandez RN atorvastatin 80 mg PO QPM ezetimibe (Zetia) 10 mg PO DAILY hydralazine 50 mg PO TID lisinopril 40 mg PO DAILY metoprolol succinate ER (Toprol XL) 50 mg PO DAILY primidone 50 mg PO BID warfarin See Protocol 2.5 mg orally 3.75MG X 4 DAYS/ 2.5MG X 3 DAYS; Nursing Note INR: 3.0- in therapeutic range of 2-3 Medications and supplements reviewed No changes in health, diet, medications, or supplements, Denies any signs and symptoms of bleeding or bruising or clotting. Bleeding, bruising, clotting discussed Nutritional guidance given - appetite less, taking ensure daily Dose: 2.5mg x 4, 3.75mg x 3 F/U INR: 2 weeks Patient verbalizes understanding of instructions given pt states eye laser surg on 02/13/23 Anti-Coag Initial Assessment Social Hx Patient Tobacco Use Status: Never used Tobacco Tobacco use type: Cigarette alcohol intake: never Alcohol intake frequency: does not drink Coding Level of Care Code Est Patient Level 1 Diagnoses Current use of 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 therapy Z79.01 Results AMB INR Fingerstick AMB INR Fingerstick 3.0 Last Edit by Karely Hernandez RN on 01/16/23 11:22 Assessment & Plan Assessment & Plan (1) Current use of 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 therapy: Code(s): Z79.01 - long-term (current) use of 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s Category: Medical
[2023-01-16 11:22] LABS: Prothrombin Time Whole Bld POC 36.5 sec (11.1-13.5)
== END 2023-01-16 11:27 | disposition home or self-care (01) ==
LOC: HO.ACS 11:11
PROVIDERS: PCP Internal Medicine; Visit Provider Internal Medicine
DX: Z79.01 Long term (current) use of 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s (principal)

== ENCOUNTER → 2023-01-16 11:11 | Outpatient (BNVA) | payer MEDICARE, SELFPAY | PROVIDERS: PCP Internal Medicine; Visit Provider Internal Medicine | DX: I48.0 Paroxysmal atrial fibrillation (principal); Z79.01 Long term (current) use of 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s; Z51.81 Encounter for therapeutic drug level monitoring | CPT/HCPCS: 85610; 99211 ==

== ENCOUNTER 2023-01-26 11:42 | Outpatient (AMB) | payer MEDICARE, SELFPAY ==
[2023-01-26 11:45] VITALS: BP 140/74; PULSE 64; O2SAT 97; BMI 22.7
--- NOTE | 2023-01-26 11:45 | A.OFFPC_ITS ---
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 Accompanied by: Self / Same As Patient Allergies No Known Allergies Allergy (Mild, Verified 01/26/23 11:45) NOT APPLICABLE Medication List - Last Reconciled 01/26/23 by August Velasquez MD atorvastatin 80 mg PO QPM ezetimibe (Zetia) 10 mg PO DAILY hydralazine 50 mg PO TID lisinopril 40 mg PO DAILY metoprolol succinate ER (Toprol XL) 50 mg PO DAILY primidone 50 mg PO BID warfarin See Protocol 2.5 mg orally 3.75MG X 4 DAYS/ 2.5MG X 3 DAYS; Tobacco use date assessed: 07/18/22 Fall risk assessment: 1 Fall in past year Last assessed Fall Risk: 01/26/23 Dental Screening Dental Screen Date: 01/26/23 Did you have a dental visit in the last 12 months?: Yes Did you have a dental problem in the last 6 months where you did not have access to dental care?: No Was dental information given to patient?: Patient has dentist HPI 3M Follow up HPI Details hyperlipidemia HTN and Afib; stable and compliant on rx PFSH Medical History Hyperlipidemia Gout Annual physical exam snf current use of 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 snf current use of antiarrhythmic drug Essential hypertension Embolic stroke Sinus bradycardia PAF (paroxysmal atrial fibrillation) Surgical History History of cardiac radiofrequency ablation (~07/07/20) History of colostomy History of section Family History Father CVD (cardiovascular disease) Mother Alzheimer disease Social History Housing: House Alcohol intake: never Patient Tobacco Use Status: Never used Tobacco Tobacco use type: Cigarette Cigarettes Per Day: 4 e-Cigarette/Vaping Use: Never Used Second Hand Smoke Exposure: No service: No Current occupational status: retired Current occupation: right hand dominant Cognitive needs: Yes (cane) Hearing needs: No Vision needs: Yes (glasses) Questionnaire Thrive Questionnaire Date Thrive assessed: 12/02/22 LYNDSAY-7 AMB Questionnaire LYNDSAY-7 Date LYNDSAY - 7 assessed: 02/21/22 Source: Developed by Drs. Domingo Sandoval, Nilsa Palacios, Jorge Dominguez and colleagues, with an educational joselin from [employer]. Review of Systems Const Denies chills, Denies headache(s) and Denies weight loss ENT Denies headache(s) Card Denies chest pain, Denies syncope, Denies irregular heart rhythm and Denies dyspnea Resp Denies chest congestion, Denies cough and Denies dyspnea GI Denies abdominal pain, Denies change in stool character, Denies nausea and Denies vomiting Musc Denies deformity and Denies joint swelling Neuro Denies syncope and Denies headache(s) Physical exam (Primary Care) Vital Signs: Last Vital Signs Pulse 64 01/26/23 11:45 BP 140/74 H 01/26/23 11:45 Pulse Ox 97 01/26/23 11:45 Oxygen Delivery Method Room Air 01/26/23 11:45 BMI result Body Mass Index 22.7 Tobacco/Smoking Status: Tobacco use Status Tobacco use date assessed 07/18/22 01/26/23 11:54 Patient Tobacco Use Status Never used Tobacco 01/26/23 11:54 Tobacco use type Cigarette 01/26/23 11:54 e-Cigarette/Vaping Use Never Used 01/26/23 11:54 Thrive Assessment: Date of Thrive Assessment Date Thrive assessed 12/02/22 01/26/23 11:54 Const General: cooperative, comfortable, no acute distress and alert Neck Neck: Yes no lymphadenopathy Thyroid: Thyroid normal Resp Effort & Inspection: normal respiratory effort Auscultation: clear to auscultation bilaterally Percussion: percussion normal Cardio Jugular venous distension: no JVD Palpation: normal PMI Rate: regular rate Rhythm: regular rhythm Heart sounds: S1 normal heart sound present and S2 normal heart sound present GI Inspection: Yes normal to inspection Palpation (GI): No hepatosplenomegaly present Skin General skin exam: no rashes or lesions noted Extrem General: Yes no clubbing, cyanosis or edema Assessment and Plan Assessment & Plan (1) Hyperlipidemia: Code(s): E78.5 - Hyperlipidemia, unspecified Plan: stable; same rx (2) Essential hypertension: Code(s): I10 - Essential (primary) hypertension Plan: stable; same trx (3) PAF (paroxysmal atrial fibrillation): Code(s): I48.0 - Paroxysmal atrial fibrillation Plan: stable Orders: Orders Lipid Panel Today E78.5 - Hyperlipidemia, unspecified Thyroid Stimulating Hormone Today E03.9 - Hypothyroidism, unspecified Complete Blood Count Auto Diff Today D64.9 - Anemia, unspecified Comprehensive [place]. Panel Fast Today N28.9 - Disorder of kidney and ureter, unspecified Coding Level of Care Code Est Pt Level 4 (80165) Diagnoses Hyperlipidemia E78.5 Essential hypertension I10 PAF (paroxysmal atrial fibrillation) I48.0
== END 2023-01-26 12:11 | disposition home or self-care (01) ==
PROVIDERS: PCP Internal Medicine; Visit Provider Internal Medicine
DX: E78.5 Hyperlipidemia, unspecified (principal); I10 Essential (primary) hypertension; I48.0 Paroxysmal atrial fibrillation
CPT/HCPCS: 99214

== ENCOUNTER 2023-01-31 13:05 | Outpatient (AMB) | payer MEDICARE, SELFPAY ==
[2023-01-31 13:13] LABS: Prothrombin Time Whole Bld POC 47.1 sec (11.1-13.5); ~PT, ~INR - Anti Coag Clinic 3.9 (0.9-1.1)
--- NOTE | 2023-01-31 13:16 | MHC.OFFVISCO ---
Intake Intake Visit Reasons: Anticoagulation Allergies No Known Allergies Allergy (Mild, Verified 01/31/23 13:07) NOT APPLICABLE Medication List - Last Reconciled 01/31/23 by Mery Prado RN atorvastatin 80 mg PO QPM ezetimibe (Zetia) 10 mg PO DAILY hydralazine 50 mg PO TID lisinopril 40 mg PO DAILY metoprolol succinate ER (Toprol XL) 50 mg PO DAILY primidone 50 mg PO BID warfarin See Protocol 2.5 mg orally 3.75MG X 4 DAYS/ 2.5MG X 3 DAYS; Nursing Note Amb to [facility] using cane, sts she also got a walker from her [employer] for [employer] Medications and supplements reviewed No changes in health, diet, medications, or supplements PT SCHED FOR DERMATOLOGY PROCEDURE 02/13/23 PT STS 3 DAY WARFARIN HOLD PER DR ADDISON Denies any unusual signs and symptoms of bruising, bleeding Denies any new Chest pain, SOB, or clotting INR: 3.9 above therapeutic range, denies any ETOH, not sure if she really had any greens over the last week Nutritional guidance given: have a moderate green today then balance greens and reds in diet, no red raisers today Dose: no warfarin today only then resume usual dosing; 3.75mg x 3 days and 2.5mg x 4 days F/U INR: 02/10/23 with plan for INR check prior to 3 day hold for procedure on 02/13/23 Patient verbalizes understanding of instructions given with accurate read back/ teach back of dosing Anti-Coag Initial Assessment Social Hx Patient Tobacco Use Status: Never used Tobacco Tobacco use type: Cigarette alcohol intake: never Alcohol intake frequency: does not drink Questionnaires HAS-BLED Does the patient had uncontrolled Hypertension?: No Does the patient have renal disease?: No Does the patient have liver disease?: No Does the patient have a history of stroke?: Yes Has the patient had major bleeding or predisposition to bleeding?: No Does the patient have labile INRs?: Yes Is the patient over 65 years of age?: Yes Is the patient on medications that gives them a predisposition to bleeding?: Yes Does the patient use alcohol?: No HAS-BLED Score: 4 CHADSVASC Age: 75 or over Gender: Female Does the patient have a history of CHF?: No Does the patient have a history of Hypertension?: Yes Does the patient have a history of Stroke/TIA/Thromboembolism?: Yes Does the patient have a history of Vascular Disease (prior [place], PAD or aortic plaque)?: No Does the patient have a history of Diabetes?: No CHADS VACS Score: 6 Duc Prediction Score Rsk VTE Active Cancer: No Previous VTE, excluding superficial vein thrombosis: No Reduced mobility: Yes Already known Thrombophilic Condition: Yes With-in last month Trauma and/or Surgery: No Elderly 70 year or older: Yes Heart and/or Respiratory Failure: No Acute Myocardial infarction and/or Ischemic Stroke: Yes Acute Infection and/or Rheumatologic Disorder: No Obesity (BMI 30 or greater): No Ongoing Hormonal Treatment: No Score: 8 Duc Score less than 4; Low Risk of VTE Duc Score 4 or greater; High Risk of VTE Coding Level of Care Code Est Patient Level 1 Diagnoses Current use of 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 therapy Z79.01 Time Spent (min) 15 Assessment & Plan Assessment & Plan (1) Current use of 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 therapy: Code(s): Z79.01 - [facility] (current) use of 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s Category: Medical
== END 2023-01-31 13:29 | disposition home or self-care (01) ==
LOC: HO.ACS 13:05
PROVIDERS: PCP Internal Medicine; Visit Provider Internal Medicine
DX: Z79.01 Long term (current) use of 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s (principal)

== ENCOUNTER → 2023-01-31 13:05 | Outpatient (BNVA) | payer MEDICARE, SELFPAY | PROVIDERS: PCP Internal Medicine; Visit Provider Internal Medicine | DX: I48.0 Paroxysmal atrial fibrillation (principal); Z79.01 Long term (current) use of 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s; Z51.81 Encounter for therapeutic drug level monitoring | CPT/HCPCS: 85610; 99211 ==

== ENCOUNTER 2023-02-10 13:37 | Outpatient (AMB) | payer MEDICARE, SELFPAY ==
--- NOTE | 2023-02-10 14:03 | MHC.OFFVISCO ---
Intake Intake Visit Reasons: Anticoagulation Allergies No Known Allergies Allergy (Mild, Verified 02/10/23 13:46) NOT APPLICABLE Medication List - Last Reconciled 02/10/23 by Rosangela Malone RN atorvastatin 80 mg PO QPM ezetimibe (Zetia) 10 mg PO DAILY hydralazine 50 mg PO TID lisinopril 40 mg PO DAILY metoprolol succinate ER (Toprol XL) 50 mg PO DAILY primidone 50 mg PO BID warfarin See Protocol 2.5 mg orally 3.75MG X 4 DAYS/ 2.5MG X 3 DAYS; Nursing Note PT.TO HAVE MOH'S ON 02/13. WAS INSTRUCTED BY PCP TO HOLD 3 DAYS PRIOR. WILL BE SURE TO ASK WHEN OK TO RESTART WARFARIN AFTER PROCEDURE. FOLLOW-UP HERE ON 02/16/23. HOLD STARTING TODAY PT.VERB.GOOD UNDERSTANDING OF DOSING INSTR.TODAY Anti-Coag Initial Assessment Social Hx Patient Tobacco Use Status: Never used Tobacco Tobacco use type: Cigarette alcohol intake: never Alcohol intake frequency: does not drink Coding Level of Care Code Est Patient Level 1 Diagnoses Current use of 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 therapy Z79.01 Results AMB INR Fingerstick AMB INR Fingerstick 3.3 Last Edit by Rosangela Malone RN on 02/10/23 13:56 Assessment & Plan Assessment & Plan (1) Current use of 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 therapy: Code(s): Z79.01 - correction (current) use of 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s Category: Medical
== END 2023-02-10 14:05 | disposition home or self-care (01) ==
LOC: HO.ACS 13:37
PROVIDERS: PCP Internal Medicine; Visit Provider Internal Medicine
DX: Z79.01 Long term (current) use of 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s (principal)

== ENCOUNTER → 2023-02-10 13:37 | Outpatient (BNVA) | payer MEDICARE, SELFPAY | PROVIDERS: PCP Internal Medicine; Visit Provider Internal Medicine | DX: I48.0 Paroxysmal atrial fibrillation (principal); Z79.01 Long term (current) use of 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s; Z51.81 Encounter for therapeutic drug level monitoring | CPT/HCPCS: 85610; 99211 ==

== ENCOUNTER → 2023-02-14 14:08 | Outpatient (BNVA) | payer MEDICARE, SELFPAY | PROVIDERS: PCP Internal Medicine; Visit Provider Internal Medicine ==

== ENCOUNTER 2023-02-20 13:04 | Outpatient (AMB) | payer MEDICARE, SELFPAY ==
[2023-02-20 13:16] LABS: Prothrombin Time Whole Bld POC 18.1 sec (11.1-13.5); ~PT, ~INR - Anti Coag Clinic 1.5 (0.9-1.1)
--- NOTE | 2023-02-20 13:29 | MHC.OFFVISCO ---
Intake Intake Visit Reasons: Anticoagulation Allergies No Known Allergies Allergy (Mild, Verified 02/20/23 13:05) NOT APPLICABLE Medication List - Last Reconciled 02/20/23 by Twila Valentine RN atorvastatin 80 mg PO QPM ezetimibe (Zetia) 10 mg PO DAILY hydralazine 50 mg PO TID lisinopril 40 mg PO DAILY metoprolol succinate ER (Toprol XL) 50 mg PO DAILY primidone 50 mg PO BID warfarin See Protocol 2.5 mg orally 3.75MG X 4 DAYS/ 2.5MG X 3 DAYS; Nursing Note INR 1.5 out of therapeutic range Medications and supplements reviewed Patient status: s/p mohs procedure was off wafarin x 5 days Medications or supplements: pt was off warfarin x 5 days and now on cephalexin which can raise the INR Diet: good Denies any signs and symptoms of bleeding or clotting or unusual bruising Bleeding, bruising, clotting discussed Nutritional guidance given: avoid greens x 3 days, eat orange or reds to help the INR today Dose: increase dose 5mg today then resume 3.75mg x 3 days/ 2.5mg x 4 days F/U INR Date : 4 days ?? Patient verbalizing understanding of instructions given. 1500 t/c to pcp Dr Vealsquez spoke with Nurse Zuniga to mal napierg to PCP regarding INR and plan of care Anti-Coag Initial Assessment Social Hx Patient Tobacco Use Status: Never used Tobacco Tobacco use type: Cigarette alcohol intake: never Alcohol intake frequency: does not drink Coding Level of Care Code Est Patient Level 1 Diagnoses Current use of 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 therapy Z79.01 Assessment & Plan Assessment & Plan (1) Current use of 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 therapy: Code(s): Z79.01 - residential (current) use of 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s Category: Medical
== END 2023-02-20 15:04 | disposition home or self-care (01) ==
LOC: HO.ACS 13:04
PROVIDERS: PCP Internal Medicine; Visit Provider Internal Medicine
DX: Z79.01 Long term (current) use of 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s (principal)

== ENCOUNTER → 2023-02-20 13:04 | Outpatient (BNVA) | payer MEDICARE, SELFPAY | PROVIDERS: PCP Internal Medicine; Visit Provider Internal Medicine | DX: I48.0 Paroxysmal atrial fibrillation (principal); Z79.01 Long term (current) use of 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s; Z51.81 Encounter for therapeutic drug level monitoring | CPT/HCPCS: 85610; 99211 ==

== ENCOUNTER 2023-02-24 13:05 | Outpatient (AMB) | payer MEDICARE, SELFPAY ==
--- NOTE | 2023-02-24 13:13 | MHC.OFFVISCO ---
Intake Intake Visit Reasons: Anticoagulation Allergies No Known Allergies Allergy (Mild, Verified 02/24/23 13:09) NOT APPLICABLE Medication List - Last Reconciled 02/24/23 by Karely Hernandez RN atorvastatin 80 mg PO QPM ezetimibe (Zetia) 10 mg PO DAILY hydralazine 50 mg PO TID lisinopril 40 mg PO DAILY metoprolol succinate ER (Toprol XL) 50 mg PO DAILY primidone 50 mg PO BID warfarin See Protocol 2.5 mg orally 3.75MG X 4 DAYS/ 2.5MG X 3 DAYS; Nursing Note INR: 2.9- in therapeutic range of 2-3 Medications and supplements reviewed- no changes No changes in health, diet, medications, or supplements, Denies any signs and symptoms of bleeding or bruising or clotting. Bleeding, bruising, clotting discussed Nutritional guidance given Dose: 3.75mg x 3, 5mg x 4 F/U INR: pt req 2 weeks Patient verbalizes understanding of instructions given pt s/p moh's proc below corner of left eye- area healing Anti-Coag Initial Assessment Social Hx Patient Tobacco Use Status: Never used Tobacco Tobacco use type: Cigarette alcohol intake: never Alcohol intake frequency: does not drink Coding Level of Care Code Est Patient Level 1 Diagnoses Current use of anticoagulant therapy Z79.01 Assessment & Plan Assessment & Plan (1) Current use of anticoagulant therapy: Code(s): Z79.01 - [facility] (current) use of 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s Category: Medical
[2023-02-24 13:14] LABS: Prothrombin Time Whole Bld POC 34.4 sec (11.1-13.5); ~PT, ~INR - Anti Coag Clinic 2.9 (0.9-1.1)
== END 2023-02-24 13:23 | disposition home or self-care (01) ==
LOC: HO.ACS 13:05
PROVIDERS: PCP Internal Medicine; Visit Provider Internal Medicine
DX: Z79.01 Long term (current) use of 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s (principal)

== ENCOUNTER → 2023-02-24 13:05 | Outpatient (BNVA) | payer MEDICARE, SELFPAY | PROVIDERS: PCP Internal Medicine; Visit Provider Internal Medicine | DX: I48.0 Paroxysmal atrial fibrillation (principal); Z79.01 Long term (current) use of 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s; Z51.81 Encounter for therapeutic drug level monitoring | CPT/HCPCS: 85610; 99211 ==

== ENCOUNTER 2023-03-10 13:19 | Outpatient (AMB) | payer MEDICARE, SELFPAY ==
[2023-03-10 13:40] LABS: Prothrombin Time Whole Bld POC 38.2 sec (11.1-13.5); ~PT, ~INR - Anti Coag Clinic 3.2 (0.9-1.1)
--- NOTE | 2023-03-10 13:45 | MHC.OFFVISCO ---
Intake Intake Visit Reasons: Anticoagulation Allergies No Known Allergies Allergy (Mild, Verified 03/10/23 13:30) NOT APPLICABLE Medication List - Last Reconciled 03/10/23 by Mery Alston RN atorvastatin 80 mg PO QPM ezetimibe (Zetia) 10 mg PO DAILY hydralazine 50 mg PO TID lisinopril 40 mg PO DAILY metoprolol succinate ER (Toprol XL) 50 mg PO DAILY primidone 50 mg PO BID warfarin See Protocol 2.5 mg orally 3.75MG X 4 DAYS/ 2.5MG X 3 DAYS; Nursing Note INR: 3.2 above therapeutic range Medications and supplements reviewed Recovering from Covid 02/26/23. Has taken tylenol prn. Stated decreased appetite and some nausea. Denies any signs and symptoms of bleeding or bruising or clotting. Bleeding, bruising, clotting discussed Nutritional guidance given Dose: Keep same dose Pt will have a serving of greens today. F/U INR: 2 weeks. 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
== END 2023-03-10 13:52 | disposition home or self-care (01) ==
LOC: HO.ACS 13:19
PROVIDERS: PCP Internal Medicine; Visit Provider Internal Medicine
DX: Z79.01 Long term (current) use of 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s (principal)

== ENCOUNTER → 2023-03-10 13:19 | Outpatient (BNVA) | payer MEDICARE, SELFPAY | PROVIDERS: PCP Internal Medicine; Visit Provider Internal Medicine | DX: I48.0 Paroxysmal atrial fibrillation (principal); Z79.01 Long term (current) use of 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s; Z51.81 Encounter for therapeutic drug level monitoring | CPT/HCPCS: 85610; 99211 ==

== ENCOUNTER 2023-03-24 12:10 | Outpatient (REF) | payer MEDICARE, SELFPAY ==
[2023-03-24 12:25] LABS: MANUAL DIFF FLAG NO
[2023-03-24 13:27] LABS: Basophils Percent Auto 0.5 % (0-2); Eosinophils Absolute Auto 0.1 X10*3/uL (0.0-0.4); Eosinophils Percent Auto 1.4 % (0-4); Hematocrit 39.5 % (37.0-47.0); Hemoglobin 12.8 g/dl (12.0-16.0); Imm Gran Abs Auto 0.02 X10*3/uL (0.00-0.03); Imm Gran Pct Auto 0.4 % (0.0-0.4); Lymphocytes Absolute Auto 1.6 X10*3/uL (1.2-4.9); Lymphocytes Percent Auto 28.9 % (20-40); Mean Corpuscular HGB Conc 32.4 g/dl (31.0-35.0); Mean Corpuscular Hemoglobin 28.8 pg (27.0-33.0); Mean Platelet Volume 10.5 fL (9.4-12.3); Monocytes Absolute Auto 0.5 X10*3/uL (0.1-1.2); Monocytes Percent Auto 9.7 % (2-11); Neutrophils Absolute Auto 3.3 x10*3/uL (2.0-8.3); Neutrophils Percent Auto 59.1 % (45-73); Platelet Count 283 X10*3/uL (160-400); Red Blood Count 4.44 X10*6/uL (4.20-5.50); Red Cell Distribution Width 14.1 % (11.0-16.0); White Blood Count 5.6 X10*3/uL (4.8-10.8)
[2023-03-24 14:12] LABS: Alanine Aminotransferase 11 U/L (0-31); Alkaline Phosphatase 95 U/L (39-117); Anion Gap 10 (12-20); Aspartate Amino Transferase 17 U/L (5-31); Bilirubin Total 0.5 mg/dL (0.0-1.0); Blood Urea Nitrogen 13 mg/dL (9-16); Calcium 9.8 mg/dL (8.4-10.2); Carbon Dioxide 25 mmol/L (22-29); Chloride 111 mmol/L (96-108); Cholesterol 144 mg/dL (<200); Estimated Glomerular Filt Rate > 60; Glucose Fasting 91 mg/dL (60-99); HDL Cholesterol 59 mg/dL (>40); LDL Cholesterol Calculated 61 mg/dL (<100); Potassium 4.1 mmol/L (3.3-5.1); Sodium 142 mmol/L (135-145); Total Protein 7.2 g/dL (6.5-8.0); Triglycerides 123 mg/dL (<150)
== END 2023-03-24 12:11 | disposition home or self-care (01) ==
LOC: HO.LAB 12:10
PROVIDERS: PCP Internal Medicine; Visit Provider Internal Medicine
DX: I48.0 Paroxysmal atrial fibrillation (principal); E78.5 Hyperlipidemia, unspecified; N28.9 Disorder of kidney and ureter, unspecified; E03.9 Hypothyroidism, unspecified; D64.9 Anemia, unspecified; Z51.81 Encounter for therapeutic drug level monitoring; Z79.01 Long term (current) use of 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s
CPT/HCPCS: 36415; 80053; 80061; 84443; 85025; 85610; 99211

== ENCOUNTER 2023-03-24 13:01 | Outpatient (AMB) | payer MEDICARE, SELFPAY ==
--- NOTE | 2023-03-24 13:20 | MHC.OFFVISCO ---
Intake Intake Visit Reasons: Anticoagulation Allergies No Known Allergies Allergy (Mild, Verified 03/24/23 13:17) NOT APPLICABLE Medication List - Last Reconciled 03/24/23 by Karely Hernandez RN atorvastatin 80 mg PO QPM ezetimibe (Zetia) 10 mg PO DAILY hydralazine 50 mg PO TID lisinopril 40 mg PO DAILY metoprolol succinate ER (Toprol XL) 50 mg PO DAILY primidone 50 mg PO BID warfarin See Protocol 2.5 mg orally 3.75MG X 4 DAYS/ 2.5MG X 3 DAYS; Nursing Note INR 3.3-?? out of therapeutic range of 2-3 Medications and supplements reviewed Patient status: pt amb with [facility] sciatica Medications or supplements: no changes, states has been taking tylenol and ibuprofen- aware increased risk of bleeding with ibruprofen, has not taken in a few days Diet: decreased, not taken ensure Denies any signs and symptoms of bleeding or clotting or unusual bruising Bleeding, bruising, clotting discussed Nutritional guidance given: eat greens to lower, no reds for 2 days Dose: take 2.5mg today then cont reg 3.75mg x 3, 2.5mg x 4 F/U INR Date : 2 weeks?? Patient verbalizing understanding of instructions given. 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
[2023-03-24 13:22] LABS: Prothrombin Time Whole Bld POC 39.5 sec (11.1-13.5); ~PT, ~INR - Anti Coag Clinic 3.3 (0.9-1.1)
== END 2023-03-24 13:27 | disposition home or self-care (01) ==
LOC: HO.ACS 13:01
PROVIDERS: PCP Internal Medicine; Visit Provider Internal Medicine
DX: Z79.01 Long term (current) use of 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s (principal)

== ENCOUNTER → 2023-04-07 13:00 | Outpatient (BNVA) | payer MEDICARE, SELFPAY | PROVIDERS: PCP Internal Medicine; Visit Provider Internal Medicine ==

== ENCOUNTER 2023-04-11 13:28 | Outpatient (AMB) | payer MEDICARE, SELFPAY ==
[2023-04-11 13:34] LABS: Prothrombin Time Whole Bld POC 26.7 sec (11.1-13.5); ~PT, ~INR - Anti Coag Clinic 2.2 (0.9-1.1)
--- NOTE | 2023-04-11 13:42 | MHC.OFFVISCO ---
Intake Intake Visit Reasons: Anticoagulation Allergies No Known Allergies Allergy (Mild, Verified 04/11/23 13:28) NOT APPLICABLE Medication List - Last Reconciled 04/11/23 by Mery Alston RN atorvastatin 80 mg PO QPM ezetimibe (Zetia) 10 mg PO DAILY hydralazine 50 mg PO TID lisinopril 40 mg PO DAILY metoprolol succinate ER (Toprol XL) 50 mg PO DAILY primidone 50 mg PO BID warfarin See Protocol 2.5 mg orally 3.75MG X 3 DAYS/ 2.5MG X 4 DAYS; Nursing Note INR: 2.2 in therapeutic range of 2-3 Medications and supplements reviewed, no changes No changes in health, diet, medications, or supplements, Denies any signs and symptoms of bleeding or bruising or clotting. Bleeding, bruising, clotting discussed Nutritional guidance given to continue to balance greens and reds Dose: 3.75mg X3 days and 2.5mg X4days F/U INR: 2 weeks Patient verbalizes understanding of instructions given Anti-Coag Initial Assessment Social Hx Patient Tobacco Use Status: Never used Tobacco Tobacco use type: Cigarette alcohol intake: never Alcohol intake frequency: does not drink Coding Level of Care Code Est Patient Level 1 Diagnoses Current use of anticoagulant therapy Z79.01 Assessment & Plan Assessment & Plan (1) Current use of anticoagulant therapy: Code(s): Z79.01 - prison (current) use of 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s Category: Medical
== END 2023-04-11 13:45 | disposition home or self-care (01) ==
LOC: HO.ACS 13:28
PROVIDERS: PCP Internal Medicine; Visit Provider Internal Medicine
DX: Z79.01 Long term (current) use of 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s (principal)

== ENCOUNTER → 2023-04-11 13:28 | Outpatient (BNVA) | payer MEDICARE, SELFPAY | PROVIDERS: PCP Internal Medicine; Visit Provider Internal Medicine | DX: I48.0 Paroxysmal atrial fibrillation (principal); Z79.01 Long term (current) use of 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s; Z51.81 Encounter for therapeutic drug level monitoring | CPT/HCPCS: 85610; 99211 ==

== ENCOUNTER 2023-04-25 13:08 | Outpatient (AMB) | payer MEDICARE, SELFPAY ==
[2023-04-25 13:24] LABS: Prothrombin Time Whole Bld POC 20.1 sec (11.1-13.5); ~PT, ~INR - Anti Coag Clinic 1.7 (0.9-1.1)
--- NOTE | 2023-04-25 13:28 | MHC.OFFVISCO ---
Intake Intake Visit Reasons: Anticoagulation Allergies No Known Allergies Allergy (Mild, Verified 04/25/23 13:18) NOT APPLICABLE Medication List - Last Reconciled 04/25/23 by Mery Prado RN atorvastatin 80 mg PO QPM ezetimibe (Zetia) 10 mg PO DAILY geriatric iron-vit B complex ea PO hydralazine 50 mg PO TID lisinopril 40 mg PO DAILY metoprolol succinate ER (Toprol XL) 50 mg PO DAILY primidone 50 mg PO BID warfarin See Protocol 2.5 mg orally 3.75MG X 3 DAYS/ 2.5MG X 4 DAYS; Nursing Note Amb to [facility] using cane, feeling tired, sts started on Geritol to try to get some energy (can raise INR) Medications and supplements reviewed as above No other changes in health, diet, medications, or supplements Denies any unusual signs and symptoms of bruising, bleeding Denies any new Chest pain, SOB, or clotting INR: 1.7 below therapeutic range, denies any missed doses or increase in greens Nutritional guidance given: no greens today or tomorrow then balance greens and reds in diet Dose: increase dose today then resume usual dosing;3.75mg x 3 days and 2.5mg x 4 days F/U INR: 1 week, also want to monitor for changes related to Geritol Patient verbalizes understanding of instructions given with accurate read back/ teach back of dosing Anti-Coag Initial Assessment Social Hx Patient Tobacco Use Status: Never used Tobacco Tobacco use type: Cigarette alcohol intake: never Alcohol intake frequency: does not drink Coding Level of Care Code Est Patient Level 1 Diagnoses Current use of anticoagulant therapy Z79.01 Time Spent (min) 15 Assessment & Plan Assessment & Plan (1) Current use of anticoagulant therapy: 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
== END 2023-04-25 13:39 | disposition home or self-care (01) ==
LOC: HO.ACS 13:08
PROVIDERS: PCP Internal Medicine; Visit Provider Internal Medicine
DX: Z79.01 Long term (current) use of 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s (principal)

== ENCOUNTER → 2023-04-25 13:08 | Outpatient (BNVA) | payer MEDICARE, SELFPAY | PROVIDERS: PCP Internal Medicine; Visit Provider Internal Medicine | DX: I48.0 Paroxysmal atrial fibrillation (principal); Z79.01 Long term (current) use of 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s; Z51.81 Encounter for therapeutic drug level monitoring | CPT/HCPCS: 85610; 99211 ==

== ENCOUNTER 2023-04-27 14:03 | Outpatient (AMB) | payer MEDICARE, SELFPAY ==
[2023-04-27 14:07] VITALS: BP 148/60; PULSE 60; O2SAT 98; BMI 23.2
--- NOTE | 2023-04-27 14:07 | A.OFFPC_ITS ---
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 Accompanied by: Spouse Allergies No Known Allergies Allergy (Mild, Verified 04/27/23 14:07) NOT APPLICABLE Medication List - Last Reconciled 04/28/23 by August Velasquez MD atorvastatin 80 mg PO QPM ezetimibe (Zetia) 10 mg PO DAILY geriatric iron-vit B complex ea PO hydralazine 50 mg PO TID lisinopril 40 mg PO DAILY metoprolol succinate ER (Toprol XL) 50 mg PO DAILY primidone 50 mg PO BID warfarin See Protocol 2.5 mg orally 3.75MG X 3 DAYS/ 2.5MG X 4 DAYS; Tobacco use date assessed: 04/27/23 Fall risk assessment: 2 + Falls in past year Last assessed Fall Risk: 04/27/23 Dental Screening Dental Screen Date: 04/27/23 Did you have a dental visit in the last 12 months?: Yes Did you have a dental problem in the last 6 months where you did not have access to dental care?: No Was dental information given to patient?: Patient has dentist HPI 3mth f/u HPI Details hyperlip htn and afib on rx; compliant and doing well [facility] Medical History Hyperlipidemia Gout Annual physical exam senior living current use of anticoagulant watermaster current use of antiarrhythmic drug Essential hypertension Embolic stroke Sinus bradycardia PAF (paroxysmal atrial fibrillation) Surgical History History of cardiac radiofrequency ablation (~07/07/20) History of colostomy History of section Family History Father CVD (cardiovascular disease) Mother Alzheimer disease Social History Housing: House Alcohol intake: never Patient Tobacco Use Status: Never used Tobacco Tobacco use type: Cigarette Cigarettes Per Day: 4 e-Cigarette/Vaping Use: Never Used Second Hand Smoke Exposure: No service: No Current occupational status: retired Current occupation: right hand dominant Cognitive needs: Yes (cane) Hearing needs: No Vision needs: Yes (glasses) Questionnaire PHQ-9 Over the last 2 weeks, how often have you been bothered by any of the following problems? 1. Little interest or pleasure in doing things: not at all 2. Feeling down, depressed, or hopeless: not at all 3. Trouble falling or staying asleep, or sleeping too much: not at all 4. Feeling tired or having little energy: not at all 5. Poor appetite or overeating: not at all 6. Feeling bad about yourself - or that you are a failure or have let yourself or your family down: not at all 7. Trouble concentrating on things, such as reading the newspaper or watching television: not at all 8. Moving or speaking so slowly that other people could have noticed. Or the opposite - being so fidgety or restless that you have been moving around a lot more than usual: not at all 9. Thoughts that you would be better off or of hurting yourself in some way: not at all Total score: 0 Depression Screening Interpretation: Negative Depression Screening Done: Yes 35016 - PHQ-9 Billing: Yes Source: Developed by Drs. Domingo Sandoval, Nilsa Palacios, Jorge Dominguez and colleagues, with an educational joselin from [email or web address]. Thrive Questionnaire Date Thrive assessed: 04/27/23 I am a: Patient What is your living situation today?: I have a steady place to live Within the past 12 months, did the food you bought not last and you didn't have the money to get more?: Never true Within the past 12 months, did you worry whether your food would run out before you got money to buy more?: Never true Do you have trouble paying for medicines?: No Do you have trouble getting transportation to medical appointments?: No Do you have trouble paying your heating and electricity bill?: No Do you have trouble taking care of your child, family member or friend?: No Do you have trouble with day-to-day activities such as bathing, preparing meals, shopping, managing finances, etc.?: No Are you currently unemployed and looking for a job?: No Are you interested in more education?: No Please select the resources that you would like help with: None THRIVE Score: 0 AUDIT C Alcohol Use Questionnaire (AUDIT-C) 1. How often do you have a drink containing alcohol?: Never Total Score: 0 Score Reviewed/Action Taken: Yes LYNDSAY-7 AMB Questionnaire LYNDSAY-7 Date LYNDSAY - 7 assessed: 04/27/23 Feeling nervous, anxious, or on edge: 0 = Not at all Not being able to stop or control worryin = Not at all Worrying too much about different things: 0 = Not at all Trouble relaxin = Not at all Being so restless that it is hard to sit still: 0 = Not at all Becoming easily annoyed or irritable: 0 = Not at all Feeling afraid as if something awful might happen: 0 = Not at all Total LYNDSAY-7 score (0-4 normal; 5-9 mild; 10-14 moderate; 15-21 severe): 0 Source: Developed by Drs. Domingo Sandoval, Nilsa Palacios, Jorge Dominguez and colleagues, with an educational joselin from [email or web address]. LYNDSAY-7 Assessment Billing LYNDSAY-7 Assessment Tool: LYNDSAY-7 Assessment 90501 Review of Systems Const Denies chills, Denies headache(s) and Denies weight loss ENT Denies headache(s) Card Denies chest pain, Denies syncope, Denies irregular heart rhythm and Denies dyspnea Resp Denies chest congestion, Denies cough and Denies dyspnea GI Denies abdominal pain, Denies change in stool character, Denies nausea and Denies vomiting Musc Denies deformity and Denies joint swelling Neuro Denies syncope and Denies headache(s) Physical exam (Primary Care) Vital Signs: Last Vital Signs Pulse 60 04/27/23 14:07 BP 148/60 H 04/27/23 14:07 Pulse Ox 98 04/27/23 14:07 Oxygen Delivery Method Room Air 04/27/23 14:07 BMI result Body Mass Index 23.2 Tobacco/Smoking Status: Tobacco use Status Tobacco use date assessed 04/27/23 04/27/23 14:13 Patient Tobacco Use Status Never used Tobacco 04/27/23 14:13 Tobacco use type Cigarette 04/27/23 14:13 e-Cigarette/Vaping Use Never Used 04/27/23 14:13 PHQ-9: PHQ-9 Score PHQ-9: Total score 0 04/27/23 14:16 Depression Screening Interpretation: Negative Thrive Assessment: Date of Thrive Assessment Date Thrive assessed 04/27/23 04/27/23 14:13 Const General: cooperative, comfortable, no acute distress and alert Neck Neck: Yes no lymphadenopathy Thyroid: Thyroid normal Resp Effort & Inspection: normal respiratory effort Auscultation: clear to auscultation bilaterally Percussion: percussion normal Cardio Jugular venous distension: no JVD Palpation: normal PMI Rate: regular rate Rhythm: regular rhythm Heart sounds: S1 normal heart sound present and S2 normal heart sound present GI Inspection: Yes normal to inspection Palpation (GI): No hepatosplenomegaly present Skin General skin exam: no rashes or lesions noted Extrem General: Yes no clubbing, cyanosis or edema Assessment and Plan Assessment & Plan (1) PAF (paroxysmal atrial fibrillation): Code(s): I48.0 - Paroxysmal atrial fibrillation Plan: stable; same rx (2) Essential hypertension: Code(s): I10 - Essential (primary) hypertension Plan: stable; same rx (3) Hyperlipidemia: Code(s): E78.5 - Hyperlipidemia, unspecified Plan: stable; do labs Orders: Orders Lipid Panel Today E78.5 - Hyperlipidemia, unspecified Coding Level of Care Code Est Pt Level 4 (36030) Diagnoses PAF (paroxysmal atrial fibrillation) I48.0 Essential hypertension I10 Hyperlipidemia E78.5 Additional Codes LYNDSAY-7 Assessment Billing - LYNDSAY-7 Assessment Tool: LYNDSAY-7 Assessment 12010 ([id number])
== END 2023-04-27 14:23 | disposition home or self-care (01) ==
PROVIDERS: PCP Internal Medicine; Visit Provider Internal Medicine
DX: I48.0 Paroxysmal atrial fibrillation (principal); I10 Essential (primary) hypertension; E78.5 Hyperlipidemia, unspecified
CPT/HCPCS: 99214

== ENCOUNTER 2023-05-02 13:05 | Outpatient (AMB) | payer MEDICARE, SELFPAY ==
[2023-05-02 13:31] LABS: Prothrombin Time Whole Bld POC 20.6 sec (11.1-13.5); ~PT, ~INR - Anti Coag Clinic 1.7 (0.9-1.1)
--- NOTE | 2023-05-02 13:41 | MHC.OFFVISCO ---
Intake Intake Visit Reasons: Anticoagulation Allergies No Known Allergies Allergy (Mild, Verified 05/02/23 13:26) NOT APPLICABLE Medication List - Last Reconciled 05/02/23 by Mery Alston RN atorvastatin 80 mg PO QPM ezetimibe (Zetia) 10 mg PO DAILY geriatric iron-vit B complex ea PO hydralazine 50 mg PO TID lisinopril 40 mg PO DAILY metoprolol succinate ER (Toprol XL) 50 mg PO DAILY primidone 50 mg PO BID warfarin See Protocol 2.5 mg orally 3.75MG X 3 DAYS/ 2.5MG X 4 DAYS; Nursing Note INR 1.7? out of therapeutic range of 2-3 Medications and supplements reviewed: no changes Patient status: feels well Medications or supplements: recently started on Geritol one daily which can raise the INR Diet: to avoid greens today or tomorrow Denies any signs and symptoms of bleeding or clotting or unusual bruising Bleeding, bruising, clotting discussed Dose: today's dose increased to 3.75mg (2.5mg) then continue same dose of 3.75mg Mon, Wed and Fri and 2.5mg all other days F/U INR Date : 1 week?? Patient verbalizing understanding of instructions given. Anti-Coag Initial Assessment Social Hx Patient Tobacco Use Status: Never used Tobacco Tobacco use type: Cigarette alcohol intake: never Alcohol intake frequency: does not drink Coding Level of Care Code Est Patient Level 1 Diagnoses Current use of anticoagulant therapy Z79.01 Assessment & Plan Assessment & Plan (1) Current use of anticoagulant therapy: Code(s): Z79.01 - [facility] (current) use of 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s Category: Medical
== END 2023-05-02 13:47 | disposition home or self-care (01) ==
LOC: HO.ACS 13:05
PROVIDERS: PCP Internal Medicine; Visit Provider Internal Medicine
DX: Z79.01 Long term (current) use of 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s (principal)

== ENCOUNTER → 2023-05-02 13:05 | Outpatient (BNVA) | payer MEDICARE, SELFPAY | PROVIDERS: PCP Internal Medicine; Visit Provider Internal Medicine | DX: I48.0 Paroxysmal atrial fibrillation (principal); Z79.01 Long term (current) use of 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s; Z51.81 Encounter for therapeutic drug level monitoring | CPT/HCPCS: 85610; 99211 ==

== ENCOUNTER 2023-05-15 13:06 | Outpatient (AMB) | payer MEDICARE, SELFPAY ==
[2023-05-15 13:12] LABS: Prothrombin Time Whole Bld POC 26.8 sec (11.1-13.5); ~PT, ~INR - Anti Coag Clinic 2.2 (0.9-1.1)
--- NOTE | 2023-05-15 13:18 | MHC.OFFVISCO ---
Intake Intake Visit Reasons: Anticoagulation Allergies No Known Allergies Allergy (Mild, Verified 05/15/23 13:07) NOT APPLICABLE Medication List - Last Reconciled 05/15/23 by Twila Valentine RN atorvastatin 80 mg PO QPM ezetimibe (Zetia) 10 mg PO DAILY geriatric iron-vit B complex ea PO hydralazine 50 mg PO TID lisinopril 40 mg PO DAILY metoprolol succinate ER (Toprol XL) 50 mg PO DAILY primidone 50 mg PO BID warfarin See Protocol 2.5 mg orally 3.75MG X 3 DAYS/ 2.5MG X 4 DAYS; Nursing Note INR: 2.2 in therapeutic range Medications and supplements reviewed No changes in health, diet, medications, or supplements, Denies any signs and symptoms of bleeding or bruising or clotting. Bleeding, bruising, clotting discussed Nutritional guidance given Dose: KEEP THE SAME FOR NOW 3.75mg x 3 days/ 2.5mg x 4 days F/U INR: 2 weeks- hx of labile INR and tyelnol use Patient verbalizes understanding of instructions given Anti-Coag Initial Assessment Social Hx Patient Tobacco Use Status: Never used Tobacco Tobacco use type: Cigarette alcohol intake: never Alcohol intake frequency: does not drink Coding Level of Care Code Est Patient Level 1 Diagnoses Current use of anticoagulant therapy Z79.01 Assessment & Plan Assessment & Plan (1) Current use of anticoagulant therapy: Code(s): Z79.01 - intermediate (current) use of 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s Category: Medical
== END 2023-05-15 13:20 | disposition home or self-care (01) ==
LOC: HO.ACS 13:06
PROVIDERS: PCP Internal Medicine; Visit Provider Internal Medicine
DX: Z79.01 Long term (current) use of 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s (principal)

== ENCOUNTER → 2023-05-15 13:06 | Outpatient (BNVA) | payer MEDICARE, SELFPAY | PROVIDERS: PCP Internal Medicine; Visit Provider Internal Medicine | DX: I48.0 Paroxysmal atrial fibrillation (principal); Z79.01 Long term (current) use of 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s; Z51.81 Encounter for therapeutic drug level monitoring | CPT/HCPCS: 85610; 99211 ==

== ENCOUNTER 2023-05-29 13:02 | Outpatient (AMB) | payer MEDICARE, SELFPAY ==
[2023-05-29 13:11] LABS: Prothrombin Time Whole Bld POC 25.3 sec (11.1-13.5); ~PT, ~INR - Anti Coag Clinic 2.1 (0.9-1.1)
--- NOTE | 2023-05-29 13:18 | MHC.OFFVISCO ---
Intake Intake Visit Reasons: Anticoagulation Allergies No Known Allergies Allergy (Mild, Verified 05/29/23 13:06) NOT APPLICABLE Medication List - Last Reconciled 05/29/23 by Mery Alston RN atorvastatin 80 mg PO QPM ezetimibe (Zetia) 10 mg PO DAILY geriatric iron-vit B complex ea PO hydralazine 50 mg PO TID lisinopril 40 mg PO DAILY metoprolol succinate ER (Toprol XL) 50 mg PO DAILY primidone 50 mg PO BID warfarin See Protocol 2.5 mg orally 3.75MG X 3 DAYS/ 2.5MG X 4 DAYS; Nursing Note INR: 2.1 in therapeutic range of 2-3 Medications and supplements reviewed: no changes No changes in health, diet, medications, or supplements, Denies any signs and symptoms of bleeding or bruising or clotting. Bleeding, bruising, clotting discussed Nutritional guidance given to review the food list and cont to balance reds and greens Dose: 3.75mg X 3 days and 2.5mg X 4 days F/U INR: 3 weeks Patient verbalizes understanding of instructions given Anti-Coag Initial Assessment Social Hx Patient Tobacco Use Status: Never used Tobacco Tobacco use type: Cigarette alcohol intake: never Alcohol intake frequency: does not drink Coding Level of Care Code Est Patient Level 1 Diagnoses Current use of anticoagulant therapy Z79.01 Assessment & Plan Assessment & Plan (1) Current use of anticoagulant therapy: Code(s): 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
== END 2023-05-29 13:22 | disposition home or self-care (01) ==
LOC: HO.ACS 13:02
PROVIDERS: PCP Internal Medicine; Visit Provider Internal Medicine
DX: Z79.01 Long term (current) use of 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s (principal)

== ENCOUNTER → 2023-05-29 13:02 | Outpatient (BNVA) | payer MEDICARE, SELFPAY | PROVIDERS: PCP Internal Medicine; Visit Provider Internal Medicine | DX: I48.0 Paroxysmal atrial fibrillation (principal); Z51.81 Encounter for therapeutic drug level monitoring; Z79.01 Long term (current) use of 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s | CPT/HCPCS: 85610; 99211 ==

== ENCOUNTER 2023-06-14 13:20 | Outpatient (AMB) | payer MEDICARE, SELFPAY ==
--- NOTE | 2023-06-14 13:23 | A.OFFVIS_ITS ---
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 To recall, she has had several episodes of atrial fibrillation over the last few years. Was previously on diltiazem. Due to recurrent episodes, Multaq was started but due to cost, she could not afford that. Then has also tried Sotalol but she became quite bradycardic with that. Briefly was on Amiodarone, but did not pursue that long-term due to side effect profile. Eventually saw EP and underwent ablation therapy. Immediately post ablation, she had one episode of atrial fibrillation for which she came to the ER and got flecainide. However, nothing since that time. 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 No new concerns since last seen. She seems to be mostly doing well. 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 halfway current use of antiarrhythmic drug Essential hypertension Embolic stroke Sinus bradycardia PAF (paroxysmal atrial fibrillation) Surgical History History of cardiac radiofrequency ablation (~07/07/20) History of colostomy History of section Family History Father CVD (cardiovascular disease) Mother Alzheimer disease Social History Housing: House Alcohol intake: never Patient Tobacco Use Status: Never used Tobacco Tobacco use type: Cigarette Cigarettes Per Day: 4 e-Cigarette/Vaping Use: Never Used Second Hand Smoke Exposure: No service: No Current occupational status: retired Current occupation: right hand dominant Cognitive needs: Yes (cane) Hearing needs: No Vision needs: Yes (glasses) Review of Systems Const Denies chills, Denies fatigue, Denies fever(s), Denies frequent falls, Denies weakness, Denies weight gain and Denies weight loss ENT Denies dizziness Card Denies chest pain, Denies leg edema, Denies lightheadedness, Denies palpitations, Denies dyspnea and Denies dyspnea on exertion Resp Denies cough, Denies dyspnea and Denies dyspnea on exertion GI Denies hematochezia Musc Denies abnormal gait, Denies muscle weakness, Denies numbness, Denies radiating pain into limb and Denies tingling Neuro Denies abnormal gait, Denies dizziness, Denies frequent falls, Denies numbness, Denies tingling and Denies weakness Endo Denies fatigue and Denies palpitations Physical Exam Vital Signs: Last Vital Signs Pulse 51 06/14/23 13:25 BP 130/64 06/14/23 13:25 Pulse Ox 100 06/14/23 13:25 BMI result Body Mass Index 22.8 Const General: comfortable and no acute distress Orientation/consciousness: patient oriented x3 HEENT Other: Unremarkable Head: Yes normal to inspection Neck Neck: Yes normal visual inspection Chest Chest palpation & inspection: normal inspection of the chest Resp Auscultation: clear to auscultation bilaterally Cardio Palpation: normal PMI Heart sounds: S1 normal heart sound present, S2 normal heart sound present, no gallops, Murmur heart sound present systolic II/ and no rubs GI Palpation (GI): Soft to palpation Back/Spine/Pelvis Other: unremarkable Skin General skin exam: no rashes or lesions noted Neuro General: patient oriented x3 Extrem General: Yes normal to inspection Psych Mental Status: mental status grossly normal Assessment & Plan Assessment & Plan (1) Atherosclerotic cardiovascular disease: Code(s): I25.10 - Atherosclerotic heart disease of [place] coronary artery without angina pectoris Category: Medical Plan: Myocardial perfusion imaging study in the past with possible mild lateral wall ischemia. Coronary CT denied by insurance. Clinically, she does not have any angina or other ischemic symptoms. Continue statins and Zetia. LDL levels are erratic but most recently 61 mg/dL. (2) PAF (paroxysmal atrial fibrillation): Code(s): I48.0 - Paroxysmal atrial fibrillation Category: Medical Plan: Status post atrial fibrillation ablation. Previously in the intolerance or cost prohibitive issues with antiarrhythmics including sotalol, Multaq. Remains on beta-blockers. Sinus bradycardia but no issues from this. Otherwise, on Coumadin as she can not afford anything else. Sleep study in the past without any significant sleep apnea. (3) Sinus bradycardia: Code(s): R00.1 - Bradycardia, unspecified Category: Medical Plan: No clinical concerns at this time. Can be monitored. (4) Embolic stroke: Code(s): I63.9 - Cerebral infarction, unspecified Category: Medical Qualifiers: Precerebral and cerebral artery: unspecified cerebral artery Qualified Code(s): I63.40 - Cerebral infarction due to embolism of unspecified cerebral artery Plan: No clear neurological deficits. She remains ambulatory. (5) Non-rheumatic aortic stenosis: Code(s): I35.0 - Nonrheumatic aortic (valve) stenosis Category: Medical Plan: Echocardiogram shows moderate aortic valve calcification and mild stenosis. Not hemodynamically significant. Can be followed on echocardiograms. (6) Mitral annular calcification: Code(s): I05.9 - Rheumatic mitral valve disease, unspecified Category: Medical Plan: Echocardiogram with moderate mitral annular calcification and mild regurgitation. Not hemodynamically significant. (7) Essential hypertension: Code(s): I10 - Essential (primary) hypertension Category: Medical Plan: On several meds including metoprolol, lisinopril, hydralazine. Stable. No changes. Orders: Orders CA echo transthoracic complete 6 Months I35.0 - Nonrheumatic aortic (valve) stenosis Coding Level of Care Code Est Pt Level 4 (69289) Diagnoses Atherosclerotic cardiovascular disease I25.10 PAF (paroxysmal atrial fibrillation) I48.0 Sinus bradycardia R00.1 Cerebrovascular accident (CVA) due to embolism of cerebral artery I63.40 Precerebral and cerebral artery: unspecified cerebral artery Non-rheumatic aortic stenosis I35.0 Mitral annular calcification I05.9 Essential hypertension I10
[2023-06-14 13:25] VITALS: BP 130/64; PULSE 51; O2SAT 100; BMI 22.8
== END 2023-06-14 13:36 | disposition home or self-care (01) ==
PROVIDERS: PCP Internal Medicine; Referring Provider Internal Medicine; Visit Provider Internal Medicine
DX: I25.10 Atherosclerotic heart disease of native coronary artery without angina pectoris (principal); I48.0 Paroxysmal atrial fibrillation; R00.1 Bradycardia, unspecified; I63.40 Cerebral infarction due to embolism of unspecified cerebral artery; I35.0 Nonrheumatic aortic (valve) stenosis; I05.9 Rheumatic mitral valve disease, unspecified; I10 Essential (primary) hypertension
CPT/HCPCS: 99214

== ENCOUNTER → 2023-06-14 13:20 | Outpatient (BNVA) | payer MEDICARE, SELFPAY | PROVIDERS: PCP Internal Medicine; Visit Provider Internal Medicine | DX: I25.10 Atherosclerotic heart disease of native coronary artery without angina pectoris (principal); I48.0 Paroxysmal atrial fibrillation; I35.0 Nonrheumatic aortic (valve) stenosis; I63.40 Cerebral infarction due to embolism of unspecified cerebral artery; I50.9 Heart failure, unspecified; I11.0 Hypertensive heart disease with heart failure; R00.1 Bradycardia, unspecified | CPT/HCPCS: 99212 ==

== ENCOUNTER → 2023-06-19 13:07 | Outpatient (BNVA) | payer MEDICARE, SELFPAY | PROVIDERS: PCP Internal Medicine; Visit Provider Internal Medicine | DX: I48.0 Paroxysmal atrial fibrillation (principal); Z79.01 Long term (current) use of 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s; Z51.81 Encounter for therapeutic drug level monitoring | CPT/HCPCS: 85610; 99211 ==

== ENCOUNTER 2023-07-03 14:38 | Outpatient (REF) | payer MEDICARE, SELFPAY ==
--- NOTE | ~2023-07-03 | MR_ITS ---
EXAMINATION: MR BRAIN WITHOUT CONTRAST CLINICAL INFORMATION: Headaches, history of stroke COMPARISON: CT head without contrast 11/02/2022, MRI of the brain without contrast 09/16/2017 TECHNIQUE: Multiplanar multisequence MR imaging of the brain was obtained without intravenous contrast. FINDINGS: There is no acute infarct on diffusion-weighted imaging. No new intracranial blood products are identified. Stable chronic microhemorrhages in the left thalamus and right temporo-occipital junction. No extra-axial collection or mass effect/herniation. Patchy periventricular and deep white matter T2 FLAIR hyperintensities consistent with moderate underlying microangiopathy. Compared to prior MRI from 2018, there is worsening burden of chronic infarcts in the right MCA territory involving the right frontal and parietal lobes with worsening gliosis in the subcortical and deep white matter, grossly stable compared to more recent CT from 11/02/2022. Associated mild worsening ex vacuo dilatation of the right lateral ventricle. Stable chronic left thalamic lacunar infarct. No hydrocephalus. Moderate generalized volume loss with commensurate sulcal and ventricular prominence. The major flow voids at the skull base are preserved. The midline structures are normal. The cerebellar tonsils are normally positioned. The craniocervical junction is normal. Marrow signal is within normal limits. The visualized soft tissues are without significant abnormality. No signal abnormality within the paranasal sinuses or within the mastoid air cells. MR/MR head/brain wo con IMPRESSION: 1. No acute intracranial abnormality. 2. Compared to MRI from 2018, worsening burden of chronic infarcts and associated gliosis in the right MCA territory involving the right frontal and parietal lobes. Findings appear grossly stable compared to CT from 2022 allowing for differences in imaging technique. 3. Background of moderate generalized cerebral volume loss and chronic microangiopathy
== END 2023-07-03 14:39 | disposition home or self-care (01) ==
LOC: HO.MRI 14:38
PROVIDERS: PCP Internal Medicine; Visit Provider Psychiatry & Neurology Neurology
DX: I63.9 Cerebral infarction, unspecified (principal)
CPT/HCPCS: 70551

== ENCOUNTER 2023-07-10 13:03 | Outpatient (AMB) | payer MEDICARE, SELFPAY ==
[2023-07-10 13:14] LABS: Prothrombin Time Whole Bld POC 19.3 sec (11.1-13.5); ~PT, ~INR - Anti Coag Clinic 1.6 (0.9-1.1)
--- NOTE | 2023-07-10 13:20 | MHC.OFFVISCO ---
Intake Intake Visit Reasons: Anticoagulation Allergies No Known Allergies Allergy (Mild, Verified 07/10/23 13:08) NOT APPLICABLE Medication List - Last Reconciled 07/10/23 by Mery Alston RN atorvastatin 80 mg PO QPM ezetimibe (Zetia) 10 mg PO DAILY hydralazine 50 mg PO TID lisinopril 40 mg PO DAILY metoprolol succinate ER (Toprol XL) 50 mg PO DAILY warfarin See Protocol 2.5 mg orally 3.75MG X 3 DAYS/ 2.5MG X 4 DAYS; Nursing Note INR: 1.6 out of therapeutic range of 2-3 Pt thinks she possibly missed a dose Medications and supplements reviewed: no changes No changes in health, diet, medications, or supplements, Denies any signs and symptoms of bleeding or bruising or clotting. Bleeding, bruising, clotting discussed Nutritional guidance given avoid greens today and tomorrow and to have a serving of foods from the food list that raises the INR Dose: today 3.75mg, increase tomorrow to 3.75mg (2.5mg) then resume usual dose of 3.75mg on -- and 2.5mg all other days F/U INR: 3 weeks Patient verbalizes understanding of instructions given Anti-Coag Initial Assessment Social Hx Patient Tobacco Use Status: Never used Tobacco Tobacco use type: Cigarette alcohol intake: never Alcohol intake frequency: does not drink Coding Level of Care Code Est Patient Level 1 Diagnoses Current use of anticoagulant therapy Z79.01 Assessment & Plan Assessment & Plan (1) Current use of anticoagulant therapy: Code(s): Z79.01 - [facility] (current) use of 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s Category: Medical
== END 2023-07-10 13:28 | disposition home or self-care (01) ==
LOC: HO.ACS 13:03
PROVIDERS: PCP Internal Medicine; Visit Provider Internal Medicine
DX: Z79.01 Long term (current) use of 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s (principal)

== ENCOUNTER → 2023-07-10 13:03 | Outpatient (BNVA) | payer MEDICARE, SELFPAY | PROVIDERS: PCP Internal Medicine; Visit Provider Internal Medicine | DX: I48.0 Paroxysmal atrial fibrillation (principal); Z79.01 Long term (current) use of 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s; Z51.81 Encounter for therapeutic drug level monitoring | CPT/HCPCS: 85610; 99211 ==

== ENCOUNTER → 2023-07-31 13:03 | Outpatient (BNVA) | payer MEDICARE, SELFPAY | PROVIDERS: PCP Internal Medicine; Visit Provider Internal Medicine | DX: I48.0 Paroxysmal atrial fibrillation (principal); Z79.01 Long term (current) use of 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s; Z51.81 Encounter for therapeutic drug level monitoring | CPT/HCPCS: 85610; 99211 ==

== ENCOUNTER 2023-08-08 13:28 | Outpatient (AMB) | payer MEDICARE, SELFPAY ==
[2023-08-08 13:30] VITALS: BP 144/80; PULSE 69; O2SAT 98; BMI 22.9
--- NOTE | 2023-08-08 13:30 | MHC.PC.OV ---
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: No Specialized Developer: Not Required per policy Accompanied by: Self / Same As Patient Allergies No Known Allergies Allergy (Mild, Verified 08/08/23 13:30) NOT APPLICABLE Medication List - Last Reconciled 08/08/23 by August Velasquez MD atorvastatin 80 mg PO QPM ezetimibe (Zetia) 10 mg PO DAILY hydralazine 50 mg PO TID lisinopril 40 mg PO DAILY metoprolol succinate ER (Toprol XL) 50 mg PO DAILY warfarin See Protocol 2.5 mg orally 3.75MG X 3 DAYS/ 2.5MG X 4 DAYS; Tobacco use date assessed: 04/27/23 Fall risk assessment: No Falls in past year Last assessed Fall Risk: 08/08/23 Dental Screening Dental Screen Date: 04/27/23 HPI 3mth f/u - see comments HPI Details hyperlip htn and afib; on warfarin; stable [facility] Medical History Hyperlipidemia Gout 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 Essential hypertension Embolic stroke Sinus bradycardia PAF (paroxysmal atrial fibrillation) Surgical History History of cardiac radiofrequency ablation (~07/07/20) History of colostomy History of section Family History Father CVD (cardiovascular disease) Mother Alzheimer disease Social History Housing: House Alcohol intake: never Patient Tobacco Use Status: Never used Tobacco Tobacco use type: Cigarette Cigarettes Per Day: 4 e-Cigarette/Vaping Use: Never Used Second Hand Smoke Exposure: No service: No Current occupational status: retired Current occupation: right hand dominant Cognitive needs: Yes (cane) Hearing needs: No Vision needs: Yes (glasses) Questionnaire Thrive Questionnaire Date Thrive assessed: 04/27/23 LYNDSAY-7 AMB Questionnaire LYNDSAY-7 Date LYNDSAY - 7 assessed: 04/27/23 Source: Developed by Drs. Domingo Sandoval, Nilsa Palacios, Jorge Dominguez and colleagues, with an educational joselin from [employer]. Review of Systems Const Denies chills, Denies headache(s) and Denies weight loss ENT Denies headache(s) Card Denies chest pain, Denies syncope, Denies irregular heart rhythm and Denies dyspnea Resp Denies chest congestion, Denies cough and Denies dyspnea GI Denies abdominal pain, Denies change in stool character, Denies nausea and Denies vomiting Musc Denies deformity and Denies joint swelling Neuro Denies syncope and Denies headache(s) Physical exam (Primary Care) Vital Signs: Last Vital Signs Pulse 69 08/08/23 13:30 BP 144/80 H 08/08/23 13:30 Pulse Ox 98 08/08/23 13:30 Oxygen Delivery Method Room Air 08/08/23 13:30 BMI result Body Mass Index 22.9 Tobacco/Smoking Status: Tobacco use Status Tobacco use date assessed 04/27/23 08/08/23 13:31 Patient Tobacco Use Status Never used Tobacco 08/08/23 13:31 Tobacco use type Cigarette 08/08/23 13:31 e-Cigarette/Vaping Use Never Used 08/08/23 13:31 Thrive Assessment: Date of Thrive Assessment Date Thrive assessed 04/27/23 08/08/23 13:31 Const General: cooperative, comfortable, no acute distress and alert Neck Neck: Yes no lymphadenopathy Thyroid: Thyroid normal Resp Effort & Inspection: normal respiratory effort Auscultation: clear to auscultation bilaterally Percussion: percussion normal Cardio Jugular venous distension: no JVD Palpation: normal PMI Rate: regular rate Rhythm: regular rhythm Heart sounds: S1 normal heart sound present and S2 normal heart sound present GI Inspection: Yes normal to inspection Palpation (GI): No hepatosplenomegaly present Skin General skin exam: no rashes or lesions noted Extrem General: Yes no clubbing, cyanosis or edema Assessment and Plan Assessment & Plan (1) Hyperlipidemia: Code(s): E78.5 - Hyperlipidemia, unspecified Plan: stable; do labs (2) PAF (paroxysmal atrial fibrillation): Code(s): I48.0 - Paroxysmal atrial fibrillation Plan: cont warfarin (3) Hypertension: Code(s): I10 - Essential (primary) hypertension Plan: stable; same rx Orders: Orders Complete Blood Count Auto Diff Today Z13.0 - Encounter for screening for diseases of the blood and blood-forming organs and certain disorders involving the immune mechanism Lipid Panel Today Z13.220 - Encounter for screening for lipoid disorders Comprehensive [place]. Panel Fast Today Z13.9 - Encounter for screening, unspecified Thyroid Stimulating Hormone Today Z13.29 - Encounter for screening for other suspected endocrine disorder Coding Level of Care Code Est Pt Level 4 (52041) Diagnoses Hyperlipidemia E78.5 PAF (paroxysmal atrial fibrillation) I48.0 Hypertension I10
== END 2023-08-08 13:47 | disposition home or self-care (01) ==
PROVIDERS: PCP Internal Medicine; Visit Provider Internal Medicine
DX: E78.5 Hyperlipidemia, unspecified (principal); I48.0 Paroxysmal atrial fibrillation; I10 Essential (primary) hypertension
CPT/HCPCS: 99214

== ENCOUNTER 2023-08-14 08:39 | Outpatient (REF) | payer MEDICARE, SELFPAY ==
[2023-08-14 08:57] LABS: MANUAL DIFF FLAG NO
[2023-08-14 09:34] LABS: Basophils Absolute Auto 0.1 X10*3/uL (0.0-0.2); Basophils Percent Auto 0.8 % (0-2); Eosinophils Absolute Auto 0.2 X10*3/uL (0.0-0.4); Eosinophils Percent Auto 2.4 % (0-4); Hematocrit 38.2 % (37.0-47.0); Hemoglobin 12.7 g/dl (12.0-16.0); Imm Gran Abs Auto 0.02 X10*3/uL (0.00-0.03); Imm Gran Pct Auto 0.3 % (0.0-0.4); Lymphocytes Absolute Auto 2.1 X10*3/uL (1.2-4.9); Lymphocytes Percent Auto 33.8 % (20-40); Mean Corpuscular HGB Conc 33.2 g/dl (31.0-35.0); Mean Corpuscular Hemoglobin 29.3 pg (27.0-33.0); Mean Platelet Volume 10.5 fL (9.4-12.3); Monocytes Absolute Auto 0.6 X10*3/uL (0.1-1.2); Monocytes Percent Auto 10.4 % (2-11); Neutrophils Absolute Auto 3.2 x10*3/uL (2.0-8.3); Neutrophils Percent Auto 52.3 % (45-73); Platelet Count 236 X10*3/uL (160-400); Red Blood Count 4.34 X10*6/uL (4.20-5.50); Red Cell Distribution Width 14.4 % (11.0-16.0); White Blood Count 6.2 X10*3/uL (4.8-10.8)
[2023-08-14 10:06] LABS: Alanine Aminotransferase 8 U/L (0-31); Albumin Level 3.9 g/dL (3.5-5.0); Alkaline Phosphatase 83 U/L (39-117); Anion Gap 12 (12-20); Aspartate Amino Transferase 14 U/L (5-31); Bilirubin Total 0.6 mg/dL (0.0-1.0); Blood Urea Nitrogen 15 mg/dL (9-16); Calcium 9.6 mg/dL (8.4-10.2); Carbon Dioxide 24 mmol/L (22-29); Chloride 110 mmol/L (96-108); Cholesterol 143 mg/dL (<200); Estimated Glomerular Filt Rate 55; Glucose Fasting 94 mg/dL (60-99); HDL Cholesterol 53 mg/dL (>40); LDL Cholesterol Calculated 64 mg/dL (<100); Potassium 4.4 mmol/L (3.3-5.1); Sodium 142 mmol/L (135-145); Total Protein 6.7 g/dL (6.5-8.0); Triglycerides 134 mg/dL (<150)
[2023-08-14 10:23] LABS: Thyroid Stimulating Hormone 3.28 uIU/mL (0.32-4.0)
== END 2023-08-14 08:40 | disposition home or self-care (01) ==
LOC: HO.LAB 08:39
PROVIDERS: PCP Internal Medicine; Visit Provider Internal Medicine
DX: Z13.220 Encounter for screening for lipoid disorders (principal); Z13.9 Encounter for screening, unspecified; Z13.0 Encounter for screening for diseases of the blood and blood-forming organs and certain disorders involving the immune mechanism; Z13.29 Encounter for screening for other suspected endocrine disorder
CPT/HCPCS: 36415; 80053; 80061; 84443; 85025

== ENCOUNTER 2023-08-21 13:00 | Outpatient (AMB) | payer MEDICARE, SELFPAY ==
[2023-08-21 13:10] LABS: Prothrombin Time Whole Bld POC 25.2 sec (11.1-13.5); ~PT, ~INR - Anti Coag Clinic 2.1 (0.9-1.1)
--- NOTE | 2023-08-21 13:12 | MHC.OFFVISCO ---
Intake Intake Visit Reasons: Anticoagulation Allergies No Known Allergies Allergy (Mild, Verified 08/21/23 13:03) NOT APPLICABLE Medication List - Last Reconciled 08/21/23 by Twila Valentine RN atorvastatin 80 mg PO QPM ezetimibe (Zetia) 10 mg PO DAILY hydralazine 50 mg PO TID lisinopril 40 mg PO DAILY metoprolol succinate ER (Toprol XL) 50 mg PO DAILY warfarin See Protocol 2.5 mg orally 3.75MG X 3 DAYS/ 2.5MG X 4 DAYS; Nursing Note INR: 2.1 in therapeutic range Medications and supplements reviewed No changes in health, diet, medications, or supplements, Denies any signs and symptoms of bleeding or bruising or clotting. Bleeding, bruising, clotting discussed Nutritional guidance given Dose: 3.75MG X 3 DAYS 2.5MG X 4 DAYS F/U INR: 4 WEEKS Patient verbalizes understanding of instructions given Anti-Coag Initial Assessment Social Hx Patient Tobacco Use Status: Never used Tobacco Tobacco use type: Cigarette alcohol intake: never Alcohol intake frequency: does not drink Coding Level of Care Code Est Patient Level 1 Diagnoses Current use of anticoagulant therapy Z79.01 Assessment & Plan Assessment & Plan (1) Current use of anticoagulant therapy: Code(s): Z79.01 - long-term (current) use of 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s Category: Medical
== END 2023-08-21 13:17 | disposition home or self-care (01) ==
LOC: HO.ACS 13:00
PROVIDERS: PCP Internal Medicine; Visit Provider Internal Medicine
DX: Z79.01 Long term (current) use of 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s (principal)

== ENCOUNTER → 2023-08-21 13:00 | Outpatient (BNVA) | payer MEDICARE, SELFPAY | PROVIDERS: PCP Internal Medicine; Visit Provider Internal Medicine | DX: I48.0 Paroxysmal atrial fibrillation (principal); Z79.01 Long term (current) use of 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s; Z51.81 Encounter for therapeutic drug level monitoring | CPT/HCPCS: 85610; 99211 ==

== ENCOUNTER 2023-09-18 12:54 | Outpatient (AMB) | payer MEDICARE, SELFPAY ==
[2023-09-18 13:03] LABS: Prothrombin Time Whole Bld POC 56.7 sec (11.1-13.5); ~PT, ~INR - Anti Coag Clinic 4.7 (0.9-1.1)
--- NOTE | 2023-09-18 13:11 | MHC.OFFVISCO ---
Intake Intake Visit Reasons: Anticoagulation Allergies No Known Allergies Allergy (Mild, Verified 09/18/23 12:57) NOT APPLICABLE Medication List - Last Reconciled 09/18/23 by Twila Valentine RN atorvastatin 80 mg PO QPM ezetimibe (Zetia) 10 mg PO DAILY hydralazine 50 mg PO TID lisinopril 40 mg PO DAILY metoprolol succinate ER (Toprol XL) 50 mg PO DAILY warfarin See Protocol 2.5 mg orally 3.75MG X 3 DAYS/ 2.5MG X 4 DAYS; Nursing Note INR 4.7 out of therapeutic range Medications and supplements reviewed Patient status: Rico unexpectedly 2 weeks ago- had been ill x 5 years with diabetes and renal failure, she has been grieving , has decreased appetite and most likely did not eat her usual greens Medications or supplements: no changes Diet: improving Denies any signs and symptoms of bleeding or clotting or unusual bruising Bleeding, bruising, clotting discussed Nutritional guidance given: cooked greens lower your INR more than raw Dose: hold today then 1.25mg tomorrow, then resume usual dose 3.75mg x 3 days / 2.5mg x 4 days F/U INR Date: 1 week ?? Patient verbalizing understanding of instructions given. Anti-Coag Initial Assessment Social Hx Patient Tobacco Use Status: Never used Tobacco Tobacco use type: Cigarette alcohol intake: never Alcohol intake frequency: does not drink Coding Level of Care Code Est Patient Level 1 Diagnoses Current use of anticoagulant therapy Z79.01 Results AMB INR Fingerstick AMB INR Fingerstick 4.7 Last Edit by Twila Valentine RN on 09/18/23 13:07 MANUAL ENTRY FAILED INTERFACING Assessment & Plan Assessment & Plan (1) Current use of anticoagulant therapy: Code(s): Z79.01 - residential (current) use of 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s Category: Medical
== END 2023-09-18 13:16 | disposition home or self-care (01) ==
LOC: HO.ACS 12:54
PROVIDERS: PCP Internal Medicine; Visit Provider Internal Medicine
DX: Z79.01 Long term (current) use of 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s (principal)

== ENCOUNTER → 2023-09-18 12:54 | Outpatient (BNVA) | payer MEDICARE, SELFPAY | PROVIDERS: PCP Internal Medicine; Visit Provider Internal Medicine | DX: I48.0 Paroxysmal atrial fibrillation (principal); Z79.01 Long term (current) use of 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s; Z51.81 Encounter for therapeutic drug level monitoring | CPT/HCPCS: 85610; 99211 ==

== ENCOUNTER 2023-09-25 13:03 | Outpatient (AMB) | payer MEDICARE, SELFPAY ==
[2023-09-25 13:12] LABS: Prothrombin Time Whole Bld POC 40.9 sec (11.1-13.5); ~PT, ~INR - Anti Coag Clinic 3.4 (0.9-1.1)
--- NOTE | 2023-09-25 13:21 | MHC.OFFVISCO ---
Intake Intake Visit Reasons: Anticoagulation Allergies No Known Allergies Allergy (Mild, Verified 09/25/23 13:06) NOT APPLICABLE Medication List - Last Reconciled 09/25/23 by Twila Valentine RN atorvastatin 80 mg PO QPM ezetimibe (Zetia) 10 mg PO DAILY hydralazine 50 mg PO TID lisinopril 40 mg PO DAILY metoprolol succinate ER (Toprol XL) 50 mg PO DAILY warfarin See Protocol 2.5 mg orally 3.75MG X 3 DAYS/ 2.5MG X 4 DAYS; Nursing Note INR 3.4 out of therapeutic range Medications and supplements reviewed Patient status: Still grieving grandsons few weeks ago, coping better Medications or supplements: no changes Diet: improving Denies any signs and symptoms of bleeding or clotting or unusual bruising Bleeding, bruising, clotting discussed Nutritional guidance given: more cooked greens Dose: decrease today's dose to 2.5mg then resume 3.75mg x 3 days/ 2.5mg x 4 days F/U INR Date: 2 weeks ?? Patient verbalizing understanding of instructions given. Anti-Coag Initial Assessment Social Hx Patient Tobacco Use Status: Never used Tobacco Tobacco use type: Cigarette alcohol intake: never Alcohol intake frequency: does not drink Coding Level of Care Code Est Patient Level 1 Diagnoses Current use of anticoagulant therapy Z79.01 Results AMB INR Fingerstick AMB INR Fingerstick 3.4 Last Edit by Twila Valentine RN on 09/25/23 13:13 manual entry Assessment & Plan Assessment & Plan (1) Current use of anticoagulant therapy: Code(s): Z79.01 - senior care (current) use of 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s Category: Medical
== END 2023-09-25 13:23 | disposition home or self-care (01) ==
LOC: HO.ACS 13:03
PROVIDERS: PCP Internal Medicine; Visit Provider Internal Medicine
DX: Z79.01 Long term (current) use of 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s (principal)

== ENCOUNTER → 2023-09-25 13:03 | Outpatient (BNVA) | payer MEDICARE, SELFPAY | PROVIDERS: PCP Internal Medicine; Visit Provider Internal Medicine | DX: I48.0 Paroxysmal atrial fibrillation (principal); Z79.01 Long term (current) use of 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s; Z51.81 Encounter for therapeutic drug level monitoring | CPT/HCPCS: 85610; 99211 ==

== ENCOUNTER 2023-10-11 13:00 | Outpatient (AMB) | payer MEDICARE, SELFPAY ==
[2023-10-11 13:17] LABS: Prothrombin Time Whole Bld POC 27.4 sec (11.1-13.5); ~PT, ~INR - Anti Coag Clinic 2.3 (0.9-1.1)
--- NOTE | 2023-10-11 13:20 | MHC.OFFVISCO ---
Intake Intake Visit Reasons: Anticoagulation Allergies No Known Allergies Allergy (Mild, Verified 10/11/23 13:12) NOT APPLICABLE Medication List - Last Reconciled 10/11/23 by Rosangela Malone RN atorvastatin 80 mg PO QPM ezetimibe (Zetia) 10 mg PO DAILY hydralazine 50 mg PO TID lisinopril 40 mg PO DAILY metoprolol succinate ER (Toprol XL) 50 mg PO DAILY warfarin See Protocol 2.5 mg orally 3.75MG X 3 DAYS/ 2.5MG X 4 DAYS; Nursing Note NO CP,SOB,DIET/MED CHANGES,FALLS OR SX OF BLEEDING. CONTINUE PRESENT DOSE ANF FOLLOW-UP IN 3 WEEKS GOOD UNDERSTANDING OF DOSING INSTR. 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
== END 2023-10-11 13:22 | disposition home or self-care (01) ==
LOC: HO.ACS 13:00
PROVIDERS: PCP Internal Medicine; Visit Provider Internal Medicine
DX: Z79.01 Long term (current) use of 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s (principal)

== ENCOUNTER → 2023-10-11 13:00 | Outpatient (BNVA) | payer MEDICARE, SELFPAY | PROVIDERS: PCP Internal Medicine; Visit Provider Internal Medicine | DX: I48.0 Paroxysmal atrial fibrillation (principal); Z79.01 Long term (current) use of 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s; Z51.81 Encounter for therapeutic drug level monitoring | CPT/HCPCS: 85610; 99211 ==

== ENCOUNTER 2023-11-01 13:02 | Outpatient (AMB) | payer MEDICARE, SELFPAY ==
[2023-11-01 13:10] LABS: Prothrombin Time Whole Bld POC 23.6 sec (11.1-13.5)
--- NOTE | 2023-11-01 13:17 | MHC.OFFVISCO ---
Intake Intake Visit Reasons: Anticoagulation Allergies No Known Allergies Allergy (Mild, Verified 11/01/23 13:05) NOT APPLICABLE Medication List - Last Reconciled 11/01/23 by Rosangela Malone RN atorvastatin 80 mg PO QPM ezetimibe (Zetia) 10 mg PO DAILY hydralazine 50 mg PO TID lisinopril 40 mg PO DAILY metoprolol succinate ER (Toprol XL) 50 mg PO DAILY warfarin See Protocol 2.5 mg orally 3.75MG X 3 DAYS/ 2.5MG X 4 DAYS; Nursing Note NO CP,SOB,DIET/MED CHANGES,FALLS OR SX OF BLEEDING. CONTINUE PRESENT DOSE AND FOLLOW-UP IN 4 WEEKS. GOOD UNDERSTANDING OF DOSING INSTR. Anti-Coag Initial Assessment Social Hx Patient Tobacco Use Status: Never used Tobacco Tobacco use type: Cigarette alcohol intake: never Alcohol intake frequency: does not drink Coding Level of Care Code Est Patient Level 1 Diagnoses Current use of anticoagulant therapy Z79.01 Assessment & Plan Assessment & Plan (1) Current use of anticoagulant therapy: Code(s): Z79.01 - retirement (current) use of 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s Category: Medical
== END 2023-11-01 13:18 | disposition home or self-care (01) ==
LOC: HO.ACS 13:02
PROVIDERS: PCP Internal Medicine; Visit Provider Internal Medicine
DX: Z79.01 Long term (current) use of 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s (principal)

== ENCOUNTER → 2023-11-01 13:02 | Outpatient (BNVA) | payer MEDICARE, SELFPAY | PROVIDERS: PCP Internal Medicine; Visit Provider Internal Medicine | DX: I48.0 Paroxysmal atrial fibrillation (principal); Z79.01 Long term (current) use of 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s; Z51.81 Encounter for therapeutic drug level monitoring | CPT/HCPCS: 85610; 99211 ==

== ENCOUNTER 2023-11-14 14:06 | Outpatient (AMB) | payer MEDICARE, SELFPAY ==
[2023-11-14 14:08] VITALS: BP 132/80; PULSE 59; O2SAT 97; BMI 22.9
--- NOTE | 2023-11-14 14:08 | A.OFFPC_ITS ---
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 Accompanied by: Self / Same As Patient Allergies No Known Allergies Allergy (Mild, Verified 11/14/23 14:13) NOT APPLICABLE Medication List - Last Reconciled 11/15/23 by August Velasquez MD atorvastatin 80 mg PO QPM ezetimibe (Zetia) 10 mg PO DAILY hydralazine 50 mg PO TID lisinopril 40 mg PO DAILY metoprolol succinate ER (Toprol XL) 50 mg PO DAILY warfarin See Protocol 2.5 mg orally 3.75MG X 3 DAYS/ 2.5MG X 4 DAYS; Tobacco use date assessed: 04/27/23 Fall risk assessment: No Falls in past year Last assessed Fall Risk: 11/14/23 Dental Screening Dental Screen Date: 04/27/23 HPI 3 mo f/u HPI Details hyperlipidemia on rx; doing well; compliant [facility] Medical History Hyperlipidemia Gout 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 Essential hypertension Embolic stroke Sinus bradycardia PAF (paroxysmal atrial fibrillation) Surgical History History of cardiac radiofrequency ablation (~07/07/20) History of colostomy History of section Family History Father CVD (cardiovascular disease) Mother Alzheimer disease Social History Housing: House Alcohol intake: never Patient Tobacco Use Status: Never used Tobacco Tobacco use type: Cigarette Cigarettes Per Day: 4 e-Cigarette/Vaping Use: Never Used Second Hand Smoke Exposure: No service: No Current occupational status: retired Current occupation: right hand dominant Cognitive needs: Yes (cane) Hearing needs: No Vision needs: Yes (glasses) Questionnaire PHQ-9 Over the last 2 weeks, how often have you been bothered by any of the following problems? 1. Little interest or pleasure in doing things: not at all 2. Feeling down, depressed, or hopeless: not at all 3. Trouble falling or staying asleep, or sleeping too much: not at all 4. Feeling tired or having little energy: not at all 5. Poor appetite or overeating: not at all 6. Feeling bad about yourself - or that you are a failure or have let yourself or your family down: not at all 7. Trouble concentrating on things, such as reading the newspaper or watching television: not at all 8. Moving or speaking so slowly that other people could have noticed. Or the opposite - being so fidgety or restless that you have been moving around a lot more than usual: not at all 9. Thoughts that you would be better off or of hurting yourself in some way: not at all Total score: 0 Depression Screening Interpretation: Negative Depression Screening Done: Yes 29611 - PHQ-9 Billing: Yes Source: Developed by Drs. Domingo Sandoval, Nilsa Palacios, Jorge Dominguez and colleagues, with an educational joselin from [employer]. Thrive Questionnaire Date Thrive assessed: 04/27/23 Are you currently unemployed and looking for a job?: No AUDIT C Alcohol Use Questionnaire (AUDIT-C) 1. How often do you have a drink containing alcohol?: Never Total Score: 0 Score Reviewed/Action Taken: Yes LYNDSAY-7 AMB Questionnaire LYNDSAY-7 Date LYNDSAY - 7 assessed: 04/27/23 Source: Developed by Drs. Domingo Sandoval, Jorge Boyd and colleagues, with an educational joselin from [employer]. Review of Systems Const Denies chills, Denies headache(s) and Denies weight loss ENT Denies headache(s) Card Denies chest pain, Denies syncope, Denies irregular heart rhythm and Denies dyspnea Resp Denies chest congestion, Denies cough and Denies dyspnea GI Denies abdominal pain, Denies change in stool character, Denies nausea and Denies vomiting Musc Denies deformity and Denies joint swelling Neuro Denies syncope and Denies headache(s) Physical exam (Primary Care) Vital Signs: Last Vital Signs Pulse 59 11/14/23 14:08 BP 132/80 11/14/23 14:08 Pulse Ox 97 11/14/23 14:08 Oxygen Delivery Method Room Air 11/14/23 14:08 BMI result Body Mass Index 22.9 Tobacco/Smoking Status: Tobacco use Status Tobacco use date assessed 04/27/23 11/14/23 14:10 Patient Tobacco Use Status Never used Tobacco 11/14/23 14:10 Tobacco use type Cigarette 11/14/23 14:10 e-Cigarette/Vaping Use Never Used 11/14/23 14:10 PHQ-9: PHQ-9 Score PHQ-9: Total score 0 11/14/23 14:14 Depression Screening Interpretation: Negative Thrive Assessment: Date of Thrive Assessment Date Thrive assessed 04/27/23 11/14/23 14:10 Const General: cooperative, comfortable, no acute distress and alert Neck Neck: Yes no lymphadenopathy Thyroid: Thyroid normal Resp Effort & Inspection: normal respiratory effort Auscultation: clear to auscultation bilaterally Percussion: percussion normal Cardio Jugular venous distension: no JVD Palpation: normal PMI Rate: regular rate Rhythm: regular rhythm Heart sounds: S1 normal heart sound present and S2 normal heart sound present GI Inspection: Yes normal to inspection Palpation (GI): No hepatosplenomegaly present Skin General skin exam: no rashes or lesions noted Extrem General: Yes no clubbing, cyanosis or edema Coding Level of Care Code Est Pt Level 3 (39645) Diagnoses Other and unspecified hyperlipidemia E78.5 Assessment & Plan Assessment & Plan (1) Other and unspecified hyperlipidemia: Code(s): E78.5 - Hyperlipidemia, unspecified Category: Medical Plan: stable; same rx
== END 2023-11-14 14:20 | disposition home or self-care (01) ==
PROVIDERS: PCP Internal Medicine; Visit Provider Internal Medicine
DX: E78.5 Hyperlipidemia, unspecified (principal)

== ENCOUNTER → 2023-11-14 14:06 | Outpatient (BNVA) | payer MEDICARE, SELFPAY | PROVIDERS: PCP Internal Medicine; Visit Provider Internal Medicine | DX: E78.5 Hyperlipidemia, unspecified (principal) | CPT/HCPCS: 96127; 99212 ==

== ENCOUNTER 2023-11-29 13:01 | Outpatient (AMB) | payer MEDICARE, SELFPAY ==
[2023-11-29 13:07] LABS: Prothrombin Time Whole Bld POC 20.6 sec (11.1-13.5); ~PT, ~INR - Anti Coag Clinic 1.7 (0.9-1.1)
--- NOTE | 2023-11-29 13:15 | MHC.OFFVISCO ---
Intake Intake Visit Reasons: Anticoagulation Allergies No Known Allergies Allergy (Mild, Verified 11/29/23 13:06) NOT APPLICABLE Medication List - Last Reconciled 11/29/23 by Rosangela Malone RN atorvastatin 80 mg PO QPM ezetimibe (Zetia) 10 mg PO DAILY hydralazine 50 mg PO TID lisinopril 40 mg PO DAILY metoprolol succinate ER (Toprol XL) 50 mg PO DAILY warfarin See Protocol 2.5 mg orally 3.75MG X 3 DAYS/ 2.5MG X 4 DAYS; Nursing Note PT.STATTES THAT SHE MISSED A DOSE THIS WEEK. NO CP,SOB,DIET/MED CHANGES,FALLS OR SX OF BLEEDING. BOOST TO 5MGM TOMORROW THEN RESUME USUAL DOSE AND FOLLOW-UP MARCELA 4 WEEKS. NO GREENS 2 DAYS GOOD UNDERSTANDING OF DOSING INSTR. 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
== END 2023-11-29 13:21 | disposition home or self-care (01) ==
LOC: HO.ACS 13:01
PROVIDERS: PCP Internal Medicine; Visit Provider Internal Medicine
DX: Z79.01 Long term (current) use of 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s (principal)

== ENCOUNTER → 2023-11-29 13:01 | Outpatient (BNVA) | payer MEDICARE, SELFPAY | PROVIDERS: PCP Internal Medicine; Visit Provider Internal Medicine | DX: I48.0 Paroxysmal atrial fibrillation (principal); Z79.01 Long term (current) use of 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s; Z51.81 Encounter for therapeutic drug level monitoring | CPT/HCPCS: 85610; 99211 ==

== ENCOUNTER 2023-12-19 12:55 | Outpatient (AMB) | payer MEDICARE, SELFPAY ==
[2023-12-19 12:57] VITALS: BP 142/82; PULSE 51; O2SAT 94; BMI 22.7
--- NOTE | 2023-12-19 12:57 | A.OFFPC_ITS ---
Vital Signs 12/19/23 12:57 Height 5 ft 2 in Weight 124 lb BMI 22.7 BP 142/82 H Blood Pressure Location Lt brachial Position Sitting Pulse 51 Pulse Source Pulse Oximeter Pulse Oximetry (%) 94 Oxygen Delivery Method Room Air Intake Visit Reasons: [place] Retina vitrectomy on 12/24- see comm Intake Note: Pt reports her BP being high because she is nervous. 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 Accompanied by: Self / Same As Patient Allergies No Known Allergies Allergy (Mild, Verified 12/19/23 12:57) NOT APPLICABLE Medication List - Last Reconciled 12/20/23 by August Velasquez MD atorvastatin 80 mg PO QPM ezetimibe (Zetia) 10 mg PO DAILY hydralazine 50 mg PO TID lisinopril 40 mg PO DAILY metoprolol succinate ER (Toprol XL) 50 mg PO DAILY warfarin See Protocol 2.5 mg orally 3.75MG X 3 DAYS/ 2.5MG X 4 DAYS; Tobacco use date assessed: 04/27/23 Fall risk assessment: No Falls in past year Last assessed Fall Risk: 12/19/23 Dental Screening Dental Screen Date: 04/27/23 HPI [place] Retina vitrectomy on 12/24- see comm HPI Details having left eye surgery later this month; has afib, HTN and hyperlipidemia on rx; compliant and well controlled [facility] Medical History Hyperlipidemia Gout Annual physical exam 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 Essential hypertension Embolic stroke Sinus bradycardia PAF (paroxysmal atrial fibrillation) Surgical History History of cardiac radiofrequency ablation (~07/07/20) History of colostomy History of section Family History Father CVD (cardiovascular disease) Mother Alzheimer disease Social History Housing: House Alcohol intake: never Patient Tobacco Use Status: Never used Tobacco Tobacco use type: Cigarette Cigarettes Per Day: 4 e-Cigarette/Vaping Use: Never Used Second Hand Smoke Exposure: No service: No Current occupational status: retired Current occupation: right hand dominant Cognitive needs: Yes (cane) Hearing needs: No Vision needs: Yes (glasses) Questionnaire Thrive Questionnaire Date Thrive assessed: 04/27/23 Are you currently unemployed and looking for a job?: No LYNDSAY-7 AMB Questionnaire LYNDSAY-7 Date LYNDSAY - 7 assessed: 04/27/23 Source: Developed by Drs. Domingo Sandoval, Nilsa Palacios, Jorge Dominguez and colleagues, with an educational joselin from [employer]. Review of Systems Const Denies chills, Denies fatigue, Denies headache(s) and Denies weight loss Eyes Denies change in vision, Denies diplopia and Denies eye pain ENT Reports Normal hearing present, Denies vertigo, Denies dizziness, Denies headache(s) and Denies nasal discharge Card Denies chest pain, Denies rapid heart rate and Denies dyspnea on exertion Resp Denies chest congestion, Denies cough, Denies pain with cough and Denies dyspnea on exertion GI Denies abdominal pain, Denies hematochezia and Denies change in bowel habits Musc Denies myalgias, Denies arthralgias and Denies joint swelling Skin/Breast Denies lesions and Denies unusual bruising Neuro Reports Normal hearing present, Denies vertigo, Denies dizziness, Denies headache(s) and Denies focal weakness Endo Denies fatigue Physical exam (Primary Care) Vital Signs: Last Vital Signs Pulse 51 12/19/23 12:57 BP 142/82 H 12/19/23 12:57 Pulse Ox 94 12/19/23 12:57 Oxygen Delivery Method Room Air 12/19/23 12:57 BMI result Body Mass Index 22.7 Tobacco/Smoking Status: Tobacco use Status Tobacco use date assessed 04/27/23 12/19/23 12:58 Patient Tobacco Use Status Never used Tobacco 12/19/23 12:58 Tobacco use type Cigarette 12/19/23 12:58 e-Cigarette/Vaping Use Never Used 12/19/23 12:58 Thrive Assessment: Date of Thrive Assessment Date Thrive assessed 04/27/23 12/19/23 12:58 Const General: cooperative, healthy appearing, comfortable and no acute distress HENMT Head: Yes normocephalic and Yes atraumatic Eyes General: appearance normal, both eyes and all related structures Neck Neck: Yes full ROM and Yes no lymphadenopathy Resp Effort & Inspection: normal respiratory effort Auscultation: clear to auscultation bilaterally Percussion: percussion normal Cardio Jugular venous distension: no JVD Palpation: normal PMI Rate: regular rate Rhythm: regular rhythm Heart sounds: S1 normal heart sound present and S2 normal heart sound present GI Inspection: Yes normal to inspection Palpation (GI): No hepatosplenomegaly present Auscultation: normal bowel sounds Skin Lesions: no lesions Rashes: no rashes Neuro Cranial nerves: Yes Normal hearing present Extrem General: Yes no clubbing, cyanosis or edema Coding Level of Care Code Est Pt Level 4 (55011) Diagnoses Preop exam for internal medicine Z. Hypertension I10 Hyperlipidemia E78.5 PAF (paroxysmal atrial fibrillation) I48.0 Assessment & Plan Assessment & Plan (1) Preop exam for internal medicine: Code(s): Z01.818 - Encounter for other preprocedural examination Category: Medical Plan: low risk of cardiovascular complications; cleared for surgery (2) Hypertension: Code(s): I10 - Essential (primary) hypertension Category: Medical Plan: stale; same rx (3) Hyperlipidemia: Code(s): E78.5 - Hyperlipidemia, unspecified Category: Medical Plan: stable; same rx (4) PAF (paroxysmal atrial fibrillation): Code(s): I48.0 - Paroxysmal atrial fibrillation Category: Medical Plan: stable; can cont warfarin Orders: Orders ECG 12 lead EKG 12/19/23 Z.818 - Encounter for other preprocedural examination Basic Metabolic Panel 12/19/23 Z.818 - Encounter for other preprocedural examination Complete Blood Count Auto Diff 12/19/23 Z13.0 - Encounter for screening for diseases of the blood and blood-forming organs and certain disorders involving the immune mechanism
== END 2023-12-19 13:21 | disposition home or self-care (01) ==
PROVIDERS: PCP Internal Medicine; Visit Provider Internal Medicine
DX: Z01.818 Encounter for other preprocedural examination (principal); I10 Essential (primary) hypertension; E78.5 Hyperlipidemia, unspecified; I48.0 Paroxysmal atrial fibrillation

== ENCOUNTER → 2023-12-19 13:30 | Outpatient (REF) | payer MEDICARE, SELFPAY ==
--- NOTE | 2023-12-19 13:37 | CA_ITS ---
Transthoracic Echocardiogram Patient (Last, First, Middle): Charlene Martin M Gender: Female Date of : 1945 Age: 78 Procedure Date: 12/19/2023 Procedure Type: Transthoracic Echocardiogram Location: OP Height: 157.48 cm Weight: 56.25 kg BSA: 1.56 m2 Heart Rate: 94 bpm BP: 160 / 78 mmHg Spinning Frame Tender: SB Referring MD: Javy Bhat MD Symptoms: I35.0 - Nonrheumatic aortic (valve) stenosis Study Quality: Adequate ECG Rhythm: Sinus with PACs Conclusions: - The left ventricular systolic function is hyperdynamic. The visually estimated ejection fraction is >70%. - There is severe septal asymmetric hypertrophy. - Evidence suggests grade II (moderate) diastolic dysfunction. - There is moderate calcification of the aortic valve. There is mild aortic valve stenosis. - There is moderate mitral annular calcification. Findings Left Ventricle Normal left ventricular cavity size. There is mildly increased left ventricular wall thickness. The left ventricular systolic function is hyperdynamic. The visually estimated ejection fraction is >70%. There is no evidence of regional wall motion abnormalities. There is no dynamic left ventricular outflow tract obstruction. Evidence suggests grade II (moderate) diastolic dysfunction. There is severe septal asymmetric hypertrophy. Right Ventricle Mildly increased right ventricular cavity size. There is normal right ventricular systolic function. Atria The left atrium is moderately dilated. The right atrium is normal in size. Aortic Valve There is moderate calcification of the aortic valve. There is mild aortic valve stenosis. There is no aortic valve regurgitation. Mitral Valve There is moderate mitral annular calcification. There is trace mitral valve regurgitation. There is no mitral valve stenosis. Pulmonic Valve The pulmonic valve is likely normal. Tricuspid Valve There is trace tricuspid valve regurgitation. There is no evidence of pulmonary hypertension. Great Vessels The asc aorta is normal in size. Venous The inferior vena cava was not well visualized. Pericardium/Pleural There is a small loculated pericardial effusion overlying the left ventricle and left atrium. Prior Study Comparison Changes noted compared to prior study dated: 09/13/2021. see comment on pericardial effusion. Measurements 2D Linear Measurements IVSd: 2.07 0.6-0.9/0.6-1.0 cm LVIDd: 3.68 3.9-5.3/4.2-5.9 cm LVIDd Index: 2.36 2.4-3.2/2.2-3.1 cm/m2 LVIDs: 2.29 2.0-3.6 cm LVPWd: 1.25 0.7-1.1 cm LA Diam: 4.30 2.7-3.8/3.0-4.0 cm LAIDs Index: 2.76 1.5-2.3 cm/m2 LV Mass: 304.89 67-162/88-224 g LV Mass Index: 195.44 43-95/49-115 g/m2 LVOT Diam: 1.90 3.0+(-)1.3 cm 2D Systolic Function EF 4C: 61.60 >55% EF 2C: 56.80 >55% EF BiP: 58.50 >55% Mitral Valve MV VTI: 0.38 MV Pk Yamil: 1.31 MV Mn Yamil: 0.72 MV Pk Grad: 7.00 MV Mn Grad: 2.00 MV Pk E: 1.22 MV PK A: 1.20 MV Decel Time: 264.00 E/A: 1.00 E'Lateral: 5.22 E'Medial: 3.92 E/E' Med: 31.10 E/E' Lat: 23.40 PHT: 77.00 MVA PHT: 2.86 MVA Continuity: 1.71 Decel [place]ler: 4.61 Aortic Valve AoV Pk Yamil: 2.21 AoV Mn Yamil: 1.53 AoV VTI: 0.42 AoV Pk Grad: 20.00 Aov Mn Grad: 11.00 CAILIN Cont.VTI: 1.56 LVOT LVOT Pk Yamil: 1.25 LVOT Mn Yamil: 0.88 LVOT VTI: 0.23 LVOT Pk Grad: 6.00 LVOT Mn Grad: 4.00 LVOT Diam: 1.90 LVOT Area: 2.84 Diastolic Function MV Pk E: 1.22 MV Pk A: 1.20 E/A: 1.00 E'Medial: 3.92 E/E' Med: 31.10 E' Laterial: 5.22 E/E' Lat: 23.40 Right Ventricle TAPSE (mm): 24.00 TVS' Yamil: 14.20 Tricuspid Valve TR Pk Yamil: 2.70 TR Pk Grad: 29.00 RA Press: 3.00 RVSP: 32.00 Great Vessels Aorta Sinus of Valsalva: 3.60 2.0-3.5 cm Ao Asc: 3.50 2.1-3.4 cm Pulmonary Valve PV Pk Yamil: 0.85 Peak PV Grad: 3.00 Updated in Other Vendor System with Status of Final Javy Bhat MD electronically signed on 12/20/2023 12:50:05 PM with status of Final
--- NOTE | 2023-12-19 13:37 | ECG_ITS ---
Test Reason : PREOP Blood Pressure : / mmHG Vent. Rate : 084 BPM Atrial Rate : 084 BPM P-R Int : 140 ms QRS Dur : 078 ms QT Int : 406 ms P-R-T Axes : 083 -35 058 degrees QTc Int : 479 ms Sinus rhythm with Premature atrial complexes Left axis deviation Pulmonary disease pattern Minimal voltage criteria for LVH, may be normal variant ( Vazquez product ) Abnormal ECG When compared with ECG of 01-DEC-2022 11:54, No significant change was found Referred By: August Velasquez Electronically Signed By:Gael Rocha
[2023-12-19 14:41] LABS: MANUAL DIFF FLAG NO
[2023-12-19 15:09] LABS: Basophils Percent Auto 0.5 % (0-2); Eosinophils Percent Auto 0.3 % (0-4); Hematocrit 40.3 % (37.0-47.0); Hemoglobin 13.4 g/dl (12.0-16.0); Imm Gran Abs Auto 0.02 X10*3/uL (0.00-0.03); Imm Gran Pct Auto 0.3 % (0.0-0.4); Lymphocytes Absolute Auto 1.8 X10*3/uL (1.2-4.9); Lymphocytes Percent Auto 30.5 % (20-40); Mean Corpuscular HGB Conc 33.3 g/dl (31.0-35.0); Mean Corpuscular Hemoglobin 28.7 pg (27.0-33.0); Mean Corpuscular Volume 86.3 fL (80.0-98.0); Mean Platelet Volume 10.1 fL (9.4-12.3); Monocytes Absolute Auto 0.6 X10*3/uL (0.1-1.2); Monocytes Percent Auto 10.8 % (2-11); Neutrophils Absolute Auto 3.4 x10*3/uL (2.0-8.3); Neutrophils Percent Auto 57.6 % (45-73); Platelet Count 249 X10*3/uL (160-400); Red Blood Count 4.67 X10*6/uL (4.20-5.50); Red Cell Distribution Width 13.6 % (11.0-16.0); White Blood Count 5.8 X10*3/uL (4.8-10.8)
[2023-12-19 15:33] LABS: Anion Gap 14 (12-20); Blood Urea Nitrogen 12 mg/dL (9-16); Calcium 10.2 mg/dL (8.4-10.2); Carbon Dioxide 25 mmol/L (22-29); Chloride 106 mmol/L (96-108); Cholesterol 161 mg/dL (<200); Estimated Glomerular Filt Rate 58; Glucose Random 100 mg/dL (60-115); HDL Cholesterol 57 mg/dL (>40); LDL Cholesterol Calculated 73 mg/dL (<100); Sodium 141 mmol/L (135-145); Triglycerides 155 mg/dL (<150)
== END ==
LOC: HO.CARD 13:30
PROVIDERS: Absent Provider Internal Medicine; PCP Internal Medicine; Visit Provider Internal Medicine
DX: Z01.818 Encounter for other preprocedural examination (principal); Z13.0 Encounter for screening for diseases of the blood and blood-forming organs and certain disorders involving the immune mechanism; I35.0 Nonrheumatic aortic (valve) stenosis; E78.5 Hyperlipidemia, unspecified
CPT/HCPCS: 36415; 80048; 80061; 85025; 93005; 93306; 99212

== ENCOUNTER → 2023-12-19 13:37 | Outpatient (BNV) | payer MEDICARE, SELFPAY | PROVIDERS: Absent Provider Internal Medicine; PCP Internal Medicine; Visit Provider Internal Medicine Cardiovascular Disease | DX: I49.1 Atrial premature depolarization (principal) | CPT/HCPCS: 93010; 93306 ==

== ENCOUNTER 2023-12-20 12:35 | Outpatient (AMB) | payer MEDICARE, SELFPAY ==
[2023-12-20 12:53] VITALS: BP 130/68; PULSE 68; BMI 22.6
--- NOTE | 2023-12-20 12:53 | MHC.OFFVIS ---
Vital Signs 12/20/23 12:53 Height 5 ft 2 in Weight 123 lb 13.52 oz BMI 22.6 BP 130/68 Blood Pressure Location Lt brachial Position Sitting Pulse 68 Pulse Source Pulse Oximeter Intake Visit Reasons: 6m follow up Allergies No Known Allergies Allergy (Mild, Verified 12/19/23 12:57) NOT APPLICABLE Medication List - Last Reconciled 12/20/23 by Javy Bhat MD atorvastatin 80 mg PO QPM ezetimibe (Zetia) 10 mg PO DAILY hydralazine 50 mg PO TID lisinopril 40 mg PO DAILY metoprolol succinate ER (Toprol XL) 50 mg PO DAILY warfarin See Protocol 2.5 mg orally 3.75MG X 3 DAYS/ 2.5MG X 4 DAYS; HPI Comments Details: Charlene returns for follow-up regarding atrial fibrillation and other concerns. To recall, she has had several episodes of atrial fibrillation over the last few years. Was previously on diltiazem. Due to recurrent episodes, Multaq was started but due to cost, she could not afford that. Then has also tried Sotalol but she became quite bradycardic. Briefly was on Amiodarone, but did not pursue that long-term due to side effect profile. Eventually saw EP and underwent ablation. Immediately post ablation, she had one episode of atrial fibrillation for which she came to the ER and got flecainide. However, nothing since that time. 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 She states she has numb new vision issues and is going for surgery on her eye but details are not clear. However, no cardiac concerns. COUNTS INCLUDE 234 BEDS AT THE [facility] Medical History Hyperlipidemia Gout Annual physical exam residential current use of anticoagulant residential current use of antiarrhythmic drug Essential hypertension Embolic stroke Sinus bradycardia PAF (paroxysmal atrial fibrillation) Surgical History History of cardiac radiofrequency ablation (~07/07/20) History of colostomy History of section Family History Father CVD (cardiovascular disease) Mother Alzheimer disease Social History Housing: House Alcohol intake: never Patient Tobacco Use Status: Never used Tobacco Tobacco use type: Cigarette Cigarettes Per Day: 4 e-Cigarette/Vaping Use: Never Used Second Hand Smoke Exposure: No service: No Current occupational status: retired Current occupation: right hand dominant Cognitive needs: Yes (cane) Hearing needs: No Vision needs: Yes (glasses) Review of Systems Const Denies weakness ENT Denies dizziness Card Denies chest pain, Denies chest pain with activity, Denies syncope, Denies rapid heart rate, Denies pedal edema, Denies edema, Denies leg edema, Denies lightheadedness, Denies palpitations, Denies dyspnea, Denies dyspnea on exertion and Denies orthopnea Resp Denies cough, Denies dyspnea and Denies dyspnea on exertion GI Denies hematochezia and Denies change in stool character Musc Denies abnormal gait, Denies muscle cramps, Denies muscle weakness, Denies numbness, Denies radiating pain into limb and Denies tingling Neuro Denies abnormal gait, Denies dizziness, Denies syncope, Denies numbness, Denies tingling and Denies weakness Endo Denies palpitations Physical Exam Vital Signs: Last Vital Signs Pulse 68 12/20/23 12:53 BP 130/68 12/20/23 12:53 BMI result Body Mass Index 22.6 Const General: comfortable and no acute distress Orientation/consciousness: patient oriented x3 HEENT Other: Unremarkable Head: Yes normal to inspection Neck Neck: Yes normal visual inspection Chest Chest palpation & inspection: normal inspection of the chest Resp Auscultation: clear to auscultation bilaterally Cardio Palpation: normal PMI Heart sounds: S1 normal heart sound present, S2 normal heart sound present, no gallops, Murmur heart sound present systolic II/ and at the right sternal border and no rubs GI Palpation (GI): Soft to palpation Back/Spine/Pelvis Other: unremarkable Skin General skin exam: no rashes or lesions noted Neuro General: patient oriented x3 Extrem General: Yes normal to inspection Psych Mental Status: mental status grossly normal Assessment & Plan Assessment & Plan (1) PAF (paroxysmal atrial fibrillation): Code(s): I48.0 - Paroxysmal atrial fibrillation Category: Medical Plan: Status post atrial fibrillation ablation. Previously in the intolerance or cost prohibitive issues with antiarrhythmics including sotalol, Multaq. Remains on beta-blockers. Sinus bradycardia but no issues from this. Otherwise, on Coumadin as she can not afford anything else. Sleep study in the past without any significant sleep apnea. (2) Atherosclerotic cardiovascular disease: Code(s): I25.10 - Atherosclerotic heart disease of [place] coronary artery without angina pectoris Category: Medical Plan: Myocardial perfusion imaging study in the past with possible mild lateral wall ischemia. Coronary CT denied by insurance. Clinically, she does not have any angina or other ischemic symptoms. Continue statins and Zetia. LDL levels are controlled. Most recently 73 mg/dL. (3) Essential hypertension: Code(s): I10 - Essential (primary) hypertension Category: Medical Plan: On several meds including metoprolol, lisinopril, hydralazine. Suspect not well controlled as there is significant LVH on the echocardiogram. Add amlodipine 5 mg daily. May need a diuretic as well like hydrochlorothiazide or chlorthalidone. (4) Sinus bradycardia: Code(s): R00.1 - Bradycardia, unspecified Category: Medical Plan: No clinical concerns at this time. Can be monitored. (5) Embolic stroke: Code(s): I63.9 - Cerebral infarction, unspecified Category: Medical Qualifiers: Precerebral and cerebral artery: unspecified cerebral artery Qualified Code(s): I63.40 - Cerebral infarction due to embolism of unspecified cerebral artery Plan: No clear neurological deficits. She remains ambulatory. (6) Non-rheumatic aortic stenosis: Code(s): I35.0 - Nonrheumatic aortic (valve) stenosis Category: Medical Plan: Echocardiogram with moderate aortic valve calcification and mild stenosis. Can be monitored periodically. (7) Mitral annular calcification: Code(s): I05.9 - Rheumatic mitral valve disease, unspecified Category: Medical Plan: No significant valvular dysfunction. Medications: New amlodipine 5 mg PO DAILY 90 tabs 3RF Coding Level of Care Code Est Pt Level 4 (94290) Diagnoses PAF (paroxysmal atrial fibrillation) I48.0 Atherosclerotic cardiovascular disease I25.10 Essential hypertension I10 Sinus bradycardia R00.1 Cerebrovascular accident (CVA) due to embolism of cerebral artery I63.40 Precerebral and cerebral artery: unspecified cerebral artery Non-rheumatic aortic stenosis I35.0 Mitral annular calcification I05.9
== END 2023-12-20 13:16 | disposition home or self-care (01) ==
PROVIDERS: PCP Internal Medicine; Visit Provider Internal Medicine
DX: I48.0 Paroxysmal atrial fibrillation (principal); I25.10 Atherosclerotic heart disease of native coronary artery without angina pectoris; I10 Essential (primary) hypertension; R00.1 Bradycardia, unspecified; I63.40 Cerebral infarction due to embolism of unspecified cerebral artery; I35.0 Nonrheumatic aortic (valve) stenosis; I05.9 Rheumatic mitral valve disease, unspecified
CPT/HCPCS: 99214

== ENCOUNTER → 2023-12-20 12:35 | Outpatient (BNVA) | payer MEDICARE, SELFPAY | PROVIDERS: PCP Internal Medicine; Visit Provider Internal Medicine | DX: I48.0 Paroxysmal atrial fibrillation (principal); I25.10 Atherosclerotic heart disease of native coronary artery without angina pectoris; I35.0 Nonrheumatic aortic (valve) stenosis; I11.0 Hypertensive heart disease with heart failure; I50.9 Heart failure, unspecified; R00.1 Bradycardia, unspecified; Z86.73 Personal history of transient ischemic attack (TIA), and cerebral infarction without residual deficits | CPT/HCPCS: 99212 ==

== ENCOUNTER 2023-12-27 13:00 | Outpatient (AMB) | payer MEDICARE, SELFPAY ==
--- NOTE | 2023-12-27 13:07 | MHC.OFFVISCO ---
Intake Intake Visit Reasons: Anticoagulation Allergies No Known Allergies Allergy (Mild, Verified 12/27/23 13:02) NOT APPLICABLE Medication List - Last Reconciled 12/27/23 by Karely Hernandez RN amlodipine 5 mg PO DAILY atorvastatin 80 mg PO QPM ezetimibe (Zetia) 10 mg PO DAILY hydralazine 50 mg PO TID lisinopril 40 mg PO DAILY metoprolol succinate ER (Toprol XL) 50 mg PO DAILY warfarin See Protocol 2.5 mg orally 3.75MG X 3 DAYS/ 2.5MG X 4 DAYS; Nursing Note INR: 2.6- in therapeutic range of 2-3 Medications and supplements reviewed - now on amlodipine which can raise inr No changes in health, diet, medications, or supplements, Denies any signs and symptoms of bleeding or bruising or clotting. Bleeding, bruising, clotting discussed Nutritional guidance given Dose: 3.75mg x 3, 2.5mg x 4 F/U INR: 1 week due to new medication Patient verbalizes understanding of instructions given pt states having issues with left eye- started approx 2 weeks ago. saw eye md and retinol specialist, was supposed to have surgery on mon12/25/23 but cancelled due to out of network / insur per pt. 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
[2023-12-28 09:30] LABS: Prothrombin Time Whole Bld POC 31.3 sec (11.1-13.5); ~PT, ~INR - Anti Coag Clinic 2.6 (0.9-1.1)
== END 2023-12-27 13:17 | disposition home or self-care (01) ==
LOC: HO.ACS 13:00
PROVIDERS: PCP Internal Medicine; Visit Provider Internal Medicine
DX: Z79.01 Long term (current) use of 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s (principal)

== ENCOUNTER → 2023-12-27 13:00 | Outpatient (BNVA) | payer MEDICARE, SELFPAY | PROVIDERS: PCP Internal Medicine; Visit Provider Internal Medicine | DX: I48.0 Paroxysmal atrial fibrillation (principal); Z79.01 Long term (current) use of 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s; Z51.81 Encounter for therapeutic drug level monitoring | CPT/HCPCS: 85610; 99211 ==

== ENCOUNTER 2024-01-01 10:56 | Outpatient (AMB) | payer MEDICARE, SELFPAY ==
[2024-01-01 11:06] LABS: Prothrombin Time Whole Bld POC 48.6 sec (11.1-13.5); ~PT, ~INR - Anti Coag Clinic 4.1 (0.9-1.1)
--- NOTE | 2024-01-01 11:18 | MHC.OFFVISCO ---
Intake Intake Visit Reasons: Anticoagulation Allergies No Known Allergies Allergy (Mild, Verified 01/01/24 11:01) NOT APPLICABLE Medication List - Last Reconciled 01/01/24 by Mery Alston, RN amlodipine 5 mg PO DAILY atorvastatin 80 mg PO QPM ezetimibe (Zetia) 10 mg PO DAILY hydralazine 50 mg PO TID lisinopril 40 mg PO DAILY metoprolol succinate ER (Toprol XL) 50 mg PO DAILY warfarin See Protocol 2.5 mg orally 3.75MG X 3 DAYS/ 2.5MG X 4 DAYS; Nursing Note INR 4.1?out of therapeutic range of 2-3 Medications and supplements reviewed: started on amlodipine on 12/20/23 which can raise the INR per micromedex reference. Pt to have eye surgery on 01/10/24 to remove blood behind the cataract in left eye. Pt states per surgeon, Dr Schafer, there is no hold of warfarin prior to surgery. Patient status: well but limited vision left eye Medications or supplements: as above noted Diet: usual diet for pt, states she did not increase greens over the past week. Denies any signs and symptoms of bleeding or clotting or unusual bruising Bleeding, bruising, clotting discussed Nutritional guidance given: pt to increase greens 2-3 servings this week. Dose: decrease today's dose to 1.25mg (3.75mg), then 2.5mg daily except for Fri she will take her usual dose of 3.75mg F/U INR Date : 1 week?? Patient verbalizing understanding of instructions given. Anti-Coag Initial Assessment Social Hx Patient Tobacco Use Status: Never used Tobacco Tobacco use type: Cigarette alcohol intake: never Alcohol intake frequency: does not drink Coding Level of Care Code Est Patient Level 1 Diagnoses Current use of anticoagulant therapy Z79.01 Assessment & Plan Assessment & Plan (1) Current use of anticoagulant therapy: Code(s): Z79.01 - halfway (current) use of 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s Category: Medical
== END 2024-01-01 11:27 | disposition home or self-care (01) ==
LOC: HO.ACS 10:56
PROVIDERS: PCP Internal Medicine; Visit Provider Internal Medicine
DX: Z79.01 Long term (current) use of 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s (principal)

== ENCOUNTER → 2024-01-01 10:56 | Outpatient (BNVA) | payer MEDICARE, SELFPAY | PROVIDERS: PCP Internal Medicine; Visit Provider Internal Medicine | DX: I48.0 Paroxysmal atrial fibrillation (principal); Z79.01 Long term (current) use of 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s; Z51.81 Encounter for therapeutic drug level monitoring | CPT/HCPCS: 85610; 99211 ==

== ENCOUNTER 2024-01-08 10:26 | Outpatient (AMB) | payer MEDICARE, SELFPAY ==
[2024-01-08 10:38] LABS: Prothrombin Time Whole Bld POC 34.6 sec (11.1-13.5); ~PT, ~INR - Anti Coag Clinic 2.9 (0.9-1.1)
--- NOTE | 2024-01-08 10:47 | MHC.OFFVISCO ---
Intake Intake Visit Reasons: Anticoagulation Allergies No Known Allergies Allergy (Mild, Verified 01/08/24 10:27) NOT APPLICABLE Medication List - Last Reconciled 01/08/24 by Mery Alston RN amlodipine 5 mg PO DAILY atorvastatin 80 mg PO QPM ezetimibe (Zetia) 10 mg PO DAILY hydralazine 50 mg PO TID lisinopril 40 mg PO DAILY metoprolol succinate ER (Toprol XL) 50 mg PO DAILY warfarin See Protocol 2.5 mg orally 3.75MG X 3 DAYS/ 2.5MG X 4 DAYS; Nursing Note INR: 2.9?out of therapeutic range of 1.5-2.5 Medications and supplements reviewed: no changes Patient status: pt to have surgery in 2 days to evacuate blood behind cataract left eye. INR range has been decreased from 2-3 to 1.5-2.[address] Velasquez. Diet: no changes Denies any signs and symptoms of bleeding or clotting or unusual bruising Bleeding, bruising, clotting discussed Nutritional guidance given: pt to have a serving of greens today Dose: hold today's dose, usual dose tomorrow of 2.5 then decrease dose the next day which is day of surgery to 2.5 (3.75). Pt to check with surgeon about restarting warfarin after surgery and if okay by surgeon, pt will take 2.5mg. Then pt will resume usual dose of 2.5 X 4 days and 3.75mg X 3 days F/U INR Date : 1 week?? Patient verbalizing understanding of instructions given. Anti-Coag Initial Assessment Social Hx Patient Tobacco Use Status: Never used Tobacco Tobacco use type: Cigarette alcohol intake: never Alcohol intake frequency: does not drink Coding Level of Care Code Est Patient Level 1 Diagnoses Current use of anticoagulant therapy Z79.01 Results AMB INR Fingerstick AMB INR Fingerstick 2.9 Last Edit by Mery Alston RN on 01/08/24 10:37 interface delay Assessment & Plan Assessment & Plan (1) Current use of anticoagulant therapy: Code(s): Z79.01 - [facility] (current) use of anticoagulants Category: Medical
== END 2024-01-08 11:00 | disposition home or self-care (01) ==
LOC: HO.ACS 10:26
PROVIDERS: PCP Internal Medicine; Visit Provider Internal Medicine
DX: Z79.01 Long term (current) use of 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s (principal)

== ENCOUNTER → 2024-01-08 10:26 | Outpatient (BNVA) | payer MEDICARE, SELFPAY | PROVIDERS: PCP Internal Medicine; Visit Provider Internal Medicine | DX: I48.0 Paroxysmal atrial fibrillation (principal); Z79.01 Long term (current) use of 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s; Z51.81 Encounter for therapeutic drug level monitoring | CPT/HCPCS: 85610; 99211 ==

== ENCOUNTER 2024-01-22 12:59 | Outpatient (AMB) | payer MEDICARE, SELFPAY ==
[2024-01-22 13:15] LABS: Prothrombin Time Whole Bld POC 28.5 sec (11.1-13.5); ~PT, ~INR - Anti Coag Clinic 2.4 (0.9-1.1)
--- NOTE | 2024-01-22 13:18 | MHC.OFFVISCO ---
Intake Intake Visit Reasons: Anticoagulation Allergies No Known Allergies Allergy (Mild, Verified 01/22/24 13:07) NOT APPLICABLE Medication List - Last Reconciled 01/22/24 by Mery Alston RN amlodipine 5 mg PO DAILY atorvastatin 80 mg PO QPM ezetimibe (Zetia) 10 mg PO DAILY hydralazine 50 mg PO TID lisinopril 40 mg PO DAILY metoprolol succinate ER 50 mg PO DAILY warfarin See Protocol 2.5 mg orally 3.75MG X 3 DAYS/ 2.5MG X 4 DAYS; Nursing Note INR: 2.4 in therapeutic range of 1.5-2.5 Pt S/P removal of blood from behind the left eye. States all went well and sight is returning. Medications and supplements reviewed No changes in health, diet, medications, or supplements, Denies any signs and symptoms of bleeding or bruising or clotting. Bleeding, bruising, clotting discussed Nutritional guidance given Dose: 2.5mg X 4 days and 3.75mg X 3 days F/U INR: 2 weeks Patient verbalizes understanding of instructions given Anti-Coag Initial Assessment Social Hx Patient Tobacco Use Status: Never used Tobacco Tobacco use type: Cigarette alcohol intake: never Alcohol intake frequency: does not drink Coding Level of Care Code Est Patient Level 1 Diagnoses Current use of anticoagulant therapy Z79.01 Results AMB INR Fingerstick AMB INR Fingerstick 2.4 Last Edit by Mery Alston RN on 01/22/24 13:14 interface delay Assessment & Plan Assessment & Plan (1) Current use of anticoagulant therapy: Code(s): Z79.01 - senior living (current) use of anticoagulants Category: Medical
== END 2024-01-22 13:22 | disposition home or self-care (01) ==
LOC: HO.ACS 12:59
PROVIDERS: PCP Internal Medicine; Visit Provider Internal Medicine
DX: Z79.01 Long term (current) use of 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s (principal)

== ENCOUNTER → 2024-01-22 12:59 | Outpatient (BNVA) | payer MEDICARE, SELFPAY | PROVIDERS: PCP Internal Medicine; Visit Provider Internal Medicine | DX: I48.0 Paroxysmal atrial fibrillation (principal); Z79.01 Long term (current) use of 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s; Z51.81 Encounter for therapeutic drug level monitoring | CPT/HCPCS: 85610; 99211 ==

== ENCOUNTER 2024-02-12 13:07 | Outpatient (AMB) | payer MEDICARE, SELFPAY ==
[2024-02-12 13:20] LABS: ~PT, ~INR - Anti Coag Clinic 3.1 (0.9-1.1)
--- NOTE | 2024-02-12 13:29 | MHC.OFFVISCO ---
Intake Intake Visit Reasons: Anticoagulation Allergies No Known Allergies Allergy (Mild, Verified 02/12/24 13:14) NOT APPLICABLE Medication List - Last Reconciled 02/12/24 by Mery Alston RN amlodipine 5 mg PO DAILY atorvastatin 80 mg PO QPM ezetimibe (Zetia) 10 mg PO DAILY hydralazine 50 mg PO TID lisinopril 40 mg PO DAILY metoprolol succinate ER 50 mg PO DAILY warfarin See Protocol 2.5 mg orally 3.75MG X 3 DAYS/ 2.5MG X 4 DAYS; Nursing Note INR: 3.1?out of therapeutic range of 1.5-2.5 Pt states she was ill one day last week with no appetite and slept all day. States she felt like she had the flu. She felt better the next day and is back to usual state of health. Medications and supplements reviewed Medications or supplements: no changes Diet: usual diet for pt Denies any signs and symptoms of bleeding or clotting or unusual bruising Bleeding, bruising, clotting discussed Nutritional guidance given: to have a serving of greens today Dose: decrease today's dose to 1.25mg (3.75mg) then return to usual dose of 2.5mg X 4 days and 3.75mg X 3 days (Mon, Wed & Fri) F/U INR Date : 2 weeks?? Patient verbalizing understanding of instructions given. Anti-Coag Initial Assessment Social Hx Patient Tobacco Use Status: Never used Tobacco Tobacco use type: Cigarette alcohol intake: never Alcohol intake frequency: does not drink Coding Level of Care Code Est Patient Level 1 Diagnoses Current use of anticoagulant therapy Z79.01 Results AMB INR Fingerstick AMB INR Fingerstick 3.1 Last Edit by Mery Alston RN on 02/12/24 13:27 interface delay Assessment & Plan Assessment & Plan (1) Current use of anticoagulant therapy: Code(s): Z79.01 - shelter (current) use of anticoagulants Category: Medical
== END 2024-02-12 13:36 | disposition home or self-care (01) ==
LOC: HO.ACS 13:07
PROVIDERS: PCP Internal Medicine; Visit Provider Internal Medicine
DX: Z79.01 Long term (current) use of 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s (principal)

== ENCOUNTER → 2024-02-12 13:07 | Outpatient (BNVA) | payer MEDICARE, SELFPAY | PROVIDERS: PCP Internal Medicine; Visit Provider Internal Medicine | DX: I48.0 Paroxysmal atrial fibrillation (principal); Z79.01 Long term (current) use of 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s; Z51.81 Encounter for therapeutic drug level monitoring | CPT/HCPCS: 85610; 99211 ==

== ENCOUNTER 2024-02-26 13:00 | Outpatient (AMB) | payer MEDICARE, SELFPAY ==
[2024-02-26 13:10] LABS: Prothrombin Time Whole Bld POC 18.9 sec (11.1-13.5); ~PT, ~INR - Anti Coag Clinic 1.6 (0.9-1.1)
--- NOTE | 2024-02-26 13:15 | MHC.OFFVISCO ---
Intake Intake Visit Reasons: Anticoagulation Allergies No Known Allergies Allergy (Mild, Verified 02/26/24 13:03) NOT APPLICABLE Medication List - Last Reconciled 02/26/24 by Mery Alston RN amlodipine 5 mg PO DAILY atorvastatin 80 mg PO QPM ezetimibe (Zetia) 10 mg PO DAILY hydralazine 50 mg PO TID lisinopril 40 mg PO DAILY metoprolol succinate ER 50 mg PO DAILY warfarin See Protocol 2.5 mg orally 3.75MG X 3 DAYS/ 2.5MG X 4 DAYS; Nursing Note INR: 1.6 in therapeutic range of 1.5-2.5 Medications and supplements reviewed No changes in health, diet, medications, or supplements, Denies any signs and symptoms of bleeding or bruising or clotting. 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
== END 2024-02-26 13:17 | disposition home or self-care (01) ==
LOC: HO.ACS 13:00
PROVIDERS: PCP Internal Medicine; Visit Provider Internal Medicine
DX: Z79.01 Long term (current) use of 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s (principal)

== ENCOUNTER → 2024-02-26 13:00 | Outpatient (BNVA) | payer MEDICARE, SELFPAY | PROVIDERS: PCP Internal Medicine; Visit Provider Internal Medicine | DX: I48.0 Paroxysmal atrial fibrillation (principal); Z79.01 Long term (current) use of 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s; Z51.81 Encounter for therapeutic drug level monitoring | CPT/HCPCS: 85610; 99211 ==

== ENCOUNTER 2024-03-04 14:37 | Outpatient (AMB) | payer MEDICARE, SELFPAY ==
[2024-03-04 14:44] VITALS: BP 150/84; PULSE 57; TEMP 36.2; O2SAT 98; BMI 23.6
--- NOTE | 2024-03-04 14:44 | MHC.PC.OV ---
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 Required: No Accompanied by: Spouse Allergies No Known Allergies Allergy (Mild, Verified 03/04/24 14:50) NOT APPLICABLE Medication List - Last Reconciled 03/05/24 by August Velasquez MD amlodipine 5 mg PO DAILY atorvastatin 80 mg PO QPM ezetimibe (Zetia) 10 mg PO DAILY hydralazine 50 mg PO TID lisinopril 40 mg PO DAILY metoprolol succinate ER 50 mg PO DAILY warfarin See Protocol 2.5 mg orally 3.75MG X 3 DAYS/ 2.5MG X 4 DAYS; Tobacco use date assessed: 03/04/24 Fall risk assessment: No Falls in past year Last assessed Fall Risk: 03/04/24 Dental Screening Dental Screen Date: 03/04/24 Did you have a dental visit in the last 12 months?: No Did you have a dental problem in the last 6 months where you did not have access to dental care?: No Was dental information given to patient?: Patient declined HPI 3 month f/u HPI Details afib on rx; doing well and compliant [facility] Medical History Hyperlipidemia Gout 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 [facility] current use of antiarrhythmic drug Essential hypertension Embolic stroke Sinus bradycardia PAF (paroxysmal atrial fibrillation) Surgical History History of cardiac radiofrequency ablation (~07/07/20) History of colostomy History of section Family History Father CVD (cardiovascular disease) Mother Alzheimer disease Social History Housing: House Alcohol intake: never Patient Tobacco Use Status: Never used Tobacco Tobacco use type: Cigarette Cigarettes Per Day: 4 e-Cigarette/Vaping Use: Never Used Second Hand Smoke Exposure: No service: No Current occupational status: retired Current occupation: right hand dominant Cognitive needs: Yes (cane) Hearing needs: No Vision needs: Yes (glasses) Questionnaire PHQ-9 Over the last 2 weeks, how often have you been bothered by any of the following problems? 1. Little interest or pleasure in doing things: not at all 2. Feeling down, depressed, or hopeless: not at all 3. Trouble falling or staying asleep, or sleeping too much: not at all 4. Feeling tired or having little energy: not at all 5. Poor appetite or overeating: not at all 6. Feeling bad about yourself - or that you are a failure or have let yourself or your family down: not at all 7. Trouble concentrating on things, such as reading the newspaper or watching television: not at all 8. Moving or speaking so slowly that other people could have noticed. Or the opposite - being so fidgety or restless that you have been moving around a lot more than usual: not at all 9. Thoughts that you would be better off or of hurting yourself in some way: not at all Total score: 0 Depression Screening Interpretation: Negative Depression Screening Done: Yes 85611 - PHQ-9 Billing: Yes Source: Developed by Drs. Domingo Sandoval, Nilsa Palacios, Jorge Dominguez and colleagues, with an educational joselin from [employer]. Thrive Questionnaire Date Thrive assessed: 03/04/24 I am a: Patient What is your living situation today?: I have a steady place to live Within the past 12 months, did the food you bought not last and you didn't have the money to get more?: Never true Within the past 12 months, did you worry whether your food would run out before you got money to buy more?: Never true Do you have trouble paying for medicines?: No Do you have trouble getting transportation to medical appointments?: No Do you have trouble paying your heating and electricity bill?: No Do you have trouble taking care of your child, family member or friend?: No Do you have trouble with day-to-day activities such as bathing, preparing meals, shopping, managing finances, etc.?: No Are you currently unemployed and looking for a job?: No Are you interested in more education?: No Please select the resources that you would like help with: None Currently or been in a relationship where the following occur: No concerns reported THRIVE Score: 0 AUDIT C Alcohol Use Questionnaire (AUDIT-C) 1. How often do you have a drink containing alcohol?: Never 3. How often do you have six or more drinks on one occasion?: Never Total Score: 0 Score Reviewed/Action Taken: Yes LYNDSAY-7 AMB Questionnaire LYNDSAY-7 Date LYNDSAY - 7 assessed: 03/04/24 Feeling nervous, anxious, or on edge: 0 = Not at all Not being able to stop or control worryin = Not at all Worrying too much about different things: 0 = Not at all Trouble relaxin = Not at all Being so restless that it is hard to sit still: 0 = Not at all Becoming easily annoyed or irritable: 0 = Not at all Feeling afraid as if something awful might happen: 0 = Not at all Total LYNDSAY-7 score (0-4 normal; 5-9 mild; 10-14 moderate; 15-21 severe): 0 Source: Developed by Drs. Domingo Sandoval, Nilsa Palacios, Jorge Dominguez and colleagues, with an educational joselin from [employer]. LYNDSAY-7 Assessment Billing LYNDSAY-7 Assessment Tool: LYNDSAY-7 Assessment 68930 Review of Systems Const Denies chills, Denies headache(s) and Denies weight loss ENT Denies headache(s) Card Denies chest pain, Denies syncope, Denies irregular heart rhythm and Denies dyspnea Resp Denies chest congestion, Denies cough and Denies dyspnea GI Denies abdominal pain, Denies change in stool character, Denies nausea and Denies vomiting Musc Denies deformity and Denies joint swelling Neuro Denies syncope and Denies headache(s) Physical exam (Primary Care) Vital Signs: Last Vital Signs Temp 97.1 F 03/04/24 14:44 Pulse 57 03/04/24 14:44 BP 150/84 H 03/04/24 14:44 Pulse Ox 98 03/04/24 14:44 Oxygen Delivery Method Room Air 03/04/24 14:44 BMI result Body Mass Index 23.6 Tobacco/Smoking Status: Tobacco use Status Tobacco use date assessed 03/04/24 03/04/24 14:53 Patient Tobacco Use Status Never used Tobacco 03/04/24 14:44 Tobacco use type Cigarette 03/04/24 14:44 e-Cigarette/Vaping Use Never Used 03/04/24 14:44 PHQ-9: PHQ-9 Score PHQ-9: Total score 0 03/04/24 14:58 Depression Screening Interpretation: Negative Thrive Assessment: Date of Thrive Assessment Date Thrive assessed 03/04/24 03/04/24 14:48 Currently or been in a relationship where the following occur: No concerns reported Const General: cooperative, comfortable, no acute distress and alert Neck Neck: Yes no lymphadenopathy Thyroid: Thyroid normal Resp Effort & Inspection: normal respiratory effort Auscultation: clear to auscultation bilaterally Percussion: percussion normal Cardio Jugular venous distension: no JVD Palpation: normal PMI Rate: regular rate Rhythm: regular rhythm Heart sounds: S1 normal heart sound present and S2 normal heart sound present GI Inspection: Yes normal to inspection Palpation (GI): No hepatosplenomegaly present Skin General skin exam: no rashes or lesions noted Extrem General: Yes no clubbing, cyanosis or edema Office Procedures Flu Questionnaire Does the patient have a severe egg allergy?: No Does the patient have severe life threatening allergies?: No Does the patient have a fever or illness today?: No Has the patient ever had Guillain-[place] Syndrome?: No Has the patient ever had any past reaction to a flu shot?: No Immunizations Fluarix Triv 6532-0712 (PF) 45 mcg (15 mcg x 3)/0.5 mL IM syringe Performing Provider: August Velasquez MD [facility] Administered by: MARCOS Lozada on 03/04/24 14:57 Dose Route Admin Location Dispensed Lot Number Expiration Date NDC Quality Assurance Practice Manager 0.5 mL IM Left Deltoid 0.5 mL [id number] 08/05/24 08435-819-23 Qvolve VIS Given Date VIS Provided VIS Publication Date 03/04/24 Single Vaccine 20 Eligibility Eligibility Date Funding Source Not [facility] Eligible 03/04/24 Private Coding Level of Care Code Est Pt Level 3 (81546) Diagnoses PAF (paroxysmal atrial fibrillation) I48.0 Additional Codes LYNDSAY-7 Assessment Billing - LYNDSAY-7 Assessment Tool: LYNDSAY-7 Assessment 99137 ([id number]) PHQ-9 - 37694 - PHQ-9 Billing: Yes ([id number]) Assessment & Plan Assessment & Plan (1) PAF (paroxysmal atrial fibrillation): Code(s): I48.0 - Paroxysmal atrial fibrillation Category: Medical Plan: stable; same rx Orders: Orders Influenza [id number] Immunization 03/04/24 Z23 - Encounter for immunization
== END 2024-03-04 14:59 | disposition home or self-care (01) ==
PROVIDERS: PCP Internal Medicine; Visit Provider Internal Medicine
DX: I48.0 Paroxysmal atrial fibrillation (principal)

== ENCOUNTER → 2024-03-04 14:37 | Outpatient (BNVA) | payer MEDICARE, SELFPAY | PROVIDERS: PCP Internal Medicine; Visit Provider Internal Medicine | DX: Z23 Encounter for immunization (principal); I48.0 Paroxysmal atrial fibrillation | CPT/HCPCS: 90471; 90656; 96127; 99212 ==

== ENCOUNTER 2024-03-11 13:18 | Outpatient (AMB) | payer MEDICARE, SELFPAY ==
--- NOTE | 2024-03-11 13:27 | MHC.OFFVISCO ---
Intake Intake Visit Reasons: Anticoagulation Allergies No Known Allergies Allergy (Mild, Verified 03/11/24 13:20) NOT APPLICABLE Medication List - Last Reconciled 03/11/24 by Mery Alston RN amlodipine 5 mg PO DAILY atorvastatin 80 mg PO QPM ezetimibe (Zetia) 10 mg PO DAILY hydralazine 50 mg PO TID lisinopril 40 mg PO DAILY metoprolol succinate ER 50 mg PO DAILY warfarin See Protocol 2.5 mg orally 3.75MG X 3 DAYS/ 2.5MG X 4 DAYS; Nursing Note INR: 2.3 in therapeutic range of 1.5-2.5 Medications and supplements reviewed No changes in health, diet, medications, or supplements, Denies any signs and symptoms of bleeding or bruising or clotting. Bleeding, bruising, clotting discussed Nutritional guidance given Dose: 2.5mg X 4 days and 3.75mg X 3 days (Mon, Wed & Fri) F/U INR: 2 weeks Patient verbalizes understanding of instructions with read back given Anti-Coag Initial Assessment Social Hx Patient Tobacco Use Status: Never used Tobacco Tobacco use type: Cigarette alcohol intake: never Alcohol intake frequency: does not drink Questionnaires HAS-BLED Does the patient had uncontrolled Hypertension?: No Does the patient have renal disease?: No Does the patient have liver disease?: No Has the patient had major bleeding or predisposition to bleeding?: No Does the patient have labile INRs?: No Is the patient over 65 years of age?: Yes Is the patient on medications that gives them a predisposition to bleeding?: Yes Does the patient use alcohol?: No HAS-BLED Score: 2 CHADSVASC Age: 75 or over Gender: Female Does the patient have a history of CHF?: No Does the patient have a history of Hypertension?: Yes Does the patient have a history of Stroke/TIA/Thromboembolism?: Yes Does the patient have a history of Vascular Disease (prior VT, PAD or aortic plaque)?: No Does the patient have a history of Diabetes?: No CHADS VACS Score: 6 Duc Prediction Score Rsk VTE Active Cancer: No Previous VTE, excluding superficial vein thrombosis: No Reduced mobility: Yes Already known Thrombophilic Condition: No With-in last month Trauma and/or Surgery: No Elderly 70 year or older: Yes Acute Myocardial infarction and/or Ischemic Stroke: No Acute Infection and/or Rheumatologic Disorder: No Obesity (BMI 30 or greater): No Ongoing Hormonal Treatment: No Score: 4 Duc Score less than 4; Low Risk of VTE Duc Score 4 or greater; High Risk of VTE Coding Level of Care Code Est Patient Level 2 Diagnoses Current use of anticoagulant therapy Z79.01 Comment risk scores done Results AMB INR Fingerstick AMB INR Fingerstick 2.3 Last Edit by Mery Alston RN on 03/11/24 13:30 interface delay Assessment & Plan Assessment & Plan (1) Current use of anticoagulant therapy: Code(s): Z79.01 - [facility] (current) use of anticoagulants Category: Medical
[2024-03-11 13:33] LABS: Prothrombin Time Whole Bld POC 27.3 sec (11.1-13.5); ~PT, ~INR - Anti Coag Clinic 2.3 (0.9-1.1)
== END 2024-03-11 13:38 | disposition home or self-care (01) ==
LOC: HO.ACS 13:18
PROVIDERS: PCP Internal Medicine; Visit Provider Internal Medicine
DX: Z79.01 Long term (current) use of 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s (principal)

== ENCOUNTER → 2024-03-11 13:18 | Outpatient (BNVA) | payer MEDICARE, SELFPAY | PROVIDERS: PCP Internal Medicine; Visit Provider Internal Medicine | DX: I48.0 Paroxysmal atrial fibrillation (principal); Z79.01 Long term (current) use of 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s; Z51.81 Encounter for therapeutic drug level monitoring | CPT/HCPCS: 85610; 99212 ==

== ENCOUNTER 2024-03-26 12:59 | Outpatient (AMB) | payer MEDICARE, SELFPAY ==
--- NOTE | 2024-03-26 13:10 | MHC.OFFVISCO ---
Intake Intake Visit Reasons: Anticoagulation Allergies No Known Allergies Allergy (Mild, Verified 03/26/24 13:02) NOT APPLICABLE Medication List - Last Reconciled 03/26/24 by Mery Alston RN amlodipine 5 mg PO DAILY atorvastatin 80 mg PO QPM ezetimibe (Zetia) 10 mg PO DAILY hydralazine 50 mg PO TID lisinopril 40 mg PO DAILY metoprolol succinate ER 50 mg PO DAILY warfarin See Protocol 2.5 mg orally 3.75MG X 3 DAYS/ 2.5MG X 4 DAYS; Nursing Note INR: 2.0 in therapeutic range of 1.5-2.5 Medications and supplements reviewed No changes in health, diet, medications, or supplements, Denies any signs and symptoms of bleeding or bruising or clotting. Bleeding, bruising, clotting discussed Nutritional guidance given Dose: 2.5mg X 4 days and 3.75mg X 3 days (Mon, Wed & Fri) F/U INR: 3 weeks Patient verbalizes understanding of instructions given Anti-Coag Initial Assessment Social Hx Patient Tobacco Use Status: Never used Tobacco Tobacco use type: Cigarette alcohol intake: never Alcohol intake frequency: does not drink Coding Level of Care Code Est Patient Level 1 Diagnoses Current use of anticoagulant therapy Z79.01 Results AMB INR Fingerstick AMB INR Fingerstick 2.0 Last Edit by Mery Alston RN on 03/26/24 13:08 interface delay Assessment & Plan Assessment & Plan (1) Current use of anticoagulant therapy: Code(s): 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
== END 2024-03-26 13:12 | disposition home or self-care (01) ==
LOC: HO.ACS 12:59
PROVIDERS: PCP Internal Medicine; Visit Provider Internal Medicine
DX: Z79.01 Long term (current) use of 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s (principal)

== ENCOUNTER → 2024-03-26 12:59 | Outpatient (BNVA) | payer MEDICARE, SELFPAY | PROVIDERS: PCP Internal Medicine; Visit Provider Internal Medicine | DX: I48.0 Paroxysmal atrial fibrillation (principal); Z79.01 Long term (current) use of 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s; Z51.81 Encounter for therapeutic drug level monitoring | CPT/HCPCS: 85610; 99211 ==

== ENCOUNTER 2024-03-29 10:14 | Inpatient (IN) | payer MEDICARE, SELFPAY ==
[2024-03-29] VITALS (11 sets, daily range): BP systolic 141–182; BP diastolic 53–95; PULSE 50–81; RESP 15–19; TEMP 36.6–37.2; O2SAT 93–96; BMI 23.9
--- NOTE | ~2024-03-29 | FL_ITS ---
FLUOROSCOPIC GUIDED LEFT HIP ASPIRATION INDICATIONS: Left hip pain. CT shows left hip effusion. PROCEDURE: Risks and benefits and possible complications were discussed with the patient and the consent form was signed. The patient was placed hip on the fluoroscopy table. The left hip was prepped and draped in normal sterile fashion. 1% buffered lidocaine was used for anesthesia. A 22-gauge spinal needle was used to access the hip joint. 5 cc of turbid yellow fluid was aspirated and sent for analysis. Intra-articular position of the needle within the hip joint was verified using 3 cc of Omnipaque 300. The needle was then removed and a Band-Aid was applied to the injection site. There were no immediate complications. FL/FL Guided Asp Inj Major Jt LT IMPRESSION: Successful fluoroscopic left hip aspiration yielding 5 cc of turbid yellow fluid. Fluid was sent for analysis. The procedure was performed by Edgar Squires PA-C, and directly supervised by Dr. Ahn. Electronically signed by: Casey Ahn MD 04/01/2024 05:05 PM RASHAWN DELGADILLO
--- NOTE | ~2024-03-29 | CT_ITS ---
EXAMINATION: CT ABDOMEN AND PELVIS WITH CONTRAST CLINICAL INFORMATION: Left lower quadrant pain, left hip pain, no injury. COMPARISON: 12/01/2022. TECHNIQUE: Multidetector volumetric images were obtained from the superior aspect of the liver through the pubic symphysis following administration 85 mL of Omnipaque 350 intravenous contrast. Sagittal and coronal reformatted images were obtained on the technologist's workstation. Oral contrast: No This CT examination was performed using dose optimization techniques as appropriate, variously including the following: *Automated exposure control *Adjustment of mA and/or kV according to patient size (this includes techniques or standardized protocols for targeted exams where dose is matched to indication/reason for exam; i.e. extremities or head) *Use of iterative reconstruction technique FINDINGS: LUNG BASES: Diffuse peribronchial thickening in the lung bases with mild scarring in the right middle lobe and dependent type atelectasis. Mild cardiomegaly. Small pericardial effusion. Thickening of the distal esophagus is incidentally noted. LIVER, GALLBLADDER, AND BILIARY TREE: Liver is again normal in size with minimally lobulated contour. No suspicious focal lesion. There is mild intra and extrahepatic biliary dilatation, unchanged from the prior examination. Gallbladder is minimally distended with a solitary calcified layering gallstones. There is no CT evidence of colloid or inflammation. Stable appearance. PANCREAS: Unremarkable. SPLEEN: Unremarkable. ADRENAL GLANDS: Mild hyperplasia bilaterally. No masses. KIDNEYS AND URETERS: Kidneys are normal in size and contour. There is diffuse mild cortical thinning and scarring involving both kidneys. These findings are unchanged. Extrarenal pelves bilaterally. No calculi or mass. BLADDER: Unremarkable. GASTROINTESTINAL TRACT: Stomach is decompressed, with equivocal finding of mild wall thickening. Normal duodenal sweep. Small bowel is normal in caliber and course without dilatation or inflammation. No evidence of appendicitis. There is diverticular disease of the colon, without definite wall thickening or inflammation identified. There is a sigmoid colonic anastomotic suture line, without complication evident. No rectal abnormality. ABDOMINAL WALL: Chronic postop changes present. No hernia evident. LYMPH NODES: None enlarged by size criteria. VASCULAR: Severe atheromatous calcification of the aorta and iliac vessels. There is extensive aortic ectasia without discrete definitive aneurysm. Maximal aortic diameter is 2.4 cm. Ectasia of the iliac arteries. PELVIC VISCERA: The uterus demonstrates numerous degenerated calcified fibroid tumors. No adnexal masses. Free pelvic fluid.. OSSEOUS STRUCTURES: There is osteopenia. There are spinal degenerative changes, bilateral hip joint degenerative changes, with no suspicious lytic or blastic bone lesions seen. There is a left hip joint effusion present. Is of uncertain etiology. CT/CT abdomen pelvis w IV con IMPRESSION: 1. Diffuse peribronchial thickening and scarring in the lower lungs bilaterally. There is mild cardiomegaly with a small pericardial effusion. 2. Mild wall thickening of the distal esophagus, suggesting esophagitis. 3. Stomach is underdistended although there is a suggestion of mild wall thickening, possibly gastritis. 4. There are degenerated calcified leiomyomas within the uterus. 5. There is bilateral renal cortical thinning and scarring, left greater than right. No acute renal, ureteral, or bladder abnormality. 6. Diffuse colonic diverticulosis without evidence of acute diverticulitis. There is evidence of prior sigmoid anastomosis, without accompanying abnormality. 7. Mild degenerative arthritis in both hip joints, with a definitive left hip joint effusion present. Consider left hip aspiration if felt clinically warranted. Electronically signed by: Casey Ahn MD 03/29/2024 02:18 PM [facility]
--- NOTE | ~2024-03-29 | XR_ITS ---
EXAMINATION: XR HIP, LEFT CLINICAL INFORMATION: nontraumatic left hip pain COMPARISON: None available. TECHNIQUE: Two views of the left hip. FINDINGS: No fracture. Alignment is anatomic. Hip joint space is maintained. Chondrocalcinosis of the hip joint. Soft tissues demonstrate an anastomotic sutures in the central pelvis with adjacent popcorn type calcification consistent with degenerated uterine leiomyoma. Vascular calcifications. XR/XR hip LT w PEL1V IMPRESSION: 1. No fracture or dislocation. No suspicious bone lesion. 2. 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 Electronically signed by: Casey Ahn MD 03/29/2024 12:03 PM [facility] [place]
--- NOTE | 2024-03-29 10:24 | ED_ITS ---
HPI - General Adult General Chief complaint: General Medical Stated complaint: L hip[/ LQP Time Seen by Provider: 03/29/24 10:24 History of Present Illness ED Provider: Carla PATEL narrative: The patient is a 78-year-old woman who lives at home with her and sons in her own house. She says that this morning her left hip and had too much pain to get out of bed. She denies any injury. She did not fall. She has not had a fever. She has had some malodorous urination. She could not get out of bed this morning. Her son called an ambulance and she was brought to the hospital. No chest pain or shortness of breath. No nausea or vomiting. No cough or sputum. Related Data Previous Rx's ?Medication ?Instructions ?Recorded ezetimibe 10 mg tablet (Zetia) 10 mg PO DAILY #90 tabs 12/12/22 hydralazine 50 mg tablet 50 mg PO TID #270 caps 08/14/23 lisinopril 40 mg tablet 40 mg PO DAILY #90 tabs 11/15/23 amlodipine 5 mg tablet 5 mg PO DAILY #90 tabs 12/20/23 atorvastatin 80 mg tablet 80 mg PO QPM #90 tabs 12/20/23 warfarin 2.5 mg tablet 2.5 mg PO .COMPLEX #90 tabs 01/06/24 metoprolol succinate 50 mg 50 mg PO DAILY #90 tabs 01/08/24 tablet,extended release 24 hr Allergies Allergy/AdvReac Type Severity Reaction Status Date / Time No Known Allergies Allergy Mild NOT Verified 03/29/24 10:30 APPLICABLE Review of Systems 2 Review of Systems: Yes all other systems are reviewed and are negative [facility] Past Medical History Medical History Hyperlipidemia Gout 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 current use of antiarrhythmic drug Essential hypertension Embolic stroke Sinus bradycardia PAF (paroxysmal atrial fibrillation) Surgical History History of cardiac radiofrequency ablation (~07/07/20) History of colostomy History of section Family History Family History Father CVD (cardiovascular disease) Mother Alzheimer disease Social History Social History Housing: House Alcohol intake: never Patient Tobacco Use Status: Never used Tobacco Tobacco use type: Cigarette Cigarettes Per Day: 4 Smoked in Last 30 Days: Yes e-Cigarette/Vaping Use: Never Used Second Hand Smoke Exposure: No Use of substances other than those prescribed or required for medical reasons: No Advance Directives: Yes Advance Directives Information Provided: Yes Advance Directives on File: No service: No Current occupational status: retired Current occupation: right hand dominant Cognitive needs: Yes (cane) Hearing needs: No Vision needs: Yes (glasses) Physical Exam ED Vital Signs: Vital Signs - 24 hr 03/29/24 10:28 03/29/24 12:05 03/29/24 14:10 Temperature 99 F 97.9 F Pulse Rate 78 70 Respiratory Rate 18 18 16 Blood Pressure 167/95 H 151/56 H Pulse Oximetry 96 96 Oxygen Delivery Method Room Air Room Air 03/29/24 15:25 03/29/24 16:00 03/29/24 16:42 Temperature 98.0 F 98.0 F Pulse Rate 81 64 Respiratory Rate 18 16 15 Blood Pressure 158/83 H 157/68 H Pulse Oximetry 93 95 Oxygen Delivery Method Room Air Room Air BMI result Body Mass Index 23.9 Const Other: The patient is a 78-year-old woman who was awake and alert. She has a normal mental status. She looks somewhat chronically ill. She seems in moderate discomfort. HENMT Other: Face is symmetrical. Mucous membranes moist. Eyes General: appearance normal, both eyes and all related structures Neck Neck: Yes full ROM and Yes no JVD Resp Effort & Inspection: normal respiratory effort Auscultation: clear to auscultation bilaterally Cardio Rate: regular rate Rhythm: regular rhythm Heart sounds: S1 normal heart sound present and S2 normal heart sound present GI Other: The abdomen is soft and nontender. Back/Spine/Pelvis Other: No particular tenderness with palpation of the back or the flanks. Skin Other: The skin is pale and dry. Neuro Other: The patient is awake and alert with a normal mental status. She is appropriately oriented. Cranial nerves are grossly intact. She moves her arms normally in her right leg normally. She seems to have pain in the left hip so that she is not fully moving the left leg. She has normal sensation throughout. She seems to have normal motor function of the distal left leg. Extrem Other: There is no peripheral edema. Both feet have excellent pulses. The patient has a lot of pain in the region of the left hip. She seems to prefer holding it flexed. She is diffusely tender around the left hip. Medications Administered Discontinued Medications Generic Name Dose Route Start Last Admin Trade Name Ana PRN Reason Stop Dose Admin Acetaminophen 1,000 mg in 100 mls @ 400 mls/hr 03/29/24 11:13 03/29/24 11:43 Ofirmev IV 03/29/24 11:27 Infused ONCE ONE Infusion Iohexol 100 ml 03/29/24 13:56 03/29/24 13:56 Iohexol 350 Mg/Ml 100 Ml Infus..Btl IV 03/29/24 13:57 85 ml ONCE ONE Administration Iohexol 3 ml 03/29/24 16:10 03/29/24 16:11 Iohexol 300 Mg/Ml 50 Ml Infus..Btl INTRAARTIC 03/29/24 16:11 3 ml ONCE ONE Administration Morphine Sulfate 2 mg 03/29/24 13:58 03/29/24 14:10 Morphine Sulfate 2 Mg/Ml Cartridge IVPUSH 03/29/24 13:59 2 mg ONCE ONE Administration Protocol Morphine Sulfate 2 mg 03/29/24 15:37 03/29/24 16:00 Morphine Sulfate 2 Mg/Ml Cartridge IVPUSH 03/29/24 15:38 2 mg ONCE ONE Administration Protocol Medical Decision Making Medical Decision Making [facility] Narrative: The patient is a 78-year-old woman who presents with acute nontraumatic left hip pain. She was apparently able to walk yesterday. She is not able to walk today. She is not febrile. Her rectal temperature was 99.3 degrees. She prefers to hold the left hip flexed. The etiology of her pain was not immediately obvious. An x-ray shows no significant arthritis or other problem. Labs were largely unremarkable. She is on warfarin because of atrial fibrillation. I ordered a CT of the abdomen and pelvis to possibly look for some kind of spontaneous hematoma or possibly some other process that could account for her pain. The CT showed the presence of a joint effusion. I consulted Orthopedics and we agreed that aspiration by Interventional Radiology would be appropriate. Fortunately the Interventional Radiology team was available and able to aspirate the joint. Given her unremarkable inflammatory markers in the absence of a fever it seemed unlikely that this would be septic joint. The cell count on her hip aspiration has come back showing 63,000 white cells with 94% neutrophils. I discussed these results with Orthopedics. The recommendation at this point is for admission to the medical service for symptom control and further observation. No antibiotics at this time. The study of crystals from the joint fluid will not be available tonight. This will be available tomorrow. Orthopedics has requested that the patient be NPO after midnight tonight. They have also requested a type and screen be sent. The patient will be admitted to the medical service. Lab Data 03/29/24 10:53 03/29/24 10:53 Labs: Lab Results 03/29/24 03/29/24 03/29/24 Range/Units 10:53 11:29 15:20 WBC 8.6 (4.8-10.8) X10*3/uL RBC 4.13 L (4.20-5.50) X10*6/uL Hgb 11.8 L (12.0-16.0) g/dl Hct 34.3 L (37.0-47.0) % MCV 83.1 (80.0-98.0) fL MCH 28.6 (27.0-33.0) pg MCHC 34.4 (31.0-35.0) g/dl RDW 14.2 (11.0-16.0) % Plt Count 206 (160-400) X10*3/uL MPV 10.0 (9.4-12.3) fL Immature Gran % (Auto) 0.3 (0.0-0.4) % Neut % (Auto) 83.7 H (45-73) % Lymph % (Auto) 9.6 L (20-40) % [place] % (Auto) 5.9 (2-11) % Eos % (Auto) 0.2 (0-4) % Baso % (Auto) 0.3 (0-2) % Lymph # (Auto) 0.8 L (1.2-4.9) X10*3/uL [place] # (Auto) 0.5 (0.1-1.2) X10*3/uL Eos # (Auto) 0.0 (0.0-0.4) X10*3/uL Baso # (Auto) 0.0 (0.0-0.2) X10*3/uL Abs Immat Gran (auto) 0.03 (0.00-0.03) X10*3/uL Absolute Neuts (auto) 7.2 (2.0-8.3) x10*3/uL Absolute Nucleated RBC 0.000 (0.0-0.012) X10*3/uL Nucleated RBC % (auto) 0.0 (0.0-0.2) /100WBC ESR 24 H (0-20) MM/HR PT 15.0 H (10.9-12.4) SEC INR 1.3 H (0.9-1.1) Sodium 137 (135-145) mmol/L Potassium 3.7 (3.3-5.1) mmol/L Chloride 110 H (96-108) mmol/L Carbon Dioxide 19 L (22-29) mmol/L Anion Gap 12 (12-20) BUN 15 (9-16) mg/dL Creatinine 0.73 (0.5-1.4) mg/dL Estim Creat Clear Calc 50.2 Estimated GFR > 60 Random Glucose 95 (60-115) mg/dL Uric Acid 4.8 (2.4-5.7) mg/dL Calcium 9.3 D (8.4-10.2) mg/dL Magnesium 1.9 (1.6-2.6) mg/dL Total Bilirubin 0.7 (0.0-1.0) mg/dL Direct Bilirubin 0.3 (0.0-0.5) mg/dL AST 16 (5-31) U/L ALT < 6 (0-31) U/L Alkaline Phosphatase 91 (39-117) U/L Total Creatine Kinase 24 L (26-140) U/L C-Reactive Protein 1.10 H (< or = 0.50) mg/dL Total Protein 6.5 (6.5-8.0) g/dL Albumin 3.5 (3.5-5.0) g/dL Urine Color Yellow Urine Appearance Clear Urine pH 5.5 (5.0-9.0) Ur Specific [place] 1.020 (1.005-1.025) Urine Protein 100 (2+) H (Neg-Trace) mg/dL Urine Glucose (UA) Negative (Negative) mg/dL Urine Ketones Negative (Negative) mg/dL Urine Blood Negative (Negative) Urine Nitrite Negative (Negative) Ur Leukocyte Esterase Negative (Negative) Urine RBC 0-2 (0-2) /HPF Urine WBC 0-5 (0-5) /HPF Ur Squamous Epith Cells 0-2 (0-2) /HPF Urine Bacteria None Seen (None Seen) Hyaline Casts 0-2 (0-2) /LPF Synovial Source left hip Synovial WBC 63.580 X10*3/uL Synovial RBC < 0.002 X10*6/uL Synovial Neutrophils 94 % Synovial Lymphocytes 3 % Synovial Monocytes 3 % Urine Opiates Screen Not Detected (Not Detect) Ur Buprenorphine Scrn Not Detected (Not Detect) ng/mL Ur Oxycodone Screen Not Detected (Not Detect) ng/mL Urine Methadone Screen Not Detected (Not Detect) ng/mL Urine Fentanyl Screen Not Detected (Not Detect) Ur Barbiturates Screen Not Detected (Not Detect) Ur Phencyclidine Scrn Not Detected (Not Detect) Ur Amphetamines Screen Not Detected (Not Detect) U Benzodiazepines Scrn Not Detected (Not Detect) Urine Cocaine Screen Not Detected (Not Detect) U Marijuana (THC) Screen Not Detected (Not Detect) Influenza Type A (PCR) NEGATIVE (Negative) Influenza Type B (PCR) NEGATIVE (Negative) RSV RNA Qual (PCR) NEGATIVE (Negative) SARS-CoV-2 RNA (RT-PCR) NEGATIVE (Negative) Discharge Plan Discharge Clinical Impression: Acute pain of left hip, Effusion of left hip Patient Disposition: Admitted As Inpatient Print Language: Tanzanian
--- NOTE | 2024-03-29 10:31 | ECG_ITS ---
Test Reason : WEAKNESS Blood Pressure : */* mmHG Vent. Rate : 72 BPM Atrial Rate : 72 BPM P-R Int : 148 ms QRS Dur : 84 ms QT Int : 446 ms P-R-T Axes : 83 -22 82 degrees QTcB Int : 488 ms Sinus rhythm with Premature supraventricular complexes Septal infarct , age undetermined Abnormal ECG When compared with ECG of 19-Dec-2023 13:36, No significant changes seen Referred By: Ricco Aguirre Electronically Signed By: ESTHER BRIONES
--- NOTE | 2024-03-29 10:56 | MHC.EDTECH ---
EKG was taken and read by the ED provider, Patient got exchange underwriting consultant and blood work completed. She is resting quietly on her bed now within call de la torre on her reach
[2024-03-29 10:57] LABS: MANUAL DIFF FLAG NO
[2024-03-29 10:59] LABS: Basophils Percent Auto 0.3 % (0-2); Eosinophils Percent Auto 0.2 % (0-4); Hematocrit 34.3 % (37.0-47.0); Hemoglobin 11.8 g/dl (12.0-16.0); Imm Gran Abs Auto 0.03 X10*3/uL (0.00-0.03); Imm Gran Pct Auto 0.3 % (0.0-0.4); Lymphocytes Absolute Auto 0.8 X10*3/uL (1.2-4.9); Lymphocytes Percent Auto 9.6 % (20-40); Mean Corpuscular HGB Conc 34.4 g/dl (31.0-35.0); Mean Corpuscular Hemoglobin 28.6 pg (27.0-33.0); Mean Corpuscular Volume 83.1 fL (80.0-98.0); Monocytes Absolute Auto 0.5 X10*3/uL (0.1-1.2); Monocytes Percent Auto 5.9 % (2-11); Neutrophils Absolute Auto 7.2 x10*3/uL (2.0-8.3); Neutrophils Percent Auto 83.7 % (45-73); Platelet Count 206 X10*3/uL (160-400); Red Blood Count 4.13 X10*6/uL (4.20-5.50); Red Cell Distribution Width 14.2 % (11.0-16.0); White Blood Count 8.6 X10*3/uL (4.8-10.8)
[2024-03-29 11:04] LABS: INTERNATIONAL NORM RATIO 1.3 (0.9-1.1)
[2024-03-29 11:24] LABS: Alanine Aminotransferase < 6 U/L (0-31); Albumin Level 3.5 g/dL (3.5-5.0); Alkaline Phosphatase 91 U/L (39-117); Anion Gap 12 (12-20); Aspartate Amino Transferase 16 U/L (5-31); Bilirubin Direct 0.3 mg/dL (0.0-0.5); Bilirubin Total 0.7 mg/dL (0.0-1.0); Blood Urea Nitrogen 15 mg/dL (9-16); Calcium 9.3 mg/dL (8.4-10.2); Carbon Dioxide 19 mmol/L (22-29); Chloride 110 mmol/L (96-108); Creatinine Clr Calc Pharmacy 50.2; Estimated Glomerular Filt Rate > 60; Glucose Random 95 mg/dL (60-115); Magnesium 1.9 mg/dL (1.6-2.6); Potassium 3.7 mmol/L (3.3-5.1); Sodium 137 mmol/L (135-145); Total Protein 6.5 g/dL (6.5-8.0)
[2024-03-29] MEDS: Acetaminophen 1,000 MG/100 ML PIGGYBACK 400 MG IV (11:27)
[2024-03-29 11:34] LABS: Influenza A PCR NEGATIVE (Negative); Influenza B PCR NEGATIVE (Negative); Resp Syncy Virus RNA Qual PCR NEGATIVE (Negative); SARS COV2 PCR INHOUSE NEGATIVE (Negative)
[2024-03-29 11:43] LABS: Appearance Urine Clear; Color Urine Yellow; Glucose Urine UA Negative (Negative); Leukocyte Esterase Urine Negative (Negative); Nitrite Urine Negative (Negative); PH 5.5 (5.0-9.0); UMIC TRIGGER UACC YES; Urine Blood Negative (Negative); Urine Ketones Negative (Negative); Urine Protein 100 (2+) mg/dL (Neg-Trace)
--- NOTE | 2024-03-29 11:44 | PC.NURSE ---
Purewick placed for urine incontinence
[2024-03-29 11:46] LABS: Bacteria Urine None Seen (None Seen); Hyaline Casts Urine 0-2 /LPF (0-2); RBC Urine 0-2 /HPF (0-2); Squamous Epithelial Cell Urine 0-2 /HPF (0-2); WBC Urine 0-5 /HPF (0-5)
[2024-03-29 11:48] LABS: Amphetamine Screen Urine Not Detected (Not Detect); Barbiturates, Urine Not Detected (Not Detect); Benzodiazepines Screen Urine Not Detected (Not Detect); Buprenorphine Scr Not Detected (Not Detect); Cannabinoid Screen Urine Not Detected (Not Detect); Cocaine Screen Urine Not Detected (Not Detect); Fentanyl, urine Not Detected (Not Detect); Methadone Screen, Urine Not Detected (Not Detect); Opiate Screen Urine Not Detected (Not Detect); Oxycodone Screen Urine Not Detected (Not Detect); Phencyclidine Screen Urine Not Detected (Not Detect)
[2024-03-29] MEDS: iohexoL 350 MG/ML 100 ML INFUS..BTL IV (13:56)
[2024-03-29] MEDS: Morphine Sulfate 2 MG/ML CARTRIDGE IVPUSH ×3 (14:10→19:44)
--- NOTE | 2024-03-29 15:01 | MHC.EDTECH ---
pt left the emergency department and heading to IR for further testing
[2024-03-29 15:12] LABS: Uric Acid 4.8 mg/dL (2.4-5.7)
--- NOTE | 2024-03-29 15:25 | MHC.EDTECH ---
pt back in room from IR
--- NOTE | 2024-03-29 15:25 | PM.PROC ---
Brief Operative Note Date of procedure: 03/29/24 Pre-op diagnosis: Left hip pain, effusion on CT Post-op diagnosis: same Procedure: FL left hip aspiration 6 cc turbid yellow fluid aspirated and sent for analysis. Anesthesia: local
[2024-03-29 15:31] LABS: Erythrocyte Sedimentation Rate 24 MM/HR (0-20)
[2024-03-29] MEDS: iohexoL 300 MG/ML 50 ML INFUS..BTL INTRAARTIC (16:11)
[2024-03-29 16:32] LABS: MN% 2.5 %; PMN% 97.5 %
[2024-03-29 17:43] LABS: RBC Synovial Fluid < 0.002 X10*6/uL
[2024-03-29 18:26] LABS: BF Shift QC OK YES; Lymphocytes Synovial Fluid 3 %; Man Diluent Bkgrd OK YES; Monocytes Synovial Fluid 3 %; Neutrophils Synovial Fluid 94 %
--- NOTE | 2024-03-29 19:41 | PHA.MEDREC ---
Addendum entered by Desire Roach RPh 03/29/24 20:03: Med rec was reviewed by Siva. Original Note: Pharmacy Consult ? Medication Reconciliation Pharmacy has completed the medication reconciliation. Spoke with patient to confirm. She is not using any eye drops at home. She confirmed warfarin 2.5 mg tabs: 1.5 tablets Monday, Monday, Monday, and 1 tablet on the rest of the days. She last took her medications yesterday including 2.5 mg of warfarin.
--- NOTE | 2024-03-29 19:50 | P.HPHOSP_ITS ---
History of Present Illness Date of Service: 03/29/24 Chief Complaint: Left hip pain The patient is a 78-year-old female with a past medical history significant for paroxysmal atrial fibrillation status post ablation on warfarin, a history of embolic stroke in 2018 due to subtherapeutic INR, hyperlipidemia, and a history of C. difficile infection in 2022. She presents with left hip pain extending to the lower abdomen since this morning. She had minimal symptoms yesterday, but her reports that she has been favoring her right side for the past three days. Since this morning, however, she has experienced excruciating pain, difficulty walking, and trouble straightening her left leg. She denies fever, chills, falls, or recent trauma. A hip X-ray showed no fracture or dislocation. A CT of the abdomen and pelvis confirmed a left hip joint effusion. Synovial fluid analysis revealed: * WBC: 63,580 * Neutrophils: 94% * RBC: <0.02 * Lymphocytes: 3% * Monocytes: 3% Gram stain and crystal analysis are pending. 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 current use of antiarrhythmic drug Essential hypertension Embolic stroke Sinus bradycardia PAF (paroxysmal atrial fibrillation) Family History Father CVD (cardiovascular disease) Mother Alzheimer disease Surgical History History of cardiac radiofrequency ablation (~07/07/20) History of colostomy History of section Social History Housing: House Alcohol intake: never Patient Tobacco Use Status: Never used Tobacco Tobacco use type: Cigarette Cigarettes Per Day: 4 Smoked in Last 30 Days: Yes e-Cigarette/Vaping Use: Never Used Second Hand Smoke Exposure: No Use of substances other than those prescribed or required for medical reasons: No Advance Directives: Yes Advance Directives Information Provided: Yes Advance Directives on File: No service: No Current occupational status: retired Current occupation: right hand dominant Cognitive needs: Yes (cane) Hearing needs: No Vision needs: Yes (glasses) Meds Allergies Allergy/AdvReac Type Severity Reaction Status Date / Time vancomycin AdvReac Rash Verified 03/30/24 04:10 Home Medications ?Medication ?Instructions ?Recorded ?Confirmed ?Last Taken ?Type diphenhydramine 25 1 tab PO BEDTIME PRN Sleep 03/29/24 03/29/24 Unknown History mg-acetaminophen 500 mg tablet (Acetaminophen PM) warfarin 2.5 mg tablet 2.5 mg PO SUTUTHSA@1700 03/29/24 03/29/24 03/28/24 History warfarin 2.5 mg tablet 3.75 mg PO MOWEFR@1700 03/29/24 03/29/24 Unknown History Physical Exam 2 Vital Signs and Narrative: Vital Signs: Last Vital Signs Temp 98.0 F 03/29/24 16:42 Pulse 64 03/29/24 16:42 Resp 19 03/29/24 19:44 BP 157/68 H 03/29/24 16:42 Pulse Ox 95 03/29/24 16:42 O2 Del Method Room Air 03/29/24 16:42 BMI result Body Mass Index 23.9 Const: Other: Constitutional: Alert, in no distress, Mental Status: Oriented to person, place and time. Eyes: Pupils are equal, round and reactive to light. Ear, Nose and Throat: Oropharynx clear, mucous membranes moist. Ears and nose without eformities. Trachea midline. Respiratory: Clear to auscultation. No wheezing, rales or rhonchi. Cardiovascular: S1 S2 regular. No murmurs, rubs or gallops. Gastrointestinal: Abdomen soft, non-tender, non-distended. Normal bowel sounds.? Neurologic: Cranial nerves II-XII grossly intact. No focal neurological deficits. Moves all extremities spontaneously.? Skin: No rashes or lesions.? Musculoskeletal: left hip area is without erythema or disclation, movment of the hip causes pain Psychiatric: Normal mood and affect? Results Labs 03/29/24 10:53 03/29/24 10:53 Labs: Laboratory Results - last 24 hr 03/29/24 03/29/24 03/29/24 10:53 11:29 15:20 MCV 83.1 MCH 28.6 MCHC 34.4 RDW 14.2 Plt Count 206 MPV 10.0 Immature Gran % (Auto) 0.3 Neut % (Auto) 83.7 H Lymph % (Auto) 9.6 L [place] % (Auto) 5.9 Eos % (Auto) 0.2 Baso % (Auto) 0.3 Lymph # (Auto) 0.8 L [place] # (Auto) 0.5 Eos # (Auto) 0.0 Baso # (Auto) 0.0 Abs Immat Gran (auto) 0.03 Absolute Neuts (auto) 7.2 Absolute Nucleated RBC 0.000 Nucleated RBC % (auto) 0.0 ESR 24 H PT 15.0 H INR 1.3 H Anion Gap 12 Estim Creat Clear Calc 50.2 Estimated GFR > 60 Random Glucose 95 Uric Acid 4.8 Calcium 9.3 D Magnesium 1.9 Total Bilirubin 0.7 Direct Bilirubin 0.3 AST 16 ALT < 6 Alkaline Phosphatase 91 Total Creatine Kinase 24 L C-Reactive Protein 1.10 H Total Protein 6.5 Albumin 3.5 Urine Color Yellow Urine Appearance Clear Urine pH 5.5 Ur Specific [place] 1.020 Urine Protein 100 (2+) H Urine Glucose (UA) Negative Urine Ketones Negative Urine Blood Negative Urine Nitrite Negative Ur Leukocyte Esterase Negative Urine RBC 0-2 Urine WBC 0-5 Ur Squamous Epith Cells 0-2 Urine Bacteria None Seen Hyaline Casts 0-2 Synovial Source left hip Synovial WBC 63.580 Synovial RBC < 0.002 Synovial Neutrophils 94 Synovial Lymphocytes 3 Synovial Monocytes 3 Urine Opiates Screen Not Detected Ur Buprenorphine Scrn Not Detected Ur Oxycodone Screen Not Detected Urine Methadone Screen Not Detected Urine Fentanyl Screen Not Detected Ur Barbiturates Screen Not Detected Ur Phencyclidine Scrn Not Detected Ur Amphetamines Screen Not Detected U Benzodiazepines Scrn Not Detected Urine Cocaine Screen Not Detected U Marijuana (THC) Screen Not Detected Influenza Type A (PCR) NEGATIVE Influenza Type B (PCR) NEGATIVE RSV RNA Qual (PCR) NEGATIVE SARS-CoV-2 RNA (RT-PCR) NEGATIVE Imaging Radiologist's Impressions: Impressions Hip/Pelvis X-Ray 03/29/24 11:55 IMPRESSION: 1. No fracture or dislocation. No suspicious bone lesion. 2. 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 Electronically signed by: Casey Ahn MD 03/29/2024 12:03 PM EST RP Abdomen/Pelvis CT 03/29/24 13:17 IMPRESSION: 1. Diffuse peribronchial thickening and scarring in the lower lungs bilaterally. There is mild cardiomegaly with a small pericardial effusion. 2. Mild wall thickening of the distal esophagus, suggesting esophagitis. 3. Stomach is underdistended although there is a suggestion of mild wall thickening, possibly gastritis. 4. There are degenerated calcified leiomyomas within the uterus. 5. There is bilateral renal cortical thinning and scarring, left greater than right. No acute renal, ureteral, or bladder abnormality. 6. Diffuse colonic diverticulosis without evidence of acute diverticulitis. There is evidence of prior sigmoid anastomosis, without accompanying abnormality. 7. Mild degenerative arthritis in both hip joints, with a definitive left hip joint effusion present. Consider left hip aspiration if felt clinically warranted. Electronically signed by: Casey Ahn MD 03/29/2024 02:18 PM EST RP Assessment and Plan (1) Effusion of left hip: Status: Acute (2) Acute pain of left hip: Status: Acute Plan 78-year-old female with a history of paroxysmal atrial fibrillation status post ablation, anticoagulated with warfarin, embolic stroke in 2018 due to subtherapeutic INR, hyperlipidemia, and a remote history of C. difficile infection, presenting with left hip pain associated with an effusion. Left hip pain with joint effusion, synovial WBC 63K, gram stain pending, concern for septic joint -empric 1 dise if vanco -check CRP -Ortho consult -follow up on gram stain and cyrstal analysis tomorrow -morphine for pain paroxysmal AF - metoprolol succinate for rate control - warfarin for AC, check INR daily. INR is subtherapeutic, given history of stroke with subtherapeutic INR, this patient should be considered for NOAC for reliable anticoagulation, for now holding anticoagulation for possible need for procedure tomorrow essential tremor - primidone HTN--BP high, has not taken meds today - lisinopril, hydralazine, metoprolol, and norvasc. HLD - statin VTE ppx - warfarin, device dispo -will need PT eval prior to dc Inpatient for left hip pain concern for septic arthritis and need for possible intervention and iv Abx Quality Stroke Does the patient have a stroke diagnosis?: No VTE Prior VTE?: No VTE Risk Level:: Medical - moderate - high VTE Device Contraindication: N/A - Device Ordered VTE Drug Contraindication: N/A - Med Ordered
[2024-03-29] MEDS: hydrALAZINE HCl 50 MG TABLET PO (20:49)
[2024-03-29] MEDS: amLODIPine Besylate 5 MG TABLET PO (20:50)
[2024-03-29] MEDS: Atorvastatin Calcium 80 MG TABLET PO (20:53)
[2024-03-29] MEDS: vancomycin HCL 1,500 MG in 0.9 % Sodium Chloride 500 ML 333.33 MG IV (21:27)
--- NOTE | 2024-03-29 22:37 | PC.NURSE ---
at 2237, this nurse called into ED19 by tech. observed patient with reddening of skin to chest, arms, and forehead. no hypotension, fever, dyspnea, or hypoxia. vancomycin immediately stopped. MD Camacho notified. IV benadryl given. upon reassessment per APR, skin rash resolved. Doug also aware. pt remains stable. call de la torre in reach, plan of care ongoing.
[2024-03-29] MEDS: diphenhydrAMINE HCL 50 MG/ML VIAL 12.5 MG IVPUSH (22:45)
--- NOTE | 2024-03-29 23:23 | MHC.EDTECH ---
This pct assumed care of Patient at 2315 ,vitals taken ,Patient resting with eyes closed ,Patient daughter at bedside .
[2024-03-30] VITALS (13 sets, daily range): BP systolic 122–157; BP diastolic 52–77; PULSE 50–87; RESP 14–21; TEMP 36.6–36.9; O2SAT 92–96
[2024-03-30] MEDS: Morphine Sulfate 2 MG/ML CARTRIDGE IVPUSH ×2 (04:05→13:34)
--- NOTE | 2024-03-30 04:39 | MHC.EDTECH ---
Patient was incontinent of urine ,complete bed change done ,Care given ,new Pure wick in Place, gown change ,warm blanket given .
[2024-03-30 06:25] LABS: INTERNATIONAL NORM RATIO 1.4 (0.9-1.1); Prothrombin Time 16.8 SEC (10.9-12.4)
--- NOTE | 2024-03-30 06:48 | PM.EVENT ---
Event Note Date of Service: 03/30/24 Event Note: The patient developed a diffuse rash after receiving Vancomycin, likely Red Man Syndrome, which improved with Benadryl. A dose of Ceftriaxone is being given as an alternative antibiotic. Gram stain results will be reviewed today to guide further antimicrobial therapy. The patient will be monitored closely for any further allergic reactions or changes in clinical status. Time Spent With Patient Time: Total time managing care of this patient today ____ minutes.
[2024-03-30] MEDS: cefTRIAXone sodium 1 GM VIAL IVPUSH (07:03)
[2024-03-30 07:21] LABS: Glucose Synovial Fluid 48; Total Protein Synovial Fluid 4.2
--- NOTE | 2024-03-30 08:25 | P.CONOP_ITS ---
History of Present Illness HPI Consult date: 03/30/24 Chief complaint: Hip pain effusion, ? septic arthritis Narrative: 78-year-old female admitted to the hospital for atraumatic left hip pain Patient reports she awoke yesterday in significant discomfort in the left hip, was unable to ambulate or even extend her leg fully Patient admitted to the hospital for pain management and aspiration of left hip Results of left hip aspiration pending at this time Patient does report a history of gout Of today, patient reports her pain has improved, as she is able to extend the leg fully Denies numbness or tingling in the left lower extremity No other acute complaints or concerns at this time PMFSH Past Medical History Medical History Hyperlipidemia Gout 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 current use of antiarrhythmic drug Essential hypertension Embolic stroke Sinus bradycardia PAF (paroxysmal atrial fibrillation) Family History Family History Father CVD (cardiovascular disease) Mother Alzheimer disease Surgical History Surgical History History of cardiac radiofrequency ablation (~07/07/20) History of colostomy History of section Social History Social History Housing: House Alcohol intake: never Patient Tobacco Use Status: Never used Tobacco Tobacco use type: Cigarette Cigarettes Per Day: 4 Smoked in Last 30 Days: Yes e-Cigarette/Vaping Use: Never Used Second Hand Smoke Exposure: No Use of substances other than those prescribed or required for medical reasons: No Advance Directives: Yes Advance Directives Information Provided: Yes Advance Directives on File: No service: No Current occupational status: retired Current occupation: right hand dominant Cognitive needs: Yes (cane) Hearing needs: No Vision needs: Yes (glasses) Meds Allergies Allergy/AdvReac Type Severity Reaction Status Date / Time vancomycin AdvReac Rash Verified 03/30/24 04:10 Active Medications: Current Medications Acetaminophen (Acetaminophen 325 Mg Tablet) 650 mg PO Q6H PRN PRN Reason: Pain, Mild 1-3,fever,headache Amlodipine Besylate (Amlodipine Besylate 5 Mg Tablet) 5 mg PO DAILY [facility]; Protocol Last Admin: 03/29/24 20:50 Dose: 5 mg Atorvastatin Calcium (Atorvastatin Calcium 80 Mg Tablet) 80 mg PO BEDTIME [facility] Last Admin: 03/29/24 20:53 Dose: 80 mg Calcium Carbonate (Calcium Carbonate 750 Mg Tab.Chew) 750 mg PO Q4H PRN PRN Reason: Heartburn Ceftriaxone Sodium (Ceftriaxone Sodium 1 Gm Vial) 1 gm IVPUSH Q24H [facility] [place] Last Admin: 03/30/24 07:03 Dose: 1 gm Diphenhydramine HCl (Diphenhydramine Hcl 25 Mg Capsule) 25 mg PO BEDTIME PRN PRN Reason: Sleep Diphenhydramine HCl (Diphenhydramine Hcl 50 Mg/Ml Vial) 12.5 mg IVPUSH Q4H PRN PRN Reason: Rash Last Admin: 03/29/24 22:45 Dose: 12.5 mg Hydralazine HCl (Hydralazine Hcl 50 Mg Tablet) 50 mg PO TID [facility] [place]; Protocol Last Admin: 03/29/24 20:49 Dose: 50 mg Lisinopril (Lisinopril 40 Mg Tablet) 40 mg PO DAILY [facility] [place]; Protocol Magnesium Hydroxide (Milk Of Magnesia 30 Ml Oral.Susp) 30 ml PO DAILY PRN PRN Reason: Constipation Melatonin (Melatonin 3 Mg Tablet) 6 mg PO BEDTIME PRN PRN Reason: Insomnia Metoprolol Succinate (Metoprolol Succinate Er 50 Mg Tab.Er.24h) 50 mg PO DAILY [facility] [place]; Protocol Morphine Sulfate (Morphine Sulfate 2 Mg/Ml Cartridge) 2 mg IVPUSH Q4H PRN; Protocol PRN Reason: Pain, Severe (Pain Scale 7-10) Last Admin: 03/30/24 04:05 Dose: 2 mg Ondansetron HCl (Ondansetron Hcl 4 Mg/2 Ml Vial) 4 mg IVPUSH Q8H PRN PRN Reason: Nausea and Vomiting Polyethylene Glycol (Polyethylene Glycol 3350 17 Gm Powd.Pack) 17 gm PO DAILY PRN PRN Reason: Constipation Sodium Chloride (0.9 % Sodium Chloride Flush 3 Ml Syringe) 3 ml IVFLUSH QSHIFT [facility] [place] Last Admin: 03/30/24 00:00 Dose: Not Given Warfarin Sodium (Warfarin Sodium 2.5 Mg Tablet) 2.5 mg PO SUTUTHSA@1700 [facility] [place] Warfarin Sodium (Warfarin Sodium 1.25 Mg Halftab) 3.75 mg PO MOWEFR@1700 [facility] [place] Home Medications ?Medication ?Instructions ?Recorded ?Confirmed ?Last Taken ?Type diphenhydramine 25 1 tab PO BEDTIME PRN Sleep 03/29/24 03/29/24 Unknown History mg-acetaminophen 500 mg tablet (Acetaminophen PM) warfarin 2.5 mg tablet 2.5 mg PO SUTUTHSA@1700 03/29/24 03/29/24 03/28/24 History warfarin 2.5 mg tablet 3.75 mg PO MOWEFR@1700 03/29/24 03/29/24 Unknown History Physical Exam 2 Vital Signs: Vital Signs: Last Vital Signs Temp 98.2 F 03/30/24 07:04 Pulse 62 03/30/24 07:04 Resp 15 03/30/24 07:04 BP 157/77 H 03/30/24 07:04 Pulse Ox 95 03/30/24 07:04 O2 Del Method Room Air 03/30/24 07:04 BMI result Body Mass Index 23.9 Extrem: Other: Patient's left hip normal to inspection No erythema, ecchymosis, edema noted No lacerations, abrasions, open areas No evidence of infection Patient reports minimal tenderness to palpation of the lateral left hip Patient was able to be passively internally and externally rotated with minimal discomfort Distal sensation intact Capillary refill brisk Results Labs 03/29/24 10:53 03/29/24 10:53 Labs: Abnormal lab results 03/29/24 03/29/24 03/30/24 Range/Units 10:53 11:29 05:53 RBC 4.13 L (4.20-5.50) X10*6/uL Hgb 11.8 L (12.0-16.0) g/dl Hct 34.3 L (37.0-47.0) % Neut % (Auto) 83.7 H (45-73) % Lymph % (Auto) 9.6 L (20-40) % Lymph # (Auto) 0.8 L (1.2-4.9) X10*3/uL ESR 24 H (0-20) MM/HR PT 15.0 H 16.8 H (10.9-12.4) SEC INR 1.3 H 1.4 H (0.9-1.1) Chloride 110 H (96-108) mmol/L Carbon Dioxide 19 L (22-29) mmol/L Total Creatine Kinase 24 L (26-140) U/L C-Reactive Protein 1.10 H (< or = 0.50) mg/dL Urine Protein 100 (2+) H (Neg-Trace) mg/dL H & H 03/29/24 Range/Units 10:53 Hgb 11.8 L (12.0-16.0) g/dl Hct 34.3 L (37.0-47.0) % Coagulation 03/29/24 03/30/24 Range/Units 10:53 05:53 INR 1.3 H 1.4 H (0.9-1.1) All other labs normal. Diagnostic results Hip x-ray: report reviewed and image reviewed Hip CT: report reviewed and image reviewed Assessment and Plan (1) Acute pain of left hip: Status: Acute (2) Effusion of left hip: Status: Acute Plan 1. Atraumatic pain of the left hip Cultures and Gram stain and crystals pending Patient does have history of gout Patient is on IV antibiotics prophylactically per Medicine Keep NPO until crystals result Continue with pain management Continue with all other recommendations per Medicine Orthopedics will continue to follow Procedures Date of Service Date of Service: 03/30/24
[2024-03-30] MEDS: lisinopriL 40 MG TABLET PO (09:57)
[2024-03-30] MEDS: hydrALAZINE HCl 50 MG TABLET PO ×3 (09:57→21:53)
[2024-03-30] MEDS: amLODIPine Besylate 5 MG TABLET PO (09:57)
[2024-03-30] MEDS: Metoprolol Succinate ER 50 MG TAB.ER.24H PO (09:57)
[2024-03-30] MEDS: 0.9 % Sodium Chloride Flush 3 ML SYRINGE IVFLUSH ×2 (09:58→18:34)
--- NOTE | 2024-03-30 11:06 | MHC.CM.PN ---
IMM 03/30/24, EMR REVIEWED, PT W/HIP PAIN/ ? SEPTIC ARTHRITIS, CM MET W/PT WHO IS A&O, REPORTS SHE LIVES W/ AND 2 ADULT SONS, PT IS FULLY INDEP W/CARE AT BASELINE, HAS A FWW AND CANE AT HOME HOWEVER PRIOR TO ADMIT WAS ONLY USING HER CANE FOR OUTINGS, NO HOME SERVICES. PT REPORTS HER GOAL FOR DC IS HOME NO SERVICES IF HER HIP PAIN IS CAUSED BY GOUT AND WOULD LIKE HOME W/[facility] FOR PT OTHERWISE, REF PLACED TO [facility] W/PT PERMISSION, CM WILL NEED TO REVISIT STR IF GOUT MEDICATION DOES NOT WORK AND PT UNABLE TO TRANSFER/WALK. PT VERIFIES CURRENT PCP IS CATHERINE ADDISON, PT WILL SWITCH TO [facility]IRAN ONCE CYN RETIRES, HCP ON FILE VERIFIED.
[2024-03-30] MEDS: Colchicine 0.6 MG TABLET 1.2 MG PO (11:41)
--- NOTE | 2024-03-30 14:01 | P.PNIM_ITS ---
Subjective Subjective Date of Service: 03/30/24 Interval History: seen and examined this morning follow up for left hip pain/joint effusion still reporting some left hip pain although reports pain is slowly beginning to improve following joint aspiration denies fevers/chills Review of Systems Review of Systems: Yes all other systems are reviewed and are negative Constitutional Constitutional: Denies chills and Denies fever(s) Cardiovascular Cardiovascular: Denies chest pain Physical Exam 2 Vital Signs: Vital Signs: Last Vital Signs Temp 98.0 F 03/30/24 09:55 Pulse 84 03/30/24 09:57 Resp 20 03/30/24 13:34 BP 153/72 H 03/30/24 09:57 Pulse Ox 94 03/30/24 09:55 O2 Del Method Room Air 03/30/24 09:55 BMI result Body Mass Index 23.9 Const: General: cooperative, comfortable, no acute distress, alert and awake Nutritional Appearance: average body habitus Orientation/consciousness: p atient oriented x3 Resp: Effort & Inspection: normal respiratory effort, able to speak in complete sentences, no respiratory distress and no use of accessory muscles Cardio: Rate: regular rate GI: Palpation (GI): Soft to palpation Neuro: General: patient oriented x3, moves all extremities and CN's II-XI intact bilaterally Extrem: Other: normal inspection left hip, some tenderness on palpation Objective Data Active Medications Acetaminophen (Acetaminophen 325 Mg Tablet) 650 mg PO Q6H PRN PRN Reason: Pain, Mild 1-3,fever,headache Amlodipine Besylate (Amlodipine Besylate 5 Mg Tablet) 5 mg PO DAILY [facility]; Protocol Last Admin: 03/30/24 09:57 Dose: 5 mg Documented By: KERI Atorvastatin Calcium (Atorvastatin Calcium 80 Mg Tablet) 80 mg PO BEDTIME [facility] Last Admin: 03/29/24 20:53 Dose: 80 mg Documented By: ROBERT Calcium Carbonate (Calcium Carbonate 750 Mg Tab.Chew) 750 mg PO Q4H PRN PRN Reason: Heartburn Colchicine (Colchicine 0.6 Mg Tablet) 0.6 mg PO BID [facility] Diphenhydramine HCl (Diphenhydramine Hcl 25 Mg Capsule) 25 mg PO BEDTIME PRN PRN Reason: Sleep Diphenhydramine HCl (Diphenhydramine Hcl 50 Mg/Ml Vial) 12.5 mg IVPUSH Q4H PRN PRN Reason: Rash Last Admin: 03/29/24 22:45 Dose: 12.5 mg Documented By: ROBERT Hydralazine HCl (Hydralazine Hcl 50 Mg Tablet) 50 mg PO TID [facility]; Protocol Last Admin: 03/30/24 09:57 Dose: 50 mg Documented By: KERI Lisinopril (Lisinopril 40 Mg Tablet) 40 mg PO DAILY [facility]; Protocol Last Admin: 03/30/24 09:57 Dose: 40 mg Documented By: KERI Magnesium Hydroxide (Milk Of Magnesia 30 Ml Oral.Susp) 30 ml PO DAILY PRN PRN Reason: Constipation Melatonin (Melatonin 3 Mg Tablet) 6 mg PO BEDTIME PRN PRN Reason: Insomnia Metoprolol Succinate (Metoprolol Succinate Er 50 Mg Tab.Er.24h) 50 mg PO DAILY [facility]; Protocol Last Admin: 03/30/24 09:57 Dose: 50 mg Documented By: KERI Morphine Sulfate (Morphine Sulfate 2 Mg/Ml Cartridge) 2 mg IVPUSH Q4H PRN; Protocol PRN Reason: Pain, Severe (Pain Scale 7-10) Last Admin: 03/30/24 13:34 Dose: 2 mg Documented By: KERI Ondansetron HCl (Ondansetron Hcl 4 Mg/2 Ml Vial) 4 mg IVPUSH Q8H PRN PRN Reason: Nausea and Vomiting Polyethylene Glycol (Polyethylene Glycol 3350 17 Gm Powd.Pack) 17 gm PO DAILY PRN PRN Reason: Constipation Sodium Chloride (0.9 % Sodium Chloride Flush 3 Ml Syringe) 3 ml IVFLUSH QSHIFT [facility] Last Admin: 03/30/24 09:58 Dose: 3 ml Documented By: KERI Warfarin Sodium (Warfarin Sodium 2.5 Mg Tablet) 2.5 mg PO SUTUTHSA@1700 [facility] Warfarin Sodium (Warfarin Sodium 1.25 Mg Halftab) 3.75 mg PO MOWEFR@1700 [facility] Labs 03/29/24 10:53 03/29/24 10:53 Labs: Laboratory Results - last 24 hr 03/29/24 03/29/24 03/29/24 10:53 15:20 19:57 ESR 24 H Hold Purple Top PT INR Uric Acid 4.8 Synovial Source left hip Synovial WBC 63.580 Synovial RBC < 0.002 Synovial Neutrophils 94 Synovial Lymphocytes 3 Synovial Monocytes 3 Synovial Glucose 48 Synovial Total Protein 4.2 Blood Type A Positive Antibody Screen NEGATIVE 03/30/24 05:53 ESR Hold Purple Top SEE NOTE PT 16.8 H INR 1.4 H Uric Acid Synovial Source Synovial WBC Synovial RBC Synovial Neutrophils Synovial Lymphocytes Synovial Monocytes Synovial Glucose Synovial Total Protein Blood Type Antibody Screen Microbiology Microbiology Results: Microbiology 03/29/24 15:20 Gram Stain - Final Hip - Aspirate Anaerobic Culture - Preliminary No growth to date. Fluid Crystals - Final Joint Fluid Culture - Preliminary No growth to date. Assessment and Plan (1) Effusion of left hip: Status: Acute Plan This is a 78-year-old female with a history of paroxysmal atrial fibrillation status post ablation, anticoagulated with warfarin, embolic stroke in 2018 due to subtherapeutic INR, hyperlipidemia, and a remote history of C. difficile infection, presenting with left hip pain associated with an effusion. Left hip pain with joint effusion synovial WBC 63K, but gram stain negative due to pseudogout will d/c abx seen by ortho, no acute intervention required as pt is AC with coumadin, will avoid nsaids; will treat with colchicine PT evaluation pending paroxysmal AF continue metoprolol succinate for rate control will given one time dose of 5 mg of coumadin today follow INR daily outpatient consideration for NOAC for reliable anticoagulation HTN--BP high, has not taken meds today - lisinopril, hydralazine, metoprolol, and norvasc. HLD - statin VTE ppx - warfarin, device Inpatient for left hip pain , pain control, inability to ambulate Quality Stroke Does the patient have a stroke diagnosis?: No VTE Prior VTE?: No VTE Risk Level:: Medical - moderate - high VTE Device Contraindication: N/A - Device Ordered VTE Drug Contraindication: N/A - Med Ordered
[2024-03-30] MEDS: oxyCODONE HCl Immed Release 5 MG TABLET PO (14:43)
[2024-03-30] MEDS: Colchicine 0.6 MG TABLET PO (14:43)
[2024-03-30] MEDS: Warfarin Sodium 5 MG TABLET PO (18:33)
[2024-03-30] MEDS: Atorvastatin Calcium 80 MG TABLET PO (21:53)
[2024-03-31] MEDS: 0.9 % Sodium Chloride Flush 3 ML SYRINGE IVFLUSH ×4 (00:29→20:14)
[2024-03-31] MEDS: Melatonin 3 MG TABLET 6 MG PO (00:29)
[2024-03-31 01:53] VITALS: BP 156/65; PULSE 60; RESP 20; TEMP 36.4; O2SAT 93
[2024-03-31 06:51] LABS: INTERNATIONAL NORM RATIO 1.5 (0.9-1.1); Prothrombin Time 17.2 SEC (10.9-12.4)
[2024-03-31 07:25] VITALS: BP 137/63; PULSE 54; RESP 18; TEMP 36.6; O2SAT 94
[2024-03-31] MEDS: Metoprolol Succinate ER 50 MG TAB.ER.24H PO (08:32)
[2024-03-31] MEDS: lisinopriL 40 MG TABLET PO (08:32)
[2024-03-31] MEDS: amLODIPine Besylate 5 MG TABLET PO (08:33)
[2024-03-31] MEDS: hydrALAZINE HCl 50 MG TABLET PO ×3 (08:33→20:14)
[2024-03-31] MEDS: Loperamide HCl 2 MG CAPSULE PO (12:19)
--- NOTE | 2024-03-31 13:14 | P.PNIM_ITS ---
Subjective Subjective Date of Service: 03/31/24 Interval History: Seen and examined this morning Follow-up for left hip effusion Pain much improved this morning Reporting diarrhea Review of Systems Review of Systems: Yes all other systems are reviewed and are negative Constitutional Constitutional: Denies chills and Denies fever(s) Cardiovascular Cardiovascular: Denies chest pain, Denies palpitations and Denies dyspnea Respiratory Respiratory: Denies cough and Denies dyspnea Endocrine Endocrine: Denies palpitations Physical Exam 2 Vital Signs: Vital Signs: Last Vital Signs Temp 97.8 F 03/31/24 07:25 Pulse 54 03/31/24 07:25 Resp 18 03/31/24 07:25 BP 137/63 03/31/24 07:25 Pulse Ox 94 03/31/24 07:25 O2 Del Method Room Air 03/31/24 07:25 BMI result Body Mass Index 23.9 Const: General: cooperative, comfortable, no acute distress, alert and awake Nutritional Appearance: average body habitus Orientation/consciousness: p atient oriented x3 Resp: Effort & Inspection: normal respiratory effort, able to speak in complete sentences, no respiratory distress and no use of accessory muscles Cardio: Rate: regular rate GI: Palpation (GI): Soft to palpation Neuro: General: patient oriented x3, moves all extremities and CN's II-XI intact bilaterally Extrem: Other: normal inspection left hip, some tenderness on palpation Objective Data Active Medications Acetaminophen (Acetaminophen 325 Mg Tablet) 650 mg PO Q6H PRN PRN Reason: Pain, Mild 1-3,fever,headache Amlodipine Besylate (Amlodipine Besylate 5 Mg Tablet) 5 mg PO DAILY CECILY; Protocol Last Admin: 03/31/24 08:33 Dose: 5 mg Documented By: RAFAEL Atorvastatin Calcium (Atorvastatin Calcium 80 Mg Tablet) 80 mg PO BEDTIME CECILY Last Admin: 03/30/24 21:53 Dose: 80 mg Documented By: TOMI Calcium Carbonate (Calcium Carbonate 750 Mg Tab.Chew) 750 mg PO Q4H PRN PRN Reason: Heartburn Diphenhydramine HCl (Diphenhydramine Hcl 25 Mg Capsule) 25 mg PO BEDTIME PRN PRN Reason: Sleep Diphenhydramine HCl (Diphenhydramine Hcl 50 Mg/Ml Vial) 12.5 mg IVPUSH Q4H PRN PRN Reason: Rash Last Admin: 03/29/24 22:45 Dose: 12.5 mg Documented By: ROBERT Hydralazine HCl (Hydralazine Hcl 50 Mg Tablet) 50 mg PO TID [facility]; Protocol Last Admin: 03/31/24 08:33 Dose: 50 mg Documented By: RAFAEL Lisinopril (Lisinopril 40 Mg Tablet) 40 mg PO DAILY [facility]; Protocol Last Admin: 03/31/24 08:32 Dose: 40 mg Documented By: RAFAEL Loperamide HCl (Loperamide Hcl 2 Mg Capsule) 2 mg PO Q6H PRN PRN Reason: Diarrhea Last Admin: 03/31/24 12:19 Dose: 2 mg Documented By: RAFAEL Magnesium Hydroxide (Milk Of Magnesia 30 Ml Oral.Susp) 30 ml PO DAILY PRN PRN Reason: Constipation Melatonin (Melatonin 3 Mg Tablet) 6 mg PO BEDTIME PRN PRN Reason: Insomnia Last Admin: 03/31/24 00:29 Dose: 6 mg Documented By: TOMI Metoprolol Succinate (Metoprolol Succinate Er 50 Mg Tab.Er.24h) 50 mg PO DAILY [facility]; Protocol Last Admin: 03/31/24 08:32 Dose: 50 mg Documented By: RAFAEL Morphine Sulfate (Morphine Sulfate 2 Mg/Ml Cartridge) 2 mg IVPUSH Q4H PRN; Protocol PRN Reason: Pain, Severe (Pain Scale 7-10) Last Admin: 03/30/24 13:34 Dose: 2 mg Documented By: KERI Ondansetron HCl (Ondansetron Hcl 4 Mg/2 Ml Vial) 4 mg IVPUSH Q8H PRN PRN Reason: Nausea and Vomiting Oxycodone HCl (Oxycodone Hcl Immed Release 5 Mg Tablet) 5 mg PO Q6H PRN PRN Reason: Pain, Moderate(Pain Scale 4-6) Last Admin: 03/30/24 14:43 Dose: 5 mg Documented By: KERI Polyethylene Glycol (Polyethylene Glycol 3350 17 Gm Powd.Pack) 17 gm PO DAILY PRN PRN Reason: Constipation Sodium Chloride (0.9 % Sodium Chloride Flush 3 Ml Syringe) 3 ml IVFLUSH [facility] Last Admin: 03/31/24 08:34 Dose: 3 ml Documented By: RAFAEL Warfarin Sodium (Warfarin Sodium 1.25 Mg Halftab) 3.75 mg PO MOWEFR@1700 [facility] Warfarin Sodium (Warfarin Sodium 2.5 Mg Tablet) 2.5 mg PO SUTUTHSA@1700 [facility] Labs 03/29/24 10:53 03/29/24 10:53 Labs: Laboratory Results - last 24 hr 03/31/24 06:11 PT 17.2 H INR 1.5 H Microbiology Microbiology Results: Microbiology 03/29/24 15:20 Gram Stain - Final Hip - Aspirate Anaerobic Culture - Preliminary No growth to date. Fluid Crystals - Final Joint Fluid Culture - Preliminary No growth to date. Assessment and Plan (1) Effusion of left hip: Status: Acute Plan This is a 78-year-old female with a history of paroxysmal atrial fibrillation status post ablation, anticoagulated with warfarin, embolic stroke in 2018 due to subtherapeutic INR, hyperlipidemia, and a remote history of C. difficile infection, presenting with left hip pain associated with an effusion. Left hip pain with joint effusion synovial WBC 63K, but gram stain negative crystal analysis c/w pseudogout abx stopped seen by ortho, no acute intervention required as pt is AC with coumadin, will avoid nsaids; will treat with colchicine pain improving PT evaluation pending paroxysmal AF continue metoprolol succinate for rate control will given 5 mg of coumadin again today follow INR daily per outpatient cardiology notes, not on NOAC due to cost HTN- bp better controlled lisinopril, hydralazine, metoprolol, and norvasc. HLD - statin VTE ppx - warfarin, device Inpatient for left hip pain , pain control, inability to ambulate Quality Stroke Does the patient have a stroke diagnosis?: No VTE Prior VTE?: No VTE Risk Level:: Medical - moderate - high VTE Device Contraindication: N/A - Device Ordered VTE Drug Contraindication: N/A - Med Ordered
[2024-03-31 15:06] VITALS: BP 133/57; PULSE 55; RESP 16; TEMP 36; O2SAT 94
--- NOTE | 2024-03-31 16:25 | PM.DS ---
DS: Providers Provider Date of Service: 04/01/24 Date of admission: 03/29/24 20:43 Date of discharge: 04/01/24 Primary care physician: August Velasquez MD Consults: 03/30/24 07:43 Consult to Orthopedics Routine Consulting Provider: [facility] Reason for consultation: left hip effusion, elevated wbcs in synovial fluid DS: Diagnosis Discharge Diagnosis (1) Effusion of left hip: Status: Acute DS: Summary Hospital Course Hospital Course: From H&P on the day of admission The patient is a 78-year-old female with a past medical history significant for paroxysmal atrial fibrillation status post ablation on warfarin, a history of embolic stroke in 2018 due to subtherapeutic INR, hyperlipidemia, and a history of C. difficile infection in 2022. She presents with left hip pain extending to the lower abdomen since this morning. She had minimal symptoms yesterday, but her reports that she has been favoring her right side for the past three days. Since this morning, however, she has experienced excruciating pain, difficulty walking, and trouble straightening her left leg. She denies fever, chills, falls, or recent trauma. A hip X-ray showed no fracture or dislocation. A CT of the abdomen and pelvis confirmed a left hip joint effusion. Synovial fluid analysis revealed: WBC: 63,580 Neutrophils: 94% RBC: <0.02 Lymphocytes: 3% Monocytes: 3% Gram stain and crystal analysis are pending. Orthopedics recommends NPO after midnight but advises against starting antibiotics per ED provide Left hip pain with joint effusion synovial WBC 63K, but gram stain negative crystal analysis c/w pseudogout. no indication for antibiotics. seen by ortho, no acute intervention required. as pt is AC with coumadin, will avoid nsaids; treated with colchicine. pain is improving, patient had diarrhea as known side effect of colchicine. she did not want to continue medication. Patient's ambulation improved paroxysmal AF continue metoprolol succinate for rate control. INR was low, given an extra dose of coumadin. per outpatient cardiology notes, not on NOAC due to cost. outpatient follow up in coumdin clinic. Time Attestation Discharge Coordination Time (in mins): 35 Quality: Safe Use of Opioids Does Pt have an Active Cancer Diagnosis on the Problem List?: No Quality: Stroke Does the patient have a stroke diagnosis?: No Physical Exam Vital Signs: Vital Signs: Last Vital Signs Temp 96.8 F 03/31/24 15:06 Pulse 55 03/31/24 15:06 Resp 16 03/31/24 15:06 BP 133/57 L 03/31/24 15:06 Pulse Ox 94 03/31/24 15:06 O2 Del Method Room Air 03/31/24 15:06 BMI result Body Mass Index 23.9 DS: Data Data Completed and Pending Labs on day of discharge: Laboratory Results - last 24 hr 03/31/24 06:11 PT 17.2 H INR 1.5 H Preliminary micro results at discharge 03/29/24 15:20 Anaerobic Culture - Preliminary Hip - Aspirate No growth to date. Joint Fluid Culture - Preliminary No growth to date. Discharge Plan Discharge Discharge Diagnosis: left hip effusion pseudogout Referrals: August Velasquez MD [Primary Care Provider] - 1 Week Discharge Medications: No Action hydralazine 50 mg tablet 50 mg PO TID Qty: 270 1RF Rx Instructions: New dose increase. These tablets are 50mg tabs. Take one tablet 3 times per day as discussed on the phone. lisinopril 40 mg tablet 40 mg PO DAILY Qty: 90 8RF atorvastatin 80 mg tablet 80 mg PO QPM Qty: 90 4RF warfarin 2.5 mg tablet 2.5 mg PO .COMPLEX Qty: 90 0RF Protocol: Dose Management Condition: Monday (Week One) Dose/Route: 2.5 mg Instruction: 1 x 2.5 mg tablet Condition: Monday Dose/Route: 3.75 mg Instruction: 1.5 x 2.5 mg tablets Condition: Monday Dose/Route: 2.5 mg Instruction: 1 x 2.5 mg tablet Condition: Monday Dose/Route: 3.75 mg Instruction: 1.5 x 2.5 mg tablets Condition: Dose/Route: 2.5 mg Instruction: 1 x 2.5 mg tablet Condition: Monday Dose/Route: 3.75 mg Instruction: 1.5 x 2.5 mg tablets Condition: Monday Dose/Route: 2.5 mg Instruction: 1 x 2.5 mg tablet Condition: Monday (Week Two) Dose/Route: 2.5 mg Instruction: 1 x 2.5 mg tablet Condition: Monday Dose/Route: 3.75 mg Instruction: 1.5 x 2.5 mg tablets Condition: Monday Dose/Route: 2.5 mg Instruction: 1 x 2.5 mg tablet Condition: Monday Dose/Route: 3.75 mg Instruction: 1.5 x 2.5 mg tablets Condition: Dose/Route: 2.5 mg Instruction: 1 x 2.5 mg tablet Condition: Monday Dose/Route: 3.75 mg Instruction: 1.5 x 2.5 mg tablets Condition: Monday Dose/Route: 2.5 mg Instruction: 1 x 2.5 mg tablet Protocol Text: Adjustment Start Date: Monday03/26/24 INR Value: 2.0 INR Date: 03/26/24 Recheck Date: 04/16/24 Rx Instructions: 2.5 mg orally 3.75MG X 3 DAYS/ 2.5MG X 4 DAYS; metoprolol succinate 50 mg tablet extended release 24 hr 50 mg PO DAILY Qty: 90 2RF warfarin 2.5 mg tablet 2.5 mg PO SUTUTHSA@1700 warfarin 2.5 mg tablet 3.75 mg PO MOWEFR@1700 diphenhydramine-acetaminophen [Acetaminophen PM] 25-500 mg Tablet 1 tab PO BEDTIME PRN (Reason: Sleep) amlodipine 5 mg tablet 5 mg PO DAILY Qty: 90 3RF Print Language: Sami Care Plan Goals: resolve flare of pseduogout Health Concerns: left hip effusion due to psedudogout diarrhea due to colchicine Assessment: see discharge summary
[2024-03-31] MEDS: Warfarin Sodium 5 MG TABLET PO (17:09)
[2024-03-31] MEDS: Enoxaparin Sodium 60 MG/0.6 ML SYRINGE SUBCUT (17:10)
[2024-03-31 18:58] VITALS: BP 131/59; PULSE 54; RESP 16; TEMP 35.9; O2SAT 94
[2024-03-31] MEDS: Atorvastatin Calcium 80 MG TABLET PO (20:14)
[2024-04-01 03:08] VITALS: BP 119/60; PULSE 50; RESP 16; TEMP 36.4; O2SAT 94
[2024-04-01 06:15] LABS: Prothrombin Time 23.5 SEC (10.9-12.4)
[2024-04-01 07:45] VITALS: BP 144/65; PULSE 56; RESP 17; TEMP 36.7; O2SAT 94
[2024-04-01] MEDS: 0.9 % Sodium Chloride Flush 3 ML SYRINGE IVFLUSH (08:08)
[2024-04-01 08:09] VITALS: BP 144/65; PULSE 56
[2024-04-01] MEDS: amLODIPine Besylate 5 MG TABLET PO (08:09)
[2024-04-01] MEDS: Metoprolol Succinate ER 50 MG TAB.ER.24H PO (08:09)
[2024-04-01] MEDS: hydrALAZINE HCl 50 MG TABLET PO (08:09)
[2024-04-01] MEDS: lisinopriL 40 MG TABLET PO (08:09)
--- NOTE | 2024-04-01 08:50 | P.F2F_ITS ---
Service Date Service Date: 04/01/24 Encounter Date of encounter: 04/01/24 Reasons for Services Signs and symptoms assessed: Hip joint effusion Reason for physical therapy: home safety and mobility Homebound: Leaving the home is medically contraindicated at this time without the asist of a device and/or another person due th the listed conditions above and below. Reason homebound: weakness related to hospital stay Certification: Based on the above findings, I certify that this patient is confined to the home and needs intermittent retirement care, physical therapy and/or speech therapy, or continues to need occupational therapy. The patient is under my care, and I have initiated the establishment of the plan of care. The patient will be followed by a physician who will periodically review the plan of care. Time Spent With Patient Time: Total time managing care of this patient today ____ minutes.
--- NOTE | 2024-04-01 08:50 | P.DS_ITS ---
DS: Providers Provider Date of Service: 04/01/24 Date of admission: 03/29/24 20:43 Date of discharge: 04/01/24 Primary care physician: August Velasquez MD Consults: 03/30/24 07:43 Consult to Orthopedics Routine Consulting Provider: [facility] [place] [facility] Reason for consultation: left hip effusion, elevated wbcs in synovial fluid DS: Diagnosis Discharge Diagnosis (1) Effusion of left hip: Status: Acute DS: Summary Hospital Course Hospital Course: From H&P on the day of admission The patient is a 78-year-old female with a past medical history significant for paroxysmal atrial fibrillation status post ablation on warfarin, a history of embolic stroke in 2018 due to subtherapeutic INR, hyperlipidemia, and a history of C. difficile infection in 2022. She presents with left hip pain extending to the lower abdomen since this morning. She had minimal symptoms yesterday, but her reports that she has been favoring her right side for the past three days. Since this morning, however, she has experienced excruciating pain, difficulty walking, and trouble straightening her left leg. She denies fever, chills, falls, or recent trauma. A hip X-ray showed no fracture or dislocation. A CT of the abdomen and pelvis confirmed a left hip joint effusion. Synovial fluid analysis revealed: * WBC: 63,580 * Neutrophils: 94% * RBC: <0.02 * Lymphocytes: 3% * Monocytes: 3% Gram stain and crystal analysis are pending. Orthopedics recommends NPO after mi dnight but advises against starting antibiotics per ED provide Left hip pain with joint effusion synovial WBC 63K, but gram stain negative crystal analysis c/w pseudogout. no indication for antibiotics. seen by ortho, no acute intervention required. as pt is AC with coumadin, will avoid nsaids; treated with colchicine. pain is improving, patient had diarrhea as known side effect of colchicine. she did not want to continue medication. Patient's ambulation improved paroxysmal AF continue metoprolol succinate for rate control. INR was low, given an extra dose of coumadin. per outpatient cardiology notes, not on NOAC due to cost. outpatient follow up in coumadin clinic. Time Attestation Discharge Coordination Time (in mins): 40 Quality: Safe Use of Opioids Does Pt have an Active Cancer Diagnosis on the Problem List?: No Quality: Stroke Does the patient have a stroke diagnosis?: No Physical Exam Vital Signs: Vital Signs: Last Vital Signs Temp 98.1 F 04/01/24 07:45 Pulse 56 04/01/24 08:09 Resp 17 04/01/24 07:45 BP 144/65 H 04/01/24 08:09 Pulse Ox 94 04/01/24 07:45 O2 Del Method Room Air 04/01/24 07:45 BMI result Body Mass Index 23.9 Appearing in no acute distress head is normocephalic atraumatic eyes pupils are PERRLA sclera is anicteric mouth throat mucous membranes are intact and moist neck is supple no lymphadenopathy, no JVD noted lung sounds are clear to auscultation heart regular rate rhythm, clear S1, S2 positive bowel sounds, abdomen is soft, nontender neuro patient is alert x3, no focal deficits DS: Data Data Completed and Pending Labs on day of discharge: Laboratory Results - last 24 hr 04/01/24 05:45 PT 23.5 H D INR 2.0 H Preliminary micro results at discharge 03/29/24 15:20 Anaerobic Culture - Preliminary Hip - Aspirate No growth to date. Discharge Plan Discharge Anticipated Discharge Date/Time: 04/01/24 08:47 Patient Disposition: Home Health Service Discharge Diagnosis: left hip effusion pseudogout Referrals: August Velasquez MD [Primary Care Provider] - 1 Week Discharge Medications: Continued hydralazine 50 mg tablet 50 mg PO TID Qty: 270 1RF Rx Instructions: New dose increase. These tablets are 50mg tabs. Take one tablet 3 times per day as discussed on the phone. lisinopril 40 mg tablet 40 mg PO DAILY Qty: 90 8RF atorvastatin 80 mg tablet 80 mg PO QPM Qty: 90 4RF warfarin 2.5 mg tablet 2.5 mg PO .COMPLEX Qty: 90 0RF Protocol: Dose Management Condition: Monday (Week One) Dose/Route: 2.5 mg Instruction: 1 x 2.5 mg tablet Condition: Monday Dose/Route: 3.75 mg Instruction: 1.5 x 2.5 mg tablets Condition: Monday Dose/Route: 2.5 mg Instruction: 1 x 2.5 mg tablet Condition: Monday Dose/Route: 3.75 mg Instruction: 1.5 x 2.5 mg tablets Condition: Dose/Route: 2.5 mg Instruction: 1 x 2.5 mg tablet Condition: Monday Dose/Route: 3.75 mg Instruction: 1.5 x 2.5 mg tablets Condition: Monday Dose/Route: 2.5 mg Instruction: 1 x 2.5 mg tablet Condition: Monday (Week Two) Dose/Route: 2.5 mg Instruction: 1 x 2.5 mg tablet Condition: Monday Dose/Route: 3.75 mg Instruction: 1.5 x 2.5 mg tablets Condition: Monday Dose/Route: 2.5 mg Instruction: 1 x 2.5 mg tablet Condition: Monday Dose/Route: 3.75 mg Instruction: 1.5 x 2.5 mg tablets Condition: Dose/Route: 2.5 mg Instruction: 1 x 2.5 mg tablet Condition: Monday Dose/Route: 3.75 mg Instruction: 1.5 x 2.5 mg tablets Condition: Monday Dose/Route: 2.5 mg Instruction: 1 x 2.5 mg tablet Protocol Text: Adjustment Start Date: Monday03/26/24 INR Value: 2.0 INR Date: 03/26/24 Recheck Date: 04/16/24 Rx Instructions: 2.5 mg orally 3.75MG X 3 DAYS/ 2.5MG X 4 DAYS; metoprolol succinate 50 mg tablet extended release 24 hr 50 mg PO DAILY Qty: 90 2RF warfarin 2.5 mg tablet 2.5 mg PO SUTUTHSA@1700 warfarin 2.5 mg tablet 3.75 mg PO MOWEFR@1700 diphenhydramine-acetaminophen [Acetaminophen PM] 25-500 mg Tablet 1 tab PO BEDTIME PRN (Reason: Sleep) amlodipine 5 mg tablet 5 mg PO DAILY Qty: 90 3RF Discharge Orders: Discharge Order (Routine); Ordered 04/01/24 Ordered By: Zari Bush Diet: Advance to usual diet Activity on Discharge: As tolerated Stand Alone Forms: Patient Portal Discharge page Print Language: Korean Care Plan Goals: resolve flare of pseduogout Health Concerns: left hip effusion due to psedudogout diarrhea due to colchicine Plan of Treatment: Follow up with primary care provider as needed Take all medications as prescribed Assessment: see discharge summary
--- NOTE | 2024-04-01 10:31 | MHC.CM.PN ---
pt dcd home w/hvns pt has own transportaion home
[2024-04-04 06:38] LABS: Lyme PCR Source FLUID, SYNOVIAL
== END 2024-04-01 10:48 | disposition home health service (06) | DRG 554 ==
LOC: HO.ED 19:18 → HO.EDOVER 20:53 → HO.S3 03-31 00:12
PROVIDERS: Physician Assistant Surgical; Admitting Provider Internal Medicine; Emergency Provider Emergency Medicine; PCP Internal Medicine; Visit Provider Nurse Practitioner Acute Care
DX: M11.252 Other chondrocalcinosis, left hip (principal); I48.0 Paroxysmal atrial fibrillation; E78.5 Hyperlipidemia, unspecified; I10 Essential (primary) hypertension; R79.1 Abnormal coagulation profile; G25.0 Essential tremor; L27.0 Generalized skin eruption due to drugs and medicaments taken internally; T36.8X5A Adverse effect of other systemic antibiotics, initial encounter; Z20.822 Contact with and (suspected) exposure to COVID-19; Z79.01 Long term (current) use of 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s; Z79.899 Other long term (current) drug therapy
CPT/HCPCS: 0241U; 20610; 36415; 73502; 74177; 77002; 80048; 80076; 80307; 81001; 82550; 82945; 83735; 84157; 84550; 85025; 85610; 85652; 86140; 86850; 86900; 86901; 87070; 87073; 87205; 87476; 89051; 89060; 93005; 97161; 99285; J0131; J0696; J1200; J1650; J2270; J3371; Q9967

== ENCOUNTER → 2024-03-29 10:31 | Outpatient (BNV) | payer MEDICARE, SELFPAY | PROVIDERS: Emergency Provider Emergency Medicine; PCP Internal Medicine; Visit Provider Internal Medicine | DX: I49.1 Atrial premature depolarization (principal) | CPT/HCPCS: 93010 ==

== ENCOUNTER → 2024-03-29 11:12 | Outpatient (BNV) | payer MEDICARE, SELFPAY | PROVIDERS: Emergency Provider Emergency Medicine; PCP Internal Medicine; Visit Provider Radiology Diagnostic Radiology | DX: M25.552 Pain in left hip (principal) | CPT/HCPCS: 20610; 77002 ==

== ENCOUNTER → 2024-03-29 20:43 | Outpatient (BNV) | payer MEDICARE, SELFPAY | PROVIDERS: Admitting Provider Internal Medicine; Emergency Provider Emergency Medicine; PCP Internal Medicine | DX: M25.552 Pain in left hip (principal); M25.452 Effusion, left hip | CPT/HCPCS: 99222 ==

== ENCOUNTER → 2024-03-29 20:43 | Outpatient (BNV) | payer MEDICARE, SELFPAY | PROVIDERS: Admitting Provider Internal Medicine; Emergency Provider Emergency Medicine; PCP Internal Medicine; Visit Provider Internal Medicine | DX: M25.452 Effusion, left hip (principal) | CPT/HCPCS: 99232; 99239; 99499; G0180 ==

== ENCOUNTER 2024-04-05 13:55 | Outpatient (AMB) | payer MEDICARE, SELFPAY ==
--- NOTE | 2024-04-05 14:22 | A.OFFPC_ITS ---
Vital Signs 04/05/24 14:25 Height 5 ft 2 in Weight 129 lb 4 oz BMI 23.6 BP 130/60 Blood Pressure Location Lt brachial Position Sitting Pulse 64 Pulse Source Pulse Oximeter Temp 97.5 F Temp Source Temporal Artery Scan Pulse Oximetry (%) 96 Oxygen Delivery Method Room Air Intake Visit Reasons: TCM [facility] 04/01 septic arthritis Intake Note: Patient is here for hospital discharge follow up. Patient was discharged from [facility] on 04/01/24. Spool Tender Required: No Senior Case Manager: Present Accompanied by: Spouse Allergies vancomycin Adverse Reaction (Verified 04/05/24 14:24) Rash Tobacco use date assessed: 04/05/24 Fall risk assessment: No Falls in past year Last assessed Fall Risk: 04/05/24 Dental Screening Dental Screen Date: 03/04/24 [facility] TCM TCM Information Date of Discharge 04/01/24 Discharged From [facility] Interactive Contact Date (Reference documentation from this date) 04/03/24 HPI Comments History of Present Illness Details 78 y/o female patient who presents to [facility] for TCM. Pmhx significant for paroxysmal atrial fibrillation status post ablation on warfarin, a history of embolic stroke in 2017 due to subtherapeutic INR, hyperlipidemia, and a history of C. difficile infection in 2022. She was admitted at [facility] on 03/29/24 after she presented with left Hip pain with Effusion; crystal analysis c/w pseudogout. She was discharged home 04/01/24 on Colchicine. Pt reports that pain as resolved, but reports getting frequent Gout Flare ups. Advised to discuss with PCP adding preventative medication such as Allopurinol. 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 Essential hypertension Embolic stroke Sinus bradycardia PAF (paroxysmal atrial fibrillation) Surgical History History of cardiac radiofrequency ablation (~07/07/20) History of colostomy History of section Family History Father CVD (cardiovascular disease) Mother Alzheimer disease Social History Household Members: Spouse Housing: House Do you presently have visiting nurse or other home services: No Alcohol intake: never Patient Tobacco Use Status: Current everyday Tobacco user Tobacco use type: Cigarette Cigarettes Per Day: 2 e-Cigarette/Vaping Use: Never Used Second Hand Smoke Exposure: No Advance Directives Date on File: 03/31/24 service: No Current occupational status: retired Current occupation: right hand dominant Cognitive needs: Yes (cane) Hearing needs: No Vision needs: Yes (glasses) Questionnaire Thrive Questionnaire Date Thrive assessed: 03/30/24 LYNDSAY-7 AMB Questionnaire LYNDSAY-7 Date LYNDSAY - 7 assessed: 03/04/24 Source: Developed by Drs. Domingo Sandoval, Nilsa Palacios, Jorge Dominguez and colleagues, with an educational joselin from [employer]. Review of Systems Const All systems reviewed & are unremarkable except as noted in HPI and below Physical exam (Primary Care) Vital Signs: Last Vital Signs Temp 97.5 F 04/05/24 14:25 Pulse 64 04/05/24 14:25 BP 130/60 04/05/24 14:25 Pulse Ox 96 04/05/24 14:25 Oxygen Delivery Method Room Air 04/05/24 14:25 BMI result Body Mass Index 23.6 Tobacco/Smoking Status: Tobacco use Status Tobacco use date assessed 04/05/24 04/05/24 14:30 Patient Tobacco Use Status Current everyday Tobacco 04/05/24 14:30 Tobacco use type Cigarette 04/05/24 14:30 e-Cigarette/Vaping Use Never Used 04/05/24 14:30 Thrive Assessment: Date of Thrive Assessment Date Thrive assessed 03/30/24 04/05/24 14:30 Const General: cooperative, comfortable and no acute distress Orientation/consciousness: patient oriented x3 Neuro General: patient oriented x3, gait normal and moves all extremities Extrem Right upper extremity: normal to inspection and full ROM Left upper extremity: normal to inspection and full ROM Right lower extremity: hip/thigh Details: normal to inspection and normal ROM; no tenderness Left lower extremity: hip/thigh Details: normal to inspection and normal ROM; no tenderness and no swelling Coding Level of Care Code TCM Mod MDM <= 7 Days Diagnoses Chronic gout of multiple sites, unspecified cause M1A.09X0 Gout site: multiple sites Gout etiology: unspecified cause Chronicity: chronic Time Spent (min) 20 Assessment & Plan Assessment & Plan (1) Gout: Code(s): M10.9 - Gout, unspecified Category: Medical Qualifiers: Gout site: multiple sites Gout etiology: unspecified cause Chronicity: chronic Qualified Code(s): M1A.09X0 - Idiopathic chronic gout, multiple sites, without tophus (tophi) Plan: Symptoms resolved for now. Advised to RTC if symptoms return. F/U with PCP regarding preventative treatment.
[2024-04-05 14:25] VITALS: BP 130/60; PULSE 64; TEMP 36.4; O2SAT 96; BMI 23.6
== END 2024-04-05 15:09 | disposition home or self-care (01) ==
PROVIDERS: PCP Internal Medicine; Visit Provider Nurse Practitioner Family
DX: M1A.09X0 Idiopathic chronic gout, multiple sites, without tophus (tophi) (principal)

== ENCOUNTER → 2024-04-05 13:55 | Outpatient (BNVA) | payer MEDICARE, SELFPAY | PROVIDERS: PCP Internal Medicine; Visit Provider Nurse Practitioner Family | DX: M1A.09X0 Idiopathic chronic gout, multiple sites, without tophus (tophi) (principal) | CPT/HCPCS: 99212 ==

== ENCOUNTER 2024-04-16 13:02 | Outpatient (AMB) | payer MEDICARE, SELFPAY ==
[2024-04-16 13:21] LABS: Prothrombin Time Whole Bld POC 30.8 sec (11.1-13.5); ~PT, ~INR - Anti Coag Clinic 2.6 (0.9-1.1)
--- NOTE | 2024-04-16 13:25 | MHC.OFFVISCO ---
Intake Intake Visit Reasons: Anticoagulation Allergies vancomycin Adverse Reaction (Verified 04/16/24 13:08) Rash Medication List - Last Reconciled 04/16/24 by Mery Prado RN amlodipine 5 mg PO DAILY atorvastatin 80 mg PO QPM diphenhydramine-acetaminophen 25-500 mg (Acetaminophen PM) 1 tab PO BEDTIME PRN hydralazine 50 mg PO TID lisinopril 40 mg PO DAILY metoprolol succinate ER 50 mg PO DAILY warfarin 2.5 mg PO SUTUTHSA@1700 warfarin 3.75 mg PO MOWEFR@1700 warfarin See Protocol 2.5 mg orally 3.75MG X 3 DAYS/ 2.5MG X 4 DAYS; Nursing Note Amb to [facility] using cane, feeling better sts she was Hospitalized for 4 days due to hip pain ED 03/29-04/01 see notes and low INRs sts hip is feeling much better denies pain at this time- reminded to call us with any changes to health, medications, or hospitalizations Medications and supplements reviewed No other changes in health, diet, medications, or supplements, Denies any signs and symptoms of bleeding, bruising, or clotting. Bleeding, bruising, clotting discussed INR: 2.6 just above pts therapeutic range (1.5-2.5) Dose: continue same dosing 3.75mg x 3 days and 7.5mg x 4 days have a good green today then balance and be consistent F/U INR: 2 weeks Patient verbalizes understanding of instructions given Anti-Coag Initial Assessment Social Hx Patient Tobacco Use Status: Current everyday Tobacco user Tobacco use type: Cigarette alcohol intake: never Alcohol intake frequency: does not drink Coding Level of Care Code Est Patient Level 1 Diagnoses Current use of anticoagulant therapy Z79.01 Time Spent (min) 15 Results AMB INR Fingerstick AMB INR Fingerstick 2.6 Last Edit by Mery Prado RN on 04/16/24 13:22 interface failure Assessment & Plan Assessment & Plan (1) Current use of anticoagulant therapy: Code(s): Z79.01 - custodial (current) use of anticoagulants Category: Medical
== END 2024-04-16 13:42 | disposition home or self-care (01) ==
LOC: HO.ACS 13:02
PROVIDERS: PCP Internal Medicine; Visit Provider Internal Medicine
DX: Z79.01 Long term (current) use of 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s (principal)

== ENCOUNTER → 2024-04-16 13:02 | Outpatient (BNVA) | payer MEDICARE, SELFPAY | PROVIDERS: PCP Internal Medicine; Visit Provider Internal Medicine | DX: I48.0 Paroxysmal atrial fibrillation (principal); Z79.01 Long term (current) use of 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s; Z51.81 Encounter for therapeutic drug level monitoring | CPT/HCPCS: 85610; 99211 ==

== ENCOUNTER 2024-04-30 13:00 | Outpatient (AMB) | payer MEDICARE, SELFPAY ==
--- NOTE | 2024-04-30 13:16 | MHC.OFFVISCO ---
Intake Intake Visit Reasons: Anticoagulation Allergies vancomycin Adverse Reaction (Verified 04/30/24 13:03) Rash Medication List - Last Reconciled 04/30/24 by Mery Alston RN amlodipine 5 mg PO DAILY atorvastatin 80 mg PO QPM diphenhydramine-acetaminophen 25-500 mg (Acetaminophen PM) 1 tab PO BEDTIME PRN hydralazine 50 mg PO TID lisinopril 40 mg PO DAILY metoprolol succinate ER 50 mg PO DAILY warfarin 2.5 mg See Protocol PO SUTUTHSA@1700 warfarin 3.75 mg See Protocol PO MOWEFR@1700 warfarin See Protocol 2.5 mg orally 3.75MG X 3 DAYS/ 2.5MG X 4 DAYS; Nursing Note Pt to [facility] with use of a cane INR: 1.7 in therapeutic range of 1.5-2.5 Medications and supplements reviewed No changes in health, diet, medications, or supplements, Denies any signs and symptoms of bleeding or bruising or clotting. Bleeding, bruising, clotting discussed Nutritional guidance given to avoid greens today Dose: 2.5mg X 4 days and 3.75mg X 3 days F/U INR: 2 weeks Patient verbalizes understanding of instructions given Anti-Coag Initial Assessment Social Hx Patient Tobacco Use Status: Current everyday Tobacco user Tobacco use type: Cigarette alcohol intake: never Alcohol intake frequency: does not drink Coding Level of Care Code Est Patient Level 1 Diagnoses Current use of anticoagulant therapy Z79.01 Results AMB INR Fingerstick AMB INR Fingerstick 1.7 Last Edit by Mery Alston RN on 04/30/24 13:12 interface delay Assessment & Plan Assessment & Plan (1) Current use of anticoagulant therapy: Code(s): Z79.01 - prison (current) use of anticoagulants Category: Medical
[2024-04-30 13:17] LABS: ~PT, ~INR - Anti Coag Clinic 1.7 (0.9-1.1)
== END 2024-04-30 14:57 | disposition home or self-care (01) ==
LOC: HO.ACS 13:00
PROVIDERS: PCP Internal Medicine; Visit Provider Internal Medicine Medical Oncology
DX: Z79.01 Long term (current) use of 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s (principal)

== ENCOUNTER → 2024-04-30 13:00 | Outpatient (BNVA) | payer MEDICARE, SELFPAY | PROVIDERS: PCP Internal Medicine; Visit Provider Internal Medicine Medical Oncology | DX: I48.0 Paroxysmal atrial fibrillation (principal); Z51.81 Encounter for therapeutic drug level monitoring; Z79.01 Long term (current) use of 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s | CPT/HCPCS: 85610; 99211 ==

== ENCOUNTER 2024-05-14 13:04 | Outpatient (AMB) | payer MEDICARE, SELFPAY ==
--- NOTE | 2024-05-14 13:19 | MHC.OFFVISCO ---
Intake Intake Visit Reasons: Anticoagulation Allergies vancomycin Adverse Reaction (Verified 05/14/24 13:04) Rash Medication List - Last Reconciled 05/14/24 by Mery Alston RN amlodipine 5 mg PO DAILY atorvastatin 80 mg PO QPM diphenhydramine-acetaminophen 25-500 mg (Acetaminophen PM) 1 tab PO BEDTIME PRN hydralazine 50 mg PO TID lisinopril 40 mg PO DAILY metoprolol succinate ER 50 mg PO DAILY warfarin See Protocol 2.5 mg orally 3.75MG X 3 DAYS/ 2.5MG X 4 DAYS; Nursing Note INR: 3.3?out of therapeutic range of 1.5-2.5 Medications and supplements reviewed Patient status: recovering from a cold but states she feels better Medications or supplements: no changes Diet: ate out yesterday with family, denies alcohol. Denies any signs and symptoms of bleeding or clotting or unusual bruising Bleeding, bruising, clotting discussed Nutritional guidance given: to have a serving of greens today and tomorrow Dose: decrease today's dose to 1.25mg (2.5mg) then resume usual dose of 2.5mg X 4 days and 3.75mg X 3 days (M/W/F) F/U INR Date : 10 days?? Patient verbalizing understanding of instructions given. Anti-Coag Initial Assessment Social Hx Patient Tobacco Use Status: Current everyday Tobacco user Tobacco use type: Cigarette alcohol intake: never Alcohol intake frequency: does not drink Coding Level of Care Code Est Patient Level 1 Diagnoses Current use of anticoagulant therapy Z79.01 Results AMB INR Fingerstick AMB INR Fingerstick 3.3 Last Edit by Mery Alston RN on 05/14/24 13:11 interface delay Assessment & Plan Assessment & Plan (1) Current use of anticoagulant therapy: Code(s): Z79.01 - skilled nursing (current) use of anticoagulants Category: Medical
[2024-05-14 13:20] LABS: Prothrombin Time Whole Bld POC 39.3 sec (11.1-13.5); ~PT, ~INR - Anti Coag Clinic 3.3 (0.9-1.1)
== END 2024-05-14 13:23 | disposition home or self-care (01) ==
LOC: HO.ACS 13:04
PROVIDERS: PCP Physician Assistant; Visit Provider Internal Medicine Medical Oncology
DX: Z79.01 Long term (current) use of 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s (principal)

== ENCOUNTER → 2024-05-14 13:04 | Outpatient (BNVA) | payer MEDICARE, SELFPAY | PROVIDERS: PCP Physician Assistant; Visit Provider Internal Medicine Medical Oncology | DX: I48.0 Paroxysmal atrial fibrillation (principal); Z79.01 Long term (current) use of 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s; Z51.81 Encounter for therapeutic drug level monitoring | CPT/HCPCS: 85610; 99211 ==

== ENCOUNTER 2024-05-21 10:38 | Outpatient (AMB) | payer MEDICARE, SELFPAY ==
[2024-05-21 11:14] VITALS: BP 170/90; PULSE 56; TEMP 36.2; O2SAT 100; BMI 22.5
--- NOTE | 2024-05-21 11:14 | MHC.PC.OV ---
Vital Signs 05/21/24 11:14 Height 5 ft 2 in Weight 123 lb 2 oz BMI 22.5 BP 170/90 H Blood Pressure Location Lt brachial Position Sitting Pulse 56 Pulse Source Pulse Oximeter Temp 97.1 F Temp Source Temporal Artery Scan Pulse Oximetry (%) 100 Oxygen Delivery Method Room Air Intake Visit Reasons: TAISHA Velasquez Api Product Manager Required: No Accompanied by: Spouse Allergies vancomycin Adverse Reaction (Verified 05/21/24 11:44) Rash Medication List - Last Reconciled 05/21/24 by Santiago Drew PA-C amlodipine 5 mg PO DAILY atorvastatin 80 mg PO QPM diphenhydramine-acetaminophen 25-500 mg (Acetaminophen PM) 1 tab PO BEDTIME PRN hydralazine 50 mg PO TID lisinopril 40 mg PO DAILY metoprolol succinate ER 50 mg PO DAILY warfarin See Protocol 2.5 mg orally 3.75MG X 3 DAYS/ 2.5MG X 4 DAYS; Tobacco use date assessed: 04/05/24 Fall risk assessment: No Falls in past year Last assessed Fall Risk: 05/21/24 Dental Screening Dental Screen Date: 03/04/24 HPI TAISHA - Dr. Velasquez HPI Details Patient is a 70-year-old female here today for a transfer of care visit. Patient has a past medical history significant for hyperlipidemia, hypertension, paroxysmal AFib. Patient was admitted to [facility] a few months ago for acute hip pain was found to have a hip effusion related to pseudogout. PLAN: Will supply patient with colchicine for acute gout flares. Did discuss dietary modifications for gout. ,, Hypertension: Patient's blood pressure elevated today in office. She continues on hydralazine, lisinopril 40 mg and amlodipine 5 mg .. Hyperlipidemia: Patient continues on high dose statin therapy .. AFib: Patient followed by [facility]. She is anticoagulated with warfarin and INRs has been fairly stable. No overt signs of bleeding. She has under rate control with metoprolol 50 mg. She does report some fatigue daily though attributes this to age. .. Tobacco dependency: Patient has been smoking over 35 years, no interested in quitting at this time. We did discuss the lung cancer screening program though she declines at this time. [facility] Medical History (Updated 05/22/24 @ 07:48 by Santiago Rajendra, PA-C) C. 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 long-term current use of antiarrhythmic drug Essential hypertension Embolic stroke Sinus bradycardia PAF (paroxysmal atrial fibrillation) Surgical History History of cardiac radiofrequency ablation (~07/07/20) History of colostomy History of section Family History Father CVD (cardiovascular disease) Mother Alzheimer disease Social History Household Members: Spouse Housing: House Do you presently have visiting nurse or other home services: No Alcohol intake: never Patient Tobacco Use Status: Current everyday Tobacco user Tobacco use type: Cigarette Cigarettes Per Day: 2 e-Cigarette/Vaping Use: Never Used Second Hand Smoke Exposure: No Advance Directives Date on File: 03/31/24 service: No Current occupational status: retired Current occupation: right hand dominant Cognitive needs: Yes (cane) Hearing needs: No Vision needs: Yes (glasses) Questionnaire Thrive Questionnaire Date Thrive assessed: 03/30/24 LYNDSAY-7 AMB Questionnaire LYNDSAY-7 Date LYNDSAY - 7 assessed: 03/04/24 Source: Developed by Drs. Domingo Sandoval, Nilsa Palacios, Jorge Dominguez and colleagues, with an educational joselin from [employer]. Review of Systems Const Denies headache(s) Eyes Denies loss of vision ENT Denies vertigo, Denies dizziness, Denies headache(s) and Denies sore throat Card Denies chest pain, Denies leg edema and Denies lightheadedness Resp Denies cough, Denies hemoptysis and Denies wheezing GI Denies abdominal pain, Denies melena, Denies constipation, Denies diarrhea and Denies vomiting Denies urinary frequency, Denies dysuria and Denies urinary urgency Musc Denies arthralgias, Denies joint swelling, Denies numbness and Denies tingling Neuro Denies Abnormal speech present, Denies behavioral changes, Denies vertigo, Denies dizziness, Denies headache(s), Denies loss of vision, Denies memory loss, Denies numbness and Denies tingling Psych Denies anxiety, Denies behavioral changes, Denies depression, Denies memory loss and Denies panic attacks Chris/Lymph Denies easy bleeding and Denies easy bruising Aller/Immun Denies wheezing Physical exam (Primary Care) Vital Signs: Last Vital Signs Temp 97.1 F 05/21/24 11:14 Pulse 56 05/21/24 11:14 BP 170/90 H 05/21/24 11:14 Pulse Ox 100 05/21/24 11:14 Oxygen Delivery Method Room Air 05/21/24 11:14 BMI result Body Mass Index 22.5 Tobacco/Smoking Status: Tobacco use Status Tobacco use date assessed 04/05/24 05/21/24 11:19 Patient Tobacco Use Status Current everyday Tobacco 05/21/24 11:19 Tobacco use type Cigarette 05/21/24 11:19 e-Cigarette/Vaping Use Never Used 05/21/24 11:19 Are you ready to quit: No Tobacco cessation counseling provided: Yes Items discussed: Nicotine replacement Relapse Prevention: discussed the importance of a supportive environment, discussed negative mood or depression after quitting, weight gain after smoking is common and discussed dietary, exercise and/or lifestyle changes Number of minutes spent counselin CPT code: 68228 - 4-10 Minutes Thrive Assessment: Date of Thrive Assessment Date Thrive assessed 03/30/24 05/21/24 11:19 Const General: healthy appearing, no acute distress, alert and awake Nutritional Appearance: well nourished Orientation/consciousness: oriented to person, oriented to place and oriented to time HENMT Ears: TM's normal bilaterally General nose exam: Normal nasal mucous membranes and turbinates present Eyes Conjunctivae: conjunctivae normal Sclerae: sclerae normal Pupils: Equal, round and reactive pupils present Neck Neck: Yes no lymphadenopathy and Yes no JVD Thyroid: Thyroid normal Carotids: no bruits Resp Effort & Inspection: normal respiratory effort and not tachypneic Auscultation: no crackles, no rales, no rhonchi and no wheezes Cardio Rate: regular rate Rhythm: regular rhythm Heart sounds: no murmurs and normal S1 and S2 GI Palpation (GI): Soft to palpation, nontender, no hepatomegaly and no splenomegaly Auscultation: normal bowel sounds Skin General skin exam: no rashes or lesions noted and dry skin Neuro General: oriented to person, oriented to place and oriented to time Cranial nerves: Yes Equal, round and reactive pupils present Speech: No Abnormal speech present Gait exam (Neuro): Normal gait present Motor exam (neuro): no tremor noted Extrem Right upper extremity: full ROM Left upper extremity: full ROM Right lower extremity: full ROM; no edema Left lower extremity: full ROM; no edema Psych Mental Status: mental status grossly normal Speech and movement: Normal speech and movement present Affect: normal affect Attitude: cooperative Thought process: Normal thought process present Coding Level of Care Code Est Pt Level 4 (56455) Diagnoses PAF (paroxysmal atrial fibrillation) I48.0 Cerebrovascular accident (CVA) due to embolism of cerebral artery I63.40 Precerebral and cerebral artery: unspecified cerebral artery Impairment of balance R26.89 Chronic gout of multiple sites, unspecified cause M1A.09X0 Chronicity: chronic Gout etiology: unspecified cause Gout site: multiple sites Tobacco dependence F17.200 Additional Codes Vital Signs *Quality* - CPT code: 13586 - 4-10 Minutes ([id number]) Assessment & Plan Assessment & Plan (1) PAF (paroxysmal atrial fibrillation): Code(s): I48.0 - Paroxysmal atrial fibrillation Category: Medical Plan: Continues to follow cardiology, anticoagulated with warfarin and under rate control with metoprolol. (2) Embolic stroke: Code(s): I63.9 - Cerebral infarction, unspecified Category: Medical Qualifiers: Precerebral and cerebral artery: unspecified cerebral artery Qualified Code(s): I63.40 - Cerebral infarction due to embolism of unspecified cerebral artery Plan: Patient followed by Neurology, continues on high dose statin therapy and anticoagulation. She does have some balance issues has a sequelae to her stroke. We did discuss doing physical therapy for balance training though patient is considering (3) Impairment of balance: Code(s): R26.89 - Other abnormalities of gait and mobility Category: Medical Plan: As above patient considering physical therapy for balance training. Did strongly advised to start using a cane for ambulation (4) Gout: Code(s): M10.9 - Gout, unspecified Category: Medical Qualifiers: Chronicity: chronic Gout etiology: unspecified cause Gout site: multiple sites Qualified Code(s): M1A.09X0 - Idiopathic chronic gout, multiple sites, without tophus (tophi) Plan: Will supply patient with colchicine for acute gout attacks. (5) Tobacco dependence: Code(s): F17.200 - Nicotine dependence, unspecified, uncomplicated Category: Medical Plan: Patient does understand she needs to quit smoking though is not willing to do so at this time. Nicotine replacement offered. We did discuss the lung cancer screening program though she declines at this time. Orders: Orders Microalbumin, Random (w Creat) 05/21/24 I10 - Essential (primary) hypertension UA CC w/rflx Micro + Cult 05/21/24 I10 - Essential (primary) hypertension, R30.0 - Dysuria Uric Acid 05/21/24 M1A.09X0 - Idiopathic chronic gout, multiple sites, without tophus (tophi) Lipid Panel 05/21/24 E78.5 - Hyperlipidemia, unspecified Comprehensive [place]. Panel Fast 05/21/24 I48.0 - Paroxysmal atrial fibrillation Complete Blood Count no Diff 05/21/24 I48.0 - Paroxysmal atrial fibrillation Medications: New amlodipine 10 mg PO DAILY 30 tabs 3RF 30 days I10 - Essential (primary) hypertension colchicine 0.6 mg PO DAILY PRN 7 caps 0RF gout attack 7 days M1A.09X0 - Idiopathic chronic gout, multiple sites, without tophus (tophi) On Hold amlodipine Hold Comment: Doctor's Order 5 mg PO DAILY 90 tabs 3RF
== END 2024-05-21 12:03 | disposition home or self-care (01) ==
LOC: HO.HMCH 10:38
PROVIDERS: PCP Physician Assistant; Visit Provider Physician Assistant
DX: I48.0 Paroxysmal atrial fibrillation (principal); I63.40 Cerebral infarction due to embolism of unspecified cerebral artery; R26.89 Other abnormalities of gait and mobility; M1A.09X0 Idiopathic chronic gout, multiple sites, without tophus (tophi); F17.200 Nicotine dependence, unspecified, uncomplicated

== ENCOUNTER → 2024-05-21 10:38 | Outpatient (BNVA) | payer MEDICARE, SELFPAY | PROVIDERS: PCP Physician Assistant; Visit Provider Physician Assistant | DX: I48.0 Paroxysmal atrial fibrillation (principal); I63.40 Cerebral infarction due to embolism of unspecified cerebral artery; R26.89 Other abnormalities of gait and mobility; M1A.09X0 Idiopathic chronic gout, multiple sites, without tophus (tophi); F17.200 Nicotine dependence, unspecified, uncomplicated; Z71.6 Tobacco abuse counseling | CPT/HCPCS: 99212 ==

== ENCOUNTER 2024-05-31 12:58 | Outpatient (AMB) | payer MEDICARE, SELFPAY ==
--- NOTE | 2024-05-31 13:05 | MHC.OFFVISCO ---
Intake Intake Visit Reasons: Anticoagulation Allergies vancomycin Adverse Reaction (Verified 05/31/24 13:01) Rash Medication List - Last Reconciled 05/31/24 by Karely Hernandez RN amlodipine 5 mg PO DAILY amlodipine 10 mg PO DAILY 30 days atorvastatin 80 mg PO QPM colchicine 0.6 mg PO DAILY PRN 7 days diphenhydramine-acetaminophen 25-500 mg (Acetaminophen PM) 1 tab PO BEDTIME PRN hydralazine 50 mg PO TID lisinopril 40 mg PO DAILY metoprolol succinate ER 50 mg PO DAILY warfarin See Protocol 2.5 mg orally 3.75MG X 3 DAYS/ 2.5MG X 4 DAYS; Nursing Note INR: 1.7- in therapeutic range of 1.5-2.5 Medications and supplements reviewed- no changes No changes in health, diet, medications, or supplements, Denies any signs and symptoms of bleeding or bruising or clotting. Bleeding, bruising, clotting discussed Nutritional guidance given Dose: 3.75mg x 3, 2.5mg x 4 F/U INR: pt req 3 week Patient verbalizes understanding of instructions given Anti-Coag Initial Assessment Social Hx Patient Tobacco Use Status: Current everyday Tobacco user Tobacco use type: Cigarette alcohol intake: never Alcohol intake frequency: does not drink Coding Level of Care Code Est Patient Level 1 Diagnoses Current use of anticoagulant therapy Z79.01 Assessment & Plan Assessment & Plan (1) Current use of anticoagulant therapy: Code(s): Z79.01 - rail bonder (current) use of anticoagulants Category: Medical
[2024-05-31 13:07] LABS: Prothrombin Time Whole Bld POC 20.3 sec (11.1-13.5); ~PT, ~INR - Anti Coag Clinic 1.7 (0.9-1.1)
== END 2024-05-31 13:11 | disposition home or self-care (01) ==
LOC: HO.ACS 12:58
PROVIDERS: PCP Physician Assistant; Visit Provider Internal Medicine Medical Oncology
DX: Z79.01 Long term (current) use of 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s (principal)

== ENCOUNTER → 2024-05-31 12:58 | Outpatient (BNVA) | payer MEDICARE, SELFPAY | PROVIDERS: PCP Physician Assistant; Visit Provider Internal Medicine Medical Oncology | DX: I48.0 Paroxysmal atrial fibrillation (principal); Z79.01 Long term (current) use of 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s; Z51.81 Encounter for therapeutic drug level monitoring | CPT/HCPCS: 85610; 99211 ==

== ENCOUNTER 2024-06-20 12:33 | Outpatient (AMB) | payer MEDICARE, SELFPAY ==
--- NOTE | 2024-06-20 12:42 | A.OFFVIS_ITS ---
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 To recall, she has had several episodes of atrial fibrillation over the last few years. Was previously on diltiazem. Due to recurrent episodes, Multaq was started but due to cost, she could not afford that. Then has also tried Sotalol but she became quite bradycardic. Briefly was on Amiodarone, but did not pursue that long-term due to side effect profile. Eventually saw EP and underwent ablation. Immediately post ablation, she had one episode of atrial fibrillation for which she came to the ER and got flecainide. However, nothing since that time. Otherwise, she also has a history of embolic stroke in 2018 from subtherapeutic INR but mostly recovered. She states that she is under lot of stress because of sudden needs a kidney transplant. Otherwise, from the cardiac standpoint no specific symptoms. [facility] Medical History (Updated 05/22/24 @ 07:48 by Santiago Drew PA-C) C. 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 current use of antiarrhythmic drug Essential hypertension Embolic stroke Sinus bradycardia PAF (paroxysmal atrial fibrillation) Surgical History History of cardiac radiofrequency ablation (~07/07/20) History of colostomy History of section Family History Father CVD (cardiovascular disease) Mother Alzheimer disease Social History Household Members: Spouse Housing: House Do you presently have visiting nurse or other home services: No Alcohol intake: never Patient Tobacco Use Status: Current everyday Tobacco user Tobacco use type: Cigarette Cigarettes Per Day: 2 e-Cigarette/Vaping Use: Never Used Second Hand Smoke Exposure: No Advance Directives Date on File: 03/31/24 service: No Current occupational status: retired Current occupation: right hand dominant Cognitive needs: Yes (cane) Hearing needs: No Vision needs: Yes (glasses) Review of Systems Const Denies chills, Denies fatigue, Denies fever(s), Denies frequent falls, Denies weakness, Denies weight gain and Denies weight loss ENT Denies dizziness Card Denies chest pain, Denies leg edema, Denies lightheadedness, Denies palpitations, Denies dyspnea and Denies dyspnea on exertion Resp Denies cough, Denies dyspnea and Denies dyspnea on exertion GI Denies hematochezia Musc Denies abnormal gait, Denies muscle weakness, Denies numbness, Denies radiating pain into limb and Denies tingling Neuro Denies abnormal gait, Denies dizziness, Denies frequent falls, Denies numbness, Denies tingling and Denies weakness Endo Denies fatigue and Denies palpitations Physical Exam Vital Signs: Last Vital Signs Pulse 57 06/20/24 12:45 BP 130/64 06/20/24 12:45 BMI result Body Mass Index 22.2 Const General: comfortable and no acute distress Orientation/consciousness: patient oriented x3 HEENT Other: Unremarkable Head: Yes normal to inspection Neck Neck: Yes normal visual inspection Chest Chest palpation & inspection: normal inspection of the chest Resp Auscultation: clear to auscultation bilaterally Cardio Palpation: normal PMI Heart sounds: S1 normal heart sound present, S2 normal heart sound present, no gallops, Murmur heart sound present systolic II/ and at the right sternal border and no rubs GI Palpation (GI): Soft to palpation Back/Spine/Pelvis Other: unremarkable Skin General skin exam: no rashes or lesions noted Neuro General: patient oriented x3 Extrem General: Yes normal to inspection Psych Mental Status: mental status grossly normal Office Procedures EKG Details: EKG with sinus tachycardia at 108/Min; supraventricular/ventricular ectopy. Aberrant conduction is also possible. cannot exclude old septal infarct. [id number], Complete Assessment & Plan Assessment & Plan (1) PAF (paroxysmal atrial fibrillation): Code(s): I48.0 - Paroxysmal atrial fibrillation Category: Medical Plan: Status post atrial fibrillation ablation. Previously intolerance or cost prohibitive issues with antiarrhythmics including sotalol, Multaq. Remains on beta-blockers. In the past, she had sinus bradycardia but today she seems to be rather having sinus tachycardia with frequent PACs. Hence we will go up on the beta-hernán dosing-to metoprolol ER 75 mg daily. On Coumadin. She cannot afford anything else. Sleep study in the past without any significant sleep apnea. (2) Atherosclerotic cardiovascular disease: Code(s): I25.10 - Atherosclerotic heart disease of [place] coronary artery without angina pectoris Category: Medical Plan: Myocardial perfusion imaging study in the past with possible mild lateral wall ischemia. Coronary CT denied by insurance. Clinically, she does not have any angina or other ischemic symptoms. Continue statins and Zetia. LDL levels are controlled. Most recently 73 mg/dL. (3) Essential hypertension: Code(s): I10 - Essential (primary) hypertension Category: Medical Plan: On several meds including metoprolol, lisinopril, amlodipine, hydralazine. Possibly diuretic as needed in the future. (4) Sinus bradycardia: Code(s): R00.1 - Bradycardia, unspecified Category: Medical Plan: No clinical concerns at this time. Can be monitored. (5) Embolic stroke: Code(s): I63.9 - Cerebral infarction, unspecified Category: Medical Qualifiers: Precerebral and cerebral artery: unspecified cerebral artery Qualified Code(s): I63.40 - Cerebral infarction due to embolism of unspecified cerebral artery Plan: No clear neurological deficits. She remains ambulatory. (6) Non-rheumatic aortic stenosis: Code(s): I35.0 - Nonrheumatic aortic (valve) stenosis Category: Medical Plan: Echocardiogram with moderate aortic valve calcification and mild stenosis. Can be monitored periodically. (7) Mitral annular calcification: Code(s): I05.9 - Rheumatic mitral valve disease, unspecified Category: Medical Plan: No significant valvular dysfunction. Plan Discussion Notes I discussed with the patient the management of her atrial fibrillation and hypertension. The increase in metoprolol to 75 mg was explained, noting the potential benefits in further controlling heart rate and hypertension. I emphasized the role of amlodipine in maintaining blood pressure stability. We talked about the potential impact of stress on her atrial fibrillation and emphasized the importance of managing stress levels. The patient consented to the changes in her medication regimen and understood the necessity of monitoring her symptoms. We also agreed on a four-month follow-up interval to reassess and potentially adjust treatment. No specific risks or procedural alternatives were discussed in this visit, given the non-invasive nature of the plan. Patient was informed and verbally consented to the use of an ambient scribe for clinic note documentation during this visit. Medications: New metoprolol succinate ER (Toprol XL) Take with 50mg daily; total 75mg daily. 25 mg PO DAILY 90 tabs 1RF Refilled metoprolol succinate ER 50 mg PO DAILY 90 tabs 2RF Patient Instructions: - Increase metoprolol dosage to 75 mg daily. - Continue taking amlodipine as prescribed. - Monitor any changes in symptoms and report them promptly. - Manage stress levels as discussed. - Schedule a follow-up appointment in four months. Coding Level of Care Code Est Pt Level 4 (72577) Complex EM visit Add On G2211 Diagnoses PAF (paroxysmal atrial fibrillation) I48.0 Atherosclerotic cardiovascular disease I25.10 Essential hypertension I10 Sinus bradycardia R00.1 Cerebrovascular accident (CVA) due to embolism of cerebral artery I63.40 Precerebral and cerebral artery: unspecified cerebral artery Non-rheumatic aortic stenosis I35.0 Mitral annular calcification I05.9 CPT Codes EKG - CPT: 31178-[id number], Complete ([id number])
[2024-06-20 12:45] VITALS: BP 130/64; PULSE 57; BMI 22.2
== END 2024-06-20 13:11 | disposition home or self-care (01) ==
LOC: HO.HCS 12:34
PROVIDERS: PCP Internal Medicine; Visit Provider Internal Medicine
DX: I48.0 Paroxysmal atrial fibrillation (principal); I25.10 Atherosclerotic heart disease of native coronary artery without angina pectoris; I10 Essential (primary) hypertension; R00.1 Bradycardia, unspecified; I63.40 Cerebral infarction due to embolism of unspecified cerebral artery; I35.0 Nonrheumatic aortic (valve) stenosis; I05.9 Rheumatic mitral valve disease, unspecified
CPT/HCPCS: 93010; 99214; G2211

== ENCOUNTER → 2024-06-20 12:33 | Outpatient (BNVA) | payer MEDICARE, SELFPAY | PROVIDERS: PCP Internal Medicine; Visit Provider Internal Medicine | DX: I48.0 Paroxysmal atrial fibrillation (principal); I25.10 Atherosclerotic heart disease of native coronary artery without angina pectoris; I63.40 Cerebral infarction due to embolism of unspecified cerebral artery; I35.0 Nonrheumatic aortic (valve) stenosis; I05.9 Rheumatic mitral valve disease, unspecified; R00.1 Bradycardia, unspecified; I10 Essential (primary) hypertension | CPT/HCPCS: 93005; 99212 ==

== ENCOUNTER 2024-06-21 13:03 | Outpatient (AMB) | payer MEDICARE, SELFPAY ==
[2024-06-21 13:10] LABS: Prothrombin Time Whole Bld POC 17.6 sec (11.1-13.5); ~PT, ~INR - Anti Coag Clinic 1.5 (0.9-1.1)
--- NOTE | 2024-06-21 13:13 | MHC.OFFVISCO ---
Intake Intake Visit Reasons: Anticoagulation Allergies vancomycin Adverse Reaction (Verified 06/21/24 13:05) Rash Medication List - Last Reconciled 06/21/24 by Mery Alston RN amlodipine 10 mg PO DAILY 30 days atorvastatin 80 mg PO QPM diphenhydramine-acetaminophen 25-500 mg (Acetaminophen PM) 1 tab PO BEDTIME PRN hydralazine 50 mg PO TID lisinopril 40 mg PO DAILY metoprolol succinate ER 50 mg PO DAILY metoprolol succinate ER (Toprol XL) 25 mg PO DAILY warfarin See Protocol 2.5 mg orally 3.75MG X 3 DAYS/ 2.5MG X 4 DAYS; Nursing Note INR: 1.5 in therapeutic range of 1.5-2.5 Pt was on a 7 day course of prednisone for gout which started 06/17/24 but pt stopped after 3-4 days because her pain was gone. She informed [facility] of the gout and prednisone and was instructed to have 1-2 servings of greens. Medications and supplements reviewed Patient status: well Medications or supplements: no other changes than above mentioned Diet: usual diet for pt Denies any signs and symptoms of bleeding or clotting or unusual bruising Bleeding, bruising, clotting discussed Nutritional guidance given: to avoid greens today Dose: increase today to 5mg (3.75mg) and tomorrow to 3.75mg (2.5mg) then usual dose of 2.5mg X 4 days and 3.75mg X 3 days F/U INR Date: 2 weeks?? Patient verbalizing understanding of instructions given. 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
== END 2024-06-21 13:25 | disposition home or self-care (01) ==
LOC: HO.ACS 13:03
PROVIDERS: PCP Internal Medicine; Visit Provider Internal Medicine Medical Oncology
DX: Z79.01 Long term (current) use of 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s (principal)

== ENCOUNTER → 2024-06-21 13:03 | Outpatient (BNVA) | payer MEDICARE, SELFPAY | PROVIDERS: PCP Internal Medicine; Visit Provider Internal Medicine Medical Oncology | DX: I48.0 Paroxysmal atrial fibrillation (principal); Z79.01 Long term (current) use of 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s; Z51.81 Encounter for therapeutic drug level monitoring | CPT/HCPCS: 85610; 99211 ==

== ENCOUNTER 2024-07-03 13:43 | Outpatient (AMB) | payer MEDICARE, SELFPAY ==
[2024-07-03 13:51] VITALS: BP 136/70; PULSE 80; TEMP 36.2; O2SAT 95; BMI 22.0
--- NOTE | 2024-07-03 13:51 | MHC.PC.OV ---
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 Accompanied by: Spouse Allergies vancomycin Adverse Reaction (Verified 07/03/24 14:06) Rash Medication List - Last Reconciled 07/03/24 by Santiago Drew PA-C amlodipine 10 mg PO DAILY 30 days atorvastatin 80 mg PO QPM diphenhydramine-acetaminophen 25-500 mg (Acetaminophen PM) 1 tab PO BEDTIME PRN hydralazine 50 mg PO TID lisinopril 40 mg PO DAILY metoprolol succinate ER 50 mg PO DAILY metoprolol succinate ER (Toprol XL) 25 mg PO DAILY warfarin See Protocol 2.5 mg orally 3.75MG X 3 DAYS/ 2.5MG X 4 DAYS; Tobacco use date assessed: 04/05/24 Fall risk assessment: No Falls in past year Last assessed Fall Risk: 07/03/24 Dental Screening Dental Screen Date: 03/04/24 HPI cough, runny nose HPI Details The patient is a 78-year-old female presenting with a two-week history of cough and nasal congestion. Her cough is characterized as productive with whitish-yellowish sputum. She reports feeling unusually cold but has not experienced any fever. The symptoms have not improved with cortisone use. She denies any history of allergies and reports no recent illnesses in her family. Breathing difficulty is minimal, and she experiences significant fatigue. [facility] Medical History (Updated 07/03/24 @ 14:09 by Santiago Drew PA-C) C. 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 home current use of antiarrhythmic drug Essential hypertension Embolic stroke Sinus bradycardia PAF (paroxysmal atrial fibrillation) Surgical History History of cardiac radiofrequency ablation (~07/07/20) History of colostomy History of section Family History Father CVD (cardiovascular disease) Mother Alzheimer disease Social History Household Members: Spouse Housing: House Do you presently have visiting nurse or other home services: No Alcohol intake: never Patient Tobacco Use Status: Current everyday Tobacco user Tobacco use type: Cigarette Cigarettes Per Day: 2 e-Cigarette/Vaping Use: Never Used Second Hand Smoke Exposure: No Advance Directives Date on File: 03/31/24 service: No Current occupational status: retired Current occupation: right hand dominant Cognitive needs: Yes (cane) Hearing needs: No Vision needs: Yes (glasses) Questionnaire PHQ-9 Over the last 2 weeks, how often have you been bothered by any of the following problems? 1. Little interest or pleasure in doing things: several days 2. Feeling down, depressed, or hopeless: several days 3. Trouble falling or staying asleep, or sleeping too much: more than half the days 4. Feeling tired or having little energy: several days 5. Poor appetite or overeating: several days 6. Feeling bad about yourself - or that you are a failure or have let yourself or your family down: not at all 7. Trouble concentrating on things, such as reading the newspaper or watching television: not at all 8. Moving or speaking so slowly that other people could have noticed. Or the opposite - being so fidgety or restless that you have been moving around a lot more than usual: not at all 9. Thoughts that you would be better off or of hurting yourself in some way: not at all Total score: 6 Depression Screening Interpretation: Positive Depression Screening Follow-up: Existing condition Depression Screening Done: Yes 25885 - PHQ-9 Billing: Yes Source: Developed by Drs. Domingo Sandoval, Nilsa Palacios, Jorge Dominguez and colleagues, with an educational joselin from [employer]. Thrive Questionnaire Date Thrive assessed: 03/30/24 I am a: Patient What is your living situation today?: I have a steady place to live Within the past 12 months, did the food you bought not last and you didn't have the money to get more?: Never true Within the past 12 months, did you worry whether your food would run out before you got money to buy more?: Never true Do you have trouble paying for medicines?: No Do you have trouble getting transportation to medical appointments?: No Do you have trouble paying your heating and electricity bill?: No Do you have trouble taking care of your child, family member or friend?: No Do you have trouble with day-to-day activities such as bathing, preparing meals, shopping, managing finances, etc.?: No Are you currently unemployed and looking for a job?: No Are you interested in more education?: No Please select the resources that you would like help with: None Currently or been in a relationship where the following occur: I choose not to answer THRIVE Score: 0 AUDIT C Alcohol Use Questionnaire (AUDIT-C) 1. How often do you have a drink containing alcohol?: Never Total Score: 0 LYNDSAY-7 AMB Questionnaire LYNDSAY-7 Date LYNDSAY - 7 assessed: 03/04/24 Feeling nervous, anxious, or on edge: 0 = Not at all Not being able to stop or control worryin = Not at all Worrying too much about different things: 0 = Not at all Trouble relaxin = Not at all Being so restless that it is hard to sit still: 0 = Not at all Becoming easily annoyed or irritable: 0 = Not at all Feeling afraid as if something awful might happen: 0 = Not at all Total LYNDSAY-7 score (0-4 normal; 5-9 mild; 10-14 moderate; 15-21 severe): 0 Source: Developed by Drs. Domingo Sandoval, Nilsa Palacios, Jorge Dominguez and colleagues, with an educational joselin from [employer]. Review of Systems Const Denies headache(s) Eyes Denies loss of vision ENT Denies vertigo, Denies dizziness, Denies headache(s) and Denies sore throat Card Denies chest pain, Denies leg edema and Denies lightheadedness Resp Denies cough, Denies hemoptysis and Denies wheezing GI Denies abdominal pain, Denies melena, Denies constipation, Denies diarrhea and Denies vomiting Denies urinary frequency, Denies dysuria and Denies urinary urgency Musc Denies arthralgias, Denies joint swelling, Denies numbness and Denies tingling Neuro Denies Abnormal speech present, Denies behavioral changes, Denies vertigo, Denies dizziness, Denies headache(s), Denies loss of vision, Denies memory loss, Denies numbness and Denies tingling Psych Denies anxiety, Denies behavioral changes, Denies depression, Denies memory loss and Denies panic attacks Chris/Lymph Denies easy bleeding and Denies easy bruising Aller/Immun Denies wheezing Physical exam (Primary Care) Vital Signs: Last Vital Signs Temp 97.1 F 07/03/24 13:51 Pulse 80 07/03/24 13:51 BP 136/70 07/03/24 13:51 Pulse Ox 95 07/03/24 13:51 Oxygen Delivery Method Room Air 07/03/24 13:51 BMI result Body Mass Index 22.0 Tobacco/Smoking Status: Tobacco use Status Tobacco use date assessed 04/05/24 07/03/24 13:54 Patient Tobacco Use Status Current everyday Tobacco 07/03/24 13:54 Tobacco use type Cigarette 07/03/24 13:54 e-Cigarette/Vaping Use Never Used 07/03/24 13:54 PHQ-9: PHQ-9 Score PHQ-9: Total score 6 07/03/24 13:54 Depression Screening Interpretation: Positive Depression Screening Follow-up: Existing condition Thrive Assessment: Date of Thrive Assessment Date Thrive assessed 03/30/24 07/03/24 13:54 Currently or been in a relationship where the following occur: I choose not to answer Const General: healthy appearing, no acute distress, alert and awake Nutritional Appearance: well nourished Orientation/consciousness: oriented to person, oriented to place and oriented to time HENMT Other: CLEAR NASAL DISCHARGE AND CONGESTION Ears: TM's normal bilaterally General nose exam: Normal nasal mucous membranes and turbinates present Eyes Conjunctivae: conjunctivae normal Sclerae: sclerae normal Pupils: Equal, round and reactive pupils present Neck Neck: Yes no lymphadenopathy and Yes no JVD Thyroid: Thyroid normal Carotids: no bruits Resp Effort & Inspection: normal respiratory effort and not tachypneic Auscultation: no crackles, no rales, no rhonchi and no wheezes Cardio Rate: regular rate Rhythm: regular rhythm Heart sounds: no murmurs and normal S1 and S2 GI Palpation (GI): Soft to palpation, nontender, no hepatomegaly and no splenomegaly Auscultation: normal bowel sounds Skin General skin exam: no rashes or lesions noted and dry skin Neuro General: oriented to person, oriented to place and oriented to time Cranial nerves: Yes Equal, round and reactive pupils present Speech: No Abnormal speech present Gait exam (Neuro): Normal gait present Motor exam (neuro): no tremor noted Extrem Right upper extremity: full ROM Left upper extremity: full ROM Right lower extremity: full ROM; no edema Left lower extremity: full ROM; no edema Psych Mental Status: mental status grossly normal Speech and movement: Normal speech and movement present Affect: normal affect Attitude: cooperative Thought process: Normal thought process present Coding Level of Care Code Est Pt Level 3 (73365) Diagnoses Acute recurrent frontal sinusitis J01.11 Sinusitis location: frontal Chronicity: acute Recurrence: recurrent Additional Codes PHQ-9 - 88537 - PHQ-9 Billing: Yes ([id number]) Assessment & Plan Assessment & Plan (1) Sinus infection: Code(s): J32.9 - Chronic sinusitis, unspecified Category: Medical Qualifiers: Sinusitis location: frontal Chronicity: acute Recurrence: recurrent Qualified Code(s): J01.11 - Acute recurrent frontal sinusitis Plan: Treatment with Amoxicillin-Clavulanic Acid and nasal saline spray is recommended to address sinusitis. Prednisone is also prescribed to reduce inflammation. Follow-up will assess treatment efficacy. Medications: New amoxicillin-pot clavulanate 875-125 mg 1 tab PO BID 7 days 14 tabs 0RF J01.11 - Acute recurrent frontal sinusitis prednisone 10 mg PO DAILY 4 days 4 tabs 0RF J01.11 - Acute recurrent frontal sinusitis
== END 2024-07-03 14:13 | disposition home or self-care (01) ==
LOC: HO.HMCH 13:43
PROVIDERS: PCP Internal Medicine; Visit Provider Physician Assistant
DX: J01.11 Acute recurrent frontal sinusitis (principal)

== ENCOUNTER → 2024-07-03 13:43 | Outpatient (BNVA) | payer MEDICARE, SELFPAY | PROVIDERS: PCP Internal Medicine; Visit Provider Physician Assistant | DX: J01.11 Acute recurrent frontal sinusitis (principal) | CPT/HCPCS: 96127; 99212 ==

== ENCOUNTER 2024-07-05 12:56 | Outpatient (AMB) | payer MEDICARE, SELFPAY ==
--- NOTE | 2024-07-05 13:18 | MHC.OFFVISCO ---
Intake Intake Visit Reasons: Anticoagulation Allergies vancomycin Adverse Reaction (Verified 07/05/24 13:03) Rash Medication List - Last Reconciled 07/05/24 by Twila Valentine RN amlodipine 10 mg PO DAILY 30 days amoxicillin-pot clavulanate 875-125 mg 1 tab PO BID 7 days atorvastatin 80 mg PO QPM diphenhydramine-acetaminophen 25-500 mg (Acetaminophen PM) 1 tab PO BEDTIME PRN hydralazine 50 mg PO TID lisinopril 40 mg PO DAILY metoprolol succinate ER 50 mg PO DAILY metoprolol succinate ER (Toprol XL) 25 mg PO DAILY prednisone 10 mg PO DAILY 4 days warfarin See Protocol 2.5 mg orally 3.75MG X 3 DAYS/ 2.5MG X 4 DAYS; Nursing Note INR: 2.5 in therapeutic range Medications and supplements reviewed URI ON ANTBX AND PREDNISONE THAT SHE STARTED YESTERDAY , Denies any signs and symptoms of bleeding or bruising or clotting. Bleeding, bruising, clotting discussed Nutritional guidance given - INCREASE GREENS 1-2 SERVINGS NEXT WEEK Dose: KEEP SAME DOSE THIS WEEK, DECREASE NEXT WEEKS DOSE TO 2.5MG X 5 DAYS/ 3.75MG X 2 DAYS PLUS 1-2 EXTRA GREENS F/U INR: 07/15/2024 Patient verbalizes understanding of instructions given Anti-Coag Initial Assessment Social Hx Patient Tobacco Use Status: Current everyday Tobacco user Tobacco use type: Cigarette alcohol intake: never Alcohol intake frequency: does not drink Coding Level of Care Code Est Patient Level 1 Diagnoses Current use of anticoagulant therapy Z79.01 Results AMB INR Fingerstick AMB INR Fingerstick 2.5 Last Edit by Twila Valentine RN on 07/05/24 13:09 manual entry Assessment & Plan Assessment & Plan (1) Current use of anticoagulant therapy: 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
[2024-07-05 13:33] LABS: Prothrombin Time Whole Bld POC 29.4 sec (11.1-13.5); ~PT, ~INR - Anti Coag Clinic 2.5 (0.9-1.1)
== END 2024-07-05 13:20 | disposition home or self-care (01) ==
LOC: HO.ACS 12:56
PROVIDERS: PCP Internal Medicine; Visit Provider Internal Medicine Medical Oncology
DX: Z79.01 Long term (current) use of 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s (principal)

== ENCOUNTER → 2024-07-05 12:56 | Outpatient (BNVA) | payer MEDICARE, SELFPAY | PROVIDERS: PCP Internal Medicine; Visit Provider Internal Medicine Medical Oncology | DX: I48.0 Paroxysmal atrial fibrillation (principal); Z79.01 Long term (current) use of 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s; Z51.81 Encounter for therapeutic drug level monitoring | CPT/HCPCS: 85610; 99211 ==

== ENCOUNTER 2024-07-12 13:05 | Outpatient (AMB) | payer MEDICARE, SELFPAY ==
[2024-07-12 13:11] LABS: ~PT, ~INR - Anti Coag Clinic 1.3 (0.9-1.1)
--- NOTE | 2024-07-12 13:17 | MHC.OFFVISCO ---
Intake Intake Visit Reasons: Anticoagulation Allergies vancomycin Adverse Reaction (Verified 07/05/24 13:03) Rash Nursing Note INR 1.3? out of therapeutic range 1.5-2.5 Medications and supplements reviewed Patient status: RECOVERING FROM URI Medications or supplements: COMPLETING ANTBX AND STEROID, WARFARIN DOSE WAS DECREASED THIS MONDAY DUE TO EFFECTS OF ANTBX RAISING THE INR AND DECREASED APPETITE Diet: APPETITE IMPROVING Denies any signs and symptoms of bleeding or clotting or unusual bruising Bleeding, bruising, clotting discussed Nutritional guidance given: AVOID GREENS X 2 DAYS Dose: RESUME 3.75MG X 3 DAYS/ 2.5MG X 4 DAYS- EFFECTS OF ANTBX MAY RAISE THE INR - F/U INR Date : 10 DAYS ?? Patient verbalizing understanding of instructions given. 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
== END 2024-07-12 13:23 | disposition home or self-care (01) ==
LOC: HO.ACS 13:05
PROVIDERS: PCP Physician Assistant; Visit Provider Internal Medicine Medical Oncology
DX: Z79.01 Long term (current) use of 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s (principal)

== ENCOUNTER → 2024-07-12 13:05 | Outpatient (BNVA) | payer MEDICARE, SELFPAY | PROVIDERS: PCP Physician Assistant; Visit Provider Internal Medicine Medical Oncology | DX: I48.0 Paroxysmal atrial fibrillation (principal); Z79.01 Long term (current) use of 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s; Z51.81 Encounter for therapeutic drug level monitoring | CPT/HCPCS: 85610; 99211 ==

== ENCOUNTER 2024-07-24 13:03 | Outpatient (AMB) | payer MEDICARE, SELFPAY ==
[2024-07-24 13:28] LABS: Prothrombin Time Whole Bld POC 18.4 sec (11.1-13.5); ~PT, ~INR - Anti Coag Clinic 1.5 (0.9-1.1)
--- NOTE | 2024-07-24 13:38 | MHC.OFFVISCO ---
Intake Intake Visit Reasons: Anticoagulation Allergies vancomycin Adverse Reaction (Verified 07/24/24 13:22) Rash Medication List - Last Reconciled 07/24/24 by Rosangela Malone RN amlodipine 10 mg PO DAILY 30 days amoxicillin-pot clavulanate 875-125 mg 1 tab PO BID 7 days atorvastatin 80 mg PO QPM diphenhydramine-acetaminophen 25-500 mg (Acetaminophen PM) 1 tab PO BEDTIME PRN hydralazine 50 mg PO TID lisinopril 40 mg PO DAILY metoprolol succinate ER 50 mg PO DAILY metoprolol succinate ER (Toprol XL) 25 mg PO DAILY prednisone 10 mg PO DAILY 4 days warfarin See Protocol 2.5 mg orally 3.75MG X 3 DAYS/ 2.5MG X 4 DAYS; Nursing Note PT.STATES THAT SHE MISSED 1 DOSE RECENTLY. NO CP,SOB,DIET/MED CHANGES,FALLS OR SX OF BLEEDING. CONTINUE PRESENT DOSING AND FOLLOW-UP IN 2 WEEKS GOOD UNDERSTANDING OF DOSING INSTR. 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
== END 2024-07-24 13:40 | disposition home or self-care (01) ==
LOC: HO.ACS 13:03
PROVIDERS: PCP Physician Assistant; Visit Provider Internal Medicine Medical Oncology
DX: Z79.01 Long term (current) use of 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s (principal)

== ENCOUNTER → 2024-07-24 13:03 | Outpatient (BNVA) | payer MEDICARE, SELFPAY | PROVIDERS: PCP Physician Assistant; Visit Provider Internal Medicine Medical Oncology | DX: I48.0 Paroxysmal atrial fibrillation (principal); Z79.01 Long term (current) use of 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s; Z51.81 Encounter for therapeutic drug level monitoring | CPT/HCPCS: 85610; 99211 ==

== ENCOUNTER 2024-08-07 13:03 | Outpatient (AMB) | payer MEDICARE, SELFPAY ==
[2024-08-07 13:09] LABS: Prothrombin Time Whole Bld POC 17.7 sec (11.1-13.5); ~PT, ~INR - Anti Coag Clinic 1.5 (0.9-1.1)
--- NOTE | 2024-08-07 13:16 | MHC.OFFVISCO ---
Intake Intake Visit Reasons: Anticoagulation Allergies vancomycin Adverse Reaction (Verified 08/07/24 13:04) Rash Medication List - Last Reconciled 08/07/24 by Rosangela Malone RN amlodipine 10 mg PO DAILY 30 days amoxicillin-pot clavulanate 875-125 mg 1 tab PO BID 7 days atorvastatin 80 mg PO QPM diphenhydramine-acetaminophen 25-500 mg (Acetaminophen PM) 1 tab PO BEDTIME PRN hydralazine 50 mg PO TID lisinopril 40 mg PO DAILY metoprolol succinate ER 50 mg PO DAILY metoprolol succinate ER (Toprol XL) 25 mg PO DAILY prednisone 10 mg PO DAILY 4 days warfarin See Protocol 2.5 mg orally 3.75MG X 3 DAYS/ 2.5MG X 4 DAYS; Nursing Note NO CP,SOB,DIET/MED CHANGES,FALLS OR SX OF BLEEDING. CONTINUE PRESENT DOSE AND FFOLLOW-UP IN 3 WEEKS GOOD UNDERSTANDING OF DOSING INSTR. Anti-Coag Initial Assessment Social Hx Patient Tobacco Use Status: Current everyday Tobacco user Tobacco use type: Cigarette alcohol intake: never Alcohol intake frequency: does not drink Coding Level of Care Code Est Patient Level 1 Diagnoses Current use of anticoagulant therapy Z79.01 Assessment & Plan Assessment & Plan (1) Current use of anticoagulant therapy: Code(s): Z79.01 - FDC (current) use of anticoagulants Category: Medical
== END 2024-08-07 13:18 | disposition home or self-care (01) ==
LOC: HO.ACS 13:03
PROVIDERS: PCP Physician Assistant; Visit Provider Internal Medicine Medical Oncology
DX: Z79.01 Long term (current) use of 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s (principal)

== ENCOUNTER → 2024-08-07 13:03 | Outpatient (BNVA) | payer MEDICARE, SELFPAY | PROVIDERS: PCP Physician Assistant; Visit Provider Internal Medicine Medical Oncology | DX: I48.0 Paroxysmal atrial fibrillation (principal); Z79.01 Long term (current) use of 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s; Z51.81 Encounter for therapeutic drug level monitoring | CPT/HCPCS: 85610; 99211 ==

== ENCOUNTER 2024-08-28 13:12 | Outpatient (AMB) | payer MEDICARE, SELFPAY ==
--- NOTE | 2024-08-28 13:24 | MHC.OFFVISCO ---
Intake Intake Visit Reasons: Anticoagulation Allergies vancomycin Adverse Reaction (Verified 08/28/24 13:19) Rash Medication List - Last Reconciled 08/28/24 by Karely Hernandez RN amlodipine 10 mg PO DAILY 30 days amoxicillin-pot clavulanate 875-125 mg 1 tab PO BID 7 days atorvastatin 80 mg PO QPM diphenhydramine-acetaminophen 25-500 mg (Acetaminophen PM) 1 tab PO BEDTIME PRN hydralazine 50 mg PO TID lisinopril 40 mg PO DAILY metoprolol succinate ER 50 mg PO DAILY metoprolol succinate ER (Toprol XL) 25 mg PO DAILY prednisone 10 mg PO DAILY 4 days warfarin See Protocol 2.5 mg orally 3.75MG X 3 DAYS/ 2.5MG X 4 DAYS; Nursing Note INR 1.3-? out of therapeutic range of 1.5-2.5 Medications and supplements reviewed Patient status: pt amb with cane. denies missed dose of warfarin, may have had more greens Medications or supplements: no changes Diet: same Denies any signs and symptoms of bleeding or clotting or unusual bruising Bleeding, bruising, clotting discussed Nutritional guidance given: no greens for 2 days, eat reds to raise Dose: increase warfarin today to 5mg then cont 3.75mg x 3, 2.5mg x 4 F/U INR Date : recommended one week, pt req 2 weeks?? Patient verbalizing understanding of instructions given. 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
[2024-08-28 13:26] LABS: Prothrombin Time Whole Bld POC 16.1 sec (11.1-13.5); ~PT, ~INR - Anti Coag Clinic 1.3 (0.9-1.1)
== END 2024-08-28 13:40 | disposition home or self-care (01) ==
LOC: HO.ACS 13:12
PROVIDERS: PCP Physician Assistant; Visit Provider Internal Medicine Medical Oncology
DX: Z79.01 Long term (current) use of 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s (principal)

== ENCOUNTER → 2024-08-28 13:12 | Outpatient (BNVA) | payer MEDICARE, SELFPAY | PROVIDERS: PCP Physician Assistant; Visit Provider Internal Medicine Medical Oncology | DX: I48.0 Paroxysmal atrial fibrillation (principal); I10 Essential (primary) hypertension; R26.89 Other abnormalities of gait and mobility; F17.210 Nicotine dependence, cigarettes, uncomplicated; Z86.73 Personal history of transient ischemic attack (TIA), and cerebral infarction without residual deficits; Z51.81 Encounter for therapeutic drug level monitoring; Z79.01 Long term (current) use of 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s; Z13.31 Encounter for screening for depression | CPT/HCPCS: 85610; 96127; 99211; 99212 ==

== ENCOUNTER 2024-08-28 14:18 | Outpatient (AMB) | payer MEDICARE, SELFPAY ==
[2024-08-28 14:34] VITALS: BP 126/80; PULSE 61; RESP 18; TEMP 36.2; O2SAT 95; BMI 22.4
--- NOTE | 2024-08-28 14:34 | MHC.PC.OV ---
Vital Signs 08/28/24 14:34 Height 5 ft 2 in Weight 122 lb 8 oz BMI 22.4 BP 126/80 Blood Pressure Location Lt brachial Position Sitting Respiration 18 Pulse 61 Pulse Source Pulse Oximeter Temp 97.1 F Temp Source Temporal Artery Scan Pulse Oximetry (%) 95 Oxygen Delivery Method Room Air Intake Visit Reasons: f/u HTN - see comments Allergies vancomycin Adverse Reaction (Verified 08/28/24 14:58) Rash Medication List - Last Reconciled 08/28/24 by Santiago Drew PA-C amlodipine 10 mg PO DAILY 30 days atorvastatin 80 mg PO QPM diphenhydramine-acetaminophen 25-500 mg (Acetaminophen PM) 1 tab PO BEDTIME PRN hydralazine 50 mg PO TID lisinopril 40 mg PO DAILY metoprolol succinate ER 50 mg PO DAILY metoprolol succinate ER (Toprol XL) 25 mg PO DAILY warfarin See Protocol 2.5 mg orally 3.75MG X 3 DAYS/ 2.5MG X 4 DAYS; Tobacco use date assessed: 08/28/24 Fall risk assessment: No Falls in past year Last assessed Fall Risk: 08/28/24 Dental Screening Dental Screen Date: 08/28/24 Did you have a dental visit in the last 12 months?: No Did you have a dental problem in the last 6 months where you did not have access to dental care?: No Was dental information given to patient?: Patient declined HPI f/u HTN - see comments HPI Details Patient is a 79-year-old female here today for follow-up visit. Patient has a past medical history significant for hyperlipidemia, hypertension, paroxysmal AFib. Unfortunately was not able to do her fasting labs before today's appointment . ,, Hypertension: Patient's blood pressure acceptable today in office.. She continues on hydralazine, lisinopril 40 mg and amlodipine 5 mg .. Hyperlipidemia: Patient continues on high dose statin therapy .. AFib: Patient followed by [facility]. She is anticoagulated with warfarin and INRs has been subtherapeutic.. No overt signs of bleeding. She has under rate control with metoprolol 50 mg. She does report some fatigue daily though attributes this to age. .. Tobacco dependency: Patient has been smoking over 35 years, no interested in quitting at this time. We did discuss the lung cancer screening program though she declines at this time. Laboratory Tests 03/29/24 08/07/24 08/28/24 10:53 13:07 13:23 RBC 4.13 L Whole Blood INR 1.5 H 1.3 H Total Creatine Kin ase 24 L [facility] Medical History C. difficile colitis Hyperlipidemia Gout Annual physical exam assisted current use of anticoagulant assisted current use of antiarrhythmic drug Essential hypertension Embolic stroke Sinus bradycardia PAF (paroxysmal atrial fibrillation) Surgical History History of cardiac radiofrequency ablation (~07/07/20) History of colostomy History of section Family History Father CVD (cardiovascular disease) Mother Alzheimer disease Social History Household Members: Spouse Housing: House Do you presently have visiting nurse or other home services: No Alcohol intake: never Patient Tobacco Use Status: Current everyday Tobacco user Tobacco use type: Cigarette Cigarettes Per Day: 2 e-Cigarette/Vaping Use: Never Used Second Hand Smoke Exposure: No Advance Directives Date on File: 03/31/24 service: No Current occupational status: retired Current occupation: right hand dominant Cognitive needs: Yes (cane) Hearing needs: No Vision needs: Yes (glasses) Questionnaire PHQ-9 Over the last 2 weeks, how often have you been bothered by any of the following problems? 1. Little interest or pleasure in doing things: several days 2. Feeling down, depressed, or hopeless: several days 3. Trouble falling or staying asleep, or sleeping too much: more than half the days 4. Feeling tired or having little energy: several days 5. Poor appetite or overeating: several days 6. Feeling bad about yourself - or that you are a failure or have let yourself or your family down: not at all 7. Trouble concentrating on things, such as reading the newspaper or watching television: not at all 8. Moving or speaking so slowly that other people could have noticed. Or the opposite - being so fidgety or restless that you have been moving around a lot more than usual: not at all 9. Thoughts that you would be better off or of hurting yourself in some way: not at all Total score: 6 Depression Screening Interpretation: Positive Depression Screening Follow-up: Existing condition Depression Screening Done: Yes 42650 - PHQ-9 Billing: Yes Source: Developed by Drs. Domingo Sandoval, Nilsa Palacios, Jorge Dominguez and colleagues, with an educational joselin from [employer]. Thrive Questionnaire Date Thrive assessed: 03/30/24 I am a: Patient What is your living situation today?: I have a steady place to live Within the past 12 months, did the food you bought not last and you didn't have the money to get more?: Never true Within the past 12 months, did you worry whether your food would run out before you got money to buy more?: Never true Do you have trouble paying for medicines?: No Do you have trouble getting transportation to medical appointments?: No Do you have trouble paying your heating and electricity bill?: No Do you have trouble taking care of your child, family member or friend?: No Do you have trouble with day-to-day activities such as bathing, preparing meals, shopping, managing finances, etc.?: No Are you currently unemployed and looking for a job?: No Are you interested in more education?: No Please select the resources that you would like help with: None Currently or been in a relationship where the following occur: I choose not to answer THRIVE Score: 0 AUDIT C Alcohol Use Questionnaire (AUDIT-C) 1. How often do you have a drink containing alcohol?: Never 3. How often do you have six or more drinks on one occasion?: Never Total Score: 0 LYNDSAY-7 AMB Questionnaire LYNDSAY-7 Date LYNDSAY - 7 assessed: 03/04/24 Feeling nervous, anxious, or on edge: 0 = Not at all Not being able to stop or control worryin = Not at all Worrying too much about different things: 0 = Not at all Trouble relaxin = Not at all Being so restless that it is hard to sit still: 0 = Not at all Becoming easily annoyed or irritable: 0 = Not at all Feeling afraid as if something awful might happen: 0 = Not at all Total LYNDSAY-7 score (0-4 normal; 5-9 mild; 10-14 moderate; 15-21 severe): 0 Source: Developed by Drs. Domingo Sandoval, Nilsa Palacios, Jorge Dominguez and colleagues, with an educational joselin from [employer]. Review of Systems Const Denies headache(s) Eyes Denies loss of vision ENT Denies vertigo, Denies dizziness, Denies headache(s) and Denies sore throat Card Denies chest pain, Denies leg edema and Denies lightheadedness Resp Denies cough, Denies hemoptysis and Denies wheezing GI Denies abdominal pain, Denies melena, Denies constipation, Denies diarrhea and Denies vomiting Denies urinary frequency, Denies dysuria and Denies urinary urgency Musc Denies arthralgias, Denies joint swelling, Denies numbness and Denies tingling Neuro Denies Abnormal speech present, Denies behavioral changes, Denies vertigo, Denies dizziness, Denies headache(s), Denies loss of vision, Denies memory loss, Denies numbness and Denies tingling Psych Denies anxiety, Denies behavioral changes, Denies depression, Denies memory loss and Denies panic attacks Chris/Lymph Denies easy bleeding and Denies easy bruising Aller/Immun Denies wheezing Physical exam (Primary Care) Vital Signs: Last Vital Signs Temp 97.1 F 08/28/24 14:34 Pulse 61 08/28/24 14:34 Resp 18 08/28/24 14:34 BP 126/80 08/28/24 14:34 Pulse Ox 95 08/28/24 14:34 Oxygen Delivery Method Room Air 08/28/24 14:34 BMI result Body Mass Index 22.4 Tobacco/Smoking Status: Tobacco use Status Tobacco use date assessed 08/28/24 08/28/24 14:37 Patient Tobacco Use Status Current everyday Tobacco 08/28/24 14:37 Tobacco use type Cigarette 08/28/24 14:37 e-Cigarette/Vaping Use Never Used 08/28/24 14:37 Are you ready to quit: No Tobacco cessation counseling provided: Yes Items discussed: Nicotine replacement Relapse Prevention: discussed the importance of a supportive environment, discussed negative mood or depression after quitting, weight gain after smoking is common and discussed dietary, exercise and/or lifestyle changes Number of minutes spent counselin CPT code: 66946 - 4-10 Minutes PHQ-9: PHQ-9 Score PHQ-9: Total score 6 08/28/24 14:37 Depression Screening Interpretation: Positive Depression Screening Follow-up: Existing condition Thrive Assessment: Date of Thrive Assessment Date Thrive assessed 03/30/24 08/28/24 14:37 Currently or been in a relationship where the following occur: I choose not to answer Const General: healthy appearing, no acute distress, alert and awake Nutritional Appearance: well nourished Orientation/consciousness: oriented to person, oriented to place and oriented to time HENMT Ears: TM's normal bilaterally General nose exam: Normal nasal mucous membranes and turbinates present Eyes Conjunctivae: conjunctivae normal Sclerae: sclerae normal Pupils: Equal, round and reactive pupils present Neck Neck: Yes no lymphadenopathy and Yes no JVD Thyroid: Thyroid normal Carotids: no bruits Resp Effort & Inspection: normal respiratory effort and not tachypneic Auscultation: no crackles, no rales, no rhonchi and no wheezes Cardio Rate: regular rate Rhythm: regular rhythm Heart sounds: no murmurs and normal S1 and S2 GI Palpation (GI): Soft to palpation, nontender, no hepatomegaly and no splenomegaly Auscultation: normal bowel sounds Skin General skin exam: no rashes or lesions noted and dry skin Neuro General: oriented to person, oriented to place and oriented to time Cranial nerves: Yes Equal, round and reactive pupils present Speech: No Abnormal speech present Gait exam (Neuro): Normal gait present Motor exam (neuro): no tremor noted Extrem Right upper extremity: full ROM Left upper extremity: full ROM Right lower extremity: full ROM; no edema Left lower extremity: full ROM; no edema Psych Mental Status: mental status grossly normal Speech and movement: Normal speech and movement present Affect: normal affect Attitude: cooperative Thought process: Normal thought process present Coding Level of Care Code Est Pt Level 4 (71386) Diagnoses PAF (paroxysmal atrial fibrillation) I48.0 Cerebrovascular accident (CVA) due to embolism of cerebral artery I63.40 Precerebral and cerebral artery: unspecified cerebral artery Impairment of balance R26.89 Tobacco dependence F17.200 Additional Codes PHQ-9 - 11539 - PHQ-9 Billing: Yes ([id number]) Vital Signs *Quality* - CPT code: 19312 - 4-10 Minutes ([id number]) Assessment & Plan Assessment & Plan (1) PAF (paroxysmal atrial fibrillation): Code(s): I48.0 - Paroxysmal atrial fibrillation Category: Medical Plan: Continues to follow cardiology, anticoagulated with warfarin and under rate control with metoprolol. (2) Embolic stroke: Code(s): I63.9 - Cerebral infarction, unspecified Category: Medical Qualifiers: Precerebral and cerebral artery: unspecified cerebral artery Qualified Code(s): I63.40 - Cerebral infarction due to embolism of unspecified cerebral artery Plan: Patient followed by Neurology, continues on high dose statin therapy and anticoagulation. She does have some balance issues has a sequelae to her stroke. We did discuss doing physical therapy for balance training though patient is considering (3) Impairment of balance: Code(s): R26.89 - Other abnormalities of gait and mobility Category: Medical Plan: As above patient considering physical therapy for balance training. Did strongly advised to start using a cane for ambulation (4) Tobacco dependence: Code(s): F17.200 - Nicotine dependence, unspecified, uncomplicated Category: Medical Plan: Patient does understand she needs to quit smoking though is not willing to do so at this time. Nicotine replacement offered. We did discuss the lung cancer screening program though she declines at this time.
== END 2024-08-28 15:06 | disposition home or self-care (01) ==
LOC: HO.HMCH 14:19
PROVIDERS: PCP Physician Assistant; Visit Provider Physician Assistant
DX: I48.0 Paroxysmal atrial fibrillation (principal); I63.40 Cerebral infarction due to embolism of unspecified cerebral artery; R26.89 Other abnormalities of gait and mobility; F17.200 Nicotine dependence, unspecified, uncomplicated

== ENCOUNTER 2024-09-09 13:04 | Outpatient (AMB) | payer MEDICARE, SELFPAY ==
[2024-09-09 13:11] LABS: Prothrombin Time Whole Bld POC 20.6 sec (11.1-13.5); ~PT, ~INR - Anti Coag Clinic 1.7 (0.9-1.1)
--- NOTE | 2024-09-09 13:20 | MHC.OFFVISCO ---
Intake Intake Visit Reasons: Anticoagulation Allergies vancomycin Adverse Reaction (Verified 09/09/24 13:05) Rash Medication List - Last Reconciled 09/09/24 by Twila Valentine RN amlodipine 10 mg PO DAILY 30 days atorvastatin 80 mg PO QPM diphenhydramine-acetaminophen 25-500 mg (Acetaminophen PM) 1 tab PO BEDTIME PRN hydralazine 50 mg PO TID lisinopril 40 mg PO DAILY metoprolol succinate ER 50 mg PO DAILY metoprolol succinate ER (Toprol XL) 25 mg PO DAILY warfarin See Protocol 2.5 mg orally 3.75MG X 3 DAYS/ 2.5MG X 4 DAYS; Nursing Note INR: 1.7 in therapeutic range 1.5-2.5 *Drinking 1 ensure / day to help keep wieght on Medications and supplements reviewed No changes in health, medications, or supplements, Denies any signs and symptoms of bleeding or bruising or clotting. Bleeding, bruising, clotting discussed Nutritional guidance given - when drinking 1 ensure daily- make sure to eat orange and reds to help keep INR in range Dose: 3.75mg x 3 days/ 2.5mg x 4 days F/U INR: 2 weeks Patient verbalizes understanding of instructions given Anti-Coag Initial Assessment Social Hx Patient Tobacco Use Status: Current everyday Tobacco user Tobacco use type: Cigarette alcohol intake: never Alcohol intake frequency: does not drink Coding Level of Care Code Est Patient Level 1 Diagnoses Current use of anticoagulant therapy Z79.01 Assessment & Plan Assessment & Plan (1) Current use of anticoagulant therapy: Code(s): Z79.01 - assisted (current) use of anticoagulants Category: Medical
== END 2024-09-09 13:24 | disposition home or self-care (01) ==
LOC: HO.ACS 13:04
PROVIDERS: PCP Physician Assistant; Visit Provider Internal Medicine Medical Oncology
DX: Z79.01 Long term (current) use of 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s (principal)

== ENCOUNTER → 2024-09-09 13:04 | Outpatient (BNVA) | payer MEDICARE, SELFPAY | PROVIDERS: PCP Physician Assistant; Visit Provider Internal Medicine Medical Oncology | DX: Z51.81 Encounter for therapeutic drug level monitoring (principal); Z79.01 Long term (current) use of 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s | CPT/HCPCS: 85610; 99211 ==

== ENCOUNTER 2024-09-23 12:59 | Outpatient (AMB) | payer MEDICARE, SELFPAY ==
[2024-09-23 13:09] LABS: Prothrombin Time Whole Bld POC 16.5 sec (11.1-13.5); ~PT, ~INR - Anti Coag Clinic 1.4 (0.9-1.1)
--- NOTE | 2024-09-23 13:13 | MHC.OFFVISCO ---
Intake Intake Visit Reasons: Anticoagulation Allergies vancomycin Adverse Reaction (Verified 09/23/24 13:02) Rash Medication List - Last Reconciled 09/23/24 by Twila Valentine RN amlodipine 10 mg PO DAILY 30 days atorvastatin 80 mg PO QPM diphenhydramine-acetaminophen 25-500 mg (Acetaminophen PM) 1 tab PO BEDTIME PRN hydralazine 50 mg PO TID lisinopril 40 mg PO DAILY metoprolol succinate ER 50 mg PO DAILY metoprolol succinate ER (Toprol XL) 25 mg PO DAILY warfarin See Protocol 2.5 mg orally 3.75MG X 3 DAYS/ 2.5MG X 4 DAYS; Nursing Note INR: 1.4 OUT of therapeutic range 1.5-2.5 - TAKES ENSURE DAILY NOW Medications and supplements reviewed No changes in health, diet, medications, or supplements, Denies any signs and symptoms of bleeding or bruising or clotting. Bleeding, bruising, clotting discussed Nutritional guidance given - eat more orange and reds to help keep INR up while having ensure daily Dose: 3.75mg x 4 days this week, then 3.75mg x 3 days/2.5mg x 4 days F/U INR:2 weeks Patient verbalizes understanding of instructions given Anti-Coag Initial Assessment Social Hx Patient Tobacco Use Status: Current everyday Tobacco user Tobacco use type: Cigarette alcohol intake: never Alcohol intake frequency: does not drink Coding Level of Care Code Est Patient Level 1 Diagnoses Current use of anticoagulant therapy Z79.01 Assessment & Plan Assessment & Plan (1) Current use of anticoagulant therapy: Code(s): Z79.01 - FDC (current) use of anticoagulants Category: Medical
== END 2024-09-23 13:26 | disposition home or self-care (01) ==
LOC: HO.ACS 12:59
PROVIDERS: PCP Physician Assistant; Visit Provider Internal Medicine Medical Oncology
DX: Z79.01 Long term (current) use of anticoagulants (principal)

== ENCOUNTER → 2024-09-23 12:59 | Outpatient (BNVA) | payer MEDICARE, SELFPAY | PROVIDERS: PCP Physician Assistant; Visit Provider Internal Medicine Medical Oncology | DX: Z51.81 Encounter for therapeutic drug level monitoring (principal); Z79.01 Long term (current) use of anticoagulants | CPT/HCPCS: 85610; 99211 ==

== ENCOUNTER 2024-10-09 09:37 | Outpatient (REF) | payer MEDICARE, SELFPAY ==
[2024-10-09 10:30] LABS: Hematocrit 39.3 % (37.0-47.0); Hemoglobin 13.4 g/dl (12.0-16.0); Mean Corpuscular HGB Conc 34.1 g/dl (31.0-35.0); Mean Corpuscular Hemoglobin 29.3 pg (27.0-33.0); Mean Corpuscular Volume 85.8 fL (80.0-98.0); NRBC Abs Auto 0.000 X10*3/uL (0.0-0.012); NRBC Pct Auto 0.0 /100WBC (0.0-0.2); Platelet Count 274 X10*3/uL (160-400); Red Blood Count 4.58 X10*6/uL (4.20-5.50); White Blood Count 5.6 X10*3/uL (4.8-10.8)
[2024-10-09 11:06] LABS: Alanine Aminotransferase < 6 U/L (0-31); Albumin Level 4.3 g/dL (3.5-5.0); Alkaline Phosphatase 88 U/L (39-117); Anion Gap 12 (12-20); Aspartate Amino Transferase 18 U/L (5-31); Blood Urea Nitrogen 14 mg/dL (9-16); Calcium 9.7 mg/dL (8.4-10.2); Carbon Dioxide 24 mmol/L (22-29); Chloride 111 mmol/L (96-108); Cholesterol 223 mg/dL (<200); Estimated Glomerular Filt Rate 58; HDL Cholesterol 54 mg/dL (>40); Potassium 4.8 mmol/L (3.3-5.1); Sodium 142 mmol/L (135-145); Total Protein 7.0 g/dL (6.5-8.0); Triglycerides 149 mg/dL (<150); Uric Acid 5.8 mg/dL (2.4-5.7)
[2024-10-09 11:17] LABS: Appearance Urine Clear; Glucose Urine UA Negative (Negative); PH 6.0 (5.0-9.0); Specific Gravity - Urine 1.025 (1.005-1.025); UMIC TRIGGER UACC YES
[2024-10-09 11:31] LABS: UACC Culture Trigger YES
[2024-10-09 11:57] LABS: Microalbum/Creatinine Ratio Ur 571.6 ug/mg cr (<30)
== END 2024-10-09 09:38 | disposition home or self-care (01) ==
LOC: HO.LAB 09:37
PROVIDERS: PCP Physician Assistant; Visit Provider Physician Assistant
DX: I48.0 Paroxysmal atrial fibrillation (principal); M1A.09X0 Idiopathic chronic gout, multiple sites, without tophus (tophi); I10 Essential (primary) hypertension; E78.5 Hyperlipidemia, unspecified; R30.0 Dysuria
CPT/HCPCS: 36415; 80053; 80061; 81001; 81003; 82043; 82570; 84550; 85027; 85610; 87086; 99211

== ENCOUNTER 2024-10-09 09:48 | Outpatient (AMB) | payer MEDICARE, SELFPAY ==
[2024-10-09 09:53] LABS: Prothrombin Time Whole Bld POC 13.6 sec (11.1-13.5); ~PT, ~INR - Anti Coag Clinic 1.1 (0.9-1.1)
--- NOTE | 2024-10-09 10:02 | MHC.OFFVISCO ---
Intake Intake Visit Reasons: Anticoagulation Allergies vancomycin Adverse Reaction (Verified 10/09/24 09:49) Rash Medication List - Last Reconciled 10/09/24 by Rosangela Malone RN amlodipine 10 mg PO DAILY 30 days atorvastatin 80 mg PO QPM diphenhydramine-acetaminophen 25-500 mg (Acetaminophen PM) 1 tab PO BEDTIME PRN hydralazine 50 mg PO TID lisinopril 40 mg PO DAILY metoprolol succinate ER 50 mg PO DAILY metoprolol succinate ER (Toprol XL) 25 mg PO DAILY warfarin See Protocol 2.5 mg orally 3.75MG X 3 DAYS/ 2.5MG X 4 DAYS; Nursing Note PT.STATES THAT SHE MISSED 2 DOSE OF WARFARIN THIS WEEK. NO CP,SOB,FALLS OR SX OF BLEEDING. BOOST TO 5MGM 2 DAYS THEN RESUME PRESENT DOSE AND FOLLOW-UP IN 1 WEEK. 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
== END 2024-10-09 10:07 | disposition home or self-care (01) ==
LOC: HO.ACS 09:48
PROVIDERS: PCP Physician Assistant; Visit Provider Internal Medicine Medical Oncology
DX: Z79.01 Long term (current) use of anticoagulants (principal)

== ENCOUNTER 2024-10-16 13:01 | Outpatient (AMB) | payer MEDICARE, SELFPAY ==
--- NOTE | 2024-10-16 13:08 | MHC.OFFVISCO ---
Intake Intake Visit Reasons: Anticoagulation Allergies vancomycin Adverse Reaction (Verified 10/16/24 13:05) Rash Medication List - Last Reconciled 10/16/24 by Karely Hernandez RN amlodipine 10 mg PO DAILY 30 days atorvastatin 80 mg PO QPM diphenhydramine-acetaminophen 25-500 mg (Acetaminophen PM) 1 tab PO BEDTIME PRN hydralazine 50 mg PO TID lisinopril 40 mg PO DAILY metoprolol succinate ER 50 mg PO DAILY metoprolol succinate ER (Toprol XL) 25 mg PO DAILY warfarin See Protocol 2.5 mg orally 3.75MG X 3 DAYS/ 2.5MG X 4 DAYS; Nursing Note INR: 1.7- in therapeutic range of 1.5-2.5 Medications and supplements reviewed- no changes No changes in health, diet, medications, or supplements, Denies any signs and symptoms of bleeding or bruising or clotting. 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
[2024-10-16 13:09] LABS: Prothrombin Time Whole Bld POC 20.5 sec (11.1-13.5); ~PT, ~INR - Anti Coag Clinic 1.7 (0.9-1.1)
== END 2024-10-16 13:14 | disposition home or self-care (01) ==
LOC: HO.ACS 13:01
PROVIDERS: PCP Physician Assistant; Visit Provider Internal Medicine Medical Oncology
DX: Z79.01 Long term (current) use of anticoagulants (principal)

== ENCOUNTER → 2024-10-16 13:01 | Outpatient (BNVA) | payer MEDICARE, SELFPAY | PROVIDERS: PCP Physician Assistant; Visit Provider Internal Medicine Medical Oncology | DX: Z51.81 Encounter for therapeutic drug level monitoring (principal); Z79.01 Long term (current) use of anticoagulants | CPT/HCPCS: 85610; 99211 ==

== ENCOUNTER 2024-11-01 13:01 | Outpatient (AMB) | payer MEDICARE, SELFPAY ==
[2024-11-01 13:09] LABS: Prothrombin Time Whole Bld POC 22.1 sec (11.1-13.5); ~PT, ~INR - Anti Coag Clinic 1.8 (0.9-1.1)
--- NOTE | 2024-11-01 13:14 | MHC.OFFVISCO ---
Intake Intake Visit Reasons: Anticoagulation Allergies vancomycin Adverse Reaction (Verified 11/01/24 13:03) Rash Medication List - Last Reconciled 11/01/24 by Mery Alston RN amlodipine 10 mg PO DAILY 30 days atorvastatin 80 mg PO QPM diphenhydramine-acetaminophen 25-500 mg (Acetaminophen PM) 1 tab PO BEDTIME PRN hydralazine 50 mg PO TID lisinopril 40 mg PO DAILY metoprolol succinate ER 50 mg PO DAILY metoprolol succinate ER (Toprol XL) 25 mg PO DAILY warfarin See Protocol 2.5 mg orally 3.75MG X 3 DAYS/ 2.5MG X 4 DAYS; Nursing Note INR: 1.8 out of therapeutic range of 2-3 Medications and supplements reviewed No changes in health, diet, medications, or supplements, Denies any signs and symptoms of bleeding or bruising or clotting. Bleeding, bruising, clotting discussed Nutritional guidance given to avoid greens today Dose: increase today's dose to 5mg (3.75mg) then 2.5mg X 4 days and 3.75mg X 3 days F/U INR: 2 weeks Patient verbalizes understanding of instructions given Anti-Coag Initial Assessment Social Hx Patient Tobacco Use Status: Current everyday Tobacco user Tobacco use type: Cigarette alcohol intake: never Alcohol intake frequency: does not drink Coding Level of Care Code Est Patient Level 1 Diagnoses Current use of anticoagulant therapy Z79.01 Results AMB INR Fingerstick AMB INR Fingerstick 1.8 Last Edit by Mery Alston RN on 11/01/24 13:11 interface delay Assessment & Plan Assessment & Plan (1) Current use of anticoagulant therapy: Code(s): 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
== END 2024-11-01 13:18 | disposition home or self-care (01) ==
LOC: HO.ACS 13:01
PROVIDERS: PCP Physician Assistant; Visit Provider Internal Medicine Medical Oncology
DX: Z79.01 Long term (current) use of anticoagulants (principal)

== ENCOUNTER → 2024-11-01 13:01 | Outpatient (BNVA) | payer MEDICARE, SELFPAY | PROVIDERS: PCP Physician Assistant; Visit Provider Internal Medicine Medical Oncology | DX: Z51.81 Encounter for therapeutic drug level monitoring (principal); Z79.01 Long term (current) use of anticoagulants | CPT/HCPCS: 85610; 99211 ==

== ENCOUNTER 2024-11-13 09:51 | Outpatient (AMB) | payer MEDICARE, SELFPAY ==
[2024-11-13 10:06] VITALS: BP 122/68; PULSE 56; BMI 23.0
--- NOTE | 2024-11-13 10:06 | MHC.OFFVIS ---
Vital Signs 11/13/24 10:06 Height 5 ft 2 in Weight 125 lb 10.616 oz BMI 23.0 BP 122/68 Blood Pressure Location Lt brachial Position Sitting Pulse 56 Pulse Source Pulse Oximeter Intake Visit Reasons: 4m follow up Allergies vancomycin Adverse Reaction (Verified 11/01/24 13:03) Rash Medication List - Last Reconciled 11/13/24 by Javy Bhat MD amlodipine 10 mg PO DAILY 30 days atorvastatin 80 mg PO QPM diphenhydramine-acetaminophen 25-500 mg (Acetaminophen PM) 1 tab PO BEDTIME PRN hydralazine 50 mg PO TID lisinopril 40 mg PO DAILY metoprolol succinate ER 50 mg PO DAILY metoprolol succinate ER (Toprol XL) 25 mg PO DAILY warfarin See Protocol 2.5 mg orally 3.75MG X 3 DAYS/ 2.5MG X 4 DAYS; HPI Comments Details: Charlene returns for follow-up regarding atrial fibrillation and other concerns. To recall, she has had several episodes of atrial fibrillation over the last few years. Was previously on diltiazem. Due to recurrent episodes, Multaq was started but due to cost, she could not afford that. Then has also tried Sotalol but she became quite bradycardic. Briefly was on Amiodarone, but did not pursue that long-term due to side effect profile. Eventually saw EP and underwent ablation. Immediately post ablation, she had one episode of atrial fibrillation for which she came to the ER and got flecainide. However, nothing since that time. Otherwise, she also has a history of embolic stroke in 2018 from subtherapeutic INR but mostly recovered. Seems like she is getting along fine. Frailty from age but otherwise okay. No cardiac symptoms. [facility] Medical History C. 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 Essential hypertension Embolic stroke Sinus bradycardia PAF (paroxysmal atrial fibrillation) Surgical History History of cardiac radiofrequency ablation (~07/07/20) History of colostomy History of section Family History Father CVD (cardiovascular disease) Mother Alzheimer disease Social History Household Members: Spouse Housing: House Do you presently have visiting nurse or other home services: No Alcohol intake: never Patient Tobacco Use Status: Current everyday Tobacco user Tobacco use type: Cigarette Cigarettes Per Day: 2 e-Cigarette/Vaping Use: Never Used Second Hand Smoke Exposure: No Advance Directives Date on File: 03/31/24 service: No Current occupational status: retired Current occupation: right hand dominant Cognitive needs: Yes (cane) Hearing needs: No Vision needs: Yes (glasses) Review of Systems Const Denies weakness ENT Denies dizziness Card Denies chest pain, Denies chest pain with activity, Denies syncope, Denies rapid heart rate, Denies pedal edema, Denies edema, Denies leg edema, Denies lightheadedness, Denies palpitations, Denies dyspnea, Denies dyspnea on exertion and Denies orthopnea Resp Denies cough, Denies dyspnea and Denies dyspnea on exertion GI Denies hematochezia and Denies change in stool character Musc Denies abnormal gait, Denies muscle cramps, Denies muscle weakness, Denies numbness, Denies radiating pain into limb and Denies tingling Neuro Denies abnormal gait, Denies dizziness, Denies syncope, Denies numbness, Denies tingling and Denies weakness Endo Denies palpitations Physical Exam Vital Signs: Last Vital Signs Pulse 56 11/13/24 10:06 BP 122/68 11/13/24 10:06 BMI result Body Mass Index 23.0 Const General: comfortable and no acute distress Orientation/consciousness: patient oriented x3 HEENT Other: Unremarkable Head: Yes normal to inspection Neck Neck: Yes normal visual inspection Chest Chest palpation & inspection: normal inspection of the chest Resp Auscultation: clear to auscultation bilaterally Cardio Palpation: normal PMI Heart sounds: S1 normal heart sound present, S2 normal heart sound present, no gallops, Murmur heart sound present systolic III/ and no rubs GI Palpation (GI): Soft to palpation Back/Spine/Pelvis Other: unremarkable Skin General skin exam: no rashes or lesions noted Neuro General: patient oriented x3 Extrem General: Yes normal to inspection Psych Mental Status: mental status grossly normal Office Procedures EKG Details: EKG with underlying sinus rhythm at 80/Min; supraventricular ectopy; cannot exclude old septal infarct; [place] [id number], Complete Assessment & Plan Assessment & Plan (1) PAF (paroxysmal atrial fibrillation): Code(s): I48.0 - Paroxysmal atrial fibrillation Category: Medical Plan: Status post atrial fibrillation ablation. Previously intolerance or cost prohibitive issues with antiarrhythmics including sotalol, Multaq. Remains on beta-blockers. On Coumadin. She cannot afford anything else. Sleep study in the past without any significant sleep apnea. (2) Atherosclerotic cardiovascular disease: Code(s): I25.10 - Atherosclerotic heart disease of [place] coronary artery without angina pectoris Category: Medical Plan: Myocardial perfusion imaging study in the past with possible mild lateral wall ischemia. Coronary CT denied by insurance. Clinically, she does not have any angina or other ischemic symptoms. Continue statins and Zetia. (3) Essential hypertension: Code(s): I10 - Essential (primary) hypertension Category: Medical Plan: On several meds including metoprolol, lisinopril, amlodipine, hydralazine. Stable. (4) Sinus bradycardia: Code(s): R00.1 - Bradycardia, unspecified Category: Medical Plan: No clinical concerns at this time. Can be monitored. (5) Embolic stroke: Code(s): I63.9 - Cerebral infarction, unspecified Category: Medical Qualifiers: Precerebral and cerebral artery: unspecified cerebral artery Qualified Code(s): I63.40 - Cerebral infarction due to embolism of unspecified cerebral artery Plan: No clear neurological deficits. She remains ambulatory. (6) Non-rheumatic aortic stenosis: Code(s): I35.0 - Nonrheumatic aortic (valve) stenosis Category: Medical Plan: Echocardiogram with moderate aortic valve calcification and mild stenosis. Can be monitored periodically. (7) Mitral annular calcification: Code(s): I05.9 - Rheumatic mitral valve disease, unspecified Category: Medical Plan: No significant valvular dysfunction. Orders: Orders CA echo transthoracic complete 6 Months I35.0 - Nonrheumatic aortic (valve) stenosis Coding Level of Care Code Est Pt Level 4 (44471) Complex EM visit Add On G2211 Diagnoses PAF (paroxysmal atrial fibrillation) I48.0 Atherosclerotic cardiovascular disease I25.10 Essential hypertension I10 Sinus bradycardia R00.1 Cerebrovascular accident (CVA) due to embolism of cerebral artery I63.40 Precerebral and cerebral artery: unspecified cerebral artery Non-rheumatic aortic stenosis I35.0 Mitral annular calcification I05.9 CPT Codes EKG - CPT: 97692-[id number], Complete ([id number])
== END 2024-11-13 10:38 | disposition home or self-care (01) ==
LOC: HO.HCS 09:52
PROVIDERS: PCP Physician Assistant; Visit Provider Internal Medicine
DX: I48.0 Paroxysmal atrial fibrillation (principal); I25.10 Atherosclerotic heart disease of native coronary artery without angina pectoris; I10 Essential (primary) hypertension; R00.1 Bradycardia, unspecified; I63.40 Cerebral infarction due to embolism of unspecified cerebral artery; I35.0 Nonrheumatic aortic (valve) stenosis; I05.9 Rheumatic mitral valve disease, unspecified
CPT/HCPCS: 93010; 99214; G2211

== ENCOUNTER → 2024-11-13 09:51 | Outpatient (BNVA) | payer MEDICARE, SELFPAY | PROVIDERS: PCP Physician Assistant; Visit Provider Internal Medicine | DX: I48.0 Paroxysmal atrial fibrillation (principal); I25.10 Atherosclerotic heart disease of native coronary artery without angina pectoris; I10 Essential (primary) hypertension; Z72.0 Tobacco use; Z79.01 Long term (current) use of anticoagulants; R00.1 Bradycardia, unspecified; I63.40 Cerebral infarction due to embolism of unspecified cerebral artery; I35.0 Nonrheumatic aortic (valve) stenosis; I05.9 Rheumatic mitral valve disease, unspecified; E78.5 Hyperlipidemia, unspecified | CPT/HCPCS: 93005; 99212 ==

== ENCOUNTER 2024-11-15 13:04 | Outpatient (AMB) | payer MEDICARE, SELFPAY ==
--- NOTE | 2024-11-15 13:09 | MHC.OFFVISCO ---
Intake Intake Visit Reasons: Anticoagulation Allergies vancomycin Adverse Reaction (Verified 11/15/24 13:05) Rash Medication List - Last Reconciled 11/15/24 by Karely Hernandez RN amlodipine 10 mg PO DAILY 30 days atorvastatin 80 mg PO QPM diphenhydramine-acetaminophen 25-500 mg (Acetaminophen PM) 1 tab PO BEDTIME PRN hydralazine 50 mg PO TID lisinopril 40 mg PO DAILY metoprolol succinate ER 50 mg PO DAILY metoprolol succinate ER (Toprol XL) 25 mg PO DAILY warfarin See Protocol 2.5 mg orally 3.75MG X 3 DAYS/ 2.5MG X 4 DAYS; Nursing Note INR1.6-?? out of therapeutic range of 2-3 Medications and supplements reviewed Patient status: pt denies missed doses Medications or supplements: no changes Diet: same Denies any signs and symptoms of bleeding or clotting or unusual bruising Bleeding, bruising, clotting discussed Nutritional guidance given: no greens for 2-3 days, eat reds to raise Dose: 3.75mg today then increase weekly dosing sl to 3.75mg x 4, 2.5mg x 3 F/U INR Date : 1 week? Patient verbalizing understanding of instructions given. pt inner sclera reddened right eye. 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
[2024-11-15 14:01] LABS: Prothrombin Time Whole Bld POC 19.3 sec (11.1-13.5); ~PT, ~INR - Anti Coag Clinic 1.6 (0.9-1.1)
== END 2024-11-15 13:23 | disposition home or self-care (01) ==
LOC: HO.ACS 13:04
PROVIDERS: PCP Physician Assistant; Visit Provider Internal Medicine Medical Oncology
DX: Z79.01 Long term (current) use of anticoagulants (principal)

== ENCOUNTER → 2024-11-15 13:04 | Outpatient (BNVA) | payer MEDICARE, SELFPAY | PROVIDERS: PCP Physician Assistant; Visit Provider Internal Medicine Medical Oncology | DX: Z51.81 Encounter for therapeutic drug level monitoring (principal); Z79.01 Long term (current) use of anticoagulants | CPT/HCPCS: 85610; 99211 ==

== ENCOUNTER 2024-11-21 13:53 | Outpatient (AMB) | payer MEDICARE, SELFPAY ==
[2024-11-21 14:06] LABS: Prothrombin Time Whole Bld POC 34.6 sec (11.1-13.5); ~PT, ~INR - Anti Coag Clinic 2.9 (0.9-1.1)
--- NOTE | 2024-11-21 14:13 | MHC.OFFVISCO ---
Intake Intake Visit Reasons: Anticoagulation Allergies vancomycin Adverse Reaction (Verified 11/21/24 14:00) Rash Medication List - Last Reconciled 11/21/24 by Mery Alston RN amlodipine 10 mg PO DAILY 30 days atorvastatin 80 mg PO QPM diphenhydramine-acetaminophen 25-500 mg (Acetaminophen PM) 1 tab PO BEDTIME PRN hydralazine 50 mg PO TID lisinopril 40 mg PO DAILY metoprolol succinate ER 50 mg PO DAILY metoprolol succinate ER (Toprol XL) 25 mg PO DAILY warfarin See Protocol 2.5 mg orally 3.75MG X 3 DAYS/ 2.5MG X 4 DAYS; Nursing Note INR: 2.9 in therapeutic range of 2-3 Medications and supplements reviewed No changes in health, diet, medications, or supplements, Denies any signs and symptoms of bleeding or bruising or clotting. Bleeding, bruising, clotting discussed Nutritional guidance given to have a serving of greens today Pt states she will have cabbage Dose: 3.75mg X 4 days and 2.5mg X 3 days (M/W/F) F/U INR: 1 week Patient verbalizes understanding of instructions with read back given Anti-Coag Initial Assessment Social Hx Patient Tobacco Use Status: Current everyday Tobacco user Tobacco use type: Cigarette alcohol intake: never Alcohol intake frequency: does not drink Coding Level of Care Code Est Patient Level 1 Diagnoses Current use of anticoagulant therapy Z79.01 Results AMB INR Fingerstick AMB INR Fingerstick 2.9 Last Edit by Mery Alston RN on 11/21/24 14:07 interface delay Assessment & Plan Assessment & Plan (1) Current use of anticoagulant therapy: Code(s): 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
== END 2024-11-21 14:16 | disposition home or self-care (01) ==
LOC: HO.ACS 13:53
PROVIDERS: PCP Physician Assistant; Visit Provider Internal Medicine Medical Oncology
DX: Z79.01 Long term (current) use of anticoagulants (principal)

== ENCOUNTER → 2024-11-21 13:53 | Outpatient (BNVA) | payer MEDICARE, SELFPAY | PROVIDERS: PCP Physician Assistant; Visit Provider Internal Medicine Medical Oncology | DX: I48.0 Paroxysmal atrial fibrillation (principal); Z51.81 Encounter for therapeutic drug level monitoring; Z79.01 Long term (current) use of anticoagulants | CPT/HCPCS: 85610; 99211 ==

== ENCOUNTER 2024-11-28 13:55 | Outpatient (AMB) | payer MEDICARE, SELFPAY ==
[2024-11-28 14:06] LABS: Prothrombin Time Whole Bld POC 31.9 sec (11.1-13.5); ~PT, ~INR - Anti Coag Clinic 2.7 (0.9-1.1)
--- NOTE | 2024-11-28 14:12 | MHC.OFFVISCO ---
Intake Intake Visit Reasons: Anticoagulation Allergies vancomycin Adverse Reaction (Verified 11/28/24 13:59) Rash Medication List - Last Reconciled 11/28/24 by Twila Valentine RN amlodipine 10 mg PO DAILY 30 days atorvastatin 80 mg PO QPM diphenhydramine-acetaminophen 25-500 mg (Acetaminophen PM) 1 tab PO BEDTIME PRN hydralazine 50 mg PO TID lisinopril 40 mg PO DAILY metoprolol succinate ER 50 mg PO DAILY metoprolol succinate ER (Toprol XL) 25 mg PO DAILY warfarin See Protocol 2.5 mg orally 3.75MG X 3 DAYS/ 2.5MG X 4 DAYS; Nursing Note INR: 2.7 in therapeutic range Medications and supplements reviewed No changes in health, diet, medications, or supplements, Denies any signs and symptoms of bleeding or bruising or clotting. Bleeding, bruising, clotting discussed Nutritional guidance given Dose: 2.5mg x 3 days/ 3.75mg x 4 days F/U INR: 2 weeks Patient verbalizes understanding of instructions given Anti-Coag Initial Assessment Social Hx Patient Tobacco Use Status: Current everyday Tobacco user Tobacco use type: Cigarette alcohol intake: never Alcohol intake frequency: does not drink Coding Level of Care Code Est Patient Level 1 Diagnoses Current use of anticoagulant therapy Z79.01 Assessment & Plan Assessment & Plan (1) Current use of anticoagulant therapy: Code(s): Z79.01 - retirement (current) use of anticoagulants Category: Medical
== END 2024-11-28 14:18 | disposition home or self-care (01) ==
LOC: HO.ACS 13:55
PROVIDERS: PCP Physician Assistant; Visit Provider Internal Medicine Medical Oncology
DX: Z79.01 Long term (current) use of anticoagulants (principal)

== ENCOUNTER → 2024-11-28 13:55 | Outpatient (BNVA) | payer MEDICARE, SELFPAY | PROVIDERS: PCP Physician Assistant; Visit Provider Internal Medicine Medical Oncology | DX: I48.0 Paroxysmal atrial fibrillation (principal); Z51.81 Encounter for therapeutic drug level monitoring; Z79.01 Long term (current) use of anticoagulants | CPT/HCPCS: 85610; 99211 ==

== ENCOUNTER 2024-12-12 13:02 | Outpatient (AMB) | payer MEDICARE, SELFPAY ==
[2024-12-12 13:13] LABS: Prothrombin Time Whole Bld POC 14.6 sec (11.1-13.5); ~PT, ~INR - Anti Coag Clinic 1.2 (0.9-1.1)
--- NOTE | 2024-12-12 13:20 | MHC.OFFVISCO ---
Intake Intake Visit Reasons: Anticoagulation Allergies vancomycin Adverse Reaction (Verified 12/12/24 13:06) Rash Medication List - Last Reconciled 12/12/24 by Mery Alston RN amlodipine 10 mg PO DAILY 30 days atorvastatin 80 mg PO QPM diphenhydramine-acetaminophen 25-500 mg (Acetaminophen PM) 1 tab PO BEDTIME PRN hydralazine 50 mg PO TID lisinopril 40 mg PO DAILY metoprolol succinate ER 50 mg PO DAILY metoprolol succinate ER (Toprol XL) 25 mg PO DAILY warfarin See Protocol 2.5 mg tablet 1-1 1/2 DAILY PO: 3.75MG X 4 DAYS/ 2.5MG X 3 DAYS PER INR PER ANTICOAGULATION SERVICES = 40 TABS / MONTH =120/3 MONTHS Nursing Note INR: 1.2 out of therapeutic range of 2-3 Medications and supplements reviewed Patient status: Pt denies missed dose. States she was ill a few days ago with N/V/D that lasted 2 days and most likely did not absorb the warfarin. Medications or supplements: no changes Diet: appetite fair Denies any signs and symptoms of bleeding or clotting or unusual bruising Bleeding, bruising, clotting discussed Nutritional guidance given: to avoid greens X 3 days and to focus on foods that raise the INR; have 1 a day. Food list discussed. Dose: increase today's dose from 3.75mg to 5mg and increase tomorrow's dose from 2.5mg to 5mg then to resume usual dose of 3.75mg X 4 days and 2.5mg X 3 days (M/W/F) F/U INR Date: 6 days?? Patient verbalizing understanding of instructions given. 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
== END 2024-12-12 13:52 | disposition home or self-care (01) ==
LOC: HO.ACS 13:02
PROVIDERS: PCP Physician Assistant; Visit Provider Internal Medicine Medical Oncology
DX: Z79.01 Long term (current) use of anticoagulants (principal)

== ENCOUNTER → 2024-12-12 13:02 | Outpatient (BNVA) | payer MEDICARE, SELFPAY | PROVIDERS: PCP Physician Assistant; Visit Provider Internal Medicine Medical Oncology | DX: Z79.01 Long term (current) use of anticoagulants (principal) | CPT/HCPCS: 85610; 99211 ==

== ENCOUNTER 2024-12-17 09:28 | Outpatient (REF) | payer MEDICARE, SELFPAY ==
[2024-12-17 10:55] LABS: Cholesterol 257 mg/dL (<200); HDL Cholesterol 58 mg/dL (>40); Triglycerides 181 mg/dL (<150)
== END 2024-12-17 09:29 | disposition home or self-care (01) ==
LOC: HO.LAB 09:28
PROVIDERS: PCP Physician Assistant; Visit Provider Physician Assistant
DX: E78.5 Hyperlipidemia, unspecified (principal)
CPT/HCPCS: 36415; 80061

== ENCOUNTER 2024-12-18 13:01 | Outpatient (AMB) | payer MEDICARE, SELFPAY ==
--- NOTE | 2024-12-18 13:06 | MHC.PC.OV ---
Vital Signs 12/18/24 13:07 Height 5 ft 2 in Weight 127 lb 4 oz BMI 23.3 BP 126/82 Blood Pressure Location Lt brachial Position Sitting Pulse 72 Pulse Source Pulse Oximeter Temp 97.7 F Temp Source Temporal Artery Scan Pulse Oximetry (%) 95 Oxygen Delivery Method Room Air Intake Visit Reasons: Annual PE - see comments Accompanied by: Spouse Allergies vancomycin Adverse Reaction (Verified 12/18/24 13:30) Rash Medication List - Last Reconciled 12/18/24 by Santiago Drew PA-C amlodipine 10 mg PO DAILY 30 days atorvastatin 80 mg PO QPM diphenhydramine-acetaminophen 25-500 mg (Acetaminophen PM) 1 tab PO BEDTIME PRN hydralazine 50 mg PO TID lisinopril 40 mg PO DAILY metoprolol succinate ER 50 mg PO DAILY metoprolol succinate ER (Toprol XL) 25 mg PO DAILY warfarin See Protocol 2.5 mg tablet 1-1 1/2 DAILY PO: 3.75MG X 4 DAYS/ 2.5MG X 3 DAYS PER INR PER ANTICOAGULATION SERVICES = 40 TABS / MONTH =120/3 MONTHS Tobacco use date assessed: 12/18/24 Fall risk assessment: No Falls in past year Last assessed Fall Risk: 12/18/24 Dental Screening Dental Screen Date: 12/18/24 Did you have a dental visit in the last 12 months?: No Did you have a dental problem in the last 6 months where you did not have access to dental care?: No Was dental information given to patient?: No HPI Annual PE - see comments HPI Details Patient is a 79-year-old female here today for routine annual physical.. Patient has a past medical history significant for hyperlipidemia, hypertension, paroxysmal AFib. Hypertension: Patient's blood pressure acceptable today in office.. She continues on hydralazine, lisinopril 40 mg and amlodipine 5 mg .. Hyperlipidemia: Patient continues on high dose statin therapy. She does admit to dietary indiscretion. Most recent lipid panel showing elevated total cholesterol and LDL. PLAN: Will add on Zetia 10 mg for better LDL reduction .. AFib: Patient followed by [facility]. She is anticoagulated with warfarin and INRs has been subtherapeutic.. No overt signs of bleeding. She has under rate control with metoprolol 50 mg. She does report some fatigue daily though attributes this to age. .. Tobacco dependency: Patient has been smoking over 35 years, no interested in quitting at this time. We did discuss the lung cancer screening program though she declines at this time. Vaccines: Up-to-date with COVID vaccine,, UTD flu vaccine, needs up-to-date pneumonia vaccine. Laboratory Tests 10/09/24 12/17/24 10:24 09:39 Triglycerides 181 H Cholesterol 223 H 257 H LDL Cholesterol, C alc 140 H 163 H PFSH Medical History C. 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 Essential hypertension Embolic stroke Sinus bradycardia PAF (paroxysmal atrial fibrillation) Surgical History History of cardiac radiofrequency ablation (~07/07/20) History of colostomy History of section Family History (Updated 12/18/24 @ 13:34 by Santiago Drew PA-C) Father CVD (cardiovascular disease) Mother Alzheimer disease Son Renal failure Social History Household Members: Spouse Housing: House Do you presently have visiting nurse or other home services: No Alcohol intake: never Patient Tobacco Use Status: Current everyday Tobacco user Tobacco use type: Cigarette Cigarettes Per Day: 2 e-Cigarette/Vaping Use: Never Used Second Hand Smoke Exposure: No Advance Directives Date on File: 03/31/24 service: No Current occupational status: retired Current occupation: right hand dominant Cognitive needs: Yes (cane) Hearing needs: No Vision needs: Yes (glasses) Questionnaire PHQ-9 Over the last 2 weeks, how often have you been bothered by any of the following problems? 1. Little interest or pleasure in doing things: several days 2. Feeling down, depressed, or hopeless: several days 3. Trouble falling or staying asleep, or sleeping too much: more than half the days 4. Feeling tired or having little energy: several days 5. Poor appetite or overeating: several days 6. Feeling bad about yourself - or that you are a failure or have let yourself or your family down: not at all 7. Trouble concentrating on things, such as reading the newspaper or watching television: not at all 8. Moving or speaking so slowly that other people could have noticed. Or the opposite - being so fidgety or restless that you have been moving around a lot more than usual: not at all 9. Thoughts that you would be better off or of hurting yourself in some way: not at all Total score: 6 Depression Screening Interpretation: Positive Depression Screening Follow-up: Existing condition Depression Screening Done: Yes 59428 - PHQ-9 Billing: Patient declined-do not bill Source: Developed by Drs. Domingo Sandoval, Nilsa Palacios, Jorge Dominguez and colleagues, with an educational joselin from [employer] Thrive Questionnaire Date Thrive assessed: 07/03/24 I am a: Patient What is your living situation today?: I have a steady place to live Within the past 12 months, did the food you bought not last and you didn't have the money to get more?: Never true Within the past 12 months, did you worry whether your food would run out before you got money to buy more?: Never true Do you have trouble paying for medicines?: No Do you have trouble getting transportation to medical appointments?: No Do you have trouble paying your heating and electricity bill?: No Do you have trouble taking care of your child, family member or friend?: No Do you have trouble with day-to-day activities such as bathing, preparing meals, shopping, managing finances, etc.?: No Are you currently unemployed and looking for a job?: No Are you interested in more education?: No Please select the resources that you would like help with: None Currently or been in a relationship where the following occur: I choose not to answer THRIVE Score: 0 AUDIT C Alcohol Use Questionnaire (AUDIT-C) 1. How often do you have a drink containing alcohol?: Never 3. How often do you have six or more drinks on one occasion?: Never Total Score: 0 LYNDSAY-7 AMB Questionnaire LYNDSAY-7 Date LYNDSAY - 7 assessed: 03/04/24 Feeling nervous, anxious, or on edge: 0 = Not at all Not being able to stop or control worryin = Not at all Worrying too much about different things: 0 = Not at all Trouble relaxin = Not at all Being so restless that it is hard to sit still: 0 = Not at all Becoming easily annoyed or irritable: 0 = Not at all Feeling afraid as if something awful might happen: 0 = Not at all Total LYNDSAY-7 score (0-4 normal; 5-9 mild; 10-14 moderate; 15-21 severe): 0 Source: Developed by Drs. Domingo Sandoval, Nilsa Palacios, Jorge Dominguez and colleagues, with an educational joselin from [employer] LYNDSAY-7 Assessment Billing LYNDSAY-7 Assessment Tool: LYNDSAY-7 Assessment 44109 Review of Systems Const Denies body aches, Denies chills, Denies excessive sweating, Denies fatigue, Denies fever(s) and Denies headache(s) Eyes Denies blurry vision ENT Denies dysphagia, Denies vertigo, Denies dizziness, Denies headache(s), Denies hearing loss and Denies tinnitus Card Denies chest pain, Denies chest pain with activity, Denies syncope, Denies irregular heart rhythm and Denies dyspnea Resp Denies chest congestion, Denies cough, Denies hemoptysis, Denies dyspnea and Denies wheezing GI Denies abdominal pain, Denies melena, Denies hematochezia, Denies coffee ground emesis, Denies dysphagia, Denies diarrhea, Denies nausea and Denies vomiting Denies urinary frequency, Denies dysuria, Denies urinary hesitancy and Denies urinary urgency Musc Denies arthralgias, Denies limited range of motion, Denies muscle cramps and Denies muscle weakness Skin/Breast Denies rash and Denies skin ulcer Neuro Denies Abnormal speech present, Denies confusion, Denies vertigo, Denies dizziness, Denies syncope, Denies headache(s), Denies memory loss and Denies seizure-like activity Psych Denies anxiety, Denies confusion, Denies depression, Denies memory loss, Denies panic attacks and Denies paranoia Endo Denies excessive sweating, Denies fatigue, Denies flushing, Denies polydipsia and Denies polyuria Aller/Immun Denies wheezing Physical exam (Primary Care) Vital Signs: Last Vital Signs Temp 97.7 F 12/18/24 13:07 Pulse 72 12/18/24 13:07 BP 126/82 12/18/24 13:07 Pulse Ox 95 12/18/24 13:07 Oxygen Delivery Method Room Air 12/18/24 13:07 BMI result Body Mass Index 23.3 Tobacco/Smoking Status: Tobacco use Status Tobacco use date assessed 12/18/24 12/18/24 13:11 Patient Tobacco Use Status Current everyday Tobacco 12/18/24 13:11 Tobacco use type Cigarette 12/18/24 13:11 e-Cigarette/Vaping Use Never Used 12/18/24 13:11 PHQ-9: PHQ-9 Score PHQ-9: Total score 6 12/18/24 13:34 Depression Screening Interpretation: Positive Depression Screening Follow-up: Existing condition Thrive Assessment: Date of Thrive Assessment Date Thrive assessed 07/03/24 12/18/24 13:11 Currently or been in a relationship where the following occur: I choose not to answer Const General: cooperative, comfortable, no acute distress, alert and awake; No confusion Orientation/consciousness: oriented to person, oriented to place, patient oriented x3 and No confusion HENMT Head: Yes normocephalic Ears: external ears normal and TM's normal bilaterally Face and sinus: No sinus tenderness Mouth: Normal oral and palatal mucosa present and tongue normal Teeth and gingiva: dentition normal and gingiva normal Throat: Yes posterior oropharynx normal, Yes tonsils normal and Yes uvula midline Eyes Conjunctivae: conjunctivae normal Sclerae: sclerae normal Pupils: Equal, round and reactive pupils present EOM: EOMs intact bilaterally Direct Ophthalmoscopy: No no photophobia Neck Neck: Yes no lymphadenopathy, No tender and Yes no JVD Thyroid: Thyroid normal Carotids: no bruits Chest Chest palpation & inspection: no tenderness Resp Effort & Inspection: normal respiratory effort, no audible wheezes, not labored and no stridor Auscultation: no crackles, no rales, no rhonchi and no wheezes Cardio Jugular venous distension: no JVD Rate: regular rate, not bradycardic and not tachycardic Rhythm: regular rhythm Bruits: no carotid bruits Peripheral pulses: Peripheral pulses 2+ throughout GI Inspection: Yes normal to inspection, No abdominal wall ecchymosis and No visible herniation Palpation (GI): Soft to palpation, nontender, no guarding, not rigid and No hepatosplenomegaly present Auscultation: normoactive bowel sounds General: Yes no CVA tenderness Back/Spine/Pelvis Back: no CVA tenderness and No back tenderness Cervical Spine: cervical ROM normal Thoracic/Lumbar Spine: thoracic and lumbar spine normal to inspection, straight leg raise negative bilaterally, No thoraco-lumbar ROM limited and No lumbar spinal tenderness Skin Lesions: no lesions Rashes: no rashes Wounds: no wounds Neuro General: oriented to person, oriented to place, patient oriented x3, CN's II-XI intact bilaterally and No confusion Cranial nerves: Yes Equal, round and reactive pupils present and Yes Normal accommodation reflex present Cognition (Neuro): normal cognition Speech: No Abnormal speech present Gait exam (Neuro): Normal gait present Motor exam (neuro): 5/5 motor strength present throughout Extrem Right upper extremity: full ROM; no cyanosis Left upper extremity: full ROM; no cyanosis Right lower extremity: no edema Left lower extremity: no edema Psych Appearance: grossly normal Mental Status: mental status grossly normal Affect: normal affect Attitude: cooperative Thought process: Normal thought process present Coding Level of Care Code Est Pt Prev Care >65y(40203) Diagnoses Annual physical exam Z00.00 PAF (paroxysmal atrial fibrillation) I48.0 Cerebrovascular accident (CVA) due to embolism of cerebral artery I63.40 Precerebral and cerebral artery: unspecified cerebral artery Tobacco dependence F17.200 Mixed hyperlipidemia E78.2 Hyperlipidemia type: mixed hyperlipidemia Additional Codes LYNDSAY-7 Assessment Billing - LYNDSAY-7 Assessment Tool: LYNDSAY-7 Assessment [id number] ([id number]) Assessment & Plan Assessment & Plan (1) Annual physical exam: Code(s): Z00.00 - Encounter for general adult medical examination without abnormal findings Category: Medical Plan: As per HPI (2) PAF (paroxysmal atrial fibrillation): Code(s): I48.0 - Paroxysmal atrial fibrillation Category: Medical Plan: Continues to follow cardiology, anticoagulated with warfarin and under rate control with metoprolol. (3) Embolic stroke: Code(s): I63.9 - Cerebral infarction, unspecified Category: Medical Qualifiers: Precerebral and cerebral artery: unspecified cerebral artery Qualified Code(s): I63.40 - Cerebral infarction due to embolism of unspecified cerebral artery Plan: Patient followed by Neurology, continues on high dose statin therapy and anticoagulation. She does have some balance issues has a sequelae to her stroke. We did discuss doing physical therapy for balance training though patient is considering (4) Tobacco dependence: Code(s): F17.200 - Nicotine dependence, unspecified, uncomplicated Category: Medical Plan: Patient does understand she needs to quit smoking though is not willing to do so at this time. Nicotine replacement offered. We did discuss the lung cancer screening program though she declines at this time. (5) Hyperlipidemia: Code(s): E78.5 - Hyperlipidemia, unspecified Category: Medical Qualifiers: Hyperlipidemia type: mixed hyperlipidemia Qualified Code(s): E78.2 - Mixed hyperlipidemia Plan: For management of hyperlipidemia, Zetia will be added to the patient's current regimen, as her cholesterol remains elevated despite being on a high-dose statin. The patient was counseled on making dietary changes, specifically reducing her intake of sweets, to help lower her cholesterol. A follow-up lipid panel will be ordered before her next visit. Goal LDL to be below 100 Orders: Orders Pneumococcal 20 Immunization Today F17.200 - Nicotine dependence, unspecified, uncomplicated, Z23 - Encounter for immunization Microalbumin, Random (w Creat) Today I10 - Essential (primary) hypertension Complete Blood Count no Diff Today I10 - Essential (primary) hypertension Lipid Panel Today E78.2 - Mixed hyperlipidemia Comprehensive [place]. Panel Fast Today I10 - Essential (primary) hypertension Medications: New ezetimibe (Zetia) 10 mg PO DAILY 90 tabs 1RF 90 days E78.5 - Hyperlipidemia, unspecified
[2024-12-18 13:07] VITALS: BP 126/82; PULSE 72; TEMP 36.5; O2SAT 95; BMI 23.3
== END 2024-12-18 13:50 | disposition home or self-care (01) ==
LOC: HO.HMCH 13:02
PROVIDERS: PCP Physician Assistant; Visit Provider Physician Assistant
DX: Z00.00 Encounter for general adult medical examination without abnormal findings (principal); I48.0 Paroxysmal atrial fibrillation; I63.40 Cerebral infarction due to embolism of unspecified cerebral artery; F17.200 Nicotine dependence, unspecified, uncomplicated; E78.2 Mixed hyperlipidemia; Z23 Encounter for immunization

== ENCOUNTER → 2024-12-18 13:01 | Outpatient (BNVA) | payer MEDICARE, SELFPAY | PROVIDERS: PCP Physician Assistant; Visit Provider Physician Assistant | DX: Z00.00 Encounter for general adult medical examination without abnormal findings (principal); I10 Essential (primary) hypertension; I48.0 Paroxysmal atrial fibrillation; E78.2 Mixed hyperlipidemia; F17.210 Nicotine dependence, cigarettes, uncomplicated; Z23 Encounter for immunization; Z86.73 Personal history of transient ischemic attack (TIA), and cerebral infarction without residual deficits | CPT/HCPCS: 90471; 90677; 96127; 99397 ==

== ENCOUNTER 2024-12-20 13:10 | Outpatient (AMB) | payer MEDICARE, SELFPAY ==
[2024-12-20 13:21] LABS: Prothrombin Time Whole Bld POC 26.8 sec (11.1-13.5); ~PT, ~INR - Anti Coag Clinic 2.2 (0.9-1.1)
--- NOTE | 2024-12-20 13:24 | MHC.OFFVISCO ---
Intake Intake Visit Reasons: Anticoagulation Allergies vancomycin Adverse Reaction (Verified 12/20/24 13:13) Rash Medication List - Last Reconciled 12/20/24 by Mery Alston, RN amlodipine 10 mg PO DAILY 30 days atorvastatin 80 mg PO QPM diphenhydramine-acetaminophen 25-500 mg (Acetaminophen PM) 1 tab PO BEDTIME PRN ezetimibe (Zetia) 10 mg PO DAILY 90 days hydralazine 50 mg PO TID lisinopril 40 mg PO DAILY metoprolol succinate ER 50 mg PO DAILY metoprolol succinate ER (Toprol XL) 25 mg PO DAILY warfarin See Protocol 2.5 mg tablet 1-1 /2 DAILY PO: 3.75MG X 4 DAYS/ 2.5MG X 3 DAYS PER INR PER ANTICOAGULATION SERVICES = 40 TABS / MONTH =120/3 MONTHS Nursing Note INR: 2.2 in therapeutic range of 2-3 Medications and supplements reviewed No changes in health, diet, medications, or supplements, Denies any signs and symptoms of bleeding or bruising or clotting. 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
== END 2024-12-20 13:28 | disposition home or self-care (01) ==
LOC: HO.ACS 13:10
PROVIDERS: PCP Physician Assistant; Visit Provider Internal Medicine Medical Oncology
DX: Z79.01 Long term (current) use of anticoagulants (principal)

== ENCOUNTER → 2024-12-20 13:10 | Outpatient (BNVA) | payer MEDICARE, SELFPAY | PROVIDERS: PCP Physician Assistant; Visit Provider Internal Medicine Medical Oncology | DX: I48.0 Paroxysmal atrial fibrillation (principal); Z51.81 Encounter for therapeutic drug level monitoring; Z79.01 Long term (current) use of anticoagulants | CPT/HCPCS: 85610; 99211 ==

== ENCOUNTER 2024-12-27 13:01 | Outpatient (AMB) | payer MEDICARE, SELFPAY ==
[2024-12-27 13:11] LABS: Prothrombin Time Whole Bld POC 17.8 sec (11.1-13.5); ~PT, ~INR - Anti Coag Clinic 1.5 (0.9-1.1)
--- NOTE | 2024-12-27 13:26 | MHC.OFFVISCO ---
Intake Intake Visit Reasons: Anticoagulation Allergies vancomycin Adverse Reaction (Verified 12/27/24 13:12) Rash Medication List - Last Reconciled 12/27/24 by Rosangela Malone RN amlodipine 10 mg PO DAILY 30 days atorvastatin 80 mg PO QPM diphenhydramine-acetaminophen 25-500 mg (Acetaminophen PM) 1 tab PO BEDTIME PRN ezetimibe (Zetia) 10 mg PO DAILY 90 days hydralazine 50 mg PO TID lisinopril 40 mg PO DAILY metoprolol succinate ER 50 mg PO DAILY metoprolol succinate ER (Toprol XL) 25 mg PO DAILY warfarin See Protocol 2.5 mg tablet 1-1 /2 DAILY PO: 3.75MG X 4 DAYS/ 2.5MG X 3 DAYS PER INR PER ANTICOAGULATION SERVICES = 40 TABS / MONTH =120/3 MONTHS Nursing Note PT.DENIES ANY MISSED DOSES, BUT THIS IS QUESTIONABLE I BELIEVE. NO CP,SOB SX OF BLEEDING. PT.STARTED ZETIA 1 WEEK AGO, WHICH IS LIKELY TO INCREASE INR'S NOT LOWER. BOOST WARFARIN TO 5MGM TODAY THEN RESUME USUAL DOSE AND FOLLOW-UP HERE ON 12/31/24. GOOD UNDERSTANDING OF DOSING INSTR. INR AND PLAN OF CARE REPORTED TO PCP(BENJAMIN)AT 1:15PM. 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
== END 2024-12-27 13:34 | disposition home or self-care (01) ==
LOC: HO.ACS 13:01
PROVIDERS: PCP Physician Assistant; Visit Provider Internal Medicine Medical Oncology
DX: Z79.01 Long term (current) use of anticoagulants (principal)

== ENCOUNTER → 2024-12-27 13:01 | Outpatient (BNVA) | payer MEDICARE, SELFPAY | PROVIDERS: PCP Physician Assistant; Visit Provider Internal Medicine Medical Oncology | DX: I48.0 Paroxysmal atrial fibrillation (principal); Z51.81 Encounter for therapeutic drug level monitoring; Z79.01 Long term (current) use of anticoagulants | CPT/HCPCS: 85610; 99211 ==

== ENCOUNTER 2024-12-31 15:27 | Outpatient (AMB) | payer MEDICARE, SELFPAY ==
[2024-12-31 15:34] LABS: Prothrombin Time Whole Bld POC 22.3 sec (11.1-13.5); ~PT, ~INR - Anti Coag Clinic 1.9 (0.9-1.1)
--- NOTE | 2024-12-31 15:40 | MHC.OFFVISCO ---
Intake Intake Visit Reasons: Anticoagulation Allergies vancomycin Adverse Reaction (Verified 12/31/24 15:28) Rash Medication List - Last Reconciled 12/31/24 by Twila Valentine RN amlodipine 10 mg PO DAILY 30 days atorvastatin 80 mg PO QPM diphenhydramine-acetaminophen 25-500 mg (Acetaminophen PM) 1 tab PO BEDTIME PRN ezetimibe (Zetia) 10 mg PO DAILY 90 days hydralazine 50 mg PO TID lisinopril 40 mg PO DAILY metoprolol succinate ER 50 mg PO DAILY metoprolol succinate ER (Toprol XL) 25 mg PO DAILY warfarin See Protocol 2.5 mg tablet 1-1 1/2 DAILY PO: 3.75MG X 4 DAYS/ 2.5MG X 3 DAYS PER INR PER ANTICOAGULATION SERVICES = 40 TABS / MONTH =120/3 MONTHS Nursing Note INR 1.9 out of therapeutic range Medications and supplements reviewed Patient status: pt started zetia 10mg low dose 2 weeks ago - can raise the INR however previous INR was 1.5 Medications or supplements: no other changes Diet: good Denies any signs and symptoms of bleeding or clotting or unusual bruising Bleeding, bruising, clotting discussed Nutritional guidance given: enc to eat a mix of fruits and vegetables, she stated she will be having orange vegetables that will help raise the INR for her Thanksgiving meal Dose: keep same dose 2.5mg mwf/ 3.75mg x 4 days F/U INR Date: 2 weeks 01/14/25 ?? Patient verbalizing understanding of instructions given. 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
== END 2024-12-31 15:44 | disposition home or self-care (01) ==
LOC: HO.ACS 15:27
PROVIDERS: PCP Physician Assistant; Visit Provider Internal Medicine Medical Oncology
DX: Z79.01 Long term (current) use of anticoagulants (principal)

== ENCOUNTER → 2024-12-31 15:27 | Outpatient (BNVA) | payer MEDICARE, SELFPAY | PROVIDERS: PCP Physician Assistant; Visit Provider Internal Medicine Medical Oncology | DX: I48.0 Paroxysmal atrial fibrillation (principal); Z51.81 Encounter for therapeutic drug level monitoring; Z79.01 Long term (current) use of anticoagulants | CPT/HCPCS: 85610; 99211 ==

== ENCOUNTER 2025-01-14 13:18 | Outpatient (AMB) | payer MEDICARE, SELFPAY ==
--- NOTE | 2025-01-14 13:40 | MHC.OFFVISCO ---
Intake Intake Visit Reasons: Anticoagulation Allergies vancomycin Adverse Reaction (Verified 12/31/24 15:28) Rash Medication List - Last Reconciled 01/14/25 by Twila Valentine RN amlodipine 10 mg PO DAILY 30 days atorvastatin 80 mg PO QPM diphenhydramine-acetaminophen 25-500 mg (Acetaminophen PM) 1 tab PO BEDTIME PRN ezetimibe (Zetia) 10 mg PO DAILY 90 days hydralazine 50 mg PO TID lisinopril 40 mg PO DAILY metoprolol succinate ER 50 mg PO DAILY metoprolol succinate ER (Toprol XL) 25 mg PO DAILY warfarin See Protocol 2.5 mg tablet 1-1 1/2 DAILY PO: 3.75MG X 4 DAYS/ 2.5MG X 3 DAYS PER INR PER ANTICOAGULATION SERVICES = 40 TABS / MONTH =120/3 MONTHS Nursing Note PT states she woke up Sat am 01/11/25 with flashing light in her left eye and with a big blob blocking her vision She contacted her eye MD Dr Fofana - who is referring her to retinal specialist- she is currently waiting for an appt INR: 2.1 in therapeutic range Medications and supplements reviewed No changes in diet, medications, or supplements, Denies any signs and symptoms of bleeding or bruising or clotting, or pain of any kind. Other than hand tremors she appears neurologically intact Bleeding, bruising, clotting, and pain discussed Nutritional guidance given eat a mix of fruits and vegetables Dose: keep same dose 2.5mg mwf/ 3.75mg x 4 days F/U INR: 2weeks Patient verbalizes understanding of instructions given Anti-Coag Initial Assessment Social Hx Patient Tobacco Use Status: Current everyday Tobacco user Tobacco use type: Cigarette alcohol intake: never Alcohol intake frequency: does not drink Coding Level of Care Code Est Patient Level 1 Diagnoses Current use of anticoagulant therapy Z79.01 Results AMB INR Fingerstick AMB INR Fingerstick 2.1 Last Edit by Twila Valentine RN on 01/14/25 13:35 manual entry Assessment & Plan Assessment & Plan (1) Current use of anticoagulant therapy: 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
[2025-01-15 08:29] LABS: Prothrombin Time Whole Bld POC 25.1 sec (11.1-13.5); ~PT, ~INR - Anti Coag Clinic 2.1 (0.9-1.1)
== END 2025-01-14 13:49 | disposition home or self-care (01) ==
LOC: HO.ACS 13:18
PROVIDERS: PCP Physician Assistant; Visit Provider Internal Medicine Medical Oncology
DX: Z79.01 Long term (current) use of anticoagulants (principal)

== ENCOUNTER → 2025-01-14 13:18 | Outpatient (BNVA) | payer MEDICARE, SELFPAY | PROVIDERS: PCP Physician Assistant; Visit Provider Internal Medicine Medical Oncology | DX: Z79.01 Long term (current) use of anticoagulants (principal) | CPT/HCPCS: 85610; 99211 ==

== ENCOUNTER 2025-02-04 13:35 | Outpatient (AMB) | payer MEDICARE, SELFPAY ==
[2025-02-04 13:44] LABS: Prothrombin Time Whole Bld POC 17.6 sec (11.1-13.5); ~PT, ~INR - Anti Coag Clinic 1.5 (0.9-1.1)
--- NOTE | 2025-02-04 14:00 | MHC.OFFVISCO ---
Intake Intake Visit Reasons: Anticoagulation Allergies vancomycin Adverse Reaction (Verified 02/04/25 13:47) Rash Medication List - Last Reconciled 02/04/25 by Twila Valentine RN amlodipine 10 mg PO DAILY 30 days atorvastatin 80 mg PO QPM diphenhydramine-acetaminophen 25-500 mg (Acetaminophen PM) 1 tab PO BEDTIME PRN ezetimibe (Zetia) 10 mg PO DAILY 90 days hydralazine 50 mg PO TID lisinopril 40 mg PO DAILY metoprolol succinate ER 50 mg PO DAILY metoprolol succinate ER (Toprol XL) 25 mg PO DAILY warfarin See Protocol 2.5 mg tablet 1-1 1/2 DAILY PO: 3.75MG X 4 DAYS/ 2.5MG X 3 DAYS PER INR PER ANTICOAGULATION SERVICES = 40 TABS / MONTH =120/3 MONTHS Nursing Note INR 1.5 out of therapeutic range Medications and supplements reviewed Patient status: Pt states she may have missed a dose, plus ate a lot of chocolate over the Holiday, and had a large serving of greens just yesterday Medications or supplements: reports no changes Diet: good appetite Denies any signs and symptoms of bleeding or clotting or unusual bruising Bleeding, bruising, clotting discussed Nutritional guidance given: avoid greens x 2 days, eat orange and reds to help raise the INR Dose: increase today's dose to 5mg and tomorrow 's dose to 3.75mg then resume 2.5mg mwf/ 3.75mg x 4 days F/U INR Date: refused sooner appt requested 02/10/2025 Pt aware INR is low and stroke risk increases with subtherapeutic INRs ?? Patient verbalizing understanding of instructions given. 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
== END 2025-02-04 14:06 | disposition home or self-care (01) ==
LOC: HO.ACS 13:35
PROVIDERS: PCP Physician Assistant; Visit Provider Internal Medicine Medical Oncology
DX: Z79.01 Long term (current) use of anticoagulants (principal)

== ENCOUNTER → 2025-02-04 13:35 | Outpatient (BNVA) | payer MEDICARE, SELFPAY | PROVIDERS: PCP Physician Assistant; Visit Provider Internal Medicine Medical Oncology | DX: I48.0 Paroxysmal atrial fibrillation (principal); Z51.81 Encounter for therapeutic drug level monitoring; Z79.01 Long term (current) use of anticoagulants | CPT/HCPCS: 85610; 99211 ==